=== PATIENT | male | born 1945 | race Caucasian/White ===

== ENCOUNTER → 2017-01-06 | Outpatient (CLI) | payer MEDICARE ==
[2017-01-06 13:44] LABS: Blood Urea Nitrogen 24 mg/dL (9-20); Non-African American GFR(MDRD) >60 (>60 ml/min/1.73 sqM)
== END | disposition home or self-care (01) ==
LOC: LABWHC1 13:06
PROVIDERS: ATTEND Physical Medicine & Rehabilitation
DX: Z01.812 Encounter for preprocedural laboratory examination (principal); M54.5 Low back pain; G60.9 Hereditary and idiopathic neuropathy, unspecified; M48.06 Spinal stenosis, lumbar region; M21.371 Foot drop, right foot; M41.26 Other idiopathic scoliosis, lumbar region; M51.17 Intervertebral disc disorders with radiculopathy, lumbosacral region; M47.817 Spondylosis without myelopathy or radiculopathy, lumbosacral region
CPT/HCPCS: 36415; 82565; 84520

== ENCOUNTER → 2017-12-02 | Outpatient (CLI) | payer MEDICARE ==
[2017-12-02 13:32] LABS: Appearance,Urine Clear (Clear); Bilirubin,Urine Negative (Negative); Blood,Urine Negative (Negative); Color,Urine Light Yellow; Glucose,Urine (UA) Negative (Negative); Ketones,Urine Negative (Negative); Leukocyte Esterase,Urine Negative (Negative); Nitrite,Urine Negative (Negative); Protein,Urine Negative (Negative); Specific Gravity,Urine 1.015 (1.001-1.035); Urobilinogen,Urine <2.0 mg/dL (<2.0)
[2017-12-02 13:33] LABS: Basophils # (A) 0.1 k/uL (0-0.2); Basophils % (A) 1 %; Eosinophils # (A) 0.1 k/uL (0-0.7); Eosinophils % (A) 2 %; HCT 39.8 % (39.0-53.0); HGB 13.8 gm/dL (13.0-17.5); Lymphocytes # (A) 0.8 k/uL (1.0-4.8); Lymphocytes % (A) 12 %; MCH 31.7 pg (25.0-35.0); MCHC 34.8 g/dL (31.0-37.0); MCV 91.1 fL (80.0-100.0); Mean Platelet Volume 6.5; Monocytes # (A) 0.4 k/uL (0-1.0); Monocytes % (A) 6 %; Neutrophils # (A) 5.1 k/uL (1.3-7.7); Neutrophils % (A) 77 %; Platelet Count 265 k/uL (150-450); RBC 4.37 m/uL (4.30-5.90); RDW 12.6 % (11.5-15.5); WBC 6.6 k/uL (3.8-10.6)
[2017-12-02 13:42] LABS: Calcium 9.8 mg/dL (8.4-10.2); Potassium 5.6 mmol/L (3.5-5.1)
[2017-12-02 13:47] LABS: Partial Thromboplastin Time 22.6 sec (22.0-30.0); Prothrombin Time 9.6 sec (9.0-12.0)
--- NOTE | 2017-12-02 13:48 | XR ---
EXAMINATION TYPE: XR chest 2V DATE OF EXAM: 12/02/2017 COMPARISON: Prior chest x-ray June 28, 2015. HISTORY: History of COPD. Prelumbar surgery. TECHNIQUE: Frontal and lateral views of the chest are obtained. FINDINGS: Underlying emphysematous change is redemonstrated. There is no focal air space opacity, pl eural effusion, or pneumothorax seen. The cardiac silhouette size is within normal limits. There is multilevel spurring in thoracic spine again seen. IMPRESSION: Chronic emphysematous change without acute pulmonary process.
== END | disposition home or self-care (01) ==
LOC: LABPAT 12:23
PROVIDERS: ATTEND Orthopaedic Surgery Orthopaedic Surgery of the Spine
DX: Z01.818 Encounter for other preprocedural examination (principal); J43.9 Emphysema, unspecified; M48.00 Spinal stenosis, site unspecified; Z79.01 Long term (current) use of anticoagulants; Z01.812 Encounter for preprocedural laboratory examination
CPT/HCPCS: 36415; 71046; 80048; 81003; 85025; 85610; 85730; 87070; 93005

== ENCOUNTER → 2017-12-07 | Outpatient (CLI) | payer MEDICARE | END | disposition home or self-care (01) | LOC: LABPAT 10:56 | PROVIDERS: ATTEND Orthopaedic Surgery Orthopaedic Surgery of the Spine | DX: Z01.812 Encounter for preprocedural laboratory examination (principal) | CPT/HCPCS: 36415; 84132 ==

== ENCOUNTER 2017-12-08 06:33 | Inpatient (IN) | payer MEDICARE ==
[2017-11-30 08:42] VITALS: BMI 26.3
[~2017-12-08 06:33] MED LIST: BACITRACIN 50,000 UNIT, POLYMYXIN B 500,000 UNIT in SODIUM CHLORIDE 0.9% IRRIGATIO 1,00... IRRIGATION ONE
[2017-12-08] MEDS ORDERED: LIDOCAINE 1% 20 ML VIAL (10MG/ML) FOR IV START INTRADERMA PRN (07:02)
[2017-12-08] MEDS ORDERED: MORPHINE SULFATE 4MG/4ML SYRG IV PRN (07:02)
[2017-12-08] MEDS ORDERED: ONDANSETRON 4 MG/2 ML VIAL IVP ONE (07:02)
[2017-12-08] MEDS ORDERED: LACTATED RINGERS 1,000 ML IV SCH (07:02)
[2017-12-08] MEDS ORDERED: LIDOCAINE 1% INJ 10MG/ML (20 ML MDV) ONE ×2 (08:14→08:30)
[2017-12-08] MEDS ORDERED: SUCCINYLCHOLINE CHLORIDE 100 MG/5 ML SYR IV ONE (08:30)
[2017-12-08] MEDS ORDERED: PHENYLEPHRINE-0.9% NACL SYG 1 MG/10 ML SYRINGE ONE (08:30)
[2017-12-08] MEDS ORDERED: MIDAZOLAM 2 MG/2 ML VIAL ONE (08:30)
[2017-12-08] MEDS ORDERED: PROPOFOL 10 MG/ML 20 ML VIAL IV ONE (08:30)
[2017-12-08] MEDS ORDERED: fentaNYL (PF) 50 MCG/ML 2 ML AMP ONE (08:30)
[2017-12-08] MEDS ORDERED: ePHEDrine SULFATE/0.9% NACL/PF 50 MG/5 ML SYRINGE IV ONE (08:30)
[2017-12-08] MEDS ORDERED: THROMBIN (BOVINE) 5,000 UNIT VIAL TOPICAL ONE (09:06)
[2017-12-08] MEDS ORDERED: ceFAZolin 1,000 MG/50 ML BAG (PMX) IVPB ONE (09:06)
[2017-12-08] MEDS ORDERED: LIDOCAINE 0.5%-EPI 1:200,000 50 ML VIAL SQ ONE (09:06)
[2017-12-08] MEDS ORDERED: GELATIN SPONGE,ABSORB (LARGE) 1 EACH SPONGE TOPICAL ONE (09:06)
[2017-12-08] MEDS ORDERED: LACTATED RINGERS 1,000 ML IV ONE (10:20)
--- NOTE | 2017-12-08 11:42 | XR ---
Fluoroscopy INDICATION: Pain FINDINGS: Fluoroscopy time: 1 minute 26 seconds. Images obtained: 5. IMPRESSIONS: 1. Documentation of fluoroscopy.
[2017-12-08] MEDS ORDERED: MAGNESIUM HYDROXIDE 2,400 MG/10 ML CUP PO PRN (11:49)
[2017-12-08] MEDS ORDERED: BENZOCAINE/MENTHOL LOZENG 1 EACH LOZENGE MUCOUS MEM PRN (11:49)
[2017-12-08] MEDS ORDERED: MORPHINE SULFATE 4MG/4ML SYRG IVP PRN ×2 (11:49)
[2017-12-08] MEDS ORDERED: HYDROcodone/APAP 5-325MG 1 EACH TAB PO PRN ×2 (11:50→11:53)
[2017-12-08] MEDS ORDERED: ONDANSETRON 4 MG/2 ML VIAL IVP PRN (11:50)
[2017-12-08] MEDS ORDERED: ALBUTEROL NEBULIZED 2.5 MG/3 ML INHALATION PRN (11:53)
--- NOTE | 2017-12-08 12:00 | P.OP ---
Date of Procedure: 12/08/17 Preoperative Diagnosis: Spinal stenosis L4 5, degenerative disc disease L4 5, facet arthrosis L4 5, low back pain with lower extremity radiculopathy Postoperative Diagnosis: same Anesthesia: GETA Pathology: none sent Condition: stable Disposition: PACU Description of Procedure: DESCRIPTION OF PROCEDURE(S): BRIEF OPERATIVE NOTE Preoperative Diagnosis: Spinal stenosis L4 5, degenerative disc disease L4 5, facet arthrosis L4 5, low back pain with lower extremity radiculopathy Postoperative Diagnosis: Same Procedure: Laminectomy and decompression with wide bilateral foraminotomy and facetectomy L4 5 Minimally invasive Posterior lateral decompression and fusion L4 5 Minimally invasive Transforaminal lumbar interbody fusion for a 360 fusion L4 5 Discectomy for decompression L4 5 Placement of interbody graft L4 5 Harvesting of bone marrow aspirated be of the pedicle and vertebral body of L4 Local autogenous bone grafting Use of Cell Saver Use of bone graft extenders Surgeon: Dr. Sharp Principal Process Engineer: Jonh LOUIS who is present throughout the entire the case persistence during positioning, dissection, exposure, visualization, and all crucial elements of the case as well as closure. Anesthesia: General anesthesia Estimated blood loss: Approximately 200 mL Complications: None apparent Components implanted: K2M minimally invasive Agate pedicle screw system with cascade ear interbody cage and 1 osteoamp sponge and DBX bone fibers to supplemental local autogenous bone graft and bone marrow aspirate Disposition: To recovery room in good stable condition. OPERATIVE INDICATIONS The patient has had long-standing issues in their lower back and lower extremities. He was found have severe changes particular at L4 5 with severe disc degeneration spinal stenosis and facet arthrosis. These findings correlate well with his low back and lower extremity symptoms. The patient has been through conservative treatment. He was not having any prolonged and affect despite aggressive conservative treatment. We discussed various treatment options including surgery, and the patient wishes to proceed with surgery We discussed the risk, patient's alternatives and benefits of surgery including but not limited to, risk of bleeding risk of infection, risk of need for further surgery, risk of decreased, loss of motion, muscle function, malunion nonunion, hardware failure, nerve damage, paralysis, heart attack, blindness and . OPERATIVE SUMMARY After discussing all the risks, patient alternatives and benefits at length, the patient elected to proceed with surgical intervention, signed informed consent, and presented for their procedure. The patient was seen and examined in the preoperative holding area and the surgical site was marked. The patient was given antibiotics and brought to the operating room. The patient was sedated and intubated by anesthesia in standard fashion. The patient was positioned on to the operating room table in a prone position on the appropriate frame which was well-padded and well molded. We were careful to pad any bony prominences and pressure points. We were careful to maintain the patient's cervical spine and good neutral alignment and position throughout. The patient was prepped and draped in a normal standard fashion. An appropriate timeout and keystone protocol performed. We were able to proceed with the surgery. The local wound area was infiltrated with local anesthetic. I was able utilize C-arm guidance to establish appropriate position over the pedicles bilaterally at the appropriate levels at L4 5. With the appropriate levels confirmed was able to make small stab incisions over the appropriate pedicle sites bilaterally. Utilizing C-arm in his house able to establish a Jamshidi needle over the lateral aspect of the pedicle and advanced the trocar into the pedicle being careful not to breech superiorly inferiorly medially or laterally. Position was confirmed regularly with AP and lateral images on C- arm. I was able to establish the trocar into the pedicle appropriately into the posterior aspect of the vertebral body bilaterally at the appropriate levels. This was done at each of the pedicle positions and each of the vertebrae. I was able place the guidewire into the trocar and into the vertebral body appropriately under C-arm guidance. Dissection was taken down over the wire to the appropriate starting position for the screw placed. The appropriate length screw was chosen, threaded over the guidewire and screwed appropriately into the pedicle and vertebral body under C-arm guidance in excellent alignment and position with good bony purchase. This is done at each of the screw sites at the appropriate levels of L4 and L5. With the screws intact I extended the incision to connect the screw hole sites on the most symptomatic side on the right. I dissected down to establish access over the pars and lamina to the base of the spinous process. I was able to expose the facet joint. The capsule the facet was taken down and showed some facet arthrosis at the joint. There is severe facet arthrosis at the joint. I was able to use a combination of curettes and Kerrison rongeurs and a high-speed drill to take down the facet joint and do a facetectomy. Partial laminectomy was also performed. I was able get excellent foraminal decompression and central decompression with undermining across midline to perform a laminectomy centrally and contralaterally. As able get good central decompression. The ligamentum flavum was taken down to further decompress centrally and at bilateral neural foramen. I was able to expose the disc space and visualize the traversing nerve root. Note was made of some disc protrusion at the level causing further compression of the nerve root. I was able to establish a annulotomy at the appropriate level protecting soft tissue and neural structures. There is severe narrowing of the disc space itself. Note was made of some significant disc desiccation at the disc. I performed a complete discectomy with accommodation of curettes and rasps and scrapers. I was able get good endplate preparation at the disc space. I sized for the appropriate size interbody spacer protecting the soft tissue and neural structures. The wound was copiously irrigated and suctioned dry. There is no evidence of any dural tear or leak. I was able to pack the disc space with local autogenous bone graft as well as a small amount of bone graft which was also placed into the interbody cage itself. Protecting the soft tissue structures and neural structures I was able place the interbody cage in good alignment and good position with good fit and fill at the interbody space at L4 5. His issues was confirmed with C-arm guidance. Good hemostasis maintained. There is no evidence of any dural tear or leak. The wound was irrigated and suctioned dry. With the hardware intact, intraoperative C-arm imaging was again taken which showed good alignment and position of the hardware at the appropriate levels at L4 5. We were then able to measure, contour and place the rods and appropriate hardware bilaterally. I was able to place capcrews, tighten them down, and torque them with the torque screwdriver appropriately. With this intact I was able to place the local autogenous bone graft with additional bone graft enhancer as necessary into the posterior lateral gutters over the decorticated transverse processes. The remainder of the bone graft was placed over the facet joint on the contralateral side after taking down the facet joint capsule. With the bone graft intact, a stable construct, and good decompression at the appropriate levels, we were able to proceed with closure. Good hemostasis was maintained. There is no evidence of dural tear or leak. The fascia was closed for a watertight closure. he subcuticular tissue was closed with absorbable suture. The wound was cleaned and dried and dressed with the appropriate dressing. The drapes were broken down. The patient was gently rolled back onto their hospital bed being careful to maintain their cervical spine and good neutral alignment and position. They were woken up by anesthesia, extubated, and brought to the recovery room in good stable condition. The patient will be admitted to the hospital for appropriate postoperative care , medical management and monitoring. We will continue to follow them closely about the postoperative course.
[2017-12-08] MEDS: fentaNYL (PF) 50 MCG/ML 2 ML AMP IV ONE ×2 (12:03→12:15)
[2017-12-08] MEDS ORDERED: MEPERIDINE 50 MG/ML SYRINGE IVP ONE (12:35)
[2017-12-08] MEDS: DIAZEPAM 5 MG TAB PO PRN ×2 (13:38→19:20)
[2017-12-08] MEDS: HYDROcodone/APAP 5-325MG 1 EACH TAB PO PRN ×3 (13:57→23:33)
[2017-12-08] MEDS: SODIUM CHLORIDE 0.9% 1,000 ML IV SCH (16:56)
[2017-12-08] MEDS: MORPHINE SULF 5MG/10ML VL IVP STA ×2 (16:57→20:00)
[2017-12-08] MEDS: ceFAZolin IN SWFI 2 GM/20 ML SYRINGE IVP SCH ×2 (19:23→23:33)
[2017-12-08] MEDS ORDERED: SODIUM CHLORIDE 0.9% 250 ML IV ONE (19:36)
[2017-12-08] MEDS ORDERED: MORPHINE SULF 5MG/10ML VL IV STA (19:48)
[2017-12-09] MEDS: DIAZEPAM 5 MG TAB PO PRN ×2 (00:49→08:52)
[2017-12-09] MEDS: HYDROcodone/APAP 5-325MG 1 EACH TAB PO PRN ×4 (06:23→23:32)
[2017-12-09] MEDS: LEVOTHYROXINE 50 MCG TAB PO SCH (06:23)
[2017-12-09] MEDS: SODIUM CHLORIDE 0.9% 1,000 ML IV SCH ×2 (06:23→16:43)
[2017-12-09 07:28] LABS: Basophils % (A) 0 %; Eosinophils # (A) 0.1 k/uL (0-0.7); Eosinophils % (A) 1 %; HCT 35.5 % (39.0-53.0); HGB 12.2 gm/dL (13.0-17.5); Lymphocytes # (A) 0.5 k/uL (1.0-4.8); Lymphocytes % (A) 4 %; MCH 31.5 pg (25.0-35.0); MCHC 34.4 g/dL (31.0-37.0); MCV 91.5 fL (80.0-100.0); Mean Platelet Volume 6.5; Monocytes # (A) 0.9 k/uL (0-1.0); Monocytes % (A) 7 %; Neutrophils # (A) 10.1 k/uL (1.3-7.7); Neutrophils % (A) 86 %; Platelet Count 180 k/uL (150-450); RBC 3.88 m/uL (4.30-5.90); RDW 12.8 % (11.5-15.5); WBC 11.7 k/uL (3.8-10.6)
[2017-12-09 07:45] LABS: Anion Gap 11 mmol/L; Blood Urea Nitrogen 19 mg/dL (9-20); Calcium 8.8 mg/dL (8.4-10.2); Carbon Dioxide 29 mmol/L (22-30); Chloride 100 mmol/L (98-107); Glucose 98 mg/dL (74-99); Sodium 140 mmol/L (137-145)
[2017-12-09] MEDS: FINASTERIDE 5 MG TAB PO SCH (08:51)
[2017-12-09] MEDS: SENNOSIDES-DOCUSATE SODIUM 1 EACH TAB PO SCH (08:52)
--- NOTE | 2017-12-09 09:33 | P.PN ---
Progress Note - Text Progress Note Date: 12/09/17 Postoperative day #1 Patient is seen and examined today at bedside. The patient has some pain around the surgical site as expected. Pain is being controlled with medication. He is having some trouble urinating and had to be straight cathed overnight. He has some small amount of urine today and he is trying again this morning. We were able to stand him up and have him walk to the bathroom with assistance morning. He is showing some slight lethargy which is likely related to medications Physical Exam Afebrile with stable vital signs Abdomen is soft nontender. Chest has good excursion deep and space expiration The incision site is clean dry and intact. No erythema there is no purulence. Dressings overall clear. There is no active drainage. Extremities have not had neurologic change from prior to surgery. He has sustained dorsal to plantar flexion and EHL. He is able ambulate in his room with his walker with stand by assistance Calves and thighs were soft nontender without evidence of DVT. Assessment/Plan Postoperative day #1 status post minimally invasive decompression and fusion at L4 5 for his spinal stenosis with degenerative disease and lower extremity radiculopathy Patient is progressing as expected from the surgery. He is having some pain as expected but seems to be controlled adequately in terms of pain. He is having some slight lethargy and I like to see how he does as he perks up today. He had normal urine this morning and is standing up trying to urinate now. Hopefully this will improve so that he can move forward with this otherwise he' ll need continued straight cath as needed. We will continue to increase the patient's mobilization with therapy. We will continue pain control with oral or IV medications. We will have case management see him for discharge planning as well. We'll continue to follow patient closely.
[2017-12-09] MEDS ORDERED: HYDROmorphone 2 MG TAB PO PRN (13:34)
[2017-12-09] MEDS ORDERED: HYDROmorphone 4 MG TABLET PO PRN (13:34)
[2017-12-09] MEDS: LISINOPRIL-HCTZ 20-12.5 MG 1 EACH TAB PO SCH (16:43)
--- NOTE | 2017-12-09 22:43 | PN ---
PROGRESS NOTE DATE OF SERVICE: 12/09/2017 PRESENTING COMPLAINT: Lumbar surgery. INTERVAL HISTORY: Patient status post lumbar surgery. Did walk to the bathroom today, made urine. Having some operative site pain. No nausea, vomiting, did tolerate some breakfast. REVIEW OF SYSTEMS: Done for constitutional, cardiovascular, GI, pulmonary; relevant findings as above. CURRENT MEDICATIONS: Reviewed. EXAMINATION: Temperature 99.4, pulse 107, respirations 20, blood pressure 105/54, pulse ox 93% on room air. GENERAL APPEARANCE: Sitting up, awake. EYES: Pupils equal. Conjunctivae normal. HEENT: External nose and ears normal. Oral cavity normal. NECK: JVD not raised. Mass not palpable. RESPIRATORY: Effort normal. LUNGS: Slightly decreased breath sounds. CARDIOVASCULAR: First and second sounds normal. No edema. ABDOMEN: Soft, nontender. Liver and spleen not palpable. PSYCHIATRY: Alert and oriented x3. Mood and affect normal. INVESTIGATIONS: White count 11.7, hemoglobin 12.2. Potassium 4.0. ASSESSMENT: 1. Status post lumbar surgery. 2. Chronic obstructive pulmonary disease in an ex-smoker. 3. Essential hypertension. 4. Benign prostatic hypertrophy. 5. Hypothyroid. PLAN: Continue current medication and treatment plan. Care was discussed with the patient. Encouraged to ambulate. MMODL / IJN: [id number] /
--- NOTE | 2017-12-10 00:04 | CONS ---
CONSULTATION DATE OF CONSULTATION: 12/08/2017 REASON FOR CONSULTATION: Medical management requested by Dr. Sharp. CONSULTATION: This is a patient I saw yesterday evening dictation, hence I am repeating it. This is a very pleasant gentleman who follows Dr. Freitas. Chronic stable medical conditions include COPD, hypertension, BPH, hypothyroid. The patient has undergone lumbar surgery by Dr. Shannon. The patient was having low back pain, which is radiating down the leg. The patient having trouble with the same and with no improvement decided to proceed with surgical intervention. Post procedure, patient is having pain. No nausea, vomiting. The patient ate a very small amount. REVIEW OF SYSTEMS: CONSTITUTIONAL: None. HEENT: None. RESPIRATORY: None. CARDIOVASCULAR: None. GASTROINTESTINAL: None. GENITOURINARY: None. MUSCULOSKELETAL: Pain at the operative site. DERMATOLOGICAL: None. HEMATOLOGIC: None. LYMPHATIC: None. PSYCHIATRY: None. NEUROLOGICAL: None. 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 PAST SURGICAL HISTORY: Right hip replacement, epidural steroid injection. SOCIAL HISTORY: Patient smoked a pack a day for 50 years, stopped in 2016. Lives by himself. 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 FAMILY HISTORY: Bladder tumor. HOME MEDICATIONS: 1. Benadryl 25 p.o. daily p.r.n. 2. Nicotine patch. 3. Zestoretic 20/12.5 one tab p.o. daily. 4. Synthroid 50 mcg p.o. daily. 5. Proscar 5 mg p.o. daily. 6. Ventolin HFA 1 or 2 puffs q.6h p.r.n. ALLERGIES: IODINE. PHYSICAL EXAMINATION: Temperature 97.8, pulse 103, respiratory 18, blood pressure 160/63, pulse 95% on 2 L. GENERAL APPEARANCE: Lying in bed, tired-appearing. EYES: Pupils equal. Conjunctivae normal. HEENT: External nose and ears normal. Oral cavity normal. NECK: JVD unable to assess. Mass not palpable. Respiratory effort normal. LUNGS: Diminished breath sounds. CARDIOVASCULAR: 1st and 2nd sounds normal. No edema. ABDOMEN: Soft, nontender, liver and spleen not palpable. LYMPHATIC: No lymph nodes palpable in the neck or axillae. PSYCHIATRY: Alert and oriented x3. Mood and affect normal. NEUROLOGIC: Pupils grossly intact. Power and sensation grossly intact. INVESTIGATIONS: Preop blood work from 12/02/2017 shows white count 6.6, hemoglobin 13.8, potassium 4.5, BUN 23, creatinine 1.0. ASSESSMENT: 1. Spinal stenosis L4-L5, degenerative joint disease with lower extremity radiculopathy followed by surgical intervention. 2. Chronic obstructive pulmonary disease in an ex-smoker. 3. Essential hypertension. 4. Benign prostatic hypertrophy. 5. Hypothyroid. PLAN: Home medications are resumed. Pain control is in place including IV Dilaudid and [place]. Also . The patient will be followed. Additional note: The patient was seen by me yesterday evening on 12/08/2017 and I am repeating this dictation. MMODL / IJN: [id number] /
[2017-12-10] MEDS: HYDROcodone/APAP 5-325MG 1 EACH TAB PO PRN ×5 (03:24→22:40)
[2017-12-10] MEDS: LEVOTHYROXINE 50 MCG TAB PO SCH (06:10)
--- NOTE | 2017-12-10 08:34 | P.PN ---
Progress Note - Text Progress Note Date: 12/10/17 Orthopedic Spine Patient is a pleasant 72-year-old male who is seen and examined at the bedside following posterior lateral decompression and fusion performed Wednesday. Patient states they are doing fairly well postsurgically. He has had some improvement as compared to yesterday. He states his right lower extremity radiculopathy which was severe prior surgical intervention has significantly subsided. He does continue to have pain at the surgical sites of the lumbar spine. He has been able to ambulate to the restroom. He states therapy has not had him ambulate to the hallways. He was having some difficulty with urinary retention postsurgically. He underwent straight catheterization Wednesday night. He states he has had some improvement with his urination and did not have to undergo straight catheterization last night. He has not had a bowel movement postsurgically. He is passing gas and denies any abdominal pain. He is eating without significant difficulty. He is moving his legs freely without difficulty. Nursing states his family has some concerns about patient going home independently. Patient is moving well given his postoperative day #[address] status[address] place with case management to help set up home care at the time of discharge. Patient currently does not complain of nausea, vomiting, fever, or chills. He has been eating without difficulty. Patient states pain has been adequately controlled. Physical Exam Lumbar Fusion: Status post surgical day number 2 Patient is awake, alert, and oriented 3 sitting comfortably in a bedside chair Vital signs stable Good chest excursion with deep inspiration and expiration Abdomen soft nontender Dorsiflexion, plantarflexion, and extensor hallucis longus positive sustained bilaterally No signs or symptoms of DVT; no calf pain; pneumatic cuffs not currently intact bilateral lower extremities Dressing is dry and intact; no erythema, purulence, or signs of infection Mild dried blood on the dressing at the surgical sites with no active drainage Some pain with palpation over the surgical sites Neurovascularly intact bilaterally lower extremities Assessment: L4-5 minimally invasive posterior lateral decompression and fusion with transforaminal lumbar interbody fusion Lumbar spinal stenosis Low back pain Right lower extremity radiculopathy Post surgical urinary retention which is resolving Plan: 1. Ambulate as tolerated; work with Physical Therapy to increase mobilization 2. Continue pain control with IV and oral medications; patient will be given a prescription for [place] 5 mg/325 mg 1-2 tabs every 6 hours as needed for pain, dispense #90 at discharge; prescription is written, signed and already placed in his chart in preparation for discharge 3. Telfa and Tegaderm dressing to remain intact; dressing may be changed prior to discharge 4. Medical management can continue to manage patient for patient's other medical issues 5. We will continue to follow the patient closely; if the patient continues to improve and does not have a setback in regards to urinary retention, we'll plan for discharge home as early as tomorrow, 12/11/2017, with home health services 6. Patient can follow-up with Jonh Perez PA-C or Dr. Luis Sharp at [facility] in 2-3 weeks following discharge 7. Plan has been discussed in detail with Dr. Luis Sharp and he agrees with this plan
[2017-12-10] MEDS: FINASTERIDE 5 MG TAB PO SCH (08:40)
[2017-12-10] MEDS: SENNOSIDES-DOCUSATE SODIUM 1 EACH TAB PO SCH (08:41)
[2017-12-10] MEDS: LISINOPRIL-HCTZ 20-12.5 MG 1 EACH TAB PO SCH (08:41)
--- NOTE | 2017-12-10 17:59 | PN ---
PROGRESS NOTE DATE OF SERVICE: 12/10/2017 PRESENTING COMPLAINT: Lumbar surgery. INTERVAL HISTORY: Patient is status post lumbar surgery. Pain is a bit better controlled. Did actually walk out in the hallway to the bathroom. Has been tolerating his diet better. No bowel movement. No nausea or vomiting. Pain is somewhat better. REVIEW OF SYSTEMS: Done for constitutional, cardiovascular, GI, pulmonary, musculoskeletal; relevant findings as above. CURRENT MEDICATIONS: Reviewed. PHYSICAL EXAMINATION: Temperature 98.7, pulse 108, respiration 20, blood pressure 112/60, pulse ox 96% on room air. GENERAL APPEARANCE: Lying in bed. More comfortable today. EYES: Pupils equal. Conjunctivae normal. HEENT: External appearance of nose and ears normal. Oral cavity normal. NECK: JVD not raised. Mass not palpable. RESPIRATORY: Effort normal. LUNGS: Decreased breath sounds. CARDIOVASCULAR: First and second sounds normal. No edema. ABDOMEN: Soft, nontender. Liver and spleen not palpable. PSYCHIATRY: Alert and oriented x3. Mood and affect normal. INVESTIGATIONS: No blood work from today. ASSESSMENT: 1. Status post lumbar surgery. 2. Chronic obstructive pulmonary disease in an ex-smoker. 3. Essential hypertension. 4. Benign prostatic hypertrophy. 5. Hypothyroid. PLAN: Continue current medication and treatment plan. Will follow. MMODL / IJN: [id number] /
[2017-12-10] MEDS: DIAZEPAM 5 MG TAB PO PRN (19:52)
[2017-12-11] MEDS: HYDROcodone/APAP 5-325MG 1 EACH TAB PO PRN ×5 (04:14→22:13)
[2017-12-11] MEDS: LEVOTHYROXINE 50 MCG TAB PO SCH (06:25)
[2017-12-11] MEDS: FINASTERIDE 5 MG TAB PO SCH (08:27)
[2017-12-11] MEDS: LISINOPRIL-HCTZ 20-12.5 MG 1 EACH TAB PO SCH (08:28)
[2017-12-11] MEDS: SENNOSIDES-DOCUSATE SODIUM 1 EACH TAB PO SCH (08:33)
--- NOTE | 2017-12-11 10:02 | P.PN ---
Progress Note - Text Progress Note Date: 12/11/17 Postoperative day #3 Patient is seen and examined today at bedside. The patient has some pain around the surgical site as expected. Pain is being controlled with medication. He has been able to get up and mobilize to take walks with his walker and standby assist. He is actually moving very well but he is still hesitant with his mobilization. He says he feels unsteady and he is up. Physical Exam Afebrile with stable vital signs Abdomen is soft nontender. Chest has good excursion deep and space expiration The incision site is clean dry and intact. No erythema there is no purulence. His dressing is clean and dry there is no active drainage Extremities have not had neurologic change from prior to surgery. He has sustained dorsal flexion plantar flexion and EHL intact Calves and thighs were soft nontender without evidence of DVT. Assessment/Plan Postoperative day #3 status post minimally invasive decompression and fusion L4 5 for his stenosis with degenerative disc disease and lower extremity radiculopathy Patient is progressing as expected from the surgery. He still feels somewhat unsteady but he is moving fairly well when he gets up. He was hopeful to go to senior living but apparently he is doing too well to qualify for inpatient senior living facility and he is planning to go home with home health. I think that he needs 1 more day to get more steady on his feet and to be safely amatory on his own before he can be discharged and we will plan for hopeful discharge tomorrow. His mentation has improved significantly and his pain control is doing well. He will need a home walker with wheels and a shower chair after discharge. We will continue to increase the patient's mobilization with therapy. We will continue pain control with oral or IV medications. We'll continue to follow patient closely.
--- NOTE | 2017-12-11 22:00 | PN ---
PROGRESS NOTE DATE OF SERVICE: 12/11/2017 PRESENTING COMPLAINT: Lumbar surgery. INTERVAL HISTORY: Patient is status post lumbar surgery, doing much better. Pain is better controlled. Has not had a bowel movement. I saw the patient this morning today, eating much better. No nausea, vomiting. REVIEW OF SYSTEMS: Done for constitutional, cardiovascular, GI, pulmonary, musculoskeletal; relevant findings as above. CURRENT MEDICATIONS: Reviewed. EXAMINATION: Temperature 97.8, pulse 100, respirations 16, blood pressure 111/63, pulse ox 95% on room air. GENERAL APPEARANCE: Sitting at the edge of the bed, more comfortable today. EYES: Pupils equal. Conjunctivae normal. HEENT: External nose, ears, oral cavity normal. NECK: JVD not raised. Mass not palpable. RESPIRATORY: Effort normal. LUNGS: Decreased breath sounds. First and second sounds normal. No edema. ABDOMEN: Soft, nontender. Liver and spleen not palpable. PSYCHIATRY: Alert and oriented x3. Mood and affect were normal. INVESTIGATIONS: No blood work from today. ASSESSMENT: 1. Status post lumbar surgery. 2. Chronic obstructive pulmonary disease in an ex-smoker. 3. Essential hypertension. 4. Benign prostatic hypertrophy. 5. Hypothyroid. PLAN: Patient continues to improve. Patient has taken a laxative, hopefully will have a bowel movement later today. MMODL / IJN: [id number] /
[2017-12-12] MEDS: HYDROcodone/APAP 5-325MG 1 EACH TAB PO PRN ×4 (06:06→19:24)
[2017-12-12] MEDS: LEVOTHYROXINE 50 MCG TAB PO SCH (06:07)
[2017-12-12] MEDS: SENNOSIDES-DOCUSATE SODIUM 1 EACH TAB PO SCH (07:33)
[2017-12-12] MEDS: FINASTERIDE 5 MG TAB PO SCH (07:34)
[2017-12-12] MEDS: LISINOPRIL-HCTZ 20-12.5 MG 1 EACH TAB PO SCH (07:34)
--- NOTE | 2017-12-12 10:02 | P.PN ---
<Yolis Chen - Last Filed: 12/12/17 09:58> Subjective Progress Note Date: 12/12/17 Principal diagnosis: Status post minimally invasive decompression and fusion of L4 to L5 This is a 72 year-old male post minimally invasive decompression and fusion of L4 to L5. This is post-op day 4. The patient was evaluated at the bedside today. The patient denies nausea, vomiting, abdominal pain, shortness of breath , and chest pain this morning. He states his pain is controlled at this time. The patient has been up to the bathroom with a walker and stand by assist. 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 His legs are feeling better since surgery. Objective - Vital Signs Vital signs: Vital Signs Temp 97.6 F 12/12/17 06:46 Pulse 95 12/12/17 06:46 Resp 16 12/12/17 06:46 BP 103/55 12/12/17 06:46 Pulse Ox 95 12/12/17 06:46 Intake & Output 12/11/17 12/12/17 12/12/17 18:59 06:59 18:59 Other: Voiding Method Toilet Toilet Urinal Urinal # Voids 4 1 - Exam The patient does not appear in acute distress. Alert and orientated x3. Dressing is clean dry and intact. Incision appears fine with no erythema or active drainage. Calves are soft and nontender. Good foot and ankle motion without difficulty, EHL intact.. Sensation and circulatory status is intact. - Labs CBC & Chem 7: 12/09/17 07:05 12/09/17 07:05 Assessment and Plan (1) Status post lumbar spinal fusion Current Visit: Yes Status: Acute Code(s): Z98.1 - ARTHRODESIS STATUS SNOMED Code(s): 99073812243025 (2) Spinal stenosis Current Visit: Yes Status: Acute Code(s): M48.00 - SPINAL STENOSIS, SITE UNSPECIFIED SNOMED Code(s): 78787123 Plan: 1. Continue pain control 2. Continue physical therapy and ambulation 3. Anticipate discharge home with homecare tomorrow <Sydnee Sharp - Last Filed: 12/12/17 18:36> Objective - Vital Signs Vital signs: Vital Signs Temp 98 F 12/12/17 15:40 Pulse 101 H 12/12/17 15:40 Resp 20 12/12/17 15:40 BP 116/68 12/12/17 15:40 Pulse Ox 92 L 12/12/17 15:40 Intake & Output 12/11/17 12/12/17 12/12/17 18:59 06:59 18:59 Other: Voiding Method Toilet Toilet Urinal Urinal # Voids 4 1 3 - Labs CBC & Chem 7: 12/09/17 07:05 12/09/17 07:05 Assessment and Plan Plan: Patient is seen and examined today at bedside. I agree with the above. We anticipate discharge home tomorrow. He has not yet had a bowel movement but is passing gas well. He had a dose of lactulose today and feels that he will have bowel movement today. He should be ready for discharge home tomorrow. He is alone at home without any assistance and so we certainly needed to make sure that he he would be safe alone at home after discharge.
[2017-12-12] MEDS ORDERED: LACTULOSE 20 GM/30 ML CUP PO ONE (12:45)
--- NOTE | 2017-12-12 16:19 | PN ---
PROGRESS NOTE DATE OF SERVICE: December 12, 2017. PRESENTING COMPLAINT: Lumbar surgery. INTERVAL HISTORY: Patient status post lumbar surgery. Pain is much better controlled. Tolerating a diet. Still not had a bowel movement. Did get laxatives. Up and about. According to ortho, incision is healing well. REVIEW OF SYSTEMS: Done for constitutional, cardiovascular, GI, pulmonary and relevant findings as above. CURRENT MEDICATIONS: Reviewed. EXAMINATION: Temperature 97.6, pulse 95, respiration 16, blood pressure 103/55, pulse ox 95% on room air. General appearance: Sitting up comfortable. Eyes pupils are equal. Conjunctivae normal. External appearance of nose and ears normal. Oral cavity normal. Neck JVD not raised. Mass not palpable. Respiratory effort normal. Lungs decreased breath sounds. Cardiovascular first and second sounds normal. No edema. ABDOMEN: Soft, nontender. Liver and spleen not palpable. Psychiatry: Alert and oriented x3. Mood and affect normal. INVESTIGATIONS: No blood work from today. ASSESSMENT: 1. Status post lumbar surgery. 2. Chronic obstructive pulmonary disease in an ex-smoker. 3. Essential hypertension. 4. Benign prostatic hypertrophy. 5. Hypothyroid. 6. Constipation multifactorial from decreased activity and probably from pain medications. PLAN: Spoke to the patient. Also spoke to the nurse. The patient will get more laxatives. MMODL / IJN: [id number] /
[2017-12-12 21:50] VITALS: RESP 18
[2017-12-13] MEDS: HYDROcodone/APAP 5-325MG 1 EACH TAB PO PRN ×2 (01:39→08:43)
[2017-12-13] MEDS: LEVOTHYROXINE 50 MCG TAB PO SCH (06:13)
[2017-12-13] MEDS ORDERED: BISACODYL 10 MG SUPP RECTAL PRN (08:33)
[2017-12-13 08:37] VITALS: BP 124/59; PULSE 98; TEMP 97.5
--- NOTE | 2017-12-13 08:37 | P.DS ---
Providers Date of admission: 12/08/17 06:33 Expected date of discharge: 12/13/17 Attending physician: Sydnee Sharp Consults: 12/08/17 11:50 Consult Physician Routine Consulting Provider: Zhao Allen Consult Reason/Comments: medical management Do you want consulting provider notified?: Yes Primary care physician: Stated None - Discharge Diagnosis(es) (1) Spinal stenosis at L4-L5 level Current Visit: Yes Status: Acute (2) Lumbar degenerative disc disease Current Visit: Yes Status: Acute (3) Lumbar facet arthropathy Current Visit: Yes Status: Acute (4) Low back pain Current Visit: Yes Status: Acute (5) Lumbar back pain with radiculopathy affecting right lower extremity Current Visit: Yes Status: Acute (6) Status post lumbar spinal fusion Current Visit: Yes Status: Acute Hospital Course: This is a pleasant 72-year-old male who presented with L4-5 spinal stenosis, degenerative disc disease, and facet arthrosis with low back pain and lower extremity radiculopathy who failed outpatient conservative therapy. He was admitted for an L4-5 minimally invasive posterior lateral decompression and fusion with transforaminal lumbar interbody fusion. The patient tolerated the procedure well and did well postoperatively. He's had significant improvement of his right lower extremity radiculopathy that was present prior surgical intervention. He is continuing to have some pain at the surgical sites of his lumbar spine but this has continued to improve over the weekend as well. He is been ambulating with the assistance of a 2 wheeled walker. He does feel he is ready for discharge home. He has not had a bowel movement postsurgically but continues to have gas and is not currently experiencing any abdominal pain. We discussed we will continue to help facilitate him to have a bowel movement with medication and he'll be cleared for discharge home once he is able to have a bowel movement. We will plan for discharge home today pending a bowel movement. Condition on day of discharge stable. Patient will be discharged home with home health services. Patient was cleared preoperatively for surgery. Patient currently denies any nausea, vomiting, fever, or chills. Patient is eating and voiding freely without difficulty. Patient may shower Tegaderm dressing intact. Patient may remove Tegaderm dressing in 3 days and shower without a dressing at that time. Patient should keep Steri-Strips intact and allow them to fall off naturally. Patient should refrain from driving until at least after their first follow-up appointment in the office. Patient should avoid excessive bending, lifting, and twisting; no lifting greater than 10 pounds. At discharge, he is given prescriptions for Ninole 5 mg/ 325 mg 1-2 tabs every 6 hours as needed for pain, dispense #90 and Senokot-S 1 tab twice a day as needed for constipation, dispense #60. Patient should avoid anti-inflammatory medications over the next 6 weeks postoperatively. Physical Exam on day of discharge: Patient is awake, alert, and oriented 3 Vital signs stable Good chest excursion with deep inspiration and expiration Abdomen soft nontender No signs or symptoms of DVT; no calf pain Extensor hallucis longus, plantarflexion, and dorsiflexion positive sustained bilateral lower extremities Incision is clean, dry, and intact; no erythema, purulence, or signs of infection Some bruising around the right lumbar surgical site No significant pain with palpation over the surgical sites Tegaderm dressing and non-stick Telfa intact Procedures: L4-5 minimally invasive posterior lateral decompression and fusion with transforaminal lumbar interbody fusion Patient Condition at Discharge: Stable Plan - Discharge Summary Discharge Rx Participant: No New Discharge Prescriptions: New Hydrocodone/Acetaminophen [Ninole 5-325] 1 - 2 each PO Q6HR PRN #90 tab PRN Reason: Pain Sennosides-Docusate Sodium [Senokot-S] 1 tab PO BID PRN #60 tablet PRN Reason: Constipation No Action diphenhydrAMINE [Benadryl] 25 mg PO DAILY PRN PRN Reason: Sinus Symptoms HYDROcodone/APAP 5-325MG [Ninole 5-325] 2 tab PO Q8H PRN PRN Reason: Pain Lisinopril-Hctz 20-12.5 mg [Zestoretic 20-12.5] 1 tab PO DAILY Levothyroxine Sodium [Synthroid] 50 mcg PO DAILY Finasteride [Proscar] 5 mg PO DAILY Albuterol Inhaler [Ventolin Hfa Inhaler] 1 - 2 puff INHALATION RT-Q6H PRN PRN Reason: Dyspnea Nicotine 21Mg/24Hr Patch [Habitrol 21Mg/24Hr Patch] 1 patch TRANSDERM DAILY PRN PRN Reason: smoking cessation Discharge Medication List Albuterol Inhaler [Ventolin Hfa Inhaler] 1 - 2 puff INHALATION RT-Q6H PRN [History] Finasteride [Proscar] 5 mg PO DAILY 11/29/17 [History] HYDROcodone/APAP 5-325MG [Ninole 5-325] 2 tab PO Q8H PRN 11/29/17 [History] Levothyroxine Sodium [Synthroid] 50 mcg PO DAILY 11/29/17 [History] Lisinopril-Hctz 20-12.5 mg [Zestoretic 20-12.5] 1 tab PO DAILY 11/29/17 [History ] Nicotine 21Mg/24Hr Patch [Habitrol 21Mg/24Hr Patch] 1 patch TRANSDERM DAILY PRN 11/29/17 [History] diphenhydrAMINE [Benadryl] 25 mg PO DAILY PRN 11/29/17 [History] Hydrocodone/Acetaminophen [Ninole 5-325] 1 - 2 each PO Q6HR PRN #90 tab 12/10/17 [Rx] Sennosides-Docusate Sodium [Senokot-S] 1 tab PO BID PRN #60 tablet 12/13/17 [Rx] Follow up Appointment(s)/Referral(s): John Perez, ILAN [PHYSICIAN FOIL OPERATOR] - 2 Weeks (Patient may follow-up with Jonh Perez PA-C or Dr. Luis Sharp at [facility] in 2-3 weeks following discharge. ) [facility] Visiting Nurse, [NON-STAFF] - 1 Week Activity/Diet/Wound Care/Special Instructions: 1. Patient may shower with Tegaderm dressing intact until dressing is removed 2. Patient may remove Tegaderm dressing today and may shower without a dressing over the incision sites 3. Patient should keep Steri-Strips intact and allow them to fall off naturally. 4. Patient should refrain from driving until at least after their first follow- up appointment in the office. 5. Patient should avoid excessive bending, twisting, and lifting; no lifting greater than 10 pounds 6. Take medications as prescribed 7. Do not soak in tub 8. Patient may use 2 wheeled walker to aid in ambulation as needed Discharge Disposition: HOME WITH HOME HEALTH SERVICES
[2017-12-13] MEDS: FINASTERIDE 5 MG TAB PO SCH (08:44)
[2017-12-13] MEDS: SENNOSIDES-DOCUSATE SODIUM 1 EACH TAB PO SCH (08:44)
[2017-12-13] MEDS: LISINOPRIL-HCTZ 20-12.5 MG 1 EACH TAB PO SCH (08:44)
[2017-12-13] MEDS ORDERED: LACTULOSE 20 GM/30 ML CUP PO ONE (08:45)
== END 2017-12-13 11:55 | disposition home health service (06) | DRG 455 ==
LOC: 2ORMAIN 06:33 → 5MS5E 11:49
PROVIDERS: ADMIT Orthopaedic Surgery Orthopaedic Surgery of the Spine; ATTEND Orthopaedic Surgery Orthopaedic Surgery of the Spine
PROC: 0SG0071 Fusion of Lumbar Vertebral Joint with Autologous Tissue Substitute, Posterior Approach, Posterior Column, Open Approach (ICD-10-PCS; 2017-12-08)
PROC: 0ST20ZZ Resection of Lumbar Vertebral Disc, Open Approach (ICD-10-PCS; 2017-12-08)
PROC: 07DS3ZZ Extraction of Vertebral Bone Marrow, Percutaneous Approach (ICD-10-PCS; 2017-12-08)
PROC: 30233N0 Transfusion of Autologous Red Blood Cells into Peripheral Vein, Percutaneous Approach (ICD-10-PCS; 2017-12-08)
PROC: 0SG00AJ Fusion of Lumbar Vertebral Joint with Interbody Fusion Device, Posterior Approach, Anterior Column, Open Approach (ICD-10-PCS; principal; 2017-12-08 08:30)
DX: M48.062 Spinal stenosis, lumbar region with neurogenic claudication (principal); J44.9 Chronic obstructive pulmonary disease, unspecified; E03.9 Hypothyroidism, unspecified; M21.371 Foot drop, right foot; M51.16 Intervertebral disc disorders with radiculopathy, lumbar region; I10 Essential (primary) hypertension; M47.26 Other spondylosis with radiculopathy, lumbar region; N40.1 Benign prostatic hyperplasia with lower urinary tract symptoms; R33.8 Other retention of urine; H91.90 Unspecified hearing loss, unspecified ear; R53.83 Other fatigue; T50.905A Adverse effect of unspecified drugs, medicaments and biological substances, initial encounter; K59.03 Drug induced constipation; T50.995A Adverse effect of other drugs, medicaments and biological substances, initial encounter; Z85.21 Personal history of malignant neoplasm of larynx; Z87.891 Personal history of nicotine dependence; Z96.641 Presence of right artificial hip joint; Z79.890 Hormone replacement therapy; Z79.899 Other long term (current) drug therapy; Z91.041 Radiographic dye allergy status; Z92.21 Personal history of antineoplastic chemotherapy; Z92.3 Personal history of irradiation; Z83.3 Family history of diabetes mellitus; Z82.49 Family history of ischemic heart disease and other diseases of the circulatory system; Y92.239 Unspecified place in hospital as the place of occurrence of the external cause
CPT/HCPCS: 36415; 72100; 80048; 84132; 85025; 86850; 86900; 86901

== ENCOUNTER → 2020-02-07 | Outpatient (CLI) | payer MEDICARE ==
--- NOTE | 2020-02-07 11:35 | XR ---
EXAMINATION TYPE: XR elbow complete RT DATE OF EXAM: 02/07/2020 COMPARISON: NONE HISTORY: 74-year-old male M71.021. TECHNIQUE: 3 views FINDINGS: Mild spurring at both medial and lateral epicondyles. There is a wound infection back placed along th e posterior aspect of the proximal forearm. Ulceration overlying the olecranon with marked soft tissu e swelling. Some elongated 1.0 and 0.8 cm bone fragments are present in the posterior soft tissues of the distal arm. No elbow joint effusion. No fracture, subluxation, or dislocation seen. No discrete osseous erosions to suggest osteomyelitis. IMPRESSION: 1. Marked posterior soft tissue swelling. Wound VAC just distally along the posterior aspect of the p roximal forearm. 2. A couple bone densities measuring 1.0 and 0.8 cm along the posterior distal arm soft tissues. August mmend correlation with outside prior radiographs to ensure stability of these findings and to exclude the possibility of avulsion fractures from the triceps insertion/olecranon. 3. No underlying elbow joint effusion otherwise any acute osseous abnormality seen.
== END | disposition home or self-care (01) ==
LOC: RADXRMAIN 10:59
PROVIDERS: ATTEND Thoracic Surgery (Cardiothoracic Vascular Surgery)
DX: M71.021 Abscess of bursa, right elbow (principal); M79.89 Other specified soft tissue disorders; F17.210 Nicotine dependence, cigarettes, uncomplicated

== ENCOUNTER 2020-09-15 20:19 | Inpatient (IN) | payer MEDICARE ==
[2020-09-15] MEDS ORDERED: ACETAMINOPHEN TAB 500 MG TAB PO STA (20:37)
[2020-09-15] MEDS ORDERED: ALBUTEROL HFA INHALER INHALATION STA (20:38)
[2020-09-15] MEDS ORDERED: methylPREDNISolone SOD SUCCI 125 MG/2 ML VIAL IV STA (20:38)
--- NOTE | 2020-09-15 20:44 | ED ---
SOB HPI - General Chief Complaint: Shortness of Breath Stated Complaint: SOB Time Seen by Provider: 09/15/20 20:29 Source: patient Mode of arrival: ambulatory Limitations: no limitations - History of Present Illness Initial Comments: 74 year-old male patient presents to the emergency department for evaluation of shortness of breath. Patient states that he has been sick for the last 3-4 days with cough, nasal congestion, and nasal drainage. States that he has been coughing up and sputum. States he is feeling increasingly short of breath. Has been using an inhaler at home without relief. Patient does have a history of smoking for many years, quit 2 years ago. Denies any nausea or vomiting with this. Denies diarrhea. Denies loss of taste or smell. States he has felt feverish but hasn't checked his temperature. Has a history of high blood p ressure takes lisinopril. Denies any cardiac disease. Patient denies any recent rash, chest pain, abdominal pain, constipation, back pain, numbness, tingling, dizziness, weakness, hematuria, dysuria, urinary urgency, urinary frequency, headache, visual changes, or any other complaints. - Related Data Home Medications Medication Instructions Recorded Confirmed Albuterol Inhaler (Mhu) [Ventolin 1 - 2 puff INHALATION RT-Q6H PRN 11/29/17 09/15/20 Hfa Inhaler] Finasteride [Proscar] 5 mg PO DAILY 11/29/17 09/15/20 Levothyroxine Sodium [Synthroid] 50 mcg PO DAILY 11/29/17 09/15/20 Lisinopril-Hctz 20-12.5 mg 1 tab PO DAILY 11/29/17 09/15/20 [Zestoretic 20-12.5] Allergies Allergy/AdvReac Type Severity Reaction Status Date / Time Iodine and Iodide Containing Allergy Anaphylaxis Verified 09/15/20 20:43 Produc Review of Systems ROS Statement: Those systems with pertinent positive or pertinent negative responses have been documented in the HPI. ROS Other: All systems not noted in ROS Statement are negative. Past Medical History Past Medical History: Cancer, COPD, Hypertension, Prostate Disorder, Thyroid Disorder Additional Past Medical History / Comment(s): cancer epiglottis with chemo and radiation [id number] History of Any Multi-Drug Resistant Organisms: None Reported Past Surgical History: Joint Replacement Additional Past Surgical History / Comment(s): rt hip replacement, epidural ster oid injections Past Anesthesia/Blood Transfusion Reactions: No Reported Reaction Past Psychological History: No Psychological Hx Reported Smoking Status: Former smoker Past Alcohol Use History: Daily Past Drug Use History: None Reported - Past Family History Mother Family Medical History: No Reported History Father Family Medical History: Cancer Additional Family Medical History / Comment(s): malignant tumor in bladder General Exam Limitations: no limitations General appearance: alert, in no apparent distress, other (Physical well- developed, well-nourished adult male patient in mild respiratory distress. Vital signs upon presentation are temperature 99.7F oral, pulse 145, respirations 30, blood pressure 142/76, pulse ox 94% on room air.) Respiratory exam: Present: normal lung sounds bilaterally, wheezes (Faint expiratory wheezing noted in the right posterior lung vazquez.), decreased breath sounds (Throughout). Absent: respiratory distress, rales, rhonchi, stridor Cardiovascular Exam: Present: normal rhythm, tachycardia, normal heart sounds. Absent: systolic murmur, diastolic murmur, rubs, gallop, clicks GI/Abdominal exam: Present: soft, normal bowel sounds. Absent: distended, tenderness, guarding, rebound, rigid Neurological exam: Present: alert, oriented X3, CN II-XII intact Psychiatric exam: Present: normal affect, normal mood Skin exam: Present: warm, dry, intact, normal color. Absent: rash Course Vital Signs 09/15/20 09/15/20 09/15/20 20:22 20:58 21:44 Temperature 99.7 F H 99.7 F H Pulse Rate 145 H 135 H 124 H Respiratory 23 21 21 Rate Blood Pressure 142/76 144/77 O2 Sat by Pulse 94 L 97 97 Oximetry 09/15/20 22:00 Temperature Pulse Rate 123 H Respiratory 20 Rate Blood Pressure 122/90 O2 Sat by Pulse 95 Oximetry Medical Decision Making - Medical Decision Making 74-year-old male patient presents to the emergency department today for evaluation of shortness of breath, cough, sputum production. Upon arrival patient is febrile and tachycardic in the 150s. Hypoxic between 91 and 94% on room air. Labs reviewed did reveal elevated white blood cell count at 20.6 with neutrophils 18.5. Elevation and BUN at 27, creatinine 1.63 which seems to be new for the patient. Lactic acid 1.6. Covid, influenza were negative. Patient was started on IV antibiotics including Rocephin and azithromycin. Was given IV fluids per sepsis protocol. Heart rate did improve to the 120s with fluid administration, still has 750 mL remaining for bolus. He'll be admitted to Dr. Allen. We will consult pulmonology. Patient is updated regarding plan and is agreeable. - Lab Data Result diagrams: 09/15/20 21:02 09/15/20 21:02 Lab Results 09/15/20 09/15/20 09/15/20 Range/Units 20:50 21:02 21:02 WBC 20.6 H (3.8-10.6) k/uL RBC 4.31 (4.30-5.90) m/uL Hgb 13.4 (13.0-17.5) gm/dL Hct 40.8 (39.0-53.0) % MCV 94.5 (80.0-100.0) fL MCH 31.0 (25.0-35.0) pg MCHC 32.8 (31.0-37.0) g/dL RDW 13.3 (11.5-15.5) % Plt Count 360 (150-450) k/uL MPV 6.6 Neutrophils % 90 % Lymphocytes % 2 % Monocytes % 6 % Eosinophils % 1 % Basophils % 0 % Neutrophils # 18.5 H (1.3-7.7) k/uL Lymphocytes # 0.5 L (1.0-4.8) k/uL Monocytes # 1.2 H (0-1.0) k/uL Eosinophils # 0.2 (0-0.7) k/uL Basophils # 0.0 (0-0.2) k/uL PT 10.7 (9.0-12.0) sec INR 1.0 (<1.2) APTT 23.7 (22.0-30.0) sec Sodium (137-145) mmol/L Potassium (3.5-5.1) mmol/L Chloride (98-107) mmol/L Carbon Dioxide (22-30) mmol/L Anion Gap mmol/L BUN (9-20) mg/dL Creatinine (0.66-1.25) mg/dL Est GFR (CKD-EPI)AfAm (>60 ml/min/1.73 sqM) Est GFR (CKD-EPI)NonAf (>60 ml/min/1.73 sqM) Glucose (74-99) mg/dL Plasma Lactic Acid Epi (0.7-2.0) mmol/L Calcium (8.4-10.2) mg/dL Total Bilirubin (0.2-1.3) mg/dL AST (17-59) U/L ALT (4-49) U/L Alkaline Phosphatase (38-126) U/L Total Protein (6.3-8.2) g/dL Albumin (3.5-5.0) g/dL Urine Color Urine Appearance (Clear) Urine pH (5.0-8.0) Ur Specific Rodney (1.001-1.035) Urine Protein (Negative) Urine Glucose (UA) (Negative) Urine Ketones (Negative) Urine Blood (Negative) Urine Nitrite (Negative) Urine Bilirubin (Negative) Urine Urobilinogen (<2.0) mg/dL Ur Leukocyte Esterase (Negative) Urine RBC (0-5) /hpf Urine WBC (0-5) /hpf Ur Squamous Epith Cells (0-4) /hpf Urine Mucus (None) /hpf Influenza Type A (PCR) Not Detected (Not Detectd) Influenza Type B (PCR) Not Detected (Not Detectd) RSV (PCR) Not Detected (Not Detectd) SARS-CoV-2 (PCR) Not Detected (Not Detectd) 09/15/20 09/15/20 09/15/20 Range/Units 21:02 21:02 21:13 WBC (3.8-10.6) k/uL RBC (4.30-5.90) m/uL Hgb (13.0-17.5) gm/dL Hct (39.0-53.0) % MCV (80.0-100.0) fL MCH (25.0-35.0) pg MCHC (31.0-37.0) g/dL RDW (11.5-15.5) % Plt Count (150-450) k/uL MPV Neutrophils % % Lymphocytes % % Monocytes % % Eosinophils % % Basophils % % Neutrophils # (1.3-7.7) k/uL Lymphocytes # (1.0-4.8) k/uL Monocytes # (0-1.0) k/uL Eosinophils # (0-0.7) k/uL Basophils # (0-0.2) k/uL PT (9.0-12.0) sec INR (<1.2) APTT (22.0-30.0) sec Sodium 140 (137-145) mmol/L Potassium 3.5 (3.5-5.1) mmol/L Chloride 100 (98-107) mmol/L Carbon Dioxide 26 (22-30) mmol/L Anion Gap 14 mmol/L BUN 27 H (9-20) mg/dL Creatinine 1.63 H (0.66-1.25) mg/dL Est GFR (CKD-EPI)AfAm 48 (>60 ml/min/1.73 sqM) Est GFR (CKD-EPI)NonAf 41 (>60 ml/min/1.73 sqM) Glucose 121 H (74-99) mg/dL Plasma Lactic Acid Epi 1.6 (0.7-2.0) mmol/L Calcium 8.6 (8.4-10.2) mg/dL Total Bilirubin 0.9 (0.2-1.3) mg/dL AST 19 (17-59) U/L ALT 13 (4-49) U/L Alkaline Phosphatase 95 (38-126) U/L Total Protein 6.3 (6.3-8.2) g/dL Albumin 3.2 L (3.5-5.0) g/dL Urine Color Yellow Urine Appearance Cloudy (Clear) Urine pH 5.5 (5.0-8.0) Ur Specific Rodney 1.018 (1.001-1.035) Urine Protein 2+ H (Negative) Urine Glucose (UA) Negative (Negative) Urine Ketones 2+ H (Negative) Urine Blood Small H (Negative) Urine Nitrite Negative (Negative) Urine Bilirubin Negative (Negative) Urine Urobilinogen <2.0 (<2.0) mg/dL Ur Leukocyte Esterase Negative (Negative) Urine RBC 3 (0-5) /hpf Urine WBC 4 (0-5) /hpf Ur Squamous Epith Cells <1 (0-4) /hpf Urine Mucus Rare H (None) /hpf Influenza Type A (PCR) (Not Detectd) Influenza Type B (PCR) (Not Detectd) RSV (PCR) (Not Detectd) SARS-CoV-2 (PCR) (Not Detectd) - EKG Data -: EKG Interpreted by Me EKG Comments: EKG obtained at 2038 shows sinus tachycardia with a ventricular rate of 143, MS interval 132, QRS duration 92, QT 282, QTc 435. No evidence of ST elevation or depression. - Radiology Data Radiology results: report reviewed, image reviewed One view x-ray of the chest is obtained. Report is reviewed in its entirety. Impression by Dr. Castaneda shows significant consolidation pleural fluid on the right side new compared to old exam. Follow-up recommended. No heart failure. Disposition Clinical Impression: Pneumonia, Acute kidney injury, Sepsis Disposition: ADMITTED IP TO THIS [facility] Condition: Serious Referrals: Rj Freitas MD [Primary Care Provider] - 1-2 days Decision to Admit Reason: Admit from EC Decision Date: 09/15/20 Decision Time: 22:04
[2020-09-15] MEDS: SODIUM CHLORIDE 0.9% 500 ML 500 ML IV SCH (20:56)
[2020-09-15] MEDS: SODIUM CHLORIDE 0.9% 1,000 ML IV SCH (20:56)
--- NOTE | 2020-09-15 21:03 | XR ---
EXAMINATION TYPE: XR chest 1V portable DATE OF EXAM: 09/15/2020 COMPARISON: 12/02/2017 HISTORY: Preop. Lumbar spine surgery. TECHNIQUE: Single view FINDINGS: There is significant increased density over the right lower hemithorax consistent with pleu ral fluid and pulmonary consolidation. The left lung is clear. There is no heart failure. Heart size is normal. IMPRESSION: Significant consolidation and pleural fluid on the right side is new compared to old exam . Follow-up recommended. No heart failure.
[2020-09-15 21:16] LABS: Basophils % (A) 0 %; Eosinophils # (A) 0.2 k/uL (0-0.7); Eosinophils % (A) 1 %; HCT 40.8 % (39.0-53.0); HGB 13.4 gm/dL (13.0-17.5); Lymphocytes # (A) 0.5 k/uL (1.0-4.8); Lymphocytes % (A) 2 %; MCHC 32.8 g/dL (31.0-37.0); MCV 94.5 fL (80.0-100.0); Mean Platelet Volume 6.6; Monocytes # (A) 1.2 k/uL (0-1.0); Monocytes % (A) 6 %; Neutrophils # (A) 18.5 k/uL (1.3-7.7); Neutrophils % (A) 90 %; Platelet Count 360 k/uL (150-450); RBC 4.31 m/uL (4.30-5.90); RDW 13.3 % (11.5-15.5); WBC 20.6 k/uL (3.8-10.6)
[2020-09-15] MEDS ORDERED: AZITHROMYCIN 500 MG in SODIUM CHLORIDE 0.9% 250 ML IVPB STA ×2 (21:18→22:04)
[2020-09-15] MEDS ORDERED: SODIUM CHLORIDE 0.9% 1,000 ML IV ONE (21:19)
[2020-09-15] MEDS ORDERED: SODIUM CHLORIDE 0.9% 500 ML 500 ML IV ONE (21:19)
[2020-09-15 21:21] LABS: Partial Thromboplastin Time 23.7 sec (22.0-30.0); Prothrombin Time 10.7 sec (9.0-12.0)
[2020-09-15 21:26] LABS: Appearance,Urine Cloudy (Clear); Bilirubin,Urine Negative (Negative); Blood,Urine Small (Negative); Color,Urine Yellow; Glucose,Urine (UA) Negative (Negative); Ketones,Urine 2+ (Negative); Leukocyte Esterase,Urine Negative (Negative); Mucus,Urine Rare /hpf; Nitrite,Urine Negative (Negative); PH, Urine 5.5 (5.0-8.0); Protein,Urine 2+ (Negative); RBC,Urine 3 /hpf (0-5); Specific Gravity,Urine 1.018 (1.001-1.035); Squamous Epithelial Cell,Urine <1 /hpf (0-4); Urobilinogen,Urine <2.0 mg/dL (<2.0); WBC,Urine 4 /hpf (0-5)
[2020-09-15 21:31] LABS: Albumin 3.2 g/dL (3.5-5.0); Calcium 8.6 mg/dL (8.4-10.2); Potassium 3.5 mmol/L (3.5-5.1); Total Bilirubin 0.9 mg/dL (0.2-1.3); Total Protein 6.3 g/dL (6.3-8.2)
[2020-09-15] MEDS ORDERED: PNEUMONIA PROTOCOL UTILIZED 1 EACH MISC PO PRN (22:04)
[2020-09-15] MEDS ORDERED: IPRATROPIUM-ALBUTEROL 3 ML NEB INHALATION PRN (22:04)
[2020-09-16] MEDS: SODIUM CHLORIDE 0.9% 1,000 ML IV SCH ×2 (05:44→08:32)
[2020-09-16] MEDS: LEVOTHYROXINE 50 MCG TAB PO SCH (05:52)
[2020-09-16 06:38] LABS: Basophils % (A) 0 %; Eosinophils # (A) 0.1 k/uL (0-0.7); Eosinophils % (A) 0 %; HCT 41.2 % (39.0-53.0); HGB 13.2 gm/dL (13.0-17.5); Lymphocytes # (A) 0.5 k/uL (1.0-4.8); Lymphocytes % (A) 3 %; MCH 30.9 pg (25.0-35.0); MCHC 32.2 g/dL (31.0-37.0); MCV 95.9 fL (80.0-100.0); Mean Platelet Volume 6.8; Monocytes # (A) 0.2 k/uL (0-1.0); Monocytes % (A) 1 %; Neutrophils # (A) 16.9 k/uL (1.3-7.7); Neutrophils % (A) 95 %; Platelet Count 387 k/uL (150-450); RBC 4.29 m/uL (4.30-5.90); RDW 13.3 % (11.5-15.5); WBC 17.7 k/uL (3.8-10.6)
[2020-09-16 06:48] LABS: Potassium 3.5 mmol/L (3.5-5.1)
[2020-09-16 06:49] LABS: Calcium 8.2 mg/dL (8.4-10.2)
[2020-09-16] MEDS: IPRATROPIUM-ALBUTEROL 3 ML NEB INHALATION SCH ×4 (07:14→19:26)
[2020-09-16] MEDS: FINASTERIDE 5 MG TAB PO SCH (08:26)
[2020-09-16] MEDS ORDERED: LISINOPRIL-HCTZ 20-12.5 MG 1 EACH TAB PO SCH (09:00)
--- NOTE | 2020-09-16 10:28 | XR ---
EXAMINATION TYPE: XR chest 2V DATE OF EXAM: 09/16/2020 COMPARISON: 09/15/2020 HISTORY: 74-year-old male pneumonia TECHNIQUE: PA and lateral views FINDINGS: Heart is normal size. Atherosclerotic arch calcifications. Hyperinflation. Patchy opacity right mid a nd lower lung persists. Interval development of 4.2 x 1.9 cm elliptical mass in the right midlung juan ng the minor fissure. Small right effusion. IMPRESSION: COPD with continued consolidation throughout the right lower lung. Interval development of a 4.2 x 1. 9 cm elliptical pseudomass in the right midlung, probably fluid trapped along the minor fissure. Smal l right effusion.
[2020-09-16] MEDS ORDERED: FUROSEMIDE 10 MG/ML 4 ML VIAL IV STA (11:08)
[2020-09-16] MEDS: methylPREDNISolone SOD SUCCI 125 MG/2 ML VIAL IV SCH ×2 (11:50→17:17)
--- NOTE | 2020-09-16 14:50 | P.CNPUL ---
History of Present Illness Consult date: 09/16/20 Requesting physician: Arlene Alvarado Reason for consult: dyspnea, cough, abnormal CXR/CT Chief complaint: Shortness of breath, cough, nasal congestion, nasal drainage History of present illness: 74-year-old white male patient of Dr. Rj Freitas, with past medical history of COPD is not normally on any oxygen or inhalers on a regular basis, former smoker hypertension, hypothyroidism, BPH, chronic back pain with history of lumbar surgery, history of the epiglottis status post chemo radiation treatment in 2014, who presented to the emergency department on 09/15/2020 with 3 four-day history of cough, nasal congestion, nasal drainage, and worsening shortness of breath. He has been using an inhaler at home without relief. Patient reports feeling feverish however did not check his temperature at home. Denies any nausea vomiting or abdominal pain, no diarrhea, no loss of taste or smell. Denies any chest pain, no back pain, no weakness, no urinary symptoms. Upon arrival patient was febrile and tachycardic with a heart rate in the 150s, his pulse ox between 91 and 94% on room air. He did have a leukocytosis with a white blood cell count of 20.6 with neutrophils of 18.5, his BUN was 27, creatinine is 1.63, lactic acid was 1.6, his COVID19 PCR and influenza screen were negative. His chest x-ray showed significant consolidation and pleural fluid on the right side which is new. Follow-up chest x-ray on the 09/16/2020 shows some improvement in aeration of right lower lobe, and rounded pseudotumor in the right midlung. Urinalysis did not show evidence of infection. Patient remains on 2 L of oxygen his pulse ox is 96%, his heart rate has improved, down to 102 BPM, patient was rehydrated in the emergency department with 1/2 L and fluid boluses, he was started on azithromycin and Rocephin, nebulized bronchodilators, and was given 1 dose of IV Solu-Medrol. He is feeling better, blood cultures have been ordered and sent. Review of Systems All systems: negative Constitutional: Denies chills, Denies fever Eyes: denies blurred vision, denies pain Ears, nose, mouth and throat: Denies headache, Denies sore throat Cardiovascular: Denies chest pain, Denies shortness of breath Respiratory: Reports cough, Reports dyspnea Gastrointestinal: Denies abdominal pain, Denies diarrhea, Denies nausea, Denies vomiting Musculoskeletal: Denies myalgias Integumentary: Denies pruritus, Denies rash Neurological: Denies numbness, Denies weakness Psychiatric: Denies anxiety, Denies depression Endocrine: Denies fatigue, Denies weight change Past Medical History Past Medical History: Cancer, COPD, Hypertension, Prostate Disorder, Thyroid Disorder Additional Past Medical History / Comment(s): cancer epiglottis with chemo and radiation [id number] History of Any Multi-Drug Resistant Organisms: None Reported Past Surgical History: Joint Replacement Additional Past Surgical History / Comment(s): rt hip replacement, epidural steroid injections Past Anesthesia/Blood Transfusion Reactions: No Reported Reaction Past Psychological History: No Psychological Hx Reported Smoking Status: Former smoker Past Alcohol Use History: Daily Additional Past Alcohol Use History / Comment(s): smoker for 50 years 1- 08/24 ppd stopped smoking sep 2015, uses e-cigarettes. Past Drug Use History: None Reported - Past Family History Mother Family Medical History: No Reported History Father Family Medical History: Cancer Additional Family Medical History / Comment(s): malignant tumor in bladder Medications and Allergies Home Medications Medication Instructions Recorded Confirmed Type Albuterol Inhaler (Mhu) [Ventolin 1 - 2 puff INHALATION RT-Q6H PRN 11/29/17 09/15/20 History Hfa Inhaler] Finasteride [Proscar] 5 mg PO DAILY 11/29/17 09/15/20 History Levothyroxine Sodium [Synthroid] 50 mcg PO DAILY 11/29/17 09/15/20 History Lisinopril-Hctz 20-12.5 mg 1 tab PO DAILY 11/29/17 09/15/20 History [Zestoretic 20-12.5] Allergies Allergy/AdvReac Type Severity Reaction Status Date / Time Iodine and Iodide Containing Allergy Anaphylaxis Verified 09/15/20 20:43 Produc Physical Exam Vitals: Vital Signs Temp Pulse Pulse Resp BP BP Pulse Ox 09/16/20 14:29 98.3 F 109 H 18 101/63 96 09/16/20 11:24 102 H 09/16/20 11:16 101 H 09/16/20 08:00 18 09/16/20 07:42 97.5 F L 102 H 17 127/68 95 09/16/20 07:28 105 H 09/16/20 07:19 109 H 09/16/20 05:07 97.4 F L 88 18 108/72 95 09/15/20 23:30 97.7 F 103 H 20 130/74 96 09/15/20 22:14 117 H 09/15/20 22:00 123 H 20 122/90 95 09/15/20 21:44 99.7 F H 124 H 21 97 09/15/20 20:58 135 H 21 144/77 97 09/15/20 20:22 99.7 F H 145 H 23 142/76 94 L Intake and Output 09/15/20 09/16/20 09/16/20 22:59 06:59 14:59 Intake Total 240 200 Balance 240 200 Intake: Oral 240 200 Other: Voiding Method Toilet Toilet # Voids 1 1 Weight 91.626 kg 91.626 kg GENERAL EXAM: Alert, active, comfortable in no apparent distress. HEAD: Normocephalic/atraumatic. EYES: Normal reaction of pupils, equal size. Conjunctiva pink, sclera white. NOSE: Clear with pink turbinates. THROAT: No erythema or exudates. NECK: No masses, no JVD, no thyroid enlargement, no adenopathy. CHEST: No chest wall deformity. Symmetrical expansion. LUNGS: Equal air entry with crackles at the bases CVS: Regular rate and rhythm, normal S1 and S2, no gallops, no murmurs, no rubs ABDOMEN: Soft, nontender. No hepatosplenomegaly, normal bowel sounds, no guarding or rigidity. EXTREMITIES: No clubbing, no edema, no cyanosis, 2+ pulses and upper and lower extremities. MUSCULOSKELETAL: Muscle strength and tone normal. SPINE: No scoliosis or deformity SKIN: No rashes CENTRAL NERVOUS SYSTEM: Alert and oriented -3. No focal deficits, tone is normal in all 4 extremities. PSYCHIATRIC: Alert and oriented -3. Appropriate affect. Intact judgment and insight. Results - Laboratory Findings CBC and BMP: 09/16/20 06:16 09/16/20 06:16 PT/INR, D-dimer PT 10.7 sec (9.0-12.0) 09/15/20 21:02 INR 1.0 (<1.2) 09/15/20 21:02 D-Dimer 4.18 mg/L FEU (<0.60) H 09/16/20 12:35 Abnormal lab findings: Abnormal Labs 09/15/20 09/15/20 09/15/20 21:02 21:02 21:13 WBC 20.6 H RBC Neutrophils # 18.5 H Lymphocytes # 0.5 L Monocytes # 1.2 H D-Dimer BUN 27 H Creatinine 1.63 H Glucose 121 H Calcium Albumin 3.2 L Urine Protein 2+ H Urine Ketones 2+ H Urine Blood Small H Urine Mucus Rare H 09/16/20 09/16/20 09/16/20 06:16 06:16 12:35 WBC 17.7 H RBC 4.29 L Neutrophils # 16.9 H Lymphocytes # 0.5 L Monocytes # D-Dimer 4.18 H BUN 28 H Creatinine 1.42 H Glucose 182 H Calcium 8.2 L Albumin Urine Protein Urine Ketones Urine Blood Urine Mucus - Diagnostic Findings Chest x-ray: report reviewed, image reviewed Assessment and Plan Plan: Assessment: #1. Acute hypoxic respiratory failure related to right lung pneumonia, and a right pleural effusion. Chest x-ray showed increased density over right lower lobe assisted with the bicep pleural fluid and right lower lobe pulmonary consolidation. Follow-up chest x-ray on 09/16/2020 showed rounded pseudotumor in the right mid lung likely related to pleural fluid. COVID 19 and influenza were ruled out #2. History of COPD, not oxygen dependent at baseline #3. 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 Elevated d-dimer #5. Hypothyroidism #6. BPH #7. Hypertension #8. Former smoker Plan: Continue current medical treatment, continue current antibiotics, send sputum culture, blood cultures have been sent, vital signs have improved, patient is afebrile, less tachycardic, continue IV hydration. Influenza, COVID 19 and RSV were ruled out. Patient is doing well, no acute events overnight, continue IV steroids at 60 mg every 6 hours. We'll give the patient and dose of IV Lasix. D-dimer came back elevated, we will obtain Dopplers of lower extremities to rule out DVT. I performed a history & physical examination of the patient and discussed their management with my nurse practitioner, Heike Aguirre. I reviewed the nurse practitioner's note and agree with the documented findings and plan of care. Lung sounds are positive for diminished breath sounds. The findings and the impression was discussed with the patient. I attest to the documentation by the nurse practitioner. Time with Patient: Greater than 30
--- NOTE | 2020-09-16 16:17 | US ---
EXAMINATION TYPE: US venous doppler duplex LE BI DATE OF EXAM: 09/16/2020 3:44 PM COMPARISON: NONE CLINICAL HISTORY: 74-year-old male elevated d-dimer. Pneumonia, sepsis SIDE PERFORMED: Bilateral TECHNIQUE: The lower extremity deep venous system is examined utilizing real time linear array sonog yuri with graded compression, doppler sonography and color-flow sonography. FINDINGS: VESSELS IMAGED: Common Femoral Vein Deep Femoral Vein Greater Saphenous Vein * Femoral Vein Popliteal Vein Small Saphenous Vein * Proximal Calf Veins (* superficial vessels) Right Leg: Negative for DVT Left Leg: Negative for DVT IMPRESSION: No evidence for DVT within the bilateral lower extremities imaged from the groin to the upper calves.
--- NOTE | 2020-09-16 17:00 | US ---
EXAMINATION TYPE: US kidneys/renal and bladder DATE OF EXAM: 09/16/2020 COMPARISON: NONE CLINICAL HISTORY: 74-year-old male assess for CKD. TECHNIQUE: Multiple sonographic images of the kidneys and bladder are obtained. FINDINGS: EXAM MEASUREMENTS: Right Kidney: 11.2 x 5.8 x 5.0 cm Left Kidney: 12.4 x 5.6 x 5.5 cm No hydronephrosis on either side. Bladder: wnl Bilateral Jets seen: Yes IMPRESSION: No hydronephrosis. Renal measurements fall within normal size.
--- NOTE | 2020-09-16 20:04 | P.HPIM ---
History of Present Illness H&P Date: 09/16/20 Chief Complaint: Short of breath History of presenting complaint: This is a pleasant 74-year-old patient of . Chronic stable medical conditions include COPD, hypertension, BPH, hypothyroid, epiglottis cancer treated with chemoradiation in 2014. Patient presents with 5 days of increasing cough. Worsening short of breath. Stevens colored sputum. Chills. Decreased appetite. Tired and rundown. X-ray in the ER didn't show pneumonia. Started IV ceftriaxone and Zithromax. Also had some wheezing. Review of systems: GEN.: Tired EYES: None HEENT: None NECK: None RESPIRATORY: As above CARDIOVASCULAR: None GASTROINTESTINAL: None GENITOURINARY: None MUSCULOSKELETAL: Some joint pains LYMPHATICS: None HEMATOLOGICAL: None PSYCHIATRY: None NEUROLOGICAL: None Past medical history to include: COPD, hypertension, BPH, hypothyroid, epiglottis cancer treated with chemoradiation in Social history: Patient smoked for 50 years back and a half a day stopped in 2015. Some alcohol intake. Physical examination: VITAL SIGNS: 99.7, 145, 23, 142/76, 94% on room air upon presentation GENERAL: BMI 27.4, sitting up, bit tired. EYES: Pupils equal. Conjunctiva normal. HEENT: External appearance of nose and ears normal, oral cavity grossly normal. NECK: JVD not raised; masses not palpable. HEART: First and second heart sounds are normal; no edema. LUNGS: Respiratory rate increased, decreased breaths on some wheezing some basal crackles. ABDOMEN: Soft, nontender, liver spleen not palpable, no masses palpable. PSYCH: Alert and oriented x3; mood and affect normal. NEUROLOGICAL: Cranial nerves grossly intact; no facial asymmetry, power and sensation grossly intact. LYMPHATICS: No lymph nodes palpable in the axilla and neck INVESTIGATIONS, reviewed in the clinical context: September 16: White count 7.7 hemoglobin 13.2 potassium 3.5 creatinine 1.4 to Doppler ultrasound: Negative for DVT EKG tracing personally reviewed by me-normal sinus rhythm with some ST segment changes Chest x-ray film personally reviewed by me-right lower lobe infiltrate, cannot rule out underlying effusion Renal ultrasound: No hydronephrosis. Renal measurements fall within normal size Admission testing: White count 20.6 hemoglobin 13.4 platelets 360 potassium 3.5 bun 27 creatinine 1.63 Influenza type A type B both not detected. RSV [PCR]-not detected. Coronavirus [PCR]-not detected Assessment: -Right lower lobe pneumonia, suspect gram-negative orgasm. Suspect underlying pleural effusion -Acute COPD exacerbation in a previous smoker -Essential hypertension -BPH -Hypothyroidism -Suspect underlying chronic kidney disease. Rule out an acute component Plan: Patient place and IV azithromycin and ceftriaxone. Home medications resumed. Bronchodilators steroids. Pulmonary consulted. Care was discussed with the patient question also. Highly doubt CHF. Past Medical History Past Medical History: Cancer, COPD, Hypertension, Prostate Disorder, Thyroid Disorder Additional Past Medical History / Comment(s): cancer epiglottis with chemo and radiation [id number] History of Any Multi-Drug Resistant Organisms: None Reported Past Surgical History: Joint Replacement Additional Past Surgical History / Comment(s): rt hip replacement, epidural steroid injections Past Anesthesia/Blood Transfusion Reactions: No Reported Reaction Past Psychological History: No Psychological Hx Reported Smoking Status: Former smoker Past Alcohol Use History: Daily Additional Past Alcohol Use History / Comment(s): smoker for 50 years 1- 08/24 ppd stopped smoking sep 2015, uses e-cigarettes. Past Drug Use History: None Reported - Past Family History Mother Family Medical History: No Reported History Father Family Medical History: Cancer Additional Family Medical History / Comment(s): malignant tumor in bladder Medications and Allergies Home Medications Medication Instructions Recorded Confirmed Type Albuterol Inhaler (Mhu) [Ventolin 1 - 2 puff INHALATION RT-Q6H PRN 11/29/17 09/15/20 History Hfa Inhaler] Finasteride [Proscar] 5 mg PO DAILY 11/29/17 09/15/20 History Levothyroxine Sodium [Synthroid] 50 mcg PO DAILY 11/29/17 09/15/20 History Lisinopril-Hctz 20-12.5 mg 1 tab PO DAILY 11/29/17 09/15/20 History [Zestoretic 20-12.5] Allergies Allergy/AdvReac Type Severity Reaction Status Date / Time Iodine and Iodide Containing Allergy Anaphylaxis Verified 09/15/20 20:43 Produc Physical Exam Vitals: Vital Signs Temp Pulse Pulse Resp BP BP Pulse Ox 09/16/20 08:00 18 09/16/20 07:42 97.5 F L 102 H 17 127/68 95 09/16/20 07:28 105 H 09/16/20 07:19 109 H 09/16/20 05:07 97.4 F L 88 18 108/72 95 09/15/20 23:30 97.7 F 103 H 20 130/74 96 09/15/20 22:14 117 H 09/15/20 22:00 123 H 20 122/90 95 09/15/20 21:44 99.7 F H 124 H 21 97 09/15/20 20:58 135 H 21 144/77 97 09/15/20 20:22 99.7 F H 145 H 23 142/76 94 L Intake and Output 09/15/20 09/16/20 09/16/20 22:59 06:59 14:59 Intake Total 240 Balance 240 Intake: Oral 240 Other: Voiding Method Toilet Toilet # Voids 1 1 Weight 91.626 kg 91.626 kg Results CBC & Chem 7: 09/16/20 06:16 09/16/20 06:16 Labs: Abnormal Lab Results - Last 24 Hours (Table) 09/15/20 09/15/20 09/15/20 Range/Units 21:02 21:02 21:13 WBC 20.6 H (3.8-10.6) k/uL RBC (4.30-5.90) m/uL Neutrophils # 18.5 H (1.3-7.7) k/uL Lymphocytes # 0.5 L (1.0-4.8) k/uL Monocytes # 1.2 H (0-1.0) k/uL BUN 27 H (9-20) mg/dL Creatinine 1.63 H (0.66-1.25) mg/dL Glucose 121 H (74-99) mg/dL Calcium (8.4-10.2) mg/dL Albumin 3.2 L (3.5-5.0) g/dL Urine Protein 2+ H (Negative) Urine Ketones 2+ H (Negative) Urine Blood Small H (Negative) Urine Mucus Rare H (None) /hpf 09/16/20 09/16/20 Range/Units 06:16 06:16 WBC 17.7 H (3.8-10.6) k/uL RBC 4.29 L (4.30-5.90) m/uL Neutrophils # 16.9 H (1.3-7.7) k/uL Lymphocytes # 0.5 L (1.0-4.8) k/uL Monocytes # (0-1.0) k/uL BUN 28 H (9-20) mg/dL Creatinine 1.42 H (0.66-1.25) mg/dL Glucose 182 H (74-99) mg/dL Calcium 8.2 L (8.4-10.2) mg/dL Albumin (3.5-5.0) g/dL Urine Protein (Negative) Urine Ketones (Negative) Urine Blood (Negative) Urine Mucus (None) /hpf Thrombosis Risk Factor Assmnt - Choose All That Apply Any of the Below Risk Factors Present?: No
[2020-09-16] MEDS ORDERED: AZITHROMYCIN 500 MG in SODIUM CHLORIDE 0.9% 250 ML IVPB SCH (22:00)
[2020-09-17] MEDS: methylPREDNISolone SOD SUCCI 125 MG/2 ML VIAL IV SCH ×4 (01:36→16:45)
[2020-09-17] MEDS: LEVOTHYROXINE 50 MCG TAB PO SCH (05:47)
[2020-09-17] MEDS: IPRATROPIUM-ALBUTEROL 3 ML NEB INHALATION SCH ×4 (08:08→19:36)
[2020-09-17] MEDS: FINASTERIDE 5 MG TAB PO SCH (08:28)
[2020-09-17 09:53] LABS: African American GFR (CKD) 57.4 (60.0-200.0); Anion Gap 5.7 mmol/L (4.00-12.00); BUN/Creat Ratio 25.71 Ratio (12.00-20.00); Calcium 8.5 mg/dL (8.7-10.3); Carbon Dioxide 30.3 mmol/L (21.6-31.8); Non-African American GFR(CKD) 49.5 (60.0-200.0); Potassium 3.5 mmol/L (3.5-5.5)
[2020-09-17] MEDS: ENOXAPARIN 30 MG/0.3 ML SYRINGE SQ SCH (13:03)
--- NOTE | 2020-09-17 15:17 | P.PN ---
Subjective Progress Note Date: 09/17/20 Principal diagnosis: Shortness of breath, cough, nasal congestion, nasal drainage 74-year-old white male patient of Dr. Rj Freitas, with past medical history of COPD is not normally on any oxygen or inhalers on a regular basis, former smoker hypertension, hypothyroidism, BPH, chronic back pain with history of lumbar surgery, history of the epiglottis status post chemo radiation treatment in 2015, who presented to the emergency department on 09/15/2020 with 3 four-day history of cough, nasal congestion, nasal drainage, and worsening shortness of breath. He has been using an inhaler at home without relief. Patient reports feeling feverish however did not check his temperature at home. Denies any nausea vomiting or abdominal pain, no diarrhea, no loss of taste or smell. Denies any chest pain, no back pain, no weakness, no urinary symptoms. Upon arrival patient was febrile and tachycardic with a heart rate in the 150s, his pulse ox between 91 and 94% on room air. He did have a leukocytosis with a white blood cell count of 20.6 with neutrophils of 18.5, his BUN was 27, creatinine is 1.63, lactic acid was 1.6, his COVID19 PCR and influenza screen were negative. His chest x-ray showed significant consolidation and pleural fluid on the right side which is new. Follow-up chest x-ray on the 09/16/2020 shows some improvement in aeration of right lower lobe, and rounded pseudotumor in the right midlung. Urinalysis did not show evidence of infection. Patient remains on 2 L of oxygen his pulse ox is 96%, his heart rate has improved, down to 102 BPM, patient was rehydrated in the emergency department with 1/2 L and fluid boluses, he was started on azithromycin and Rocephin, nebulized bronchodilators, and was given 1 dose of IV Solu-Medrol. He is feeling better, blood cultures have been ordered and sent. On 09/17/2020 patient seen in follow-up on medical floor, he is awake and alert, he is currently on 2 L of oxygen his pulse ox is 98%, he is breathing comfortably, no worsening cough no chest discomfort, no phlegm production. His lower extremity Dopplers for negative for DVT, his pro-calcitonin level initially was elevated at 0.65 and subsequently came down to 0.43. He tested negative for COVID 19, influenza screen was negative, blood and sputum cultures have been sent, pending at this time, patient on empiric antibiotics in form of azithromycin and Rocephin, he received 1 dose of IV Lasix yesterday, he continues on IV steroids, he is breathing easier. He is maintaining negative fluid balance. Objective - Vital Signs Vital signs: Vital Signs Temp 97.9 F 09/17/20 14:00 Pulse 106 H 09/17/20 14:00 Resp 20 09/17/20 14:00 BP 134/73 09/17/20 14:00 Pulse Ox 96 09/17/20 14:00 Intake & Output 09/16/20 09/17/20 09/17/20 18:59 06:59 18:59 Intake Total 500 200 Output Total 900 250 375 Balance -400 -250 -175 Intake: Oral 500 200 Output: Urine 900 250 375 Other: Voiding Method Toilet Toilet Toilet # Voids 1 - Exam GENERAL EXAM: Alert, active, comfortable in no apparent distress. HEAD: Normocephalic/atraumatic. EYES: Normal reaction of pupils, equal size. Conjunctiva pink, sclera white. NOSE: Clear with pink turbinates. THROAT: No erythema or exudates. NECK: No masses, no JVD, no thyroid enlargement, no adenopathy. CHEST: No chest wall deformity. Symmetrical expansion. LUNGS: Equal air entry with crackles at the bases CVS: Regular rate and rhythm, normal S1 and S2, no gallops, no murmurs, no rubs ABDOMEN: Soft, nontender. No hepatosplenomegaly, normal bowel sounds, no guarding or rigidity. EXTREMITIES: No clubbing, no edema, no cyanosis, 2+ pulses and upper and lower extremities. MUSCULOSKELETAL: Muscle strength and tone normal. SPINE: No scoliosis or deformity SKIN: No rashes CENTRAL NERVOUS SYSTEM: Alert and oriented -3. No focal deficits, tone is normal in all 4 extremities. PSYCHIATRIC: Alert and oriented -3. Appropriate affect. Intact judgment and insight. - Labs CBC & Chem 7: 09/16/20 06:16 09/17/20 05:59 Labs: Abnormal Lab Results - Last 24 Hours (Table) 09/16/20 09/17/20 09/17/20 Range/Units 12:35 05:59 05:59 Sodium 146 H (135-145) mmol/L Chloride 110 H (96-109) mmol/L BUN 36.0 H (9.0-27.0) mg/dL Est GFR (CKD-EPI)AfAm 57.4 L (60.0-200.0) Est GFR (CKD-EPI)NonAf 49.5 L (60.0-200.0) BUN/Creatinine Ratio 25.71 H (12.00-20.00) Ratio Glucose 136 H (70-110) mg/dL Calcium 8.5 L (8.7-10.3) mg/dL Procalcitonin 0.65 H 0.43 H (0.02-0.09) ng/mL Microbiology - Last 24 Hours (Table) 09/16/20 19:39 Gram Stain - Preliminary Sputum Sputum Culture - Preliminary 09/15/20 21:10 Blood Culture - Preliminary Blood No Growth after 24 hours 09/15/20 21:02 Blood Culture - Preliminary Blood No Growth after 24 hours Assessment and Plan Plan: Assessment: #1. Acute hypoxic respiratory failure related to right lung pneumonia, and a right pleural effusion. Chest x-ray showed increased density over right lower lobe assisted with the bicep pleural fluid and right lower lobe pulmonary consolidation. Follow-up chest x-ray on 09/16/2020 showed rounded pseudotumor in the right mid lung likely related to pleural fluid. COVID 19 and influenza were ruled out #2. History of COPD, not oxygen dependent at baseline #3. 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 Elevated d-dimer, lower extremity Dopplers were negative for DVT #5. Hypothyroidism #6. BPH #7. Hypertension #8. Former smoker Plan: Lower extremity Dopplers were noted, no evidence of DVT, from pulmonary perspective patient denies any worsening dyspnea or hypoxia his pro-calcitonin level is improving, his been afebrile, continue with Rocephin and azithromycin. We will wean FiO2. Obtain follow-up d-dimer tomorrow, we will add prophylactic dose of Lovenox 30 mg daily. Follow-up chest x-ray in the morning I performed a history & physical examination of the patient and discussed their management with my nurse practitioner, Heike Aguirre. I reviewed the nurse practitioner's note and agree with the documented findings and plan of care. Lung sounds are positive for diminished breath sounds. The findings and the impression was discussed with the patient. I attest to the documentation by the nurse practitioner. Time with Patient: Less than 30
--- NOTE | 2020-09-17 15:51 | CONS ---
CONSULTATION REASON FOR CONSULT: Renal failure. HISTORY OF PRESENT ILLNESS: Patient is a 74-year-old male who has a history of hypertension, chronic kidney disease, and patient states that his renal function has been borderline. 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 He has a history of COPD and BPH as well with head and neck cancer status post chemo radiation therapy in 2014. The patient was admitted to the hospital with complaints of shortness of breath and cough. He denied any significant fever. No nausea, vomiting, abdominal pain or diarrhea. Serum creatinine was 1.6 on initial admission. It is currently down to 1.4. Review of previous labs shows a creatinine 0.8 on 12/09/2017. Blood pressure has been around 130 mmHg systolic. It was low at about 101 and 108 mmHg previously. Currently patient is maintained on IV antibiotics. I do not see any IV fluids on board. Chest x-ray showed evidence of COPD with consolidation in the right lower lung with small right pleural effusion noted as well. Patient denies history of use of nonsteroidal anti-inflammatory agents. He was maintained on lisinopril hydrochlorothiazide at home prior to admission. PAST MEDICAL HISTORY: Benign prostatic hypertrophy, hypertension, hypothyroidism, history of epiglottic cancer, status post chemo and radiation therapy 2014, 2016, osteoarthritis. PAST SURGICAL HISTORY: Right hip arthroplasty, epidural steroid injections. SOCIAL HISTORY: Patient is a former smoker. No history of drug abuse or alcohol abuse. MEDICATIONS: Medications prior to admission included Ventolin inhaler, Proscar, Synthroid, Zestoretic. ALLERGIES: Allergies include IODINE AND IODINE CONTAINING PRODUCTS, which causes anaphylaxis. REVIEW OF SYSTEMS: As per HPI. Other systems negative. PHYSICAL EXAMINATION: Patient is comfortable, awake, not in any acute distress. Blood pressure was 114/62, heart rate 104 per minute. Patient is afebrile. EXAMINATION OF THE HEART: S1, S2. EXAMINATION OF THE LUNGS: Bilateral breath sounds are heard. Decreased breath sounds at bases. Abdomen is soft, nontender. Examination of lower extremities shows edema 1+ bilaterally. 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 LABS: Labs show sodium 146, potassium 3.5, chloride 110, CO2 is 30.3, BUN 36, creatinine 1.4, hemoglobin 13.2 g/dL. UA shows 2+ protein, 2+ ketones, no blood was seen. SARS COVID-19 PCR was negative. ASSESSMENT: 1. Acute kidney injury appears to be prerenal currently improved. Patient's diuretics and STEPHANIA inhibitors are on hold as blood pressure had been on the lower side. He is encouraged to increase his oral intake. UA does show evidence of proteinuria, which needs further evaluation. There is no history of diabetes. The patient will need proteinuria workup and quantification of the proteinuria down the road. He is also advised to continue to avoid the use of nonsteroidal anti-inflammatory agents. 2. Pneumonia with chest x-ray showing right lower lung consolidation, maintained on antibiotics. 3. Chronic kidney disease. Previous creatinine as low as 0.8 in 2018. Current UA shows proteinuria which needs further evaluation. The ultrasound of the kidneys is unremarkable. No evidence of hydronephrosis. 4. History of benign prostatic hypertrophy, maintained on finasteride. 5. Hypertension, currently controlled. Blood pressure is actually on the lower side. 6. 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 PLAN: Continue off of diuretics and STEPHANIA inhibitors. Check protein creatinine ratio. Check baseline serologies for workup of proteinuria. The patient will need outpatient followup as well. He is advised to continue to avoid the use of NSAIDs in the meantime. We can likely resume his STEPHANIA inhibitors once renal function stabilizes. Thank you for this consultation. We will continue to follow the patient with you during his hospitalization. MMODL / IJN: [id number] /
[2020-09-17 19:11] LABS: Creatinine,Urine Random 99.3 mg/dL; Protein/Creatinine Ratio,Urine 0.282
[2020-09-17] MEDS ORDERED: AZITHROMYCIN 500 MG TAB PO SCH (22:00)
--- NOTE | 2020-09-17 22:10 | P.PN ---
Progress Note - Text Progress Note Date: 09/17/20 Chief Complaint: Short of breath History of presenting complaint: This is a pleasant 74-year-old patient of . Chronic stable medical conditions include COPD, hypertension, BPH, hypothyroid, epiglottis cancer treated with chemoradiation in 2015. Patient presents with 5 days of increasing cough. Worsening short of breath. Stevens colored sputum. Chills. Decreased appetite. Tired and rundown. X-ray in the ER did show pneumonia. Started IV ceftriaxone and Zithromax. Also had some wheezing. Today-feeling a bit better. Some shortness of breath. Some wheezing. Appetite good. Review of systems: Was done for constitutional, cardiovascular, GI, pulmonary. relevant finding as above Active Medications Albuterol/Ipratropium (Ipratropium-Albuterol 3 Ml Neb) 3 ml INHALATION RT-Q4H PRN PRN Reason: shortness of breath Albuterol/Ipratropium (Ipratropium-Albuterol 3 Ml Neb) 3 ml INHALATION RT-QID [facility] Last Admin: 09/17/20 19:36 Dose: 3 ml Documented by: Azithromycin (Azithromycin 500 Mg Tab) 500 mg PO Q24H [facility] Last Admin: 09/17/20 21:23 Dose: 500 mg Documented by: Enoxaparin Sodium (Enoxaparin 30 Mg/0.3 Ml Syringe) 30 mg SQ DAILY [facility] Last Admin: 09/17/20 13:03 Dose: 30 mg Documented by: Finasteride (Finasteride 5 Mg Tab) 5 mg PO DAILY [facility] Last Admin: 09/17/20 08:28 Dose: 5 mg Documented by: Ceftriaxone Sodium 2 gm/ (Sodium Chloride) 50 mls @ 100 mls/hr IVPB Q24H [facility] Last Admin: 09/17/20 21:19 Dose: 100 mls/hr Documented by: Levothyroxine Sodium (Levothyroxine 50 Mcg Tab) 50 mcg PO DAILY@0630 [facility] Last Admin: 09/17/20 05:47 Dose: 50 mcg Documented by: Methylprednisolone Sodium Succinate (Methylprednisolone Sod Succi 125 Mg/2 Ml Vial) 60 mg IV Q6HR [facility] Last Admin: 09/17/20 16:45 Dose: 60 mg Documented by: Miscellaneous Information (Pneumonia Protocol Utilized 1 Each [facility]) 1 each PO ONCE PRN PRN Reason: Per Protocol Past medical history to include: COPD, hypertension, BPH, hypothyroid, epiglottis cancer treated with chemoradiation in Social history: Patient smoked for 50 years back and a half a day stopped in 2016. Some alcohol intake. Physical examination: VITAL SIGNS: 97.5, 100, 18, 114/62, 98% on 2 L GENERAL: BMI 27.4, sitting up, bit tired. EYES: Pupils equal. Conjunctiva normal. HEENT: External appearance of nose and ears normal, oral cavity grossly normal. NECK: JVD not raised; masses not palpable. HEART: First and second heart sounds are normal; no edema. LUNGS: Respiratory rate increased, decreased breaths on some wheezing some basal crackles. ABDOMEN: Soft, nontender, liver spleen not palpable, no masses palpable. PSYCH: Alert and oriented x3; mood and affect normal. INVESTIGATIONS, reviewed in the clinical context: September 17: Potassium 3.5 creatinine 1.4 Pro-calcitonin 0.43 September 16: White count 7.7 hemoglobin 13.2 potassium 3.5 creatinine 1.4 to Doppler ultrasound: Negative for DVT EKG tracing personally reviewed by me-normal sinus rhythm with some ST segment changes Chest x-ray film personally reviewed by me-right lower lobe infiltrate, cannot rule out underlying effusion Renal ultrasound: No hydronephrosis. Renal measurements fall within normal size Admission testing: White count 20.6 hemoglobin 13.4 platelets 360 potassium 3.5 bun 27 creatinine 1.63 Influenza type A type B both not detected. RSV [PCR]-not detected. Coronavirus [PCR]-not detected Assessment: -Right lower lobe pneumonia, suspect gram-negative orgasm. Suspect underlying pleural effusion -Acute COPD exacerbation in a previous smoker -Essential hypertension -BPH -Hypothyroidism -Suspect underlying chronic kidney disease. Rule out an acute component Plan: Continue IV azithromycin and ceftriaxone. , Bronchodilators steroids. Decrease IV steroids
[2020-09-17] MEDS: methylPREDNISolone SOD SUCCI 40 MG/ML 1 ML VIAL IV SCH (23:37)
[2020-09-18] MEDS ORDERED: diphenhydrAMINE 50 MG/ML 1 ML VIAL IVP STA ×2 (00:53→15:22)
[2020-09-18] MEDS: LEVOTHYROXINE 50 MCG TAB PO SCH (05:23)
[2020-09-18 06:46] LABS: Basophils # (A) 0.1 k/uL (0-0.2); Basophils % (A) 0 %; Eosinophils % (A) 0 %; HCT 35.5 % (39.0-53.0); HGB 11.6 gm/dL (13.0-17.5); Lymphocytes # (A) 0.5 k/uL (1.0-4.8); Lymphocytes % (A) 2 %; MCH 31.2 pg (25.0-35.0); MCHC 32.8 g/dL (31.0-37.0); MCV 95.2 fL (80.0-100.0); Mean Platelet Volume 7.2; Monocytes # (A) 0.9 k/uL (0-1.0); Monocytes % (A) 4 %; Neutrophils # (A) 21.5 k/uL (1.3-7.7); Neutrophils % (A) 94 %; Platelet Count 388 k/uL (150-450); RBC 3.73 m/uL (4.30-5.90); RDW 13.2 % (11.5-15.5)
--- NOTE | 2020-09-18 07:43 | XR ---
EXAMINATION TYPE: XR chest 1V portable DATE OF EXAM: 09/18/2020 COMPARISON: 09/16/2020 INDICATION: Right lower lobe pneumonia TECHNIQUE: Single frontal view of the chest is obtained. FINDINGS: The heart size is normal. The pulmonary vasculature is normal. Large opacification over the right lower lobe laterally. Findings can be compatible with pneumonia. F indings are worsening over the interval. IMPRESSION: 1. Worsening right lower lobe consolidation. Correlate for pneumonia.
[2020-09-18] MEDS: IPRATROPIUM-ALBUTEROL 3 ML NEB INHALATION SCH ×4 (08:02→19:18)
[2020-09-18] MEDS: methylPREDNISolone SOD SUCCI 40 MG/ML 1 ML VIAL IV SCH ×3 (08:38→23:17)
[2020-09-18] MEDS: ENOXAPARIN 30 MG/0.3 ML SYRINGE SQ SCH (08:38)
[2020-09-18] MEDS: FINASTERIDE 5 MG TAB PO SCH (08:38)
[2020-09-18 09:55] LABS: African American GFR (CKD) 69.1 (60.0-200.0); Anion Gap 3.2 mmol/L (4.00-12.00); BUN/Creat Ratio 33.33 Ratio (12.00-20.00); Calcium 8.3 mg/dL (8.7-10.3); Carbon Dioxide 30.8 mmol/L (21.6-31.8); Non-African American GFR(CKD) 59.6 (60.0-200.0); Potassium 3.5 mmol/L (3.5-5.5)
[2020-09-18 10:14] LABS: Hepatitis B Surface AB- Quant 3.5 mIU/mL; Hepatitis B Surface Antibody Non-Reactive (Non-Reactive); Hepatitis B Surface Antigen Non-Reactive (Non-Reactive); Hepatitis C IgG Antibody Non-Reactive (Non-Reactive)
[2020-09-18] MEDS: DEXTROSE 5% IN WATER 1,000 ML IV SCH (10:18)
[2020-09-18] MEDS ORDERED: FUROSEMIDE 10 MG/ML 4 ML VIAL IV STA (12:50)
--- NOTE | 2020-09-18 13:54 | PN ---
PROGRESS NOTE The patient is seen for followup for acute kidney injury and chronic kidney disease. His renal function has improved to some degree. Creatinine is down to 1.2 from 1.6 on initial admission. Patient denies any significant complaints. He had some lower extremity edema. He denies any chest pain or shortness of breath. Sodium is slightly higher today 148 mEq. PHYSICAL EXAMINATION: On examination today, blood pressure was 137/67, heart rate 92 per minute. Patient is afebrile. EXAMINATION OF THE HEART: S1, S2. EXAMINATION OF LUNGS: Decreased breath sounds at the bases. Abdomen is soft, nontender. Examination of lower extremities shows edema 1+ bilaterally. 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 LABS: Labs show sodium 148, potassium 3.5, chloride 114, CO2 is 30.8, serum creatinine 1.2, BUN 40. Protein creatinine ratio is 0.28. ASSESSMENT: 1. Acute kidney injury. Renal function has improved. The patient did get IV fluids. His diuretics are on hold. However, he is mildly hypervolemic. I will give him a dose of Lasix. At the same time he has hypernatremia for which a small amount of D5W will be administered IV. The patient was noted to have proteinuria and therefore serologies were sent off for workup. Hepatitis serologies are negative. Protein creatinine ratio was 0.28. 2. History of benign prostatic hypertrophy, maintained on finasteride. 3. Hypertension, currently controlled. Blood pressure has been on the lower side. 4. History of head and neck cancer, cancer of the epiglottis, status post chemo and radiation therapy. 5. Pneumonia with chest x-ray showing right lower lobe consolidation, maintained on antibiotics. PLAN: IV Lasix x1 and add D5W to help with the hypernatremia. Followup on the serologies for the proteinuria detected in the setting of no history of diabetes. MMODL / IJN: [id number] /
[2020-09-18 14:54] LABS: Anti-DNA, DS unit <1.0 IU/mL; DNA Double-Stranded NEGATIVE (NEGATIVE)
--- NOTE | 2020-09-18 15:17 | P.PN ---
Subjective Progress Note Date: 09/18/20 Principal diagnosis: Acute community-acquired right lower lobe pneumonia 74-year-old white male patient of Dr. Rj Freitas, with past medical history of COPD is not normally on any oxygen or inhalers on a regular basis, former smoker hypertension, hypothyroidism, BPH, chronic back pain with history of lumbar surgery, history of the epiglottis status post chemo radiation treatment in 2014, who presented to the emergency department on 09/15/2020 with 3 four-day history of cough, nasal congestion, nasal drainage, and worsening shortness of breath. He has been using an inhaler at home without relief. Patient reports feeling feverish however did not check his temperature at home. Denies any nausea vomiting or abdominal pain, no diarrhea, no loss of taste or smell. De nies any chest pain, no back pain, no weakness, no urinary symptoms. Upon arrival patient was febrile and tachycardic with a heart rate in the 150s, his pulse ox between 91 and 94% on room air. He did have a leukocytosis with a white blood cell count of 20.6 with neutrophils of 18.5, his BUN was 27, creatinine is 1.63, lactic acid was 1.6, his COVID19 PCR and influenza screen were negative. His chest x-ray showed significant consolidation and pleural fluid on the right side which is new. Follow-up chest x-ray on the 09/16/2020 shows some improvement in aeration of right lower lobe, and rounded pseudotumor in the right midlung. Urinalysis did not show evidence of infection. Patient remains on 2 L of oxygen his pulse ox is 96%, his heart rate has improved, down to 102 BPM, patient was rehydrated in the emergency department with 1/2 L and fluid boluses, he was started on azithromycin and Rocephin, nebulized bronchodilators, and was given 1 dose of IV Solu-Medrol. He is feeling better, blood cultures have been ordered and sent. On 09/17/2020 patient seen in follow-up on medical floor, he is awake and alert, he is currently on 2 L of oxygen his pulse ox is 98%, he is breathing comfortably, no worsening cough no chest discomfort, no phlegm production. His lower extremity Dopplers for negative for DVT, his pro-calcitonin level initially was elevated at 0.65 and subsequently came down to 0.43. He tested negative for COVID 19, influenza screen was negative, blood and sputum cultures have been sent, pending at this time, patient on empiric antibiotics in form of azithromycin and Rocephin, he received 1 dose of IV Lasix yesterday, he continues on IV steroids, he is breathing easier. He is maintaining negative fluid balance. Reevaluated today on 09/18/2020, patient remains on the regular medical floor, doing fairly well clinically, he is on room air with O2 sats was 93%, he is afebrile, temp is 98.1, hemodynamically stable, breathing very comfortably, had question reaction to Zithromax yesterday, hence his antibiotic was changed to Rocephin and Zosyn. Apparently had ALLERGIC reaction and his arm was itchy after infusion of Zithromax yesterday. Continues to have leukocytosis with WBC count of 23.0, his hemoglobin is 11.6. Electrolytes are fairly normal except for elevated sodium, and his creatinine is down to 1.2 from 1.42 on admission. Chest x-ray continues to show extensive right lower lobe pneumonia. There is an area of large opacification over the right lower lobe laterally compatible with pneumonia. I will recommend urine Legionella antigen, I would also recommend a high-resolution CT of the chest if no significant improvement noted in the next couple of days. Objective - Vital Signs Vital signs: Vital Signs Temp 98.1 F 09/18/20 14:00 Pulse 99 09/18/20 14:00 Resp 16 09/18/20 14:00 BP 148/71 09/18/20 14:00 Pulse Ox 93 L 09/18/20 14:00 Intake & Output 09/17/20 09/18/20 09/18/20 18:59 06:59 18:59 Intake Total 200 Output Total 1175 500 Balance -975 -500 Intake: Oral 200 Output: Urine 1175 500 Other: Voiding Method Toilet - Exam Physical Exam: Revealed a 74-year-old white male, on room air, in no distress. Sitting at the edge of his bed eating breakfast. Head: Atraumatic, normocephalic. HEENT:[Neck is supple.] [No neck masses.] [No thyromegaly.] [No JVD.] Chest: [Symmetrical chest expansion, crackles and rhonchi at the right base, left side is relatively clear. Cardiac Exam: [Normal S1 and S2, no S3 gallop, no murmur.] Abdomen: [Soft, nontender, no megaly, no rebound, no guarding, normal bowel sounds.] Extremities: [No clubbing, no edema, no cyanosis.] Neurological Exam: [No focal neurologic deficit.] Alert and oriented 3. Psychiatric: Normal mood, affect and normal mental status examination. Musculoskeletal: No limitation in range of motion, no deformities. Skin: No rashes noted. - Labs CBC & Chem 7: 09/18/20 06:26 09/18/20 06:26 Labs: Abnormal Lab Results - Last 24 Hours (Table) 09/18/20 09/18/20 09/18/20 Range/Units 06:26 06:26 06:26 WBC 23.0 H (3.8-10.6) k/uL RBC 3.73 L (4.30-5.90) m/uL Hgb 11.6 L (13.0-17.5) gm/dL Hct 35.5 L (39.0-53.0) % Neutrophils # 21.5 H (1.3-7.7) k/uL Lymphocytes # 0.5 L (1.0-4.8) k/uL D-Dimer 6.36 H (<0.60) mg/L FEU Sodium 148 H (135-145) mmol/L Chloride 114 H (96-109) mmol/L Anion Gap 3.20 L (4.00-12.00) mmol/L BUN 40.0 H (9.0-27.0) mg/dL Est GFR (CKD-EPI)NonAf 59.6 L (60.0-200.0) BUN/Creatinine Ratio 33.33 H (12.00-20.00) Ratio Glucose 152 H (70-110) mg/dL Calcium 8.3 L (8.7-10.3) mg/dL Complement C4 7.6 L (10.0-53.0) mg/dL Microbiology - Last 24 Hours (Table) 09/16/20 19:39 Gram Stain - Final Sputum Sputum Culture - Final 09/15/20 21:10 Blood Culture - Preliminary Blood No Growth after 48 hours 09/15/20 21:02 Blood Culture - Preliminary Blood No Growth after 48 hours Assessment and Plan Assessment: Impression: Acute hypoxic respiratory failure secondary to extensive right lower lobe pneumonia, felt to be community-acquired pneumonia unless proven otherwise. History of COPD. History of epiglottic cancer. Status post chemoradiation in 2017. History of hypothyroidism. Benign essential hypertension. Former smoker. Elevated d-dimer, negative Doppler for deep vein thrombosis. Recommendation: Continue antibiotics, patient is presently on Rocephin and Zosyn. Continue bronchodilators. Continue IV Solu-Medrol. Urine Legionella antigen was ordered. Consider high-resolution CT of the chest if no significant improvement in the next couple of days. Clinically, the patient seems to be doing better than expected in comparison to the chest x-ray findings. We'll continue to follow. Time with Patient: Less than 30
[2020-09-18] MEDS: PIPERACILLIN-TAZOBACTAM 3.375 GM in SODIUM CHLORIDE 0.9% 100 ML IVPB SCH ×2 (15:31→23:17)
--- NOTE | 2020-09-18 16:11 | CDI ---
Documentation Clarification Form Date: 09/18/2020 From: Lucy Colunga RN, CCDS Admit Date: 09/15/2020 Patient Name: Eric Wall (M 74 Yrs) Visit Number: [id number] Discharge Date: Dr. Beckie Hull CKD is documented in the consult 09/17 and subsequent progress notes. Please further specify the stage of chronic kidney disease History/Risk Factors: Hypertension, Epiglottis cancer, Thyroid Disorder COPD Patients Historical Creatinine 0.8 on 12/09/2017 Clinical Indicators: 74-year-old male present on 09/15 with shortness of breath, cough and fever. Labs on admission 09/15; BUN 27, Creatinine 1.63 GFR 41 09/16 Lab: BUN 28 Creatinine 1.42, GFR 49 09/17 Lab: BUN 36.0 Creatinine 1.4, GFR 49.5 BUN/Cr Ratio 25.71 Urine Cr 99.l3, Protein/Cr Ratio 0.282 urine Total Protein 28 Treatment: .9NS 500 mls/hr bolus, 1000 mls/hr bolus x2 (09/15) Avoid the use of nonsteroidal anti-inflammatory agents In order to capture the severity of condition, please clarify the stage of the CKD, if known: CKD Stage 1 (GFR > 90) CKD Stage 2 (GFR 60-89) CKD Stage 3a (GFR 45-59) CKD Stage 3b (GFR 30-44) CKD Stage 4 (GFR 15-29) CKD Stage 5 (GFR <15) ESRD Other, please specify stage 3 Unable to determine [Template Last reviewed: April 2020] MTDD
--- NOTE | 2020-09-18 16:42 | CDI ---
Documentation Clarification Form Date: 09/18/2020 From: Lucy Colunga RN, CCDS Admit Date: 09/12/2020 Patient Name: Eric Wall (M 74 Yrs) Visit Number: [id number] Discharge Date: Dr. Zhao Allen The patient presented with the following: shortness of breath, cough, fever, and tachycardia. ED assessment has sepsis. Please render your opinion on the sepsis diagnosis as ruled in POA, or ruled out. History/Risk Factors: Hypertension, Epiglottis cancer, Thyroid Disorder COPD Clinical Indicators: 74-year-old male present on 09/15 with complaints of shortness of breath. He was in mild respiratory distress. Vital signs upon presentation are temperature 99.7, F oral, pulse 145, respirations 30 blood pressure 142/76, pulse ox 94 % on room air. 09/15 WBC 20.6, BUN 27, Creatinine 1.63 Covid not detected, 09/15 Lactic acid: 1.6 09/15 Blood cultures: Pending 09/15 CXR: Significant consolidation and pleural fluid on the right side is new compared to old exam 09/18 CXR: worsening right lower lobe consolidation. Correlate for pneumonia Treatment: Monitor CBC, BUN, CR Lytes daily Zosyn 3.375 gm IVq 8 hrs Solu-Medrol 125 mg IV once then 60 mg IV q 6 hrs (titrate per orders) .9NS 500 mls/hr bolus, 1000 mls/hr bolus x2 (09/15) Avoid the use of nonsteroidal anti-inflammatory agents 09/17 Nephrology Consult: Acute kidney injury appears to be prerenal currently improved. In your professional opinion, please clarify if these findings signify one of the following conditions, whether the condition is POA, and cause, if known: Condition Sepsis ruled in and POA Sepsis ruled out Severe Sepsis Other, please specify Unable to determine Identify the (suspected) organism Link or clarify if there is associated (due to/with): Organ failure Shock SIRS Criteria (2 or more of the following may indicate SIRS): -Temperature < 96.8F (36C) or > 101.0F (38.3C) -Heart Rate > 90 bpm -Respiratory Rate > 20 breaths/min or PaCO2 < 32 mmHg -White Blood Cell Count > 12,000 or < 4,000 cells/mm3 or > 10% bands -Lactate >2.0 mmol/L (>4.0 is equivalent to septic shock) (Last Revision: November 2017) Possible sepsis, ruled in, POA, suspected gram-negative organism , pneumonia MTDD
--- NOTE | 2020-09-18 22:18 | P.PN ---
Progress Note - Text Progress Note Date: 09/18/20 Chief Complaint: Short of breath History of presenting complaint: This is a pleasant 74-year-old patient of . Chronic stable medical conditions include COPD, hypertension, BPH, hypothyroid, epiglottis cancer treated with chemoradiation in 2015. Patient presents with 5 days of increasing cough. Worsening short of breath. Stevens colored sputum. Chills. Decreased appetite. Tired and rundown. X-ray in the ER did show pneumonia. Started IV ceftriaxone and Zithromax. Also had some wheezing. Today-last night patient was getting Zithromax. Developed hives. Discontinue. Given IV Benadryl. I changed the antibiotic over to IV Zosyn. Oral intake good. Respiratory symptoms are better. Has been out of bed. Review of systems: Was done for constitutional, cardiovascular, GI, pulmonary. relevant finding as above Active Medications Albuterol/Ipratropium (Ipratropium-Albuterol 3 Ml Neb) 3 ml INHALATION RT-Q4H PRN PRN Reason: shortness of breath Albuterol/Ipratropium (Ipratropium-Albuterol 3 Ml Neb) 3 ml INHALATION RT-QID [facility] Last Admin: 09/18/20 19:18 Dose: 3 ml Documented by: Enoxaparin Sodium (Enoxaparin 30 Mg/0.3 Ml Syringe) 30 mg SQ DAILY [facility] Last Admin: 09/18/20 08:38 Dose: 30 mg Documented by: Finasteride (Finasteride 5 Mg Tab) 5 mg PO DAILY [facility] Last Admin: 09/18/20 08:38 Dose: 5 mg Documented by: Piperacillin Sod/Tazobactam (Sod 3.375 gm/ Sodium Chloride) 100 mls @ 25 mls/hr IVPB Q8HR [facility] Last Admin: 09/18/20 15:31 Dose: 25 mls/hr Documented by: Dextrose/Water (Dextrose 5%-Water Iv Soln) 1,000 mls @ 50 mls/hr IV .Q20H [facility] Last Admin: 09/18/20 10:18 Dose: 50 mls/hr Documented by: Levothyroxine Sodium (Levothyroxine 50 Mcg Tab) 50 mcg PO DAILY@0630 [facility] Last Admin: 09/18/20 05:23 Dose: 50 mcg Documented by: Methylprednisolone Sodium Succinate (Methylprednisolone Sod Succi 40 Mg/Ml 1 Ml Vial) 40 mg IV Q8HR [facility] Last Admin: 09/18/20 15:31 Dose: 40 mg Documented by: Miscellaneous Information (Pneumonia Protocol Utilized 1 Each [facility] 1 each PO ONCE PRN PRN Reason: Per Protocol Past medical history to include: COPD, hypertension, BPH, hypothyroid, epiglottis cancer treated with chemoradiation in Social history: Patient smoked for 50 years back and a half a day stopped in 2016. Some alcohol intake. Physical examination: VITAL SIGNS: 98.2, 95, 14, 1 29 x 69, 92% GENERAL: BMI 27.4, sitting up, more comfortable EYES: Pupils equal. Conjunctiva normal. HEENT: External appearance of nose and ears normal, oral cavity grossly normal. NECK: JVD not raised; masses not palpable. HEART: First and second heart sounds are normal; no edema. LUNGS: Respiratory rate increased, decreased breaths sounds. ABDOMEN: Soft, nontender, liver spleen not palpable, no masses palpable. PSYCH: Alert and oriented x3; mood and affect normal. INVESTIGATIONS, reviewed in the clinical context: September 18: White count 23 hemoglobin 11.6 potassium 3.5 creatinine 1.2 AMA screen negative. Double-stranded DNA antibody negative complement C3 1 1 8. Complement C4 7 0.6. Hepatitis B surface antigen nonreactive. Hepatitis B surface antibody nonreactive. Hepatitis C IgG antibody nonreactive. Chest x-ray film personally reviewed by me-right lower lobe infiltrate September 17: Potassium 3.5 creatinine 1.4 Pro-calcitonin 0.43 September 16: White count 7.7 hemoglobin 13.2 potassium 3.5 creatinine 1.4 to Doppler ultrasound: Negative for DVT EKG tracing personally reviewed by me-normal sinus rhythm with some ST segment changes Chest x-ray film personally reviewed by me-right lower lobe infiltrate, cannot rule out underlying effusion Renal ultrasound: No hydronephrosis. Renal measurements fall within normal size Admission testing: White count 20.6 hemoglobin 13.4 platelets 360 potassium 3.5 bun 27 creatinine 1.63 Influenza type A type B both not detected. RSV [PCR]-not detected. Coronavirus [PCR]-not detected Assessment: -Right lower lobe pneumonia, suspect gram-negative orgasm. Suspect underlying pleural effusion -Acute COPD exacerbation in a previous smoker -Essential hypertension -BPH -Hypothyroidism -Suspect underlying chronic kidney disease. Rule out an acute component Plan: Both Zithromax and ceftriaxone were discontinued. Started on IV ceftriaxone. On bronchodilators steroids. Discussed with patient. Follow. Repeat labs
[2020-09-18] MEDS: FAMOTIDINE 20 MG TAB PO SCH (23:39)
[2020-09-18] MEDS: diphenhydrAMINE 50 MG/ML 1 ML VIAL IVP PRN (23:39)
[2020-09-19 05:14] LABS: Basophils # (A) 0.1 k/uL (0-0.2); Basophils % (A) 1 %; Eosinophils # (A) 0.1 k/uL (0-0.7); Eosinophils % (A) 1 %; HCT 35.9 % (39.0-53.0); HGB 11.6 gm/dL (13.0-17.5); Lymphocytes # (A) 0.5 k/uL (1.0-4.8); Lymphocytes % (A) 3 %; MCH 30.6 pg (25.0-35.0); MCHC 32.5 g/dL (31.0-37.0); MCV 94.4 fL (80.0-100.0); Mean Platelet Volume 6.5; Monocytes # (A) 0.8 k/uL (0-1.0); Monocytes % (A) 4 %; Neutrophils # (A) 17.1 k/uL (1.3-7.7); Neutrophils % (A) 92 %; Platelet Count 445 k/uL (150-450); RDW 13.2 % (11.5-15.5); WBC 18.6 k/uL (3.8-10.6)
[2020-09-19] MEDS: LEVOTHYROXINE 50 MCG TAB PO SCH (05:31)
[2020-09-19] MEDS: diphenhydrAMINE 50 MG/ML 1 ML VIAL IVP PRN ×2 (05:31→23:00)
[2020-09-19] MEDS: DEXTROSE 5% IN WATER 1,000 ML IV SCH (05:32)
[2020-09-19 06:57] LABS: Glucose,Whole Blood 131 mg/dL (75-99)
[2020-09-19] MEDS: IPRATROPIUM-ALBUTEROL 3 ML NEB INHALATION SCH ×4 (08:02→19:16)
[2020-09-19 09:38] LABS: African American GFR (CKD) 69.1 (60.0-200.0); Anion Gap 9.2 mmol/L (4.00-12.00); BUN/Creat Ratio 32.5 Ratio (12.00-20.00); Carbon Dioxide 32.8 mmol/L (21.6-31.8); Non-African American GFR(CKD) 59.6 (60.0-200.0); Potassium 3.6 mmol/L (3.5-5.5)
[2020-09-19] MEDS: PIPERACILLIN-TAZOBACTAM 3.375 GM in SODIUM CHLORIDE 0.9% 100 ML IVPB SCH (10:36)
[2020-09-19] MEDS: FAMOTIDINE 20 MG TAB PO SCH ×2 (10:46→21:51)
[2020-09-19] MEDS: FINASTERIDE 5 MG TAB PO SCH (10:46)
[2020-09-19] MEDS: ENOXAPARIN 30 MG/0.3 ML SYRINGE SQ SCH (10:46)
[2020-09-19] MEDS: methylPREDNISolone SOD SUCCI 40 MG/ML 1 ML VIAL IV SCH ×3 (10:46→23:00)
[2020-09-19] MEDS: LEVOFLOXACIN 750 MG TAB PO SCH (11:28)
[2020-09-19 11:39] LABS: Glucose,Whole Blood 121 mg/dL (75-99)
--- NOTE | 2020-09-19 13:16 | P.PN ---
Subjective Progress Note Date: 09/19/20 Principal diagnosis: Acute community-acquired right lower lobe pneumonia 74-year-old white male patient of Dr. Rj Freitas, with past medical history of COPD is not normally on any oxygen or inhalers on a regular basis, former smoker hypertension, hypothyroidism, BPH, chronic back pain with history of lumbar surgery, history of the epiglottis status post chemo radiation treatment in 2014, who presented to the emergency department on 09/15/2020 with 3 four-day history of cough, nasal congestion, nasal drainage, and worsening shortness of breath. He has been using an inhaler at home without relief. Patient reports feeling feverish however did not check his temperature at home. Denies any nausea vomiting or abdominal pain, no diarrhea, no loss of taste or smell. D enies any chest pain, no back pain, no weakness, no urinary symptoms. Upon arrival patient was febrile and tachycardic with a heart rate in the 150s, his pulse ox between 91 and 94% on room air. He did have a leukocytosis with a white blood cell count of 20.6 with neutrophils of 18.5, his BUN was 27, creatinine is 1.63, lactic acid was 1.6, his COVID19 PCR and influenza screen were negative. His chest x-ray showed significant consolidation and pleural fluid on the right side which is new. Follow-up chest x-ray on the 09/16/2020 shows some improvement in aeration of right lower lobe, and rounded pseudotumor in the right midlung. Urinalysis did not show evidence of infection. Patient remains on 2 L of oxygen his pulse ox is 96%, his heart rate has improved, down to 102 BPM, patient was rehydrated in the emergency department with 1/2 L and fluid boluses, he was started on azithromycin and Rocephin, nebulized bronchodilators, and was given 1 dose of IV Solu-Medrol. He is feeling better, blood cultures have been ordered and sent. On 09/17/2020 patient seen in follow-up on medical floor, he is awake and alert, he is currently on 2 L of oxygen his pulse ox is 98%, he is breathing comfortably, no worsening cough no chest discomfort, no phlegm production. His lower extremity Dopplers for negative for DVT, his pro-calcitonin level initially was elevated at 0.65 and subsequently came down to 0.43. He tested negative for COVID 19, influenza screen was negative, blood and sputum cultures have been sent, pending at this time, patient on empiric antibiotics in form of azithromycin and Rocephin, he received 1 dose of IV Lasix yesterday, he continues on IV steroids, he is breathing easier. He is maintaining negative fluid balance. Reevaluated today on 09/18/2020, patient remains on the regular medical floor, doing fairly well clinically, he is on room air with O2 sats was 93%, he is afebrile, temp is 98.1, hemodynamically stable, breathing very comfortably, had question reaction to Zithromax yesterday, hence his antibiotic was changed to Rocephin and Zosyn. Apparently had ALLERGIC reaction and his arm was itchy after infusion of Zithromax yesterday. Continues to have leukocytosis with WBC count of 23.0, his hemoglobin is 11.6. Electrolytes are fairly normal except for elevated sodium, and his creatinine is down to 1.2 from 1.42 on admission. Chest x-ray continues to show extensive right lower lobe pneumonia. There is an area of large opacification over the right lower lobe laterally compatible with pneumonia. I will recommend urine Legionella antigen, I would also recommend a high-resolution CT of the chest if no significant improvement noted in the next couple of days. The patient is seen today 09/19/2020 on the regular medical floor. He sitting up in chair at the bedside. Awake and alert in no acute distress. No worsening shortness of breath, cough or congestion. Maintaining O2 saturation in the low 90s on room air. Afebrile. Blood and sputum cultures revealed no growth. He did develop a rash mostly on his arms and back. He remains on Benadryl every 6 hours. Remains on Solu-Medrol. Azithromycin and ceftriaxone were discontinued. He is currently on Zosyn. White count 18.6. Hemoglobin 11.6. Sodium 145. Potassium 3.6. Creatinine 1.2. Legionella screen negative. Objective - Vital Signs Vital signs: Vital Signs Temp 97.5 F L 09/19/20 07:50 Pulse 84 09/19/20 12:13 Resp 20 09/19/20 07:50 BP 148/82 09/19/20 07:50 Pulse Ox 91 L 09/19/20 07:50 Intake & Output 09/18/20 09/19/20 09/19/20 18:59 06:59 18:59 Output Total 825 Balance -825 Output: Urine 825 Other: Voiding Method Toilet Urinal - Exam GENERAL EXAM: Alert, active, pleasant 74-year-old gentleman, on room air, comfortable in no apparent distress. HEAD: Normocephalic. EYES: Normal reaction of pupils, equal size. NOSE: Clear with pink turbinates. THROAT: No erythema or exudates. NECK: No masses, no JVD. CHEST: No chest wall deformity. LUNGS: Equal air entry with few scattered rhonchi, crackles in the right lung base. CVS: S1 and S2 normal with no audible murmur, regular rhythm. ABDOMEN: No hepatosplenomegaly, normal bowel sounds, no guarding or rigidity. SPINE: No scoliosis or deformity SKIN: No rashes CENTRAL NERVOUS SYSTEM: No focal deficits, tone is normal in all 4 extremities. EXTREMITIES: There is no peripheral edema. No clubbing, no cyanosis. Peripheral pulses are intact. - Labs CBC & Chem 7: 09/19/20 04:51 09/19/20 04:51 Labs: Abnormal Lab Results - Last 24 Hours (Table) 09/19/20 09/19/20 09/19/20 Range/Units 04:51 04:51 06:53 WBC 18.6 H (3.8-10.6) k/uL RBC 3.80 L (4.30-5.90) m/uL Hgb 11.6 L (13.0-17.5) gm/dL Hct 35.9 L (39.0-53.0) % Neutrophils # 17.1 H (1.3-7.7) k/uL Lymphocytes # 0.5 L (1.0-4.8) k/uL Carbon Dioxide 32.8 H (21.6-31.8) mmol/L BUN 39.0 H (9.0-27.0) mg/dL Est GFR (CKD-EPI)NonAf 59.6 L (60.0-200.0) BUN/Creatinine Ratio 32.50 H (12.00-20.00) Ratio Glucose 130 H (70-110) mg/dL POC Glucose (mg/dL) 131 H (75-99) mg/dL Calcium 8.0 L (8.7-10.3) mg/dL 09/19/20 Range/Units 11:37 WBC (3.8-10.6) k/uL RBC (4.30-5.90) m/uL Hgb (13.0-17.5) gm/dL Hct (39.0-53.0) % Neutrophils # (1.3-7.7) k/uL Lymphocytes # (1.0-4.8) k/uL Carbon Dioxide (21.6-31.8) mmol/L BUN (9.0-27.0) mg/dL Est GFR (CKD-EPI)NonAf (60.0-200.0) BUN/Creatinine Ratio (12.00-20.00) Ratio Glucose (70-110) mg/dL POC Glucose (mg/dL) 121 H (75-99) mg/dL Calcium (8.7-10.3) mg/dL Microbiology - Last 24 Hours (Table) 09/15/20 21:10 Blood Culture - Preliminary Blood No Growth after 72 hours 09/15/20 21:02 Blood Culture - Preliminary Blood No Growth after 72 hours 09/16/20 19:39 Gram Stain - Final Sputum Sputum Culture - Final Assessment and Plan Assessment: 1 Acute hypoxic respiratory failure secondary to extensive right lower lobe pneumonia, felt to be community-acquired pneumonia unless proven otherwise. Legionella screen negative. CoVID 19 screen negative. 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 4 History of hypothyroidism. 5 Benign essential hypertension. 6 Former smoker. 7 History of COPD. 8 Elevated d-dimer, negative Doppler for deep vein thrombosis. Plan: The patient was seen and evaluated by Dr. Kohler Remains on room air Continue bronchodilators and IV Solu-Medrol Zosyn discontinued, Levaquin initiated Repeat chest x-ray PA and lateral in a.m. If no significant improvement may consider high-resolution computed tomography scan We will continue to follow and make further recommendations based on his clinical status I, the cosigning physician, performed a history & physical examination of the patient. Lungs sounds with crackles, few scattered rhonchi in the right lung base Maintaining good O2 saturations in the 90s on room air. I discussed the assessment and plan of care with my nurse practitioner, Marilyn Milian. I attest to the above note as dictated by her.
[2020-09-19 15:09] LABS: C-ANCA <1:20 Titer (<1:20)
--- NOTE | 2020-09-19 16:38 | PN ---
PROGRESS NOTE Patient is seen for followup for acute kidney injury on top of chronic kidney disease. He is currently comfortable. Patient denies any significant complaints. He states he is feeling slightly better in terms of his breathing. No nausea or vomiting. He did have some itching and rash related to antibiotics. On examination today, blood pressure was 117/57, heart rate 97 per minute. He is afebrile. EXAMINATION OF THE HEART: S1 and S2. EXAMINATION OF LUNGS: Bilateral breath sounds are heard. Decreased breath sounds at bases. No crackles or wheezing is heard. ABDOMEN: Soft, non-tender. Examination of lower extremities shows edema 1+ bilaterally, mostly in the ankles, right worse than the left. 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 Labs show sodium 145, potassium 3.6, chloride 103, BUN 39, creatinine 1.2, hemoglobin 11.6 g/dL. ASSESSMENT: 1. Acute kidney injury; seems to be prerenal, currently resolved. Serum creatinine staying at about 1.2 mg/dL now. 2. Mild hypernatremia, improved with D5W, currently discontinued. 3. Chronic kidney disease, NKF stage III. baseline creatinine about 1.2 to 1.4 mg/dL. However, previous creatinine was 0.8 in 2018. Etiology is likely nephrosclerosis. Patient was noted to have proteinuria with no underlying history of diabetes; therefore serologies were ordered and they were all negative. C4 was slightly low. 4. Pneumonia, maintained on antibiotics; community-acquired right lower lobe pneumonia. COVID negative. 5. Acute hypoxic respiratory failure, currently improved. 6. Urticaria with rash secondary to azithromycin, improved post Benadryl and steroids. 7. Benign prostatic hypertrophy, maintained on Proscar. PLAN: Continue off of IV fluids and diuretics. Patient will need followup as outpatient for CKD. MMODL / IJN: [id number] /
[2020-09-19 16:54] LABS: Glucose,Whole Blood 149 mg/dL (75-99)
[2020-09-19 20:21] LABS: Glucose,Whole Blood 183 mg/dL (75-99)
--- NOTE | 2020-09-20 00:25 | P.PN ---
Progress Note - Text Progress Note Date: 09/19/20 Chief Complaint: Short of breath History of presenting complaint: This is a pleasant 74-year-old patient of . Chronic stable medical conditions include COPD, hypertension, BPH, hypothyroid, epiglottis cancer treated with chemoradiation in 2015. Patient presents with 5 days of increasing cough. Worsening short of breath. [place]ve[place] colored sputum. Chills. Decreased appetite. Tired and rundown. X-ray in the ER did show pneumonia. Started IV ceftriaxone and Zithromax. Also had some wheezing. Zithromax. Developed hives. Discontinue. antibiotic changed over to IV Zosyn. Today-breathing better. Slight cough. Slight sputum. Oral intake improving. Review of systems: Was done for constitutional, cardiovascular, GI, pulmonary. relevant finding as above Active Medications Albuterol/Ipratropium (Ipratropium-Albuterol 3 Ml Neb) 3 ml INHALATION RT-Q4H PRN PRN Reason: shortness of breath Albuterol/Ipratropium (Ipratropium-Albuterol 3 Ml Neb) 3 ml INHALATION RT-QID [facility] Last Admin: 09/19/20 19:16 Dose: 3 ml Documented by: Diphenhydramine HCl (Diphenhydramine 50 Mg/Ml 1 Ml Vial) 50 mg IVP Q6HR PRN PRN Reason: Itching Last Admin: 09/19/20 23:00 Dose: 50 mg Documented by: Enoxaparin Sodium (Enoxaparin 30 Mg/0.3 Ml Syringe) 30 mg SQ DAILY [facility] Last Admin: 09/19/20 10:46 Dose: 30 mg Documented by: Famotidine (Famotidine 20 Mg Tab) 20 mg PO BID [facility] Last Admin: 09/19/20 21:51 Dose: 20 mg Documented by: Finasteride (Finasteride 5 Mg Tab) 5 mg PO DAILY [facility] Last Admin: 09/19/20 10:46 Dose: 5 mg Documented by: Levofloxacin (Levofloxacin 750 Mg Tab) 750 mg PO DAILY [facility] Last Admin: 09/19/20 11:28 Dose: 750 mg Documented by: Levothyroxine Sodium (Levothyroxine 50 Mcg Tab) 50 mcg PO DAILY@0630 [facility] Last Admin: 09/19/20 05:31 Dose: 50 mcg Documented by: Methylprednisolone Sodium Succinate (Methylprednisolone Sod Succi 40 Mg/Ml 1 Ml Vial) 40 mg IV Q8HR [facility] Last Admin: 09/19/20 23:00 Dose: 40 mg Documented by: Miscellaneous Information ([facility]neum[facility] 1 each PO ONCE PRN PRN Reason: Per Protocol Past medical history to include: COPD, hypertension, BPH, hypothyroid, epiglottis cancer treated with chemoradiation in Social history: Patient smoked for 50 years back and a half a day stopped in 2016. Some alcohol intake. Physical examination: VITAL SIGNS: 98.6, 92, 20, 1 56 x 81 9, 91% room air GENERAL: BMI 27.4, sitting up, more comfortable EYES: Pupils equal. Conjunctiva normal. HEENT: External appearance of nose and ears normal, oral cavity grossly normal. NECK: JVD not raised; masses not palpable. HEART: First and second heart sounds are normal; no edema. LUNGS: Respiratory rate increased, decreased breaths sounds. ABDOMEN: Soft, nontender, liver spleen not palpable, no masses palpable. PSYCH: Alert and oriented x3; mood and affect normal. INVESTIGATIONS, reviewed in the clinical context: September 11: White count 8.6 potassium 3.6 creatinine 1.2 September 18: White count 23 hemoglobin 11.6 potassium 3.5 creatinine 1.2 AMA screen negative. Double-stranded DNA antibody negative complement C3 1 1 8. Complement C4 7 0.6. Hepatitis B surface antigen nonreactive. Hepatitis B surface antibody nonreactive. Hepatitis C IgG antibody nonreactive. Chest x-ray film personally reviewed by me-right lower lobe infiltrate September 17: Potassium 3.5 creatinine 1.4 Pro-calcitonin 0.43 September 16: White count 7.7 hemoglobin 13.2 potassium 3.5 creatinine 1.4 to Doppler ultrasound: Negative for DVT EKG tracing personally reviewed by me-normal sinus rhythm with some ST segment changes Chest x-ray film personally reviewed by me-right lower lobe infiltrate, cannot rule out underlying effusion Renal ultrasound: No hydronephrosis. Renal measurements fall within normal size Admission testing: White count 20.6 hemoglobin 13.4 platelets 360 potassium 3.5 bun 27 creatinine 1.63 Influenza type A type B both not detected. RSV [PCR]-not detected. Coronavirus [PCR]-not detected Assessment: -Right lower lobe pneumonia, suspect gram-negative orgasm. Suspect underlying pleural effusion -Acute COPD exacerbation in a previous smoker -Essential hypertension -BPH -Hypothyroidism -Acute kidney injury likely prerenal-in improved -Chronic kidney disease stage III baseline creatinine of 1.2-1.4. 19 nephrosclerosis. Plan: On IV Zosyn On bronchodilators steroids. Discussed with patient. Follow. Check procalcitonin
[2020-09-20] MEDS: LEVOTHYROXINE 50 MCG TAB PO SCH (05:22)
[2020-09-20] MEDS: diphenhydrAMINE 50 MG/ML 1 ML VIAL IVP PRN (06:12)
[2020-09-20 06:42] LABS: Glucose,Whole Blood 106 mg/dL (75-99)
--- NOTE | 2020-09-20 07:25 | XR ---
EXAMINATION TYPE: XR chest 1V portable DATE OF EXAM: 09/20/2020 HISTORY: Shortness of breath. COMPARISON: 09/18/2020 TECHNIQUE: Single view of the chest is submitted. FINDINGS: Demonstrated are scattered senescent parenchymal change. Persistent right lower lobe infiltrate without significant change. The heart is stable. Hilar and mediastinal structures are within normal limits. Degenerative changes are seen of the dorsal spine. IMPRESSION: 1. Persistent right lower lobe infiltrate without significant change.
[2020-09-20] MEDS: IPRATROPIUM-ALBUTEROL 3 ML NEB INHALATION SCH ×4 (07:36→20:19)
[2020-09-20] MEDS: LEVOFLOXACIN 750 MG TAB PO SCH (08:08)
[2020-09-20] MEDS: FAMOTIDINE 20 MG TAB PO SCH ×2 (08:09→20:00)
[2020-09-20] MEDS: methylPREDNISolone SOD SUCCI 40 MG/ML 1 ML VIAL IV SCH ×3 (08:09→23:01)
[2020-09-20] MEDS: FINASTERIDE 5 MG TAB PO SCH (08:09)
[2020-09-20] MEDS: ENOXAPARIN 30 MG/0.3 ML SYRINGE SQ SCH (08:10)
[2020-09-20 11:11] LABS: Glucose,Whole Blood 105 mg/dL (75-99)
--- NOTE | 2020-09-20 13:19 | P.PN ---
Subjective Progress Note Date: 09/20/20 Principal diagnosis: Acute community-acquired right lower lobe pneumonia 74-year-old white male patient of Dr. Rj Freitas, with past medical history of COPD is not normally on any oxygen or inhalers on a regular basis, former smoker hypertension, hypothyroidism, BPH, chronic back pain with history of lumbar surgery, history of the epiglottis status post chemo radiation treatment in 2014, who presented to the emergency department on 09/15/2020 with 3 four-day history of cough, nasal congestion, nasal drainage, and worsening shortness of breath. He has been using an inhaler at home without relief. Patient reports feeling feverish however did not check his temperature at home. Denies any nausea vomiting or abdominal pain, no diarrhea, no loss of taste or smell. D enies any chest pain, no back pain, no weakness, no urinary symptoms. Upon arrival patient was febrile and tachycardic with a heart rate in the 150s, his pulse ox between 91 and 94% on room air. He did have a leukocytosis with a white blood cell count of 20.6 with neutrophils of 18.5, his BUN was 27, creatinine is 1.63, lactic acid was 1.6, his COVID19 PCR and influenza screen were negative. His chest x-ray showed significant consolidation and pleural fluid on the right side which is new. Follow-up chest x-ray on the 09/16/2020 shows some improvement in aeration of right lower lobe, and rounded pseudotumor in the right midlung. Urinalysis did not show evidence of infection. Patient remains on 2 L of oxygen his pulse ox is 96%, his heart rate has improved, down to 102 BPM, patient was rehydrated in the emergency department with 1/2 L and fluid boluses, he was started on azithromycin and Rocephin, nebulized bronchodilators, and was given 1 dose of IV Solu-Medrol. He is feeling better, blood cultures have been ordered and sent. On 09/17/2020 patient seen in follow-up on medical floor, he is awake and alert, he is currently on 2 L of oxygen his pulse ox is 98%, he is breathing comfortably, no worsening cough no chest discomfort, no phlegm production. His lower extremity Dopplers for negative for DVT, his pro-calcitonin level initially was elevated at 0.65 and subsequently came down to 0.43. He tested negative for COVID 19, influenza screen was negative, blood and sputum cultures have been sent, pending at this time, patient on empiric antibiotics in form of azithromycin and Rocephin, he received 1 dose of IV Lasix yesterday, he continues on IV steroids, he is breathing easier. He is maintaining negative fluid balance. Reevaluated today on 09/18/2020, patient remains on the regular medical floor, doing fairly well clinically, he is on room air with O2 sats was 93%, he is afebrile, temp is 98.1, hemodynamically stable, breathing very comfortably, had question reaction to Zithromax yesterday, hence his antibiotic was changed to Rocephin and Zosyn. Apparently had ALLERGIC reaction and his arm was itchy after infusion of Zithromax yesterday. Continues to have leukocytosis with WBC count of 23.0, his hemoglobin is 11.6. Electrolytes are fairly normal except for elevated sodium, and his creatinine is down to 1.2 from 1.42 on admission. Chest x-ray continues to show extensive right lower lobe pneumonia. There is an area of large opacification over the right lower lobe laterally compatible with pneumonia. I will recommend urine Legionella antigen, I would also recommend a high-resolution CT of the chest if no significant improvement noted in the next couple of days. The patient is seen today 09/19/2020 on the regular medical floor. He sitting up in chair at the bedside. Awake and alert in no acute distress. No worsening shortness of breath, cough or congestion. Maintaining O2 saturation in the low 90s on room air. Afebrile. Blood and sputum cultures revealed no growth. He did develop a rash mostly on his arms and back. He remains on Benadryl every 6 hours. Remains on Solu-Medrol. Azithromycin and ceftriaxone were discontinued. He is currently on Zosyn. White count 18.6. Hemoglobin 11.6. Sodium 145. Potassium 3.6. Creatinine 1.2. Legionella screen negative. The patient is seen today 09/20/2020 in follow-up on the regular medical floor. He is currently sitting up at the bedside. Awake and alert in no acute distr ess. Maintaining O2 saturation up to 99% on room air. He's afebrile. Hemodynamically stable. Chest x-ray shows persistent right lower lobe infiltrate. No significant change. Sputum culture revealed no growth. Blood cultures revealed no growth. Follow-up pro-calcitonin 0.07. He remains on Le vaquin, IV Solu-Medrol, bronchodilators. Objective - Vital Signs Vital signs: Vital Signs Temp 98 F 09/20/20 12:42 Pulse 85 09/20/20 12:42 Resp 16 09/20/20 12:42 BP 138/81 09/20/20 12:42 Pulse Ox 99 09/20/20 12:42 Intake & Output 09/19/20 09/20/20 09/20/20 18:59 06:59 18:59 Intake Total 200 Output Total 300 Balance -300 200 Intake: Oral 200 Output: Urine 300 Other: Voiding Method Toilet Toilet Urinal Urinal # Voids 1 1 - Exam GENERAL EXAM: Alert, pleasant 74-year-old gentleman, on room air, comfortable in no apparent distress. HEAD: Normocephalic. EYES: Normal reaction of pupils, equal size. NOSE: Clear with pink turbinates. THROAT: No erythema or exudates. NECK: No masses, no JVD. CHEST: No chest wall deformity. LUNGS: Equal air entry with crackles in the right lung base. CVS: S1 and S2 normal with no audible murmur, regular rhythm. ABDOMEN: No hepatosplenomegaly, normal bowel sounds, no guarding or rigidity. SPINE: No scoliosis or deformity SKIN: No rashes CENTRAL NERVOUS SYSTEM: No focal deficits, tone is normal in all 4 extremities. EXTREMITIES: There is no peripheral edema. No clubbing, no cyanosis. Peripheral pulses are intact. - Labs CBC & Chem 7: 09/19/20 04:51 09/19/20 04:51 Labs: Abnormal Lab Results - Last 24 Hours (Table) 09/19/20 09/19/20 09/20/20 Range/Units 16:51 20:17 06:39 POC Glucose (mg/dL) 149 H 183 H 106 H (75-99) mg/dL 09/20/20 Range/Units 11:09 POC Glucose (mg/dL) 105 H (75-99) mg/dL Microbiology - Last 24 Hours (Table) 09/15/20 21:10 Blood Culture - Preliminary Blood No Growth after 96 hours 09/15/20 21:02 Blood Culture - Preliminary Blood No Growth after 96 hours Assessment and Plan Assessment: 1 Acute hypoxic respiratory failure secondary to extensive right lower lobe pneumonia, felt to be community-acquired pneumonia unless proven otherwise. Legionella screen negative. CoVID 19 screen negative. 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 4 History of hypothyroidism. 5 Benign essential hypertension. 6 Former smoker. 7 History of COPD. 8 Elevated d-dimer, negative Doppler for deep vein thrombosis. Plan: The patient was seen and evaluated by Dr. Kohler Chest x-ray reviewed, normal pro-calcitonin Remains on room air Continue bronchodilators and IV Solu-Medrol Continue Levaquin Repeat follow-up white count in a.m. Probable discharge in a.m. We will continue to follow I, the cosigning physician, performed a history & physical examination of the patient. Lungs sounds with crackles in the right lung base. Maintaining good O2 saturations in the 90s on room air. I discussed the assessment and plan of care with my nurse practitioner, Marilyn Milian. I attest to the above note as dictated by her.
[2020-09-20 13:31] VITALS: BMI 27.3
--- NOTE | 2020-09-20 16:30 | P.PN ---
Subjective Progress Note Date: 09/20/20 Is is a 74-year-old male who was recently admitted with worsening shortness of breath and was found to have pneumonia and is being closely monitored. Coronary following closely. Patient is maintained on oral Levaquin along with IV steroids and breathing inhalational treatments and will continue at this time. Patient continues to have a cough and shortness of breath with exertion although states his breathing has improved since yesterday. Patient is also being seen and followed closely by nephrology as patient was having elevated creatinine although most recent creatinine has improved and is currently 1.2. Will repeat a.m. labs and continue to monitor vital signs closely. Patient is tolerating diet with no reports of nausea or vomiting noted. Patient denies any chest pain or palpitations at this time. Will repeat a.m. chest x-ray. Review of systems: Constitutional: No reports of fatigue, fever, or chills Cardiovascular: No reports of chest pain or palpitations Respiratory: Reports intermittent shortness of breath and continued cough GI: No reports of nausea, vomiting, or diarrhea : No reports of dysuria or retention Neurovascular: No reports of weakness or numbness All medications have been reviewed Active Medications Albuterol/Ipratropium (Ipratropium-Albuterol 3 Ml Neb) 3 ml INHALATION RT-Q4H PRN PRN Reason: shortness of breath Albuterol/Ipratropium (Ipratropium-Albuterol 3 Ml Neb) 3 ml INHALATION RT-QID [facility] Last Admin: 09/20/20 11:03 Dose: 3 ml Documented by: Diphenhydramine HCl (Diphenhydramine 50 Mg/Ml 1 Ml Vial) 50 mg IVP Q6HR PRN PRN Reason: Itching Last Admin: 09/20/20 06:12 Dose: 50 mg Documented by: Enoxaparin Sodium (Enoxaparin 30 Mg/0.3 Ml Syringe) 30 mg SQ DAILY [facility] Last Admin: 09/20/20 08:10 Dose: 30 mg Documented by: Famotidine (Famotidine 20 Mg Tab) 20 mg PO BID [facility] Last Admin: 09/20/20 08:09 Dose: 20 mg Documented by: Finasteride (Finasteride 5 Mg Tab) 5 mg PO DAILY [facility] Last Admin: 09/20/20 08:09 Dose: 5 mg Documented by: Levofloxacin (Levofloxacin 750 Mg Tab) 750 mg PO DAILY [facility] Last Admin: 09/20/20 08:08 Dose: 750 mg Documented by: Levothyroxine Sodium (Levothyroxine 50 Mcg Tab) 50 mcg PO DAILY@0630 [facility] Last Admin: 09/20/20 05:22 Dose: 50 mcg Documented by: Methylprednisolone Sodium Succinate (Methylprednisolone Sod Succi 40 Mg/Ml 1 Ml Vial) 40 mg IV Q8HR [facility] Last Admin: 09/20/20 15:53 Dose: 40 mg Documented by: Miscellaneous Information (Pneumonia Protocol Utilized 1 Each [facility] [place]) 1 each PO ONCE PRN PRN Reason: Per Protocol Objective - Vital Signs Vital signs: Vital Signs Temp 98 F 09/20/20 12:42 Pulse 85 09/20/20 12:42 Resp 16 09/20/20 12:42 BP 138/81 09/20/20 12:42 Pulse Ox 99 09/20/20 12:42 Intake & Output 09/19/20 09/20/20 09/20/20 18:59 06:59 18:59 Intake Total 200 Output Total 300 Balance -300 200 Weight 91.626 kg Intake: Oral 200 Output: Urine 300 Other: Voiding Method Toilet Toilet Urinal Urinal # Voids 1 1 - Exam Gen: This is a 74-year-old male awake, alert and oriented 3, well-developed, well-nourished. Temp is 98F, pulse is 85, respirations are 16, blood pressure is 138/81, oxygen saturation is 99% on room air HEENT: Head is atraumatic, normocephalic. Pupils equal, round. Sclerae is anicteric. NECK: Supple. No JVD. No lymphadenopathy. No thyromegaly. LUNGS: Diminished breath sounds bilaterally with a few scattered rhonchi noted. Minimal expiratory wheezing noted on exam. No intercostal retractions. HEART: S1, S2 are muffled ABDOMEN: Soft. Bowel sounds are present. No masses. No tenderness. EXTREMITIES: No pedal edema. No calf tenderness. NEUROLOGICAL: Patient is awake, alert and oriented x3. Cranial nerves 2 through 12 are grossly intact. - Labs CBC & Chem 7: 09/19/20 04:51 09/19/20 04:51 Labs: Abnormal Lab Results - Last 24 Hours (Table) 09/19/20 09/19/2021 Range/Units 16:51 20:17 06:39 POC Glucose (mg/dL) 149 H 183 H 106 H (75-99) mg/dL 09/20/20 Range/Units 11:09 POC Glucose (mg/dL) 105 H (75-99) mg/dL Microbiology - Last 24 Hours (Table) 09/15/20 21:10 Blood Culture - Preliminary Blood No Growth after 96 hours 09/15/20 21:02 Blood Culture - Preliminary Blood No Growth after 96 hours Assessment and Plan Assessment: -Right lower lobe pneumonia, suspect gram-negative orgasm. Suspect underlying pleural effusion -Acute COPD exacerbation in a previous smoker -Essential hypertension -BPH -Hypothyroidism -Acute kidney injury likely prerenal -Chronic kidney disease stage III baseline creatinine of 1.2-1.4. -nephrosclerosis. Recommendations and discussion: Recommend to continue current medications, management, and symptomatic treatment. Instructed to increase activity as tolerated and continue to cough and deep breathe. Patient will have repeat chest x-ray in the morning. Continue with oral Levaquin along with IV steroids which we'll transition to a prednisone taper upon discharge along with breathing inhalational treatments. Pulmonary is following. Will repeat a.m. labs and continue to monitor closely. Further recommendations to follow. Possible discharge in 24-48 hours.
[2020-09-20 16:53] LABS: Glucose,Whole Blood 111 mg/dL (75-99)
[2020-09-20 20:20] LABS: Glucose,Whole Blood 167 mg/dL (75-99)
--- NOTE | 2020-09-20 20:30 | PN ---
PROGRESS NOTE Patient is seen for followup for acute kidney injury on top of chronic kidney disease. He is currently being treated for pneumonia. Patient has had an allergic reaction to antibiotics and was switched over to Levaquin yesterday, which he seems to be tolerating well. Serum creatinine was 1.6 on initial admission and it has decreased down to 1.2. The patient did receive IV fluids on initial admission. Currently he is off of IV fluids. PHYSICAL EXAMINATION: On examination today, blood pressure was 138/81, heart rate 85 per minute. Patient is afebrile. EXAMINATION OF THE HEART: S1 and S2. EXAMINATION OF LUNGS: Bilateral breath sounds are heard. Decreased breath sounds at bases. ABDOMEN: Soft, non-tender. Examination of lower extremities shows edema 1+ bilaterally, mostly in the ankles. [employer] exam is grossly intact. LABS: Labs show sodium 145, potassium 3.6, chloride 103, BUN 39, creatinine 1.2, and hemoglobin 11.6 g/dL on 09/19/2020. ASSESSMENT: 1. Acute kidney injury, mostly prerenal, currently improved. Creatinine at 1.2, which is probably his baseline for CKD. Continue off of IV fluids. 2. Mild hypernatremia, status post D5W for a short period of time, currently improved. 3. Chronic kidney disease, stage 3. Baseline creatinine about 1.2 to 1.4 secondary to nephrosclerosis. The patient was noted to have proteinuria with no history of diabetes. Serologies were ordered, which were all within range. Protein/creatinine ratio was 0.28. 4. Hypertension, currently controlled. 5. Pneumonia, right lower lobe, maintained on antibiotics. Blood cultures currently negative. PLAN: Add STEPHANIA inhibitors down the road. The patient will need followup for CKD. Continue antibiotics for treatment of pneumonia. MMODL / IJN: [id number] /
[2020-09-21] MEDS: diphenhydrAMINE 50 MG/ML 1 ML VIAL IVP PRN ×2 (01:47→13:51)
[2020-09-21] MEDS: LEVOTHYROXINE 50 MCG TAB PO SCH (05:49)
[2020-09-21 06:52] LABS: Basophils # (A) 0.1 k/uL (0-0.2); Basophils % (A) 0 %; Eosinophils % (A) 0 %; HCT 36.9 % (39.0-53.0); HGB 11.7 gm/dL (13.0-17.5); Lymphocytes # (A) 0.7 k/uL (1.0-4.8); Lymphocytes % (A) 4 %; MCH 30.1 pg (25.0-35.0); MCHC 31.8 g/dL (31.0-37.0); MCV 94.6 fL (80.0-100.0); Mean Platelet Volume 6.6; Monocytes # (A) 0.5 k/uL (0-1.0); Monocytes % (A) 3 %; Neutrophils # (A) 17.7 k/uL (1.3-7.7); Neutrophils % (A) 93 %; Platelet Count 418 k/uL (150-450); RDW 13.3 % (11.5-15.5); WBC 19.1 k/uL (3.8-10.6)
[2020-09-21 07:13] LABS: Glucose,Whole Blood 108 mg/dL (75-99)
[2020-09-21 07:39] VITALS: BP 124/68; RESP 16; TEMP 98.1
[2020-09-21] MEDS: IPRATROPIUM-ALBUTEROL 3 ML NEB INHALATION SCH ×2 (08:04→11:18)
--- NOTE | 2020-09-21 08:32 | XR ---
EXAMINATION TYPE: XR chest 1V DATE OF EXAM: 09/21/2020 COMPARISON: Chest x-ray 09/20/2020 HISTORY: Pneumonia TECHNIQUE: Single frontal view of the chest is obtained. FINDINGS: Findings are similar to prior exam. IMPRESSION: Correlate for pneumonia, difficult to exclude effusion
[2020-09-21] MEDS: LEVOFLOXACIN 750 MG TAB PO SCH (09:25)
[2020-09-21] MEDS: ENOXAPARIN 30 MG/0.3 ML SYRINGE SQ SCH (09:25)
[2020-09-21] MEDS: FINASTERIDE 5 MG TAB PO SCH (09:25)
[2020-09-21] MEDS: FAMOTIDINE 20 MG TAB PO SCH (09:25)
[2020-09-21] MEDS: methylPREDNISolone SOD SUCCI 40 MG/ML 1 ML VIAL IV SCH (09:26)
[2020-09-21 09:43] LABS: African American GFR (CKD) 86.2 (60.0-200.0); Anion Gap 8.8 mmol/L (4.00-12.00); Carbon Dioxide 32.2 mmol/L (21.6-31.8); Non-African American GFR(CKD) 74.3 (60.0-200.0); Potassium 3.8 mmol/L (3.5-5.5)
[2020-09-21 11:31] VITALS: PULSE 88
[2020-09-21 11:39] LABS: Glucose,Whole Blood 120 mg/dL (75-99)
--- NOTE | 2020-09-21 14:29 | P.PN ---
Subjective Progress Note Date: 09/21/20 Principal diagnosis: Acute community-acquired right lower lobe pneumonia 74-year-old white male patient of Dr. Rj Freitas, with past medical history of COPD is not normally on any oxygen or inhalers on a regular basis, former smoker hypertension, hypothyroidism, BPH, chronic back pain with history of lumbar surgery, history of the epiglottis status post chemo radiation treatment in 2014, who presented to the emergency department on 09/15/2020 with 3 four-day history of cough, nasal congestion, nasal drainage, and worsening shortness of breath. He has been using an inhaler at home without relief. Patient reports feeling feverish however did not check his temperature at home. Denies any nausea vomiting or abdominal pain, no diarrhea, no loss of taste or smell. D enies any chest pain, no back pain, no weakness, no urinary symptoms. Upon arrival patient was febrile and tachycardic with a heart rate in the 150s, his pulse ox between 91 and 94% on room air. He did have a leukocytosis with a white blood cell count of 20.6 with neutrophils of 18.5, his BUN was 27, creatinine is 1.63, lactic acid was 1.6, his COVID19 PCR and influenza screen were negative. His chest x-ray showed significant consolidation and pleural fluid on the right side which is new. Follow-up chest x-ray on the 09/16/2020 shows some improvement in aeration of right lower lobe, and rounded pseudotumor in the right midlung. Urinalysis did not show evidence of infection. Patient remains on 2 L of oxygen his pulse ox is 96%, his heart rate has improved, down to 102 BPM, patient was rehydrated in the emergency department with 1/2 L and fluid boluses, he was started on azithromycin and Rocephin, nebulized bronchodilators, and was given 1 dose of IV Solu-Medrol. He is feeling better, blood cultures have been ordered and sent. On 09/17/2020 patient seen in follow-up on medical floor, he is awake and alert, he is currently on 2 L of oxygen his pulse ox is 98%, he is breathing comfortably, no worsening cough no chest discomfort, no phlegm production. His lower extremity Dopplers for negative for DVT, his pro-calcitonin level initially was elevated at 0.65 and subsequently came down to 0.43. He tested negative for COVID 19, influenza screen was negative, blood and sputum cultures have been sent, pending at this time, patient on empiric antibiotics in form of azithromycin and Rocephin, he received 1 dose of IV Lasix yesterday, he continues on IV steroids, he is breathing easier. He is maintaining negative fluid balance. Reevaluated today on 09/18/2020, patient remains on the regular medical floor, doing fairly well clinically, he is on room air with O2 sats was 93%, he is afebrile, temp is 98.1, hemodynamically stable, breathing very comfortably, had question reaction to Zithromax yesterday, hence his antibiotic was changed to Rocephin and Zosyn. Apparently had ALLERGIC reaction and his arm was itchy after infusion of Zithromax yesterday. Continues to have leukocytosis with WBC count of 23.0, his hemoglobin is 11.6. Electrolytes are fairly normal except for elevated sodium, and his creatinine is down to 1.2 from 1.42 on admission. Chest x-ray continues to show extensive right lower lobe pneumonia. There is an area of large opacification over the right lower lobe laterally compatible with pneumonia. I will recommend urine Legionella antigen, I would also recommend a high-resolution CT of the chest if no significant improvement noted in the next couple of days. The patient is seen today 09/19/2020 on the regular medical floor. He sitting up in chair at the bedside. Awake and alert in no acute distress. No worsening shortness of breath, cough or congestion. Maintaining O2 saturation in the low 90s on room air. Afebrile. Blood and sputum cultures revealed no growth. He did develop a rash mostly on his arms and back. He remains on Benadryl every 6 hours. Remains on Solu-Medrol. Azithromycin and ceftriaxone were discontinued. He is currently on Zosyn. White count 18.6. Hemoglobin 11.6. Sodium 145. Potassium 3.6. Creatinine 1.2. Legionella screen negative. The patient is seen today 09/20/2020 in follow-up on the regular medical floor. He is currently sitting up at the bedside. Awake and alert in no acute distr ess. Maintaining O2 saturation up to 99% on room air. He's afebrile. Hemodynamically stable. Chest x-ray shows persistent right lower lobe infiltrate. No significant change. Sputum culture revealed no growth. Blood cultures revealed no growth. Follow-up pro-calcitonin 0.07. He remains on Le vaquin, IV Solu-Medrol, bronchodilators. The patient is seen today 09/21/2020 in follow-up on the regular medical floor. Awake and alert in no acute distress. Maintaining O2 saturations in the 90s on room air. He was desaturating into the 80s during a 6 minute walk test. White count 19.1. Hemoglobin 11.7. Sodium 144. Potassium 3.8. Creatinine on 0.0. His chest x-ray does show improvement in the right lower lobe infiltrate. He is continued on Levaquin. Objective - Vital Signs Vital signs: Vital Signs Temp 98.1 F 09/21/20 07:38 Pulse 88 09/21/20 11:31 Resp 16 09/21/20 07:38 BP 124/68 09/21/20 07:38 Pulse Ox 93 L 09/21/20 10:00 Intake & Output 09/20/20 09/21/20 09/21/20 18:59 06:59 18:59 Weight 91.626 kg Other: Voiding Method Toilet Toilet Toilet Urinal Urinal Urinal # Voids 3 2 - Exam GENERAL EXAM: Alert, pleasant 74-year-old gentleman, on room air, comfortable in no apparent distress. HEAD: Normocephalic. EYES: Normal reaction of pupils, equal size. NOSE: Clear with pink turbinates. THROAT: No erythema or exudates. NECK: No masses, no JVD. CHEST: No chest wall deformity. LUNGS: Equal air entry with crackles in the right lung base. CVS: S1 and S2 normal with no audible murmur, regular rhythm. ABDOMEN: No hepatosplenomegaly, normal bowel sounds, no guarding or rigidity. SPINE: No scoliosis or deformity SKIN: No rashes CENTRAL NERVOUS SYSTEM: No focal deficits, tone is normal in all 4 extremities. EXTREMITIES: There is no peripheral edema. No clubbing, no cyanosis. Peripheral pulses are intact. - Labs CBC & Chem 7: 09/21/20 05:47 09/21/20 05:47 Labs: Abnormal Lab Results - Last 24 Hours (Table) 09/20/20 09/20/20 09/21/20 Range/Units 16:50 20:17 05:47 WBC 19.1 H (3.8-10.6) k/uL RBC 3.90 L (4.30-5.90) m/uL Hgb 11.7 L (13.0-17.5) gm/dL Hct 36.9 L (39.0-53.0) % Neutrophils # 17.7 H (1.3-7.7) k/uL Lymphocytes # 0.7 L (1.0-4.8) k/uL Carbon Dioxide (21.6-31.8) mmol/L BUN (9.0-27.0) mg/dL BUN/Creatinine Ratio (12.00-20.00) Ratio Glucose (70-110) mg/dL POC Glucose (mg/dL) 111 H 167 H (75-99) mg/dL Calcium (8.7-10.3) mg/dL 09/21/20 09/21/20 09/21/20 Range/Units 05:47 07:13 11:37 WBC (3.8-10.6) k/uL RBC (4.30-5.90) m/uL Hgb (13.0-17.5) gm/dL Hct (39.0-53.0) % Neutrophils # (1.3-7.7) k/uL Lymphocytes # (1.0-4.8) k/uL Carbon Dioxide 32.2 H (21.6-31.8) mmol/L BUN 32.0 H (9.0-27.0) mg/dL BUN/Creatinine Ratio 32.00 H (12.00-20.00) Ratio Glucose 113 H (70-110) mg/dL POC Glucose (mg/dL) 108 H 120 H (75-99) mg/dL Calcium 8.0 L (8.7-10.3) mg/dL Microbiology - Last 24 Hours (Table) 09/15/20 21:10 Blood Culture - Preliminary Blood No Growth after 120 hours 09/15/20 21:02 Blood Culture - Preliminary Blood No Growth after 120 hours Assessment and Plan Assessment: 1 Acute hypoxic respiratory failure secondary to extensive right lower lobe pneumonia, felt to be community-acquired pneumonia unless proven otherwise. Legionella screen negative. CoVID 19 screen negative. 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 4 History of hypothyroidism. 5 Benign essential hypertension. 6 Former smoker. 7 History of COPD. 8 Elevated d-dimer, negative Doppler for deep vein thrombosis. Plan: The patient was seen and evaluated by Dr. Kohler Chest x-ray reviewed and labs reviewed Qualifies for home oxygen with O2 saturation at 88% with activity Recovers to 93% on 2 L Continue bronchodilators and prednisone taper Continue Levaquin Follow-up in our office in 1-2 weeks' time I, the cosigning physician, performed a history & physical examination of the patient. Lungs sounds with crackles in the right lung base. Maintaining good O2 saturations in the 90s on room air. I discussed the assessment and plan of care with my nurse practitioner, Marilyn Milian. I attest to the above note as dictated by her.
--- NOTE | 2020-09-21 15:07 | DS ---
DISCHARGE SUMMARY DATE OF SERVICE: 09/21/2020 FINAL DIAGNOSES: 1. Acute right lower lobe pneumonia possibly gram-negative with underlying pleural effusion, improved. 2. Chronic obstructive pulmonary disease acute exacerbation. 3. History of nicotine dependence. 4. Hypertension. 5. Benign prostatic hypertrophy. 6. Hypothyroidism. 7. Acute kidney injury with acute renal failure, acute prerenal. 8. Chronic kidney disease stage 3, baseline creatinine 1.2-1.4. 9. History of nephrosclerosis. DISCHARGE DISPOSITION: The patient will be discharged in stable condition with guarded prognosis. Total time taken 35 minutes. HISTORY OF PRESENT ILLNESS: This 74-year-old gentleman with a past medical history of multiple medical problems was admitted with right lower pneumonia, treated with antibiotics. Patient improved significantly. The patient had ALLERGIC REACTION TO ZITHROMAX. Otherwise, the patient was given Levaquin. The COVID [address] Kohler saw the patient and recommended the patient for discharge. Total time taken 35 minutes. On exam, vitals are stable. Cardiovascular system: S1, S2. Respirations: A few scattered rhonchi. Abdomen soft, nontender. Nervous system: No focal deficits. DISCHARGE MEDICATIONS/INSTRUCTIONS: 1. Diet is cardiac diet. 2. Activity limited until followup. 3. Follow up with Dr. Freitas in 2-3 days. 4. Medications are Levaquin 750 mg p.o. daily for 5 days. 5. Prednisone taper 40 mg daily for 3 days, 30 for 3 days, 20 for 3 days 10 for 3 days. 6. CBC, BMP in the outpatient setting. 7. Lisinopril hydrochlorothiazide 20/12.5 mg, 1 p.o. daily. 8. Levothyroxine 50 mcg p.o. daily. 9. Finasteride 5 mg p.o. daily. 10.Albuterol 2 puffs q.i.d. p.r.n. 11.DuoNeb q.i.d. and p.r.n. 12.Follow up with Dr. Kohler. MMODL / IJN: [id number] /
== END 2020-09-21 14:10 | disposition home health service (06) | DRG 871 ==
LOC: EC 20:19 → 4SSUR 21:52
PROVIDERS: ADMIT Hospitalist; ATTEND Hospitalist
DX: A41.50 Gram-negative sepsis, unspecified (principal); J15.6 Pneumonia due to other Gram-negative bacteria; J96.01 Acute respiratory failure with hypoxia; E87.0 Hyperosmolality and hypernatremia; J44.0 Chronic obstructive pulmonary disease with (acute) lower respiratory infection; J44.1 Chronic obstructive pulmonary disease with (acute) exacerbation; N17.9 Acute kidney failure, unspecified; J90 Pleural effusion, not elsewhere classified; I12.9 Hypertensive chronic kidney disease with stage 1 through stage 4 chronic kidney disease, or unspecified chronic kidney disease; E03.9 Hypothyroidism, unspecified; E87.70 Fluid overload, unspecified; N18.30 Chronic kidney disease, stage 3 unspecified; Z20.822 Contact with and (suspected) exposure to COVID-19; Z96.641 Presence of right artificial hip joint; N40.0 Benign prostatic hyperplasia without lower urinary tract symptoms; L27.0 Generalized skin eruption due to drugs and medicaments taken internally; T36.3X5A Adverse effect of macrolides, initial encounter; Z79.52 Long term (current) use of systemic steroids; Z92.3 Personal history of irradiation; Z92.21 Personal history of antineoplastic chemotherapy; Z87.891 Personal history of nicotine dependence; Z85.89 Personal history of malignant neoplasm of other organs and systems; Z85.21 Personal history of malignant neoplasm of larynx; Z79.899 Other long term (current) drug therapy; Z80.52 Family history of malignant neoplasm of bladder; Z91.041 Radiographic dye allergy status; Z79.890 Hormone replacement therapy
CPT/HCPCS: 36415; 71045; 71046; 76770; 80048; 80053; 81001; 82570; 83605; 83880; 84145; 84156; 85025; 85379; 85610; 85730; 86038; 86160; 86225; 86255; 86706; 86803; 87040; 87070; 87205; 87340; 87449; 87636; 93005; 93970; 94640; 96361; 96365; 96375; 99285

== ENCOUNTER → 2023-01-28 | Outpatient (CLI) | payer MEDICARE ==
[2023-01-28 14:02] LABS: Partial Thromboplastin Time 22.4 sec (22.0-30.0); Prothrombin Time 10.2 sec (9.0-12.0)
[2023-01-28 22:43] LABS: HGB 13.1 d/dL (12.0-15.0); MCH 32.3 pg (27.0-32.0); MCHC 32.8 d/dL (32.0-37.0); MCV 98.8 FL (80.0-97.0); Mean Platelet Volume 10.3 FL (9.5-12.2); NRBC Per 100 WBC 0 X 10*3/uL (0.00-0.01); Platelet Count 193 X 10*3/uL (140-440); RBC 4.05 X 10*6/uL (4.40-5.60); RDW 12.9 % (11.5-14.5); WBC 8.35 X 10*3/uL (4.50-10.00)
[2023-01-29 02:41] LABS: Appearance,Urine Clear (Clear); Bilirubin,Urine Negative (Negative); Blood,Urine Negative (Negative); Color,Urine Yellow (Yellow); Ketones,Urine 15 (Negative); Nitrite,Urine Negative (Negative); Urobilinogen,Urine 0.2
[2023-01-29 02:50] LABS: ALT 37 U/L (10-49); AST 29 U/L (14-35); Albumin 4.4 d/dL (3.8-4.9); Albumin/Globulin Ratio 1.76 Ratio (1.60-3.17); Alkaline Phosphatase 60 U/L (41-126); BUN/Creat Ratio 19.29 Ratio (12.00-20.00); Calcium 9.7 mg/dL (8.7-10.3); Carbon Dioxide 26.1 mmol/L (21.6-31.8); Chloride 103 mmol/L (96-109); Globulin 2.5 d/dL (1.6-3.3); Glucose 81 mg/dL (70-110); Potassium 5.3 mmol/L (3.5-5.5); Sodium 141 mmol/L (135-145); Total Bilirubin 0.5 mg/dL (0.3-1.2); Total Protein 6.9 d/dL (6.2-8.2)
== END | disposition home or self-care (01) ==
LOC: LABWHC1 11:42
PROVIDERS: ATTEND Orthopaedic Surgery
DX: Z01.812 Encounter for preprocedural laboratory examination (principal); M16.12 Unilateral primary osteoarthritis, left hip
CPT/HCPCS: 36415; 80053; 81003; 85027; 85610; 85730; 87070

== ENCOUNTER 2023-02-05 05:34 | Inpatient (IN) | payer MEDICARE ==
[~2023-02-05 05:34] MED LIST changes: -BACITRACIN 50,000 UNIT, POLYMYXIN B 500,000 UNIT in SODIUM CHLORIDE 0.9% IRRIGATIO 1,00... IRRIGATION ONE; +VANCOMYCIN 1,500 MG in SODIUM CHLORIDE 0.9% 500 ML 500 ML IVPB PRN
[2023-02-05] MEDS ORDERED: MIDAZOLAM 2 MG/2 ML VIAL IV PRN (05:45)
[2023-02-05] MEDS ORDERED: KETOROLAC 15 MG/ML 1 ML VIAL IVP PRN (06:00)
[2023-02-05] MEDS ORDERED: oxyCODONE ER 10 MG TAB.ER.12H PO PRN (06:00)
[2023-02-05] MEDS ORDERED: DOCUSATE 100 MG CAP PO PRN (06:00)
[2023-02-05] MEDS ORDERED: ACETAMINOPHEN TAB 500 MG TAB PO PRN (06:00)
[2023-02-05] MEDS ORDERED: DEXAMETHASONE SOD PHOSPHATE 10 MG/ML 1 ML VIAL IV PRN (06:00)
[2023-02-05] MEDS ORDERED: TRANEXAMIC 1,000 MG/100ML-NACL 1,000 MG in SALINE 1 100ML.BAG IVPB PRN (06:00)
[2023-02-05] MEDS ORDERED: FAMOTIDINE 20 MG/2 ML VIAL IVP PRN (06:00)
[2023-02-05] MEDS ORDERED: TRANEXAMIC 1,000 MG/100ML-NACL 1,000 MG in SALINE 1 100ML.BAG IV PRN (06:00)
[2023-02-05] MEDS ORDERED: ONDANSETRON 4 MG/2 ML VIAL IVP PRN (06:00)
[2023-02-05] MEDS: LACTATED RINGERS 1,000 ML IV SCH ×3 (06:24→17:12)
[2023-02-05] MEDS ORDERED: fentaNYL (PF) 50 MCG/ML 2 ML AMP IV ONE (06:53)
[2023-02-05] MEDS ORDERED: GLYCOPYRROLATE 0.2 MG/ML 2 ML VIAL ONE (06:58)
[2023-02-05] MEDS ORDERED: NEOSTIGMINE 1 MG/ML 10 ML VIAL ONE (06:58)
[2023-02-05] MEDS ORDERED: HYDROmorphone (PF) 1 MG/ML ONE (06:58)
[2023-02-05] MEDS ORDERED: fentaNYL (PF) 50 MCG/ML 2 ML AMP ONE (06:58)
[2023-02-05] MEDS ORDERED: SUCCINYLCHOLINE CHLORIDE 200 MG/10 ML VIAL IV ONE (06:58)
[2023-02-05] MEDS ORDERED: LIDOCAINE 2% INJ 20 MG/ML (2 ML VIAL) ONE (06:58)
[2023-02-05] MEDS ORDERED: PROPOFOL 10 MG/ML 20 ML VIAL IV ONE (06:58)
[2023-02-05] MEDS ORDERED: ROCURONIUM 10 MG/ML (5 ML VIAL) IV ONE (06:58)
[2023-02-05] MEDS ORDERED: ROPIVACAINE 5 MG/ML 30 ML VIAL ONE (06:58)
[2023-02-05] MEDS ORDERED: TRANEXAMIC 1,000 MG/100ML-NACL PREMIX BAG ONE (06:58)
[2023-02-05] MEDS ORDERED: PHENYLEPHRINE-0.9% NACL SYG 1,000 MCG/10 ML SYRINGE ONE (06:58)
[2023-02-05] MEDS ORDERED: SODIUM CHLORIDE 0.9% (PF) 10 ML VIAL ONE (06:58)
[2023-02-05] MEDS ORDERED: HYDROmorphone 0.5 MG/0.5 ML SYRINGE IVP PRN ×3 (07:00→09:28)
[2023-02-05] MEDS: ROPIVACAINE/EPI/CLONIDINE/KET 50 ML SYRINGE MISCELLANE PRN ×2 (07:04→08:54)
[2023-02-05] MEDS ORDERED: SODIUM CHLORIDE 0.9% 100 ML with ceFAZolin 2,000 MG IV ONE ×2 (07:15)
--- NOTE | 2023-02-05 08:40 | P.ANPRN ---
Procedure Note - Anesthesia - Nerve Block Performed Left Coy Time Out Performed: Yes (:52) Date of Procedure: 02/05/23 Procedure Start Time: Procedure Stop Time: : Location of Patient: PreOp Indication: Acute Post-Operative Pain, Requested by Surgeon (Dr Pacheco) Sedation Type: Sedate with meaningful contact maintained Preparation: Sterile Prep Position: Supine Catheter: None Needle Types: Pajunk Needle Gauge: 21 Ultrasound used to visualize needle placement: Yes Ultrasound used to observe medication spread: Yes Injectate: 0.5% Ropivacaine (see comment for volume) (20cc +5cc PF Normal saline) Blood Aspirated: No Pain Paresthesia on Injection Noted: No Resistance on Injection: Normal Image Stored and Saved: Yes Events: Uneventful and Well Tolerated
--- NOTE | 2023-02-05 09:10 | P.OP ---
Date of Procedure: 02/05/23 Preoperative Diagnosis: Severe left hip osteoarthritis Postoperative Diagnosis: Same Procedure(s) Performed: Left direct anterior total hip arthroplasty Implants: 1. Dominique Trident II Acetabular Cup, Size #58 2. Dominique Insignia Size # 7 Femoral Stem, High Offset 3. Biolox delta femoral head, 36 mm, - 5 neck Anesthesia: chula VASQUEZ Surgeon: Aristeo Pacheco Energy Auditor #1: Jayy Ratliff Estimated Blood Loss (ml): 100 IV fluids (ml): 500 Pathology: none sent Condition: stable Disposition: PACU Indications for Procedure: I had a long discussion with the patient in the office on the potential risks and complications of an elective total hip replacement through a direct anterior approach. Risks discussed include, but are certainly not limited to, risks from anesthesia, superficial infection requiring local wound care or antibiotics, deep hailey-prosthetic joint infection and the treatment required to eradicate infection, intraoperative fracture, postoperative periprosthetic fracture, da mage to local blood vessels or nerves particularly the lateral femoral cutaneous nerve, delayed wound healing requiring local wound care or possibly surgical debridement, hip dislocation, leg length discrepancy, soft tissue irritation around the total hip implant such as iliopsoas tendinitis or trochanteric bursitis, wear and osteolysis from the implants, squeaking or audible noises, groin pain, thigh pain, heterotopic ossification, stiffness, aseptic loosening of the implants, dissatisfaction with surgical outcome, need for revision surgery, DVT, PE, swelling of the operative extremity, acute coronary event, stroke, failure to thrive, and possibly loss of life or limb. The patient understands that while these are the most common complications after an elective hip replacement there are certainly other less common complications possible. They were given ample time to ask questions regarding the potential complications of a hip replacement. Following our discussion the patient provid ed their verbal and written consent to go forward with an elective total hip replacement. Operative Findings: Severe left hip osteoarthritis. The patient had good bone quality in the proximal femur slightly so I elected to use cementless femoral fixation. Description of Procedure: The patient was identified in the preoperative holding area and the correct hip was marked with my initials. I reviewed the procedure and consent with the patient. All of their questions were answered. The patient was then brought back into the operating room by anesthesia. [facility] was administered by the anesthesia team. Preoperative antibiotics and tranexamic acid were also given. After the patient was under anesthesia I examined their ankles to determine their preoperative leg length discrepancy. The skin over the anterior aspect of the hip was shaved to remove hair over the site of planned incision. Both feet and ankles were padded with webril and boots for the [place] were applied. The patient was then carefully transferred onto the [place] table. A perineal post was immediately placed. The arms were placed on arm holders and were well-padded. Both boots were secured to the spars on the [place] table. The patient was positioned so that the pelvis was centered over the post. Nonsterile drapes were applied. A timeout was performed identifying the correct patient, operative extremity, and procedure. At this point fluoroscopy was brought in to take preoperative images of the pelvis and operative hip. Using the standing AP pelvis from the office as a template, a comparable image was obtained with fluoroscopy. A metallic bar was used to create a bi-ischial line for use as a reference to leg length adjustments during the procedure. Global offset was also measured on both the operative and nonoperative leg. Fluoroscopy was then brought out and a pre-scrub using a chlorhexidine scrub brush was performed. The operative limb was then prepped and draped in the standard sterile fashion. An anterior longitudinal incision was made lateral and distal to the ASIS. The skin and subcutaneous tissues were incised sharply. The underlying tensor fascia was identified and incised in its midportion. The fascia was dissected free from the underlying muscle and the muscle belly was retracted. A blunt tipped cobra retractor was placed over the superior neck under the muscle fibers of the gluteus minimus. The deep enveloping fascia of the tensor was incised. The anterior leash of vessels were then identified and cauterized. The fascia between the rectus and the capsule was then incised and the pre-capsular fat was excised. A second Cobra was placed inferior to the neck. The interval between the rectus and iliocapsularis and the hip capsule was developed and a retractor was placed carefully over the anterior rim of the acetabulum. A T-shaped anterior capsulotomy was performed. The superior capsular leaflet was left in place in the inferior capsular flap was excised. The Cobra retractors were placed intracapsularly. We then made a femoral neck osteotomy according to preoperative and intraoperative templating and confirmed the level of the osteotomy using fluoroscopic imaging. The femoral head was removed, passed off to the back table, and sized. The superior capsular flap was excised. Retractors were placed circumferentially exposing the acetabulum. We then circumferentially debrided the acetabulum free of labrum and osteophytes. The pulvinar was removed to fully visualize the cotyloid fossa. We then sequentially reamed to achieve peripheral fit and excellent bleeding subchondral bone. The socket was thoroughly irrigated. The acetabular component was impacted into the appropriate position using fluoroscopy to guide version, inclination, and depth of insertion taking care to have a comparable image of the AP pelvis to the standing image taken in the office. An excellent press-fit was achieved and final position was confirmed using fluoroscopy. The press fit was augmented with bony cancellus dome screws. The liner was then impacted into the socket. Attention was then turned to the femur. The remnant dorsal lateral capsule was excised. The short external rotators were visible and protected. A bone hook was used to confirm appropriate translation of the trochanter away from the acetabulum. The leg was then extended and adducted and the bone hook was used to elevate the femur for broaching. A box osteotome and blunt tipped canal sound was then utilized to gain access to the femoral canal. We then sequentially broached the femur in appropriate anteversion until excellent torsional stability was achieved. The neck cut was brought flush to the trial broach with a calcar planar. A trial neck and head were then placed onto the broach and the hip was atraumatically reduced under direct visualization. External rotation to 90 was performed to assess stability. Fluoroscopy was brought in. An AP and lateral fluoroscopic image of the proximal femur was obtained to assess position and fill of the trial broach. An AP of the pelvis was then obtained and matched to the preoperative image taken. A bi-ischial bar was then placed and measurements were taken to assess changes in length and offset. The hip was then carefully dislocated, the proximal femur was exposed, and the trial implants were removed. The wound and proximal femur was thoroughly irrigated using sterile saline and pulsatile lavage. The final femoral implant was dispensed and gently tapped into place generating an excellent press-fit. The trunnion was cleansed and the final head was tapped into place to engage the [place] taper. The acetabulum was irrigated and visuali zed to be free of debris. The hip was carefully reduced. Stability was checked clinically with external rotation to 90 and there was no evidence of instability. Final fluoroscopic images were taken. The wound was then thoroughly irrigated and soaked with a dilute Betadine rinse for 3 minutes. 3 L of sterile saline was irrigated through the wound using pulsatile lavage. Local anesthetic cocktail was injected into the soft tissues around the surgical field. A deep drain was placed. The wound was then closed in layers. A sterile dressing was placed over the surgical incision and drain site. The drapes were taken down and the patient was carefully transferred off of the [place] table. Following removal of the boots the leg lengths felt acceptable. The patient was then taken to recovery room having tolerated the procedure well. Jayy Ratliff PA-C was required as a skilled promotional advertising assistant for patient positioning, surgical exposure, retraction, placement of implants, and closure of the surgical wound. PLAN: The patient can weight-bear as tolerated on the operative extremity. 2 doses of postoperative antibiotics. DVT prophylaxis with aspirin 81 mg twice a day based on preoperative risk stratification. Physical therapy for gait training. Discontinue drain postoperative day #1 if output is less than 100 mL per shift.
[2023-02-05] MEDS ORDERED: hydrOXYzine pamoate 25 MG CAP PO PRN (09:28)
[2023-02-05] MEDS ORDERED: NALOXONE 0.4 MG/ML 1 ML VIAL IV PRN (09:28)
--- NOTE | 2023-02-05 10:28 | XR ---
Fluoroscopy INDICATION: Pain FINDINGS: Fluoroscopy time: 38 seconds. Total dose area product (DAP) in uGy*m?, mGy*cm? (or similar): 1.8148 Images obtained: 8. IMPRESSIONS: 1. Documentation of fluoroscopy.
[2023-02-05] MEDS ORDERED: LACTATED RINGERS 1,000 ML IV ONE (10:47)
[2023-02-05] MEDS ORDERED: ALBUTEROL NEBULIZED 2.5 MG/3 ML INHALATION PRN (12:06)
--- NOTE | 2023-02-05 15:19 | FL ---
Fluoroscopy INDICATION: Pain FINDINGS: Fluoroscopy time: 38 seconds. Total dose area product (DAP) in uGy*m?, mGy*cm? (or similar): 1.8148 Images obtained: 0. IMPRESSIONS: 1. Documentation of fluoroscopy.
--- NOTE | 2023-02-05 16:13 | P.CONS ---
History of Present Illness - Reason for Consult Consult date: 02/05/23 Medical management Requesting physician: Aristeo Pacheco - Chief Complaint Left hip surgery - History of Present Illness This is a 77-year-old patient, follows with Dr. Isaacs. Chronic stable medical conditions include COPD, hypertension, hypothyroid, ostomy arthritis. Ex- smoker. Patient is undergoing left total hip arthroplasty by Dr. Pacheco. Postprocedure pain control. No nausea vomiting. Some cough. Breathing is stable. No chest pain. Patient's son at the bedside. 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 Lives alone. Smoked for 50 years back and a half a day stopped in 2015. Physical examination: VITAL SIGNS: [98.6, 83, 16, 125/70, 98% on 2 L GENERAL: BMI 28.3, declining a bit, intermittent coughing. EYES: Pupils equal. Conjunctiva normal. HEENT: External appearance of nose and ears normal, oral cavity grossly normal. NECK: JVD not raised; masses not palpable. HEART: First and second heart sounds are normal; no edema. LUNGS: Respiratory rate normal; clear to auscultation. ABDOMEN: Soft, nontender, liver spleen not palpable, no masses palpable. PSYCH: Alert and oriented x3; mood and affect normal. MUSCULOSKELETAL:No Clubbing/cyanosis;muscles-grossly intact. OA. Dressing over incision with a left hip NEUROLOGICAL: Cranial nerves grossly intact; no facial asymmetry, power and sensation grossly intact. LYMPHATICS: No lymph nodes palpable in the axilla and neck INVESTIGATIONS, reviewed in the clinical context: 01/28/2023: White count 8.3 hemoglobin 13.1 platelets 193 potassium 3.7 BUN 27 creatinine 1.4 Assessment and plan: -Left total hip arthroplasty Aspirin 81 mg twice a day for DVT prophylaxis -BPH Proscar -Hypothyroid Synthroid 50 g Essential hypertension Zestoretic 20/12.5 one tablet daily -COPD in a ex-smoker Symbicort, albuterol when necessary -Primary osteoarthritis Tylenol when necessary Care was discussed with the patient. Questions answered. Home medications resumed. Thank you Dr. Pacheco Past Medical History Past Medical History: Cancer, COPD, Hypertension, Prostate Disorder, Thyroid Disorder Additional Past Medical History / Comment(s): cancer epiglottis with chemo and radiation [id number] History of Any Multi-Drug Resistant Organisms: Acinetobacter (MDRO) Year Discovered:: 02/05/23 MDRO Source:: nasal Past Surgical History: Back Surgery, Joint Replacement Additional Past Surgical History / Comment(s): rt hip replacement, epidural steroid injections, disc fusion L4-5 Past Anesthesia/Blood Transfusion Reactions: No Reported Reaction Additional Past Anesthesia/Blood Transfusion Reaction / Comm: no blood tx hx, headache after anesthesia Past Psychological History: No Psychological Hx Reported Smoking Status: Former smoker Past Alcohol Use History: Occasional Additional Past Alcohol Use History / Comment(s): smoker for 50 years 1- 08/24 ppd stopped smoking sep 2015, Past Drug Use History: None Reported - Past Family History Mother Family Medical History: No Reported History Father Family Medical History: Cancer Additional Family Medical History / Comment(s): malignant tumor in bladder Medications and Allergies Home Medications Medication Instructions Recorded Confirmed Type Albuterol Inhaler [Ventolin Hfa 1 - 2 puff INHALATION RT-Q6H PRN 11/29/17 02/03/23 History Inhaler] Finasteride [Proscar] 5 mg PO DAILY 11/29/17 02/03/23 History Levothyroxine Sodium [Synthroid] 50 mcg PO DAILY 11/29/17 02/03/23 History Lisinopril-Hctz 20-12.5 mg 1 tab PO DAILY 11/29/17 02/03/23 History [Zestoretic 20-12.5] HYDROcodone/APAP 5-325MG [[place] 1 tab PO Q4HR PRN 02/03/23 02/03/23 History 5-325] Symbicort(Unk) 1 puff INHALATION DAILY 02/03/23 02/03/23 History diphenhydrAMINE HCL [Benadryl 25 mg PO DAILY PRN 02/03/23 02/03/23 History Allergy] Allergies Allergy/AdvReac Type Severity Reaction Status Date / Time azithromycin Allergy Rash/Hives Verified 02/05/23 05:53 Iodinated Contrast Media Allergy Anaphylaxis Verified 02/05/23 05:53 Iodine and Iodide Containing Allergy Anaphylaxis Verified 02/05/23 05:53 Produc Physical Exam Vitals: Vital Signs Temp Pulse Resp BP Pulse Ox 02/05/23 12:33 85 112/73 97 02/05/23 12:27 95 02/05/23 12:18 88 118/75 98 02/05/23 12:03 97 135/80 98 02/05/23 11:48 82 125/78 98 02/05/23 11:33 91 126/79 100 02/05/23 11:18 85 123/81 99 02/05/23 11:03 98.6 F 83 18 125/70 98 02/05/23 10:22 78 20 105/66 96 02/05/23 10:07 81 20 114/63 98 02/05/23 09:52 83 16 109/60 97 02/05/23 09:37 82 18 110/62 100 02/05/23 09:22 98.7 F 91 20 128/65 100 02/05/23 06:58 80 16 132/70 97 02/05/23 06:16 98.5 F 102 H 16 140/88 97 Intake and Output 02/05/23 02/05/23 02/05/23 06:59 14:59 22:59 Intake Total 300 1400 Output Total 100 Balance 300 1300 Intake: IV 300 1400 Output: Estimated Blood Loss 100 Other: Weight 94.6 kg 94.6 kg Results CBC & Chem 7: 02/05/23 06:37
[2023-02-05] MEDS: HYDROcodone/APAP 5-325MG 1 EACH TAB PO PRN (17:12)
[2023-02-05] MEDS: HYDROmorphone 0.5 MG/0.5 ML SYRINGE IVP PRN ×2 (18:41→22:07)
[2023-02-05] MEDS: SYMBICORT 80-4.5 MCG INHALER INHALATION SCH (21:29)
[2023-02-05] MEDS: SENNOSIDES-DOCUSATE SODIUM 1 EACH TAB PO SCH (22:06)
[2023-02-05] MEDS: ASPIRIN 81 MG PO SCH (22:07)
[2023-02-06] MEDS: LACTATED RINGERS 1,000 ML IV SCH ×2 (00:33→00:56)
[2023-02-06 06:34] LABS: Basophils % (A) 0 %; Eosinophils # (A) 0.1 k/uL (0-0.7); Eosinophils % (A) 1 %; HCT 31.9 % (39.0-53.0); HGB 10.6 gm/dL (13.0-17.5); Lymphocytes # (A) 1.1 k/uL (1.0-4.8); Lymphocytes % (A) 10 %; MCH 31.6 pg (25.0-35.0); MCHC 33.1 g/dL (31.0-37.0); MCV 95.5 fL (80.0-100.0); Mean Platelet Volume 7.9; Monocytes # (A) 0.7 k/uL (0-1.0); Monocytes % (A) 7 %; Neutrophils # (A) 8.8 k/uL (1.3-7.7); Neutrophils % (A) 81 %; Platelet Count 106 k/uL (150-450); RBC 3.34 m/uL (4.30-5.90); RDW 13.2 % (11.5-15.5); WBC 10.8 k/uL (3.8-10.6)
[2023-02-06] MEDS: HYDROcodone/APAP 5-325MG 1 EACH TAB PO PRN ×4 (06:48→23:06)
[2023-02-06] MEDS: LEVOTHYROXINE 50 MCG TAB PO SCH (06:48)
[2023-02-06] MEDS: ASPIRIN 81 MG PO SCH ×2 (08:41→21:16)
[2023-02-06] MEDS: FINASTERIDE 5 MG TAB PO SCH (08:41)
[2023-02-06] MEDS ORDERED: LISINOPRIL-HCTZ 20-12.5 MG 1 EACH TAB PO SCH (09:00)
[2023-02-06] MEDS: SYMBICORT 80-4.5 MCG INHALER INHALATION SCH ×2 (09:02→21:57)
--- NOTE | 2023-02-06 10:31 | P.PN ---
Subjective Progress Note Date: 02/06/23 Patient is doing well this morning. Pain in his left hip is controlled. He has been up several times walking. He has no other complaints this morning. Objective - Vital Signs Vital signs: Vital Signs Temp 97.7 F 02/06/23 07:05 Pulse 103 H 02/06/23 07:05 Resp 18 02/06/23 07:05 BP 127/70 02/06/23 07:05 Pulse Ox 94 L 02/06/23 07:05 FiO2 Intake & Output 02/05/23 02/06/23 02/06/23 18:59 06:59 18:59 Intake Total 1880 500 Output Total 100 700 Balance 1780 -700 500 Weight 94.6 kg Intake: IV 1400 Oral 480 500 Output: Drainage 200 Left Hip 200 Urine 0 500 Estimated Blood Loss 100 Other: # Voids 1 1 - Exam The patient is sitting up at bedside with therapy. He is in no apparent distress and is able to answer questions. On inspection of his left hip there is a clean dressing in place with no drainage. His medium Hemovac drain was removed without difficulty. His thigh is soft. Femoral nerve function is intact. Distally he is able to actively plantarflex and dorsiflex his ankle and his toes. - Labs CBC & Chem 7: 02/06/23 06:16 02/05/23 06:37 Labs: Abnormal Lab Results - Last 24 Hours (Table) 02/06/23 Range/Units 06:16 WBC 10.8 H (3.8-10.6) k/uL RBC 3.34 L (4.30-5.90) m/uL Hgb 10.6 L (13.0-17.5) gm/dL Hct 31.9 L (39.0-53.0) % Plt Count 106 L (150-450) k/uL Neutrophils # 8.8 H (1.3-7.7) k/uL Assessment and Plan Assessment: Postoperative day #1 status post left direct anterior total hip replacement, doing well Plan: 1. Weightbearing as tolerated left lower extremity, no hip precautions, operative assistance and a walker 2. DVT prophylaxis with aspirin 81 mg twice a day 3. 2 doses postoperative antibiotics 4. Leave dressing in place 5. Appreciate internal medicine preoperative medical management 6. Dispo: The patient would like to discharged to a rehab facility, arrangements are being made, likely Wednesday
--- NOTE | 2023-02-06 13:30 | P.PN ---
Progress Note - Text Progress Note Date: 02/06/23 - Chief Complaint Left hip surgery - History of Present Illness This is a 77-year-old patient, follows with Dr. Isaacs. Chronic stable medical conditions include COPD, hypertension, hypothyroid, ostomy arthritis. Ex- smoker. Patient is undergoing left total hip arthroplasty by Dr. Pacheco. Postprocedure pain control. No nausea vomiting. Some cough. Breathing is stable. No chest pain. Patient's son at the bedside. February 06: Some pain at the operative site. Had urinary retention last night had to be straight cath. Up to the bathroom. Tolerating diet. Breathing stable. 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 Lives alone. Smoked for 50 years back and a half a day stopped in 2015. Physical examination: VITAL SIGNS: 98.7, 104, 16, 100/61, 99% room air GENERAL: BMI 28.3, comfortable EYES: Pupils equal. Conjunctiva normal. HEENT: External appearance of nose and ears normal, oral cavity grossly normal. NECK: JVD not raised; masses not palpable. HEART: First and second heart sounds are normal; no edema. LUNGS: Respiratory rate normal; clear to auscultation. ABDOMEN: Soft, nontender, liver spleen not palpable, no masses palpable. PSYCH: Alert and oriented x3; mood and affect normal. MUSCULOSKELETAL:No Clubbing/cyanosis;muscles-grossly intact. OA. Dressing over incision with a left hip INVESTIGATIONS, reviewed in the clinical context: February 06: Count 10.8 hemoglobin 10.6 platelets 106 01/28/2023: White count 8.3 hemoglobin 13.1 platelets 193 potassium 3.7 BUN 27 creatinine 1.4 Assessment and plan: -Left total hip arthroplasty Aspirin 81 mg twice a day for DVT prophylaxis -Acute postprocedure blood loss anemia expected from surgery Start ferrous sulfate -BPH Proscar -Hypothyroid Synthroid 50 g Essential hypertension: Running on the lower side Zestoretic 12.5-hold -COPD in a ex-smoker Symbicort, albuterol when necessary -Primary osteoarthritis Tylenol when necessary Start ferrous sulfate. Hold Zestoretic. PH CBC Thank you Dr. Pacheco
[2023-02-06] MEDS: FERROUS SULFATE 325 MG TAB PO SCH (17:15)
[2023-02-06] MEDS: SENNOSIDES-DOCUSATE SODIUM 1 EACH TAB PO SCH (21:16)
[2023-02-07] MEDS: HYDROmorphone 0.5 MG/0.5 ML SYRINGE IVP PRN (00:28)
[2023-02-07 05:36] LABS: Basophils % (A) 0 %; Eosinophils # (A) 0.2 k/uL (0-0.7); Eosinophils % (A) 2 %; HCT 30.8 % (39.0-53.0); HGB 10.2 gm/dL (13.0-17.5); Lymphocytes # (A) 1.1 k/uL (1.0-4.8); Lymphocytes % (A) 14 %; MCHC 33.1 g/dL (31.0-37.0); MCV 96.5 fL (80.0-100.0); Mean Platelet Volume 7.9; Monocytes # (A) 0.6 k/uL (0-1.0); Monocytes % (A) 8 %; Neutrophils # (A) 5.9 k/uL (1.3-7.7); Neutrophils % (A) 75 %; Platelet Count 114 k/uL (150-450); RBC 3.19 m/uL (4.30-5.90); RDW 12.9 % (11.5-15.5); WBC 7.9 k/uL (3.8-10.6)
[2023-02-07] MEDS: LEVOTHYROXINE 50 MCG TAB PO SCH (06:34)
[2023-02-07] MEDS: ASPIRIN 81 MG PO SCH ×2 (07:50→20:05)
[2023-02-07] MEDS: HYDROcodone/APAP 5-325MG 1 EACH TAB PO PRN (07:50)
[2023-02-07] MEDS: FINASTERIDE 5 MG TAB PO SCH (07:50)
[2023-02-07] MEDS: SYMBICORT 80-4.5 MCG INHALER INHALATION SCH ×2 (08:24→21:39)
--- NOTE | 2023-02-07 08:46 | P.PN ---
Subjective The patient is resting comfortably in bed. He describes "pain all over". His hip is actually doing relatively well. He has been up several times walking. He has no other complaints. Of note he did have a Quiñonez catheter placed last night due to urinary retention. Objective - Vital Signs Vital signs: Vital Signs Temp 98.0 F 02/07/23 07:10 Pulse 95 02/07/23 07:10 Resp 16 02/07/23 07:10 BP 131/77 02/07/23 07:10 Pulse Ox 94 L 02/07/23 08:26 FiO2 Intake & Output 02/06/23 02/07/23 02/07/23 18:59 06:59 18:59 Intake Total 500 Output Total 700 541 Balance -200 -541 Intake: Oral 500 Output: Urine 700 Straight 700 Post Void Residual 541 Other: Voiding Method Toilet # Voids 1 1 # Bowel Movements 0 - Exam Patient is resting comfortably in bed. He is in no apparent distress and is easily able to answer questions. On inspection of the left hip there is a clean surgical dressing in place with no drainage. His thigh and calf are soft. Motor and sensory function are intact. - Labs CBC & Chem 7: 02/07/23 04:35 02/05/23 06:37 Labs: Abnormal Lab Results - Last 24 Hours (Table) 02/07/23 Range/Units 04:35 RBC 3.19 L (4.30-5.90) m/uL Hgb 10.2 L (13.0-17.5) gm/dL Hct 30.8 L (39.0-53.0) % Plt Count 114 L (150-450) k/uL Assessment and Plan Assessment: Post-operative day #2 status post left direct anterior total hip arthroplasty Postoperative urinary retention Plan: Continue treatment as outlined yesterday. The patient had a Quiñonez catheter placed due to urinary retention, we will leave this in today but I would like it discontinued tomorrow. We will add diclofenac for his upper extremity musculoskeletal pain and will increase his [place]. We'll likely plan on discharge to rehab tomorrow.
[2023-02-07] MEDS: ETODOLAC 400 MG TAB PO SCH ×2 (09:03→20:04)
[2023-02-07] MEDS: FERROUS SULFATE 325 MG TAB PO SCH ×2 (09:45→18:00)
[2023-02-07] MEDS: HYDROcodone/APAP 7.5-325MG 1 EACH TAB PO PRN ×3 (12:15→20:05)
--- NOTE | 2023-02-07 17:55 | P.PN ---
Progress Note - Text Progress Note Date: 02/07/23 - Chief Complaint Left hip surgery Hospital course: This is a 77-year-old patient, follows with Dr. Isaacs. Chronic stable medical conditions include COPD, hypertension, hypothyroid, ostomy arthritis. Ex- smoker. Patient is undergoing left total hip arthroplasty by Dr. Pacheco. Postprocedure pain control. No nausea vomiting. Some cough. Breathing is stable. No chest pain. Patient's son at the bedside. February 06: Some pain at the operative site. Had urinary retention last night had to be straight cath. Up to the bathroom. Tolerating diet. Breathing stable. February 07: Yesterday evening patient had urinary retention again. Quiñonez catheter was placed. Nurse called later today that patient came to DC Quiñonez and give it a try. We will do the same. We'll consult urology if urinary retention again. Patient remains Zestoretic because blood pressures no lower side. Active Medications Hydrocodone Bitart/Acetaminophen (Hydrocodone/Apap 7.5-325mg 1 Each Tab) 1 each PO Q4HR PRN PRN Reason: Pain Last Admin: 02/07/23 16:07 Dose: 1 each Albuterol Sulfate (Albuterol Nebulized 2.5 Mg/3 Ml) 2.5 mg INHALATION RT-Q6H PRN PRN Reason: Dyspnea Aspirin (Aspirin 81 Mg) 81 mg PO BID [facility] Stop: 03/07/23 21:01 Last Admin: 02/07/23 07:50 Dose: 81 mg Budesonide/Formoterol Fumarate (Symbicort 80-4.5 Mcg Inhaler) 2 puff INHALATION RT-BID [facility] Last Admin: 02/07/23 08:24 Dose: Not Given Etodolac (Etodolac 400 Mg Tab) 400 mg PO BID [facility] Last Admin: 02/07/23 09:03 Dose: 400 mg Ferrous Sulfate (Ferrous Sulfate 325 Mg Tab) 325 mg PO BID-W/MEALS [facility] Last Admin: 02/07/23 09:45 Dose: Not Given Finasteride (Finasteride 5 Mg Tab) 5 mg PO DAILY [facility] Last Admin: 02/07/23 07:50 Dose: 5 mg Hydromorphone HCl (Hydromorphone 0.5 Mg/0.5 Ml Syringe) 0.125 mg IVP Q3HR PRN PRN Reason: Pain Scale 1 to 3 Stop: 07/16/23 09:29 Hydromorphone HCl (Hydromorphone 0.5 Mg/0.5 Ml Syringe) 0.5 mg IVP Q3HR PRN PRN Reason: Pain Scale 7 to 10 Stop: 03/07/23 09:29 Last Admin: 02/07/23 00:28 Dose: 0.5 mg Hydromorphone HCl (Hydromorphone 0.5 Mg/0.5 Ml Syringe) 0.25 mg IVP Q3HR PRN PRN Reason: Pain Scale 4 to 6 Stop: 03/07/23 09:29 Hydroxyzine Pamoate (Hydroxyzine Pamoate 25 Mg Cap) 25 mg PO Q4HR PRN PRN Reason: Nausea, Anxiety, Pain Control Stop: 03/07/23 09:29 Levothyroxine Sodium (Levothyroxine 50 Mcg Tab) 50 mcg PO 0630 [facility] Last Admin: 02/07/23 06:34 Dose: 50 mcg Naloxone HCl (Naloxone 0.4 Mg/Ml 1 Ml Vial) 0.2 mg IV Q2M PRN PRN Reason: Opioid Reversal Stop: 03/07/23 09:29 Senna/Docusate Sodium (Sennosides-Docusate Sodium 1 Each Tab) 2 each PO HS [facility] Stop: 03/07/23 21:01 Last Admin: 02/06/23 21:16 Dose: 2 each Past medical history to include: COPD, hypertension, prostate disorder, hypothyroid, 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 Lives alone. Smoked for 50 years back and a half a day stopped in 2015. Physical examination: VITAL SIGNS: 98, 95, 16, 99/65, 95% room air GENERAL: BMI 28.3, up in a chair EYES: Pupils equal. Conjunctiva normal. HEENT: External appearance of nose and ears normal, oral cavity grossly normal. NECK: JVD not raised; masses not palpable. HEART: First and second heart sounds are normal; no edema. LUNGS: Respiratory rate normal; clear to auscultation. ABDOMEN: Soft, nontender, liver spleen not palpable, no masses palpable. Quiñonez catheter PSYCH: Alert and oriented x3; mood and affect normal. MUSCULOSKELETAL:No Clubbing/cyanosis;muscles-grossly intact. OA. Dressing over incision with a left hip INVESTIGATIONS, reviewed in the clinical context: February 07: White count 7.9 hemoglobin 10.2 platelets 114 February 06: Count 10.8 hemoglobin 10.6 platelets 106 01/28/2023: White count 8.3 hemoglobin 13.1 platelets 193 potassium 3.7 BUN 27 creatinine 1.4 Assessment and plan: -Left total hip arthroplasty Aspirin 81 mg twice a day for DVT prophylaxis -Acute postprocedure blood loss anemia expected from surgery ferrous sulfate -BPH Proscar -Acute bladder outflow obstruction secondary to BPH. Patient currently has a Quiñonez catheter. Would DC trial of Quiñonez catheter today. If retention again and then we'll consult urology -Hypothyroid Synthroid 50 g Essential hypertension: Running on the lower side Zestoretic 11/08.5-hold -COPD in a ex-smoker Symbicort, albuterol when necessary -Primary osteoarthritis Tylenol when necessary DC trial of Quiñonez catheter today. If fails then consult urology Thank you Dr. Pacheco
[2023-02-07] MEDS: SENNOSIDES-DOCUSATE SODIUM 1 EACH TAB PO SCH (20:05)
[2023-02-08] MEDS: FERROUS SULFATE 325 MG TAB PO SCH ×2 (06:14→19:58)
[2023-02-08] MEDS: LEVOTHYROXINE 50 MCG TAB PO SCH (06:14)
[2023-02-08 07:11] LABS: Basophils % (A) 1 %; Eosinophils # (A) 0.2 k/uL (0-0.7); Eosinophils % (A) 3 %; HGB 10.3 gm/dL (13.0-17.5); Lymphocytes # (A) 1.1 k/uL (1.0-4.8); Lymphocytes % (A) 14 %; MCH 33.1 pg (25.0-35.0); MCHC 34.3 g/dL (31.0-37.0); MCV 96.4 fL (80.0-100.0); Mean Platelet Volume 7.9; Monocytes # (A) 0.6 k/uL (0-1.0); Monocytes % (A) 8 %; Neutrophils # (A) 5.6 k/uL (1.3-7.7); Neutrophils % (A) 73 %; Platelet Count 137 k/uL (150-450); RBC 3.11 m/uL (4.30-5.90); RDW 12.9 % (11.5-15.5); WBC 7.7 k/uL (3.8-10.6)
[2023-02-08] MEDS: FINASTERIDE 5 MG TAB PO SCH (07:43)
[2023-02-08] MEDS: HYDROcodone/APAP 7.5-325MG 1 EACH TAB PO PRN ×3 (07:43→20:01)
[2023-02-08] MEDS: ASPIRIN 81 MG PO SCH ×2 (07:44→19:57)
[2023-02-08] MEDS: ETODOLAC 400 MG TAB PO SCH ×2 (07:47→20:00)
[2023-02-08] MEDS ORDERED: LACTULOSE 20 GM/30 ML CUP PO ONE (07:54)
--- NOTE | 2023-02-08 08:27 | P.DS ---
Providers Date of admission: 02/05/23 17:42 Expected date of discharge: 02/08/23 Attending physician: Aristeo Pacheco Consults: 02/05/23 09:32 Consult Physician Routine Consulting Provider: Zhao Allen Consult Reason/Comments: medical management Do you want consulting provider notified?: Yes Primary care physician: Melchor Isaacs [facility] Hospital Course: This is a 77-year-old female who has been followed in our office by Dr. Pacheco for continued complaints of left hip pain due to left hip osteoarthritis. Treatment options were discussed, and patient elected to undergo a left direct anterior total hip arthroplasty. Patient was seen pre-operatively by Dr. Isaacs, and cardiology, and cleared for surgery. Patient underwent a left direct anterior total hip arthroplasty on 02/05/[address] Pacheco. The procedure was performed without complication or sequelae. The patient is doing fairly well postoperatively. Vital signs and labs are stable on postoperative day #3. Patient was examined bedside this morning with Dr. Pacheco. Patient states he is overall doing well and the pain in his left hip is well-controlled. Patient is comfortable being discharged today. Patient has no new complaints this morning. On examination, the patient is sitting up in bed in no apparent distress. He is alert and orientated 3. On inspection of the left hip, there is a clean, dry, intact surgical dressing in place. Motor and sensory function is intact of the left lower extremity. Femoral nerve function intact. The dorsalis pedis pulse is easily palpable, the left lower extremity is warm and well perfused with brisk capillary refill. Calf is soft and non-tender to palpation. Patient is discharged to subacute rehab today in good condition, pending medical clearance. Patient will follow-up with Dr. Pacheco in the office in 2 weeks at [facility]. Please see med rec for accurate list of discharge medication. Plan - Discharge Summary Discharge Rx Participant: No New Discharge Prescriptions: New Docusate [Colace] 100 mg PO BID #60 capsule Diclofenac Sodium [Voltaren] 75 mg PO BID 30 Days #60 tab Aspirin 81 mg PO BID 30 Days #60 tab HYDROcodone/APAP 7.5-325MG [[place] 7.5-325] 1 tab PO Q4-6H PRN 7 Days #32 tab PRN Reason: Pain Omeprazole 40 mg PO DAILY 30 Days #30 cap No Action Lisinopril-Hctz 20-12.5 mg [Zestoretic 20-12.5] 1 tab PO DAILY Levothyroxine Sodium [Synthroid] 50 mcg PO DAILY Finasteride [Proscar] 5 mg PO DAILY Albuterol Inhaler [Ventolin Hfa Inhaler] 1 - 2 puff INHALATION RT-Q6H PRN PRN Reason: Dyspnea Symbicort(Unk) 1 puff INHALATION DAILY diphenhydrAMINE HCL [Benadryl Allergy] 25 mg PO DAILY PRN PRN Reason: Congestion HYDROcodone/APAP 5-325MG [[place] 5-325] 1 tab PO Q4HR PRN PRN Reason: Congestion Discharge Medication List Albuterol Inhaler [Ventolin Hfa Inhaler] 1 - 2 puff INHALATION RT-Q6H PRN 11/29/17 [History] Finasteride [Proscar] 5 mg PO DAILY 11/29/17 [History] Levothyroxine Sodium [Synthroid] 50 mcg PO DAILY 11/29/17 [History] Lisinopril-Hctz 20-12.5 mg [Zestoretic 20-12.5] 1 tab PO DAILY 11/29/17 [History] HYDROcodone/APAP 5-325MG [[place] 5-325] 1 tab PO Q4HR PRN 02/03/23 [History] Symbicort(Unk) 1 puff INHALATION DAILY 02/03/23 [History] diphenhydrAMINE HCL [Benadryl Allergy] 25 mg PO DAILY PRN 02/03/23 [History] Aspirin 81 mg PO BID 30 Days #60 tab 02/08/23 [Rx] Diclofenac Sodium [Voltaren] 75 mg PO BID 30 Days #60 tab 02/08/23 [Rx] Docusate [Colace] 100 mg PO BID #60 capsule 02/08/23 [Rx] HYDROcodone/APAP 7.5-325MG [[place] 7.5-325] 1 tab PO Q4-6H PRN 7 Days #32 tab 02/08/23 [Rx] Omeprazole 40 mg PO DAILY 30 Days #30 cap 02/08/23 [Rx] Follow up Appointment(s)/Referral(s): Aristeo Pacheco MD [Medical Doctor] - 2 Weeks Activity/Diet/Wound Care/Special Instructions: Weight bear to tolerance on operative extremity with a walker. Keep operative dressing in place until follow-up in the office. Call the office if dressing becomes saturated or falls off. May shower over dressing. Take pain medications as needed. Take aspirin 81mg twice a day x 4 weeks for blood clot prevention. Follow-up at [facility] two weeks post-op. Call the office with any questions or concerns, Discharge Disposition: HOME WITH HOME HEALTH SERVICES
[2023-02-08] MEDS: SYMBICORT 80-4.5 MCG INHALER INHALATION SCH ×2 (09:02→20:43)
[2023-02-08] MEDS: SENNOSIDES-DOCUSATE SODIUM 1 EACH TAB PO SCH (19:57)
--- NOTE | 2023-02-09 03:49 | PN ---
PROGRESS NOTE DATE OF SERVICE: 02/08/2023 SUBJECTIVE: This is a 77-year-old gentleman, who was admitted with left hip surgery, is improving significantly. No chest pain. No palpitations. No fever. OBJECTIVE: VITAL SIGNS: Pulse 110, blood pressure 130/62, respirations 18. CHEST: Clear to auscultation. CARDIOVASCULAR: S1, S2. ABDOMEN: Soft. LEGS: Status post surgery. LABORATORY DATA: Reviewed. ASSESSMENT: 1. Status post left hip arthroplasty. 2. Chronic obstructive pulmonary disease. 3. Benign prostatic hypertrophy. 4. Hypothyroidism. 5. Multiple medical issues. RECOMMENDATIONS AND DISCUSSION: Recommend to continue current medications, continue symptomatic treatment. Resume home medications after discharge. Closely follow with primary physician. DVT prophylaxis per Orthopedic [facility]. Further recommendations to follow. See orders for further details. Follow with Dr. Melchor Isaacs. ERYN / CARLENE: [id number] /
[2023-02-09] MEDS: LEVOTHYROXINE 50 MCG TAB PO SCH (06:17)
[2023-02-09] MEDS: FERROUS SULFATE 325 MG TAB PO SCH (06:17)
[2023-02-09] MEDS: ETODOLAC 400 MG TAB PO SCH (07:33)
[2023-02-09] MEDS: FINASTERIDE 5 MG TAB PO SCH (07:34)
[2023-02-09] MEDS: ASPIRIN 81 MG PO SCH (07:34)
[2023-02-09] MEDS: HYDROcodone/APAP 7.5-325MG 1 EACH TAB PO PRN (07:34)
[2023-02-09] MEDS: SYMBICORT 80-4.5 MCG INHALER INHALATION SCH (07:55)
[2023-02-09 07:57] VITALS: BP 119/67; PULSE 94; RESP 18; TEMP 97.8
--- NOTE | 2023-02-09 11:32 | P.PN ---
Subjective Progress Note Date: 02/09/23 This patient is a 77- year old male who is status-post left direct anterior total hip arthroplasty on 02/05/23. Today is post-op day #4. Patient is examined bedside with Dr. Pacheco. Auth for rehab was denied, therefore patient is now planning to discharge home with home health care today. He is doing well with physical therapy. He has no new complaints. Objective - Vital Signs Vital signs: Vital Signs Temp 97.8 F 02/09/23 07:00 Pulse 94 02/09/23 07:00 Resp 18 02/09/23 07:00 BP 119/67 02/09/23 07:00 Pulse Ox 95 02/09/23 07:54 FiO2 21 02/09/23 07:54 Intake & Output 02/08/23 02/09/23 02/09/23 18:59 06:59 18:59 Output Total 50 Balance -50 Output: Urine 50 Other: # Voids 3 2 # Bowel Movements 1 - Exam On examination, patient is sitting up in the bedside chair in no apparent distress. He is alert and orientated x3. On inspection of the left hip, there is a surgical dressing in place with a small amount of dried serosanguineous drainage at the proximal dressing. Dressing is removed and reveals a well- approximated incision that is healing well. No active drainage. No surrounding erythema. Mild swelling of the thigh, thigh is soft and compressible. Motor and sensory function intact LLE. LLE warm and well perfused. Calf non-tender. - Labs CBC & Chem 7: 02/08/23 06:09 02/05/23 06:37 Assessment and Plan Assessment: Status-post left direct anterior total hip arthroplasty on 02/05/23. Post-op day #4. Plan: - Patient will discharge home with home physical therapy today. Dressing over the left hip was changed this morning. Patient should keep this dressing in place until follow-up in the office.
--- NOTE | 2023-02-09 13:18 | PN ---
PROGRESS NOTE DATE OF SERVICE: 02/09/2023 SUBJECTIVE: This 77-year-old gentleman admitted with left hip surgery, is planning to go home at this time, apparently rehab is not approved. No chest pain, no palpitations, no fever. OBJECTIVE: VITAL SIGNS: Pulse 64, blood pressure 119/67, respirations 18. CHEST: Clear to auscultation. CARDIOVASCULAR: S1, S2 normal. ABDOMEN: Soft. LEGS: Status post surgery. LABORATORY DATA: Noted. ASSESSMENT: 1. Status post left hip arthroplasty. 2. Chronic obstructive pulmonary disease. 3. Benign prostatic hypertrophy. 4. Hypothyroidism. 5. Multiple medical issues. RECOMMENDATIONS AND DISCUSSION: Recommended to continue current management, continue symptomatic treatment. Resume home medications. DVT prophylaxis per Orthopedic surgery. Closely follow with primary physician. Followup. MMJARADL / JADYNN: [id number] /
== END 2023-02-09 13:50 | disposition home health service (06) | DRG 470 ==
LOC: OR 05:34 → 4SSUR 09:22 → OR 17:40 → 4SSUR 17:42
PROVIDERS: ADMIT Orthopaedic Surgery; ATTEND Orthopaedic Surgery
PROC: 0SRB02Z Replacement of Left Hip Joint with Metal on Polyethylene Synthetic Substitute, Open Approach (ICD-10-PCS; principal; 2023-02-05 07:00)
DX: M16.12 Unilateral primary osteoarthritis, left hip (principal); D62 Acute posthemorrhagic anemia; J44.9 Chronic obstructive pulmonary disease, unspecified; I10 Essential (primary) hypertension; E03.9 Hypothyroidism, unspecified; H91.90 Unspecified hearing loss, unspecified ear; N32.0 Bladder-neck obstruction; N40.1 Benign prostatic hyperplasia with lower urinary tract symptoms; Z79.51 Long term (current) use of inhaled steroids; Z79.890 Hormone replacement therapy; Z79.899 Other long term (current) drug therapy; Z92.21 Personal history of antineoplastic chemotherapy; Z92.3 Personal history of irradiation; Z87.891 Personal history of nicotine dependence; Z96.641 Presence of right artificial hip joint; Z98.1 Arthrodesis status; Z88.1 Allergy status to other antibiotic agents; Z91.041 Radiographic dye allergy status; Z85.21 Personal history of malignant neoplasm of larynx
CPT/HCPCS: 64447; 73501; 84132; 85025; 86850; 86900; 86901; 94760

== ENCOUNTER 2023-03-05 21:08 | Emergency (ER) | payer MEDICARE ==
[2023-03-05 21:12] VITALS: RESP 18; TEMP 98.4
--- NOTE | 2023-03-05 21:56 | ED ---
Extremity Problem HPI - General Chief complaint: Extremity Problem,Nontraumatic Stated complaint: Left hip pain Time Seen by Provider: 03/05/23 21:27 Source: patient Mode of arrival: ambulatory Limitations: no limitations - History of Present Illness Initial comments: 77-year-old male presenting with concerns for possible infection surrounding surgical incision to the left hip. Patient had a left hip replacement about a month ago with Dr. Pacheco. He has had a home visiting nurse coming who is concerned that the wound and is starting to look a bit red and is having some discharge. Patient was started on doxycycline when he called the [facility] office, he was not able to get in to see anyone until Wednesday. He is having no increased pain. No fevers or chills. No nausea or vomiting. He is currently in physical therapy and able to do all of his exercises. - Related Data Home Medications Medication Instructions Recorded Confirmed Albuterol Inhaler [Ventolin Hfa 1 - 2 puff INHALATION RT-Q6H PRN 11/29/17 02/03/23 Inhaler] Finasteride [Proscar] 5 mg PO DAILY 11/29/17 02/03/23 Levothyroxine Sodium [Synthroid] 50 mcg PO DAILY 11/29/17 02/03/23 Lisinopril-Hctz 20-12.5 mg 1 tab PO DAILY 11/29/17 02/03/23 [Zestoretic 20-12.5] HYDROcodone/APAP 5-325MG [[place] 1 tab PO Q4HR PRN 02/03/23 02/03/23 5-325] Symbicort(Unk) 1 puff INHALATION DAILY 02/03/23 02/03/23 diphenhydrAMINE HCL [Benadryl 25 mg PO DAILY PRN 02/03/23 02/03/23 Allergy] Previous Rx's Medication Instructions Recorded Aspirin 81 mg PO BID 30 Days #60 tab 02/08/23 Diclofenac Sodium [Voltaren] 75 mg PO BID 30 Days #60 tab 02/08/23 Docusate [Colace] 100 mg PO BID #60 capsule 02/08/23 HYDROcodone/APAP 7.5-325MG [[place] 1 tab PO Q4-6H PRN 7 Days #32 tab 02/08/23 7.5-325] Omeprazole 40 mg PO DAILY 30 Days #30 cap 02/08/23 Allergies Allergy/AdvReac Type Severity Reaction Status Date / Time azithromycin Allergy Rash/Hives Verified 03/05/23 21:12 Iodinated Contrast Media Allergy Anaphylaxis Verified 03/05/23 21:12 Iodine and Iodide Containing Allergy Anaphylaxis Verified 03/05/23 21:12 Produc Review of Systems ROS Statement: Those systems with pertinent positive or pertinent negative responses have been documented in the HPI. ROS Other: All systems not noted in ROS Statement are negative. Past Medical History Past Medical History: Cancer, COPD, Hypertension, Prostate Disorder, Thyroid Disorder Additional Past Medical History / Comment(s): cancer epiglottis with chemo and radiation [id number] History of Any Multi-Drug Resistant Organisms: Acinetobacter (MDRO) Date of last positivie culture/infection: 02/05/23 MDRO Source:: nasal Past Surgical History: Back Surgery, Joint Replacement Additional Past Surgical History / Comment(s): rt hip replacement, epidural steroid injections, disc fusion L4-5 Past Anesthesia/Blood Transfusion Reactions: No Reported Reaction Additional Past Anesthesia/Blood Transfusion Reaction / Comment(s): no blood tx hx, headache after anesthesia Past Psychological History: No Psychological Hx Reported Smoking Status: Former smoker Past Alcohol Use History: Occasional Past Drug Use History: None Reported - Past Family History Mother Family Medical History: No Reported History Father Family Medical History: Cancer Additional Family Medical History / Comment(s): malignant tumor in bladder General Exam Limitations: no limitations General appearance: alert, in no apparent distress Head exam: Present: atraumatic, normocephalic, normal inspection Eye exam: Present: normal appearance Neck exam: Present: normal inspection, full ROM Respiratory exam: Present: normal lung sounds bilaterally. Absent: respiratory distress, wheezes, rales, rhonchi, stridor Cardiovascular Exam: Present: regular rate, normal rhythm, normal heart sounds. Absent: systolic murmur, diastolic murmur, rubs, gallop, clicks Extremities exam: Present: normal inspection, full ROM Neurological exam: Present: alert, oriented X3, CN II-XII intact Psychiatric exam: Present: normal affect, normal mood Skin exam: Present: warm, dry, intact, normal color. Absent: rash Course Vital Signs 03/05/23 03/05/23 21:09 22:48 Temperature 98.4 F Pulse Rate 111 H 102 H Respiratory 18 18 Rate Blood Pressure 160/75 158/82 O2 Sat by Pulse 97 98 Oximetry Medical Decision Making - Medical Decision Making Was pt. sent in by a medical professional or institution ([facility] Motta, [employer], urgent care, hospital, or [facility]...) When possible be specific @ -Sent in by home care nurse Did you speak to anyone other than the patient for history (EMS, parent, family, police, friend...)? What history was obtained from this source @ -No Did you review nursing and triage notes (agree or disagree)? Why? @ -I reviewed and agree with nursing and triage notes Were old charts reviewed (outside hosp., previous admission, EMS record, old EKG, old radiological studies, urgent care reports/EKG's, [facility] records)? Report findings @ -No old charts were reviewed Differential Diagnosis (chest pain, altered mental status, abdominal pain women, abdominal pain men, vaginal bleeding, weakness, fever, dyspnea, syncope, headache, dizziness, GI bleed, back pain, seizure, CVA, palpatations, mental health, musculoskeletal)? @ -Differential includes cellulitis, abscess, osteomyelitis, delayed healing, this is not an all inclusive list EKG interpreted by me (3pts min.). @ -As above X-rays interpreted by me (1pt min.). @ -X-ray shows no acute process CT interpreted by me (1pt min.). @ -None done U/S interpreted by me (1pt. min.). @ -None done What testing was considered but not performed or refused? (CT, X-rays, U/S, labs)? Why? @ -None What meds were considered but not given or refused? Why? @ -None Did you discuss the management of the patient with other professionals (professionals i.e. HERIBERTO Motta, [employer], lab, RT, psych nurse, social economist, divorce lawyer, teacher, fire control officer, egg caser)? Give summary @ -No Was smoking cessation discussed for >3mins.? @ -No Was critical care preformed (if so, how long)? @ -No Were there social determinants of health that impacted care today? How? (Homelessness, low income, unemployed, alcoholism, drug addiction, transportation, low edu. Level, literacy, decrease access to med. care, fci, rehab)? @ -No Was there de-escalation of care discussed even if they declined (Discuss DNR or withdrawal of care, Hospice)? DNR status @ -No What co-morbidities impacted this encounter? (DM, HTN, Smoking, COPD, CAD, Canc er, CVA, ARF, Chemo, Hep., AIDS, mental health diagnosis, sleep apnea, morbid obesity)? @ -None Was patient admitted / discharged? Hospital course, mention meds given and route, prescriptions, significant lab abnormalities, going to OR and other pertinent info. @ -77-year-old male sent in by his home care nurse for concerns of redness surrounding his hip arthroplasty incision. Procedure was approximately one month ago. No fevers or increasing pain. On physical examination incision appears to be healing well, there is some mild dehiscence. No purulent discharge, erythema, induration, or warmth. Wound culture is obtained. Lab work shows no leukocytosis. X-ray shows no acute process. Patient is educated on today's findings. He was previously prescribed doxycycline and by his surgeon after he called him with his concerns and has a follow-up appointment on Wednesday. He is instructed to continue his doxycycline and follow-up at his scheduled appointment. Follow-up with PCP. Report back to ER with any new or worsening symptoms. Discussed return parameters and answered all questions. Patient conveyed verbal understanding and agreed to the plan. I discussed this case in detail with my attending Dr. Herrera Undiagnosed new problem with uncertain prognosis? @ -No Drug Therapy requiring intensive monitoring for toxicity (Heparin, Nitro, Insulin, Cardizem)? @ -No Were any procedures done? @ -No Diagnosis/symptom? @ -Status post hip replacement Acute, or Chronic, or Acute on Chronic? @ -Acute Uncomplicated (without systemic symptoms) or Complicated (systemic symptoms)? @ -Uncomplicated Side effects of treatment? @ -No Exacerbation, Progression, or Severe Exacerbation? @ -No Poses a threat to life or bodily function? How? (Chest pain, [place], [place], pneumonia, PE, COPD, DKA, ARF, appy, cholecystitis, CVA, Diverticulitis, Homicidal, Suicidal, threat to staff... and all critical care pts) @ -No - Lab Data Result diagrams: 03/05/23 21:37 03/05/23 21:37 Lab Results 03/05/23 03/05/23 03/05/23 Range/Units 21:37 21:37 21:37 WBC 9.5 (3.8-10.6) k/uL RBC 3.88 L (4.30-5.90) m/uL Hgb 12.0 L (13.0-17.5) gm/dL Hct 37.1 L (39.0-53.0) % MCV 95.7 (80.0-100.0) fL MCH 31.0 (25.0-35.0) pg MCHC 32.4 (31.0-37.0) g/dL RDW 12.7 (11.5-15.5) % Plt Count 183 (150-450) k/uL MPV 7.8 Neutrophils % 70 % Lymphocytes % 16 % Monocytes % 8 % Eosinophils % 4 % Basophils % 1 % Neutrophils # 6.6 (1.3-7.7) k/uL Lymphocytes # 1.5 (1.0-4.8) k/uL Monocytes # 0.7 (0-1.0) k/uL Eosinophils # 0.4 (0-0.7) k/uL Basophils # 0.1 (0-0.2) k/uL Sodium 139 (137-145) mmol/L Potassium 4.6 (3.5-5.1) mmol/L Chloride 104 (98-107) mmol/L Carbon Dioxide 27 (22-30) mmol/L Anion Gap 8 mmol/L BUN 27 H (9-20) mg/dL Creatinine 1.28 H (0.66-1.25) mg/dL Est GFR (CKD-EPI)AfAm 63 (>60 ml/min/1.73 sqM) Est GFR (CKD-EPI)NonAf 54 (>60 ml/min/1.73 sqM) Glucose 109 H (74-99) mg/dL Plasma Lactic Acid Epi 1.6 (0.7-2.0) mmol/L Calcium 8.6 (8.4-10.2) mg/dL Total Bilirubin 0.3 (0.2-1.3) mg/dL AST 25 (17-59) U/L ALT 32 (4-49) U/L Alkaline Phosphatase 71 (38-126) U/L Total Protein 6.6 (6.3-8.2) g/dL Albumin 4.0 (3.5-5.0) g/dL Disposition Clinical Impression: Status post hip replacement Disposition: HOME SELF-CARE Condition: Good Instructions (If sedation given, give patient instructions): Precautions after Total Joint Replacement Surgery (ED) Additional Instructions: Follow-up with your orthopedist. Report back to ER with any new or worsening symptoms. Continue taking your doxycycline as prescribed. Is patient prescribed a controlled substance at d/c from ED?: No Referrals: Melchor Isaacs MD [Primary Care Provider] - 1-2 days Aristeo Pacheco MD [Medical Doctor] - 03/08/23 Time of Disposition: 22:43
--- NOTE | 2023-03-05 22:08 | XR ---
EXAMINATION TYPE: XR Hip Complete LT DATE OF EXAM: 03/05/2023 10:00 PM INDICATION: Patient age:Male; 77 years old; Reason for study: recent hip replacement, concerns for infection; COMPARISON: None. TECHNIQUE: The left hip was examined in the frontal and lateral projections and a AP pelvis. FINDINGS: No evidence for acute process, joint dislocation or significant soft tissue swelling. No ev idence for osseous erosion. IMPRESSION: No acute process. No radiographic evidence for infection.
[2023-03-05 22:09] LABS: Basophils # (A) 0.1 k/uL (0-0.2); Basophils % (A) 1 %; Eosinophils # (A) 0.4 k/uL (0-0.7); Eosinophils % (A) 4 %; HCT 37.1 % (39.0-53.0); Lymphocytes # (A) 1.5 k/uL (1.0-4.8); Lymphocytes % (A) 16 %; MCHC 32.4 g/dL (31.0-37.0); MCV 95.7 fL (80.0-100.0); Mean Platelet Volume 7.8; Monocytes # (A) 0.7 k/uL (0-1.0); Monocytes % (A) 8 %; Neutrophils # (A) 6.6 k/uL (1.3-7.7); Neutrophils % (A) 70 %; Platelet Count 183 k/uL (150-450); RBC 3.88 m/uL (4.30-5.90); RDW 12.7 % (11.5-15.5); WBC 9.5 k/uL (3.8-10.6)
[2023-03-05 22:20] LABS: Potassium 4.6 mmol/L (3.5-5.1)
[2023-03-05 22:21] LABS: ALT 32 U/L (4-49); AST 25 U/L (17-59); African American GFR (CKD) 63 (>60 ml/min/1.73 sqM); Alkaline Phosphatase 71 U/L (38-126); Anion Gap 8 mmol/L; Blood Urea Nitrogen 27 mg/dL (9-20); Calcium 8.6 mg/dL (8.4-10.2); Carbon Dioxide 27 mmol/L (22-30); Chloride 104 mmol/L (98-107); Glucose 109 mg/dL (74-99); Non-African American GFR(CKD) 54 (>60 ml/min/1.73 sqM); Sodium 139 mmol/L (137-145); Total Bilirubin 0.3 mg/dL (0.2-1.3); Total Protein 6.6 g/dL (6.3-8.2)
[2023-03-05 22:50] VITALS: BP 158/82; PULSE 102
== END 2023-03-05 22:51 | disposition home or self-care (01) ==
LOC: EC 21:08
DX: M25.552 Pain in left hip (principal); Z96.643 Presence of artificial hip joint, bilateral; I10 Essential (primary) hypertension; J44.9 Chronic obstructive pulmonary disease, unspecified; E07.9 Disorder of thyroid, unspecified; Z79.890 Hormone replacement therapy; Z79.51 Long term (current) use of inhaled steroids; Z79.899 Other long term (current) drug therapy; Z87.891 Personal history of nicotine dependence; Z88.5 Allergy status to narcotic agent; Z88.6 Allergy status to analgesic agent; Z88.8 Allergy status to other drugs, medicaments and biological substances
CPT/HCPCS: 36415; 73502; 80053; 83605; 85025; 87070; 87205; 99284

== ENCOUNTER → 2024-01-14 | Outpatient (CLI) | payer MEDICARE ==
[2024-01-14 15:16] LABS: INR 0.9 (<1.2); Partial Thromboplastin Time 22.5 sec (22.0-30.0); Prothrombin Time 10.3 sec (10.0-12.5)
--- NOTE | 2024-01-14 15:21 | XR ---
EXAMINATION TYPE: XR chest 2V DATE OF EXAM: 01/14/2024 2:30 PM CLINICAL INDICATION:Male, 78 years old with history of PRE SURG TESTING; [facility] COMPARISON: Chest radiographs from 08/25/2020. TECHNIQUE: XR chest 2V Frontal and lateral views of the chest. FINDINGS: Lungs/Pleura: There is flattening of the diaphragm with increased lucency of the lungs. No evidence o f pneumothorax, pleural effusion or focal consolidation. Pulmonary vascularity: Unremarkable. Heart/mediastinum: Cardiomediastinal silhouette is unremarkable. Musculoskeletal: Multiple level degenerative disc disease changes seen throughout the spine. IMPRESSION: 1. No acute cardiopulmonary disease process. 2. COPD changes.
[2024-01-14 18:16] LABS: Basophils # (A) 0.09 X 10*3/uL (0.00-0.10); Eosinophils # (A) 0.06 X 10*3/uL (0.04-0.35); Eosinophils % (A) 0.7 %; HCT 39.1 % (39.6-50.0); HGB 13.3 g/dL (13.0-17.0); Lymphocytes # (A) 1.18 X 10*3/uL (0.90-5.00); Lymphocytes % (A) 13.4 %; MCH 31.4 pg (27.0-32.0); MCV 92.4 FL (80.0-97.0); Mean Platelet Volume 10.4 FL (9.5-12.2); Monocytes # (A) 0.66 X 10*3/uL (0.20-1.00); Monocytes % (A) 7.5 %; NRBC Per 100 WBC 0 X 10*3/uL (0.00-0.01); Neutrophils # (A) 6.79 X 10*3/uL (1.80-7.70); Neutrophils % (A) 76.8 %; Platelet Count 199 X 10*3/uL (140-440); RBC 4.23 X 10*6/uL (4.40-5.60); RDW 12.8 % (11.5-14.5); WBC 8.83 X 10*3/uL (4.50-10.00)
[2024-01-14 19:21] LABS: BUN/Creat Ratio 18.64 Ratio (12.00-20.00); Blood Urea Nitrogen 20.5 mg/dL (9.0-27.0); Calcium 9.2 mg/dL (8.7-10.3); Carbon Dioxide 24.3 mmol/L (21.6-31.8); Chloride 106 mmol/L (96-109); Glucose 87 mg/dL (70-110); Potassium 4.2 mmol/L (3.5-5.5); Sodium 142 mmol/L (135-145)
[2024-01-14 20:04] LABS: Appearance,Urine Clear (Clear); Bilirubin,Urine Negative (Negative); Blood,Urine Negative (Negative); Color,Urine Yellow (Yellow); Ketones,Urine Negative (Negative); Nitrite,Urine Negative (Negative); Specific Gravity,Urine 1.015 (1.001-1.030); Urobilinogen,Urine 0.2 E.U./DL
== END | disposition home or self-care (01) ==
LOC: LABPAT 13:47
PROVIDERS: ATTEND Orthopaedic Surgery Orthopaedic Surgery of the Spine
DX: Z01.818 Encounter for other preprocedural examination (principal); M48.00 Spinal stenosis, site unspecified; J44.9 Chronic obstructive pulmonary disease, unspecified; Z22.322 Carrier or suspected carrier of Methicillin resistant Staphylococcus aureus
CPT/HCPCS: 36415; 71046; 80048; 81003; 85025; 85610; 85730

== ENCOUNTER → 2024-01-21 | Outpatient (CLI) | payer MEDICARE | END | disposition home or self-care (01) | LOC: LABPAT 14:37 | PROVIDERS: ATTEND Orthopaedic Surgery Orthopaedic Surgery of the Spine | DX: Z01.812 Encounter for preprocedural laboratory examination (principal); M48.00 Spinal stenosis, site unspecified; Z22.322 Carrier or suspected carrier of Methicillin resistant Staphylococcus aureus | CPT/HCPCS: 86850; 86870; 86880; 86900; 86901; 87070 ==

== ENCOUNTER 2024-01-26 10:38 | Inpatient (IN) | payer MEDICARE ==
[2024-01-24 13:29] VITALS: BMI 27.8
[~2024-01-26 10:38] MED LIST changes: -VANCOMYCIN 1,500 MG in SODIUM CHLORIDE 0.9% 500 ML 500 ML IVPB PRN; +fentaNYL (PF) 50 MCG/ML 2 ML AMP IV PRN
[2024-01-26] MEDS: ONDANSETRON 4 MG/2 ML VIAL IVP ONE (11:24)
[2024-01-26] MEDS: LACTATED RINGERS 1,000 ML IV SCH (11:24)
[2024-01-26] MEDS: VANCOMYCIN 1,500 MG in SODIUM CHLORIDE 0.9% 500 ML 500 ML IVPB PRN (11:25)
[2024-01-26] MEDS: IV FLUID CONTINUATION 1,000 ML IV ONE ×2 (11:28→11:31)
[2024-01-26] MEDS ORDERED: GLYCOPYRROLATE 0.2 MG/ML 2 ML VIAL ONE (11:41)
[2024-01-26] MEDS ORDERED: ROCURONIUM 10 MG/ML (5 ML VIAL) IV ONE (11:41)
[2024-01-26] MEDS ORDERED: DEXAMETHASONE SOD PHOSPHATE 10 MG/ML 1 ML VIAL ONE (11:41)
[2024-01-26] MEDS ORDERED: SUCCINYLCHOLINE CHLORIDE 200 MG/10 ML VIAL IV ONE (11:41)
[2024-01-26] MEDS ORDERED: fentaNYL (PF) 50 MCG/ML 2 ML AMP ONE (11:41)
[2024-01-26] MEDS ORDERED: ePHEDrine 50 MG/ML 1 ML VIAL ONE (11:41)
[2024-01-26] MEDS ORDERED: PHENYLEPHRINE 10 MG/ML VIAL ONE (11:41)
[2024-01-26] MEDS ORDERED: PROPOFOL 10 MG/ML 20 ML VIAL IV ONE (11:41)
[2024-01-26] MEDS ORDERED: LIDOCAINE 1% INJ 10MG/ML (20 ML MDV) ONE (11:41)
[2024-01-26] MEDS: LIDOCAINE 2%-EPI 1:100,000 20 ML VIAL SQ ONE ×2 (12:17)
[2024-01-26] MEDS: BUPIVACAINE (PF) 0.25% 30 ML VIAL SQ ONE ×2 (12:17)
[2024-01-26] MEDS: THROMBIN (BOVINE) 5,000 UNIT VIAL MISCELLANE ONE (12:25)
[2024-01-26] MEDS: ceFAZolin 1,000 MG in SODIUM CHLORIDE 0.9% IRRIGATIO 1,000 ML IRRIGATION PRN (12:26)
--- NOTE | 2024-01-26 13:51 | XR ---
EXAMINATION TYPE: XR cervical spine 1V DATE OF EXAM: 01/26/2024 COMPARISON: NONE HISTORY: 78-year-old male ACDF, needle placement TECHNIQUE: Crosstable lateral FINDINGS: Needle at the C3-C4 disc interspace from an anterior approach. The patient is intubated. De generative grade 1 anterolisthesis of C4 and C4-C5. Moderate spondylotic change mid to lower cervical spine. IMPRESSION: Needle at the C3-C4 disc interspace from an anterior approach.
[2024-01-26] MEDS: LACTATED RINGERS 1,000 ML IV ONE (14:00)
[2024-01-26] MEDS ORDERED: BENZOCAINE/MENTHOL LOZENG 1 EACH LOZENGE MUCOUS MEM PRN (14:12)
[2024-01-26] MEDS ORDERED: HYDROmorphone 0.5 MG/0.5 ML SYRINGE IVP PRN (14:12)
[2024-01-26] MEDS ORDERED: ONDANSETRON 4 MG/2 ML VIAL IVP PRN (14:13)
[2024-01-26] MEDS ORDERED: ACETAMINOPHEN TAB 325 MG TAB PO PRN (14:13)
[2024-01-26] MEDS ORDERED: ALBUTEROL NEBULIZED 2.5 MG/3 ML INHALATION PRN (14:14)
--- NOTE | 2024-01-26 14:25 | P.OP ---
Date of Procedure: 01/26/24 Preoperative Diagnosis: Severe cervical stenosis C3-4 C4-5 C5-6, cervical myelopathy, upper extremity weakness, upper extreme radiculopathy, history of throat cancer with history of neck radiation Postoperative Diagnosis: Same with findings of severe fibrosis through his anterior cervical soft tissue causing significant increase in difficulty with dissection and increased time of procedure and inability to expose C5-6 Anesthesia: GETA Pathology: none sent Condition: stable Disposition: PACU Description of Procedure: BRIEF OPERATIVE NOTE Preoperative Diagnosis:Severe cervical stenosis C3-4 C4-5 C5-6, cervical myelopathy, upper extremity weakness, upper extreme radiculopathy, history of throat cancer with history of neck radiation Postoperative Diagnosis:Severe cervical stenosis C3-4 C4-5 C5-6, cervical myelopathy, upper extremity weakness, upper extreme radiculopathy, history of throat cancer with history of neck radiation, Plus severe fibrosis at anterior cervical soft tissue leading to significant increased time of dissection and exposure as well as inability to access C5-6 level Procedure: Anterior cervical decompression with discectomy and fusion C3-4 C4-5 Placement of interbody graft C3-4 C4-5 Application of anterior cervical plate C3-4-5 Increased level of difficulty with dissection and exposure due to prior throat cancer with radiation and subsequent soft tissue fibrosis Surgeon: Dr. Sharp Numerical Control Lathe Operator: Jonh LOUIS who is present throughout the entire the case persistence during positioning, dissection, exposure, visualization, and all crucial elements of the case as well as closure. Anesthesia: General anesthesia Estimated blood loss: Approximate 100 cc Complications: Significant increased difficulty with dissection exposure due to anterior cervical fibrosis due to history of throat cancer and multiple radiation. This led to inaccessibility of the C5-6 level during the time of dissection Components implanted: K2M Dominique [place] anterior cervical plate system with screws and because interbody allograft bone graft and 1 cc of DBX bone putty Disposition: To recovery room in good stable condition. OPERATIVE INDICATIONS The patient has had long-standing issues in their neck and upper extremities. He has been having significant worsening in his neck and his upper extremities and difficulty with his motion in his upper extremities and strength. He has been noticing changes in his balance as well. His imaging showed severe cervical stenosis at C3-4 and C4-5 with moderate stenosis C5-6 and disc degeneration C5-6 C6-7. His symptoms correlated well with his neck and his imaging findings particularly the severe stenosis at C3-4 and C4-5 causing cervical myelopathy and multiple symptoms and the patient. The patient has been through conservative treatment. He is not having any benefit despite aggressive conservative care. He does have history of throat cancer and history of radiation causing significant stiffness and fibrosis at his anterior cervical soft tissues. I felt that he could be a candidate for anterior cervical decompression and fusion at C3-4 C4-5 and C5-6. The most severe levels were C3- 4 with C4-5. C5-6 was somewhat moderate but showed some left foraminal encroachment on imaging. I felt that we could include all 3 levels for surgical intervention and that is what we had planned for. We discussed various treatment options including surgery, and the patient wishes to proceed with surgery We discussed the risk, patient's alternatives and benefits of surgery including but not limited to, risk of bleeding risk of infection, risk of need for further surgery, risk of decreased, loss of motion, muscle function, malunion nonunion, hardware failure, nerve damage, paralysis, heart attack, and . OPERATIVE SUMMARY After discussing all the risks, patient alternatives and benefits at length, the patient elected to proceed with surgical intervention, signed informed consent, and presented for their procedure. The patient was seen and examined in the preoperative holding area and the surgical site was marked. The patient was given antibiotics and brought to the operating room. The patient was positioned on the operating room table in a supine position being careful to pad any bony prominences and pressure points. The patient was sedated and intubated by anesthesia in standard fashion. Once the airway and C- spine were stabilized the patient's arms were padded and tucked at her side, with her shoulders gently taped. The head was placed in a donut pad with the neck in good neutral alignment and position. We were careful to maintain the patient's cervical spine and good neutral alignment and position throughout. The patient was prepped and draped in a normal standard fashion. An appropriate timeout and keystone protocol performed. We were able to proceed with the surgery. The local wound area was infiltrated with local anesthetic. An incision was made transversely approximately 2-1/2 cm over the appropriate levels at approximately C4-5. Upon dissection it was grossly obvious that the tissue was significantly fibrosed. The normal surgical planes to develop were significantly scarred in due to his prior cancer and radiation. This led to great difficulty with dissection and exposure. The tissues were very stiff and fibrosed together and dissection took significant extra time and meticulous technique. I was able to get exposure at C3-4 and C4-5. I did not feel that I could get good exposure of C5-6 without potential increased damage or risk to the adjacent tissues. With the most severe levels being C3-4 and C4-5 I decided to forego the discectomy and decompression at C5-6 in order to protect the soft tissues given the severe fibrosis around the area. I was able to expose C3-4 and C4-5 adequately for anterior cervical discectomy and fusion approach. Dissection was taken down subcutaneously to the level of the platysma which was split in line with its fibers. Dissection was taken with a carotid approach, with the trachea and esophagus medial and the carotid sheath laterally. Again it was significantly difficult to dissect down given the fibrosis at the soft tissue neck. I was very careful to prevent any damage to the trachea esophagus or carotid sheath. We dissected down to the anterior surface of the vertebral bodies. Intraoperative x-ray was taken which showed a marker at the appropriate level at C3-4. With the appropriate level positively confirmed, we were able to proceed with discectomy at the appropriate levels at C3-4 and C4-5. The C3-4 and C4-5 operative levels were exposed appropriately, but I was not able to gain access to the C5-6 without putting more risk at the soft tissues of the area. I decided to forego the procedure at C5-6 but proceed with the cervical decompression with discectomy and fusion at C3-4 and C4-5.. The patient had all their twitches back, and there was no evidence of recurrent laryngeal issue. The wound was copiously irrigated and suctioned dry as had been done periodically throughout the case. At the appropriate level/levels, starting at C3-4 and then moving to C4-5 I established an annulotomy with an 11 blade scalpel. A discectomy was performed with a combination of pituitary rongeurs, curettes, a high-speed bur, and Kerrison rongeurs. The posterior longitudinal ligament was taken down as were any posterior osteophytes. This gave good central and bilateral foraminal decompression. There is no evidence of any dural tear or leak. The endplates were prepared with a high-speed bur. With the endplates in good parallel position, I was able to size for the appropriate size interbody graft. The wound was irrigated and suctioned dry the graft was prepared and malleted into position. It had good alignment and position with the anterior surface flush with the anterior surface of the vertebral bodies. This was done similarly the appropriate levels at C3-4 and C4-5. With the grafts intact, I was able to measure and contour and appropriate sized plate. The plate was positioned at the midline over the appropriate levels at C3-4 and 5. Screw holes were established with a hand drill and drill guide. Screws were placed in good alignment and position with excellent bony purchase. They were seated under the locking device. The construct was checked and found to be stable. Intraoperative x-ray was taken which showed good alignment and position of the implants at the appropriate levels. There was no evidence of any dural tear or leak. Good hemostasis was maintained. The wound was copiously irrigated and suctioned dry as had been done periodically throughout the case. The platysma was closed with absorbable suture. The subcutaneous tissue was closed. The subcuticular tissue was closed with absorbable suture. The wound was cleaned and dried and dressed appropriately. A soft cervical collar was placed appropriately. The patient was woken up by anesthesia, extubated, transferred back gently to their hospital bed and brought to the recovery room in good stable condition. The patient will be admitted to the hospital for appropriate postoperative care, medical management and monitoring. We will continue to follow them closely about the postoperative course.
[2024-01-26] MEDS: HYDROmorphone 0.5 MG/0.5 ML SYRINGE IVP PRN (14:35)
[2024-01-26] MEDS: HYDROcodone/APAP 5-325MG 1 EACH TAB PO PRN (16:29)
--- NOTE | 2024-01-26 17:33 | XR ---
EXAMINATION TYPE: XR cervical spine 1V DATE OF EXAM: 01/26/2024 COMPARISON: NONE HISTORY: 78-year-old male heart replacement cervical spine in the OR TECHNIQUE: Crosstable lateral intraoperative view FINDINGS: Interval placement of C3-C5 ACDF hardware. Patient remains intubated. IMPRESSION: Intraoperative view with placement of C3-C5 ACDF hardware.
[2024-01-26] MEDS: SODIUM CHLORIDE 0.9% 1,000 ML IV SCH (20:50)
[2024-01-26] MEDS: HYDROmorphone 1 MG/ML 1 ML SYRINGE IVP PRN (20:52)
[2024-01-26] MEDS: SYMBICORT 160-4.5 MCG INHALER INHALATION SCH (21:42)
[2024-01-27] MEDS: VANCOMYCIN 1,500 MG in SODIUM CHLORIDE 0.9% 500 ML 500 ML IVPB ONE (01:00)
[2024-01-27] MEDS: LEVOTHYROXINE 75 MCG TAB PO SCH (05:18)
[2024-01-27] MEDS: SENNOSIDES-DOCUSATE SODIUM 1 EACH TAB PO SCH (08:50)
[2024-01-27] MEDS: LISINOPRIL-HCTZ 20-12.5 MG 1 EACH TAB PO SCH (08:50)
[2024-01-27] MEDS: ASPIRIN 81 MG PO SCH (08:50)
[2024-01-27] MEDS: METOPROLOL SUCCINATE (ER) 25 MG TAB.ER.24H PO SCH (08:50)
[2024-01-27] MEDS: FINASTERIDE 5 MG TAB PO SCH (08:50)
--- NOTE | 2024-01-27 13:42 | P.PN ---
Progress Note - Text Progress Note Date: 01/27/24 Postoperative day #1 Patient is seen and examined today at bedside. The patient has some pain around the surgical site as expected. Pain is being controlled with medication. He has been able to eat and swallow his soft diet. He has been up in the room and trying to void. He is unable to void on his own. He had 25 cc with some blood- tinged urine. He said he had issues with voiding after his prior surgery on his lower extremity as well. Physical Exam Afebrile with stable vital signs Abdomen is soft nontender. Chest has good excursion deep and space expiration The incision site is clean dry and intact. No erythema there is no purulence. His neck is clear. His neck is essentially supple for him which is to say that he has chronic soft tissue changes from his prior radiation treatments at his neck. Extremities have not had neurologic change from prior to surgery. Calves and thighs were soft nontender without evidence of DVT. Assessment/Plan Postoperative day #1 status post anterior cervical decompression with discectomy and fusion C3-4 C4-5 for severe cervical stenosis with upper extremity radiculopathy and myelopathy Patient is progressing as expected from the surgery. We will continue to increase the patient's mobilization with therapy. His neck seems to be doing appropriately and if he is able to void then we could start to work on getting him home however he has been unable to void on his own. He is reports similar problems in the past. With his retention I think that he needs to have a Quiñonez replaced and wait overnight for some bladder rest. Hopefully he will be able to void on his own tomorrow and then be discharged. We will continue pain control with oral or IV medications. We'll continue to follow patient closely.
[2024-01-27] MEDS: TAMSULOSIN 0.4 MG CAP.ER.24H PO STA (14:19)
[2024-01-28] MEDS: CYCLOBENZAPRINE 10 MG TAB PO PRN (06:03)
[2024-01-28] MEDS ORDERED: BENZOCAINE/MENTHOL LOZENG 1 EACH LOZENGE MUCOUS MEM PRN (07:26)
--- NOTE | 2024-01-28 07:31 | P.PN ---
Progress Note - Text Progress Note Date: 01/28/24 Postoperative day #2 Patient is seen and examined today at bedside. The patient has some pain around the surgical site as expected. Pain is being controlled with medication. He is complaining of continued difficulty with his swallowing. He says he is not able to swallow pills and his throat is sore and he feels more hoarse. He is not having any trouble breathing. He had his Quiñonez discontinued this morning and has not yet tried to void Physical Exam Afebrile with stable vital signs Abdomen is soft nontender. Chest has good excursion deep and space expiration The incision site is clean dry and intact. No erythema there is no purulence. His throat has chronic soft tissue stiffness but there is no increase swelling. The dressing is clear. There is no new fullness to the area Extremities have not had neurologic change from prior to surgery. He has adequate motion of the bilateral upper extremities Calves and thighs were soft nontender without evidence of DVT. His Quiñonez has been discontinued and he is ambulating in his room Assessment/Plan Postoperative day #2 status post anterior cervical decompression with discectomy and fusion C4-5 C5-6 History of throat cancer status post radiation Chronic urinary retention with difficulty voiding postoperatively Patient is progressing slowly from the surgery. His chronic soft tissue issues around his neck with his prior radiation is causing some difficulty with his swallowing and voice postoperatively from his surgery. I will see if a dose of steroid can help alleviate some of the swelling and improve this. Will see how he does with his Quiñonez removed. Hopefully he will be able to void. He restarted on Flomax yesterday We will continue to increase the patient's mobilization with therapy. He lives alone and may need placement posthospitalization. Case management will see him for this We will continue pain control with oral or IV medications. We'll continue to follow patient closely.
[2024-01-28] MEDS: methylPREDNISolone SOD SUCCI 125 MG/2 ML VIAL IV STA (07:49)
[2024-01-28] MEDS: ACETAMINOPHEN IV (For NPO) 1,000 MG in EMPTY BAG 1 BAG IVPB STA (11:02)
[2024-01-28] MEDS: TAMSULOSIN 0.4 MG CAP.ER.24H PO SCH (14:03)
--- NOTE | 2024-01-28 16:00 | P.GSCN ---
History of Present Illness Consult date: 01/28/24 Reason for Consult: Urinary retention History of present illness: This is a 78-year-old male that underwent a cervical fusion on January 25. Urology is consulted for urinary retention. Patient required a Quiñonez catheter secondary to his retention. He does have history of previous episode of urinary retention approximately year ago following his hip replacement. Patient does have an underlying BPH, and on Proscar at baseline. He previously followed up with Dr. Edwards. At baseline he indicates he is able to void to completion's with the Proscar, denies any dysuria or gross hematuria or urinary incontinence. 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 OLGA 2022 Past Anesthesia/Blood Transfusion Reactions: No Reported Reaction Additional Past Anesthesia/Blood Transfusion Reaction / Comm: no blood tx hx, headache after anesthesia, pt. states it took 3 days to urinate on his own after Lt. OLGA in 2022 Past Psychological History: No Psychological Hx Reported Smoking Status: Former smoker Past Alcohol Use History: Occasional Additional Past Alcohol Use History / Comment(s): smoker for 50 years 1- 1 08/24 ppd stopped smoking Sep 2015. 2-3 drinks/week at most Past Drug Use History: None Reported - Past Family History Mother Family Medical History: No Reported History Father Family Medical History: Cancer Additional Family Medical History / Comment(s): malignant tumor in bladder Medications and Allergies Home Medications Medication Instructions Recorded Confirmed Type Albuterol Inhaler [Ventolin Hfa 1 - 2 puff INHALATION RT-Q6H PRN 11/29/17 01/26/24 History Inhaler] Finasteride [Proscar] 5 mg PO QAM 11/29/17 01/26/24 History Levothyroxine Sodium [Synthroid] 75 mcg PO QAM 11/29/17 01/26/24 History Lisinopril-Hctz 20-12.5 mg 1 tab PO QAM 11/29/17 01/26/24 History [Zestoretic 20-12.5] diphenhydrAMINE HCL [Benadryl 25 mg PO DAILY PRN 02/03/23 01/26/24 History Allergy] Aspirin 81 mg PO QAM 01/24/24 01/26/24 History Budesonide-Formot 160-4.5 Mcg 2 puff INHALATION BID 01/24/24 01/26/24 History [Symbicort 160-4.5 Mcg Inhaler] Metoprolol Succinate [Metoprolol 25 mg PO QAM 01/24/24 01/26/24 History Succinate ER] HYDROcodone/APAP 5-325MG [[place] 1 tab PO Q4HR PRN #42 tab 01/26/24 Rx 5-325] Allergies Allergy/AdvReac Type Severity Reaction Status Date / Time azithromycin Allergy Rash/Hives Verified 01/26/24 11:12 Iodinated Contrast Media Allergy Anaphylaxis Verified 01/26/24 11:12 Iodine and Iodide Containing Allergy Anaphylaxis Verified 01/26/24 11:12 Produc Surgical - Exam Vital Signs Temp Pulse Resp BP Pulse Ox 98.0 F 87 18 125/72 96 01/26/24 11:11 01/26/24 11:11 01/26/24 11:11 01/26/24 11:11 01/26/24 11:11 - General no distress, no pain - Eyes normal ocular movement, no pale - ENT normal nares, normal mucosa - Respiratory normal expansion, normal respiratory effort - Abdomen Abdomen: soft, non tender - Psychiatric oriented to time, oriented to person, oriented to place Assessment and Plan Assessment: This is a 78-year-old male with history of urinary retention following cervical fusion. Does have underlying BPH at baseline and is on Proscar. Does have previous history of urinary retention following hip replacement. Attention was normal secondary to his underlying BPH worsened by recent exposure to anesthetic in his recent surgery. -Will start Flomax, will discharge patient home on Flomax -Can follow-up as an outpatient for trial of void in 1 Week, patient can be discharged home with a Quiñonez catheter, discussed with the nursing staff to teach patient how to remove his catheter 4 hours prior to his follow-up
--- NOTE | 2024-01-29 06:14 | P.DS ---
Providers Date of admission: 01/26/24 10:38 Attending physician: Sydnee Sharp Consults: 01/28/24 08:20 Consult Physician Routine Consulting Provider: Zhao Allen Consult Reason/Comments: Medical mangement Do you want consulting provider notified?: Yes 01/28/24 11:10 Consult Physician Routine Consulting Provider: Edy Dewey Consult Reason/Comments: Urinary retention Do you want consulting provider notified?: Yes Primary care physician: Melchor Isaacs Hospital Course: The patient presented on the day of admission as per their operative note. He had severe stenosis at C3-4 C4-5 with moderate stenosis C5-6. He has been having neck and upper extremity symptoms and presented for his admission for his anterior cervical decompression with discectomy and fusion and underwent surgery with decompression and fusion C 4 5 and C3-4. He has significant history of throat cancer with multiple radiation and had a difficult exposure and has been having some swelling and difficulty with his neck postoperatively. He is making some progress with his swallowing and is able to tolerate applesauce and swallowing foods and has had some soft diet. He is mobilizing well in his room but is still having difficulty voiding and has not been able to void freely on his own. He has a Quiñonez intact now Physical Exam The incision site is clean dry and intact. There is no erythema no drainage. There is no purulence no evidence of infection. There is no significant swelling. There is some ecchymosis. There is no drainage. His neck is unchanged in terms of suppleness for him. He has fibrosis around his anterior cervical soft tissues. Abdomen soft and nontender. Chest has good excursion with deep inspiration and expiration. The patient has active and passive range of motion intact at the upper and lower extremities. There is no acute change in neurologic status. He is moving his arms adequately. He is ambulatory in his room. The Quiñonez catheter is intact. Hospital Course Postoperative day #3 status post anterior cervical decompression with discectomy and fusion C3-4 C4-5 for his severe cervical stenosis and upper extremity colopathy with weakness Urinary retention, acute on chronic due to BPH Soft tissue fibrosis secondary to history of lung cancer with multiple radiation treatments with dysphagia and hoarseness postoperatively the patient has been making slow progress postoperatively. They have completed the prophylactic antibiotics without any signs or symptoms of infection. The patient has been able to advance their diet to some degree and if he is tolerati ng diet adequately he may be able to be discharged home today. The pain was initially controlled with IV medications and is now controlled appropriately with oral medications. The patient has been able to increase their mobilization. The patient has had difficulties in the past with voiding postoperatively. He again is having this issue and has not been able to void on his own. We have started him on Flomax and initiated a Quiñonez catheter that he will wear and go home with. We will keep him on prophylactic antibiotics. Urology has seen him and they will follow him up in 1 week for recheck evaluation and likely removal of the catheter and continued follow-up. Patient understands this and is agreeable for The patient has progressed appropriately. I think they are in stable condition for discharge today if he is able to swallow adequately and tolerate his diet. They will be sent home with appropriate prescriptions. I answered their questions to the best of my ability in a language that they can understand and they are agreeable with the plan. They will follow up as directed with our service as well as primary care and with urology. Patient Condition at Discharge: Fair Plan - Discharge Summary Discharge Rx Participant: Yes New Discharge Prescriptions: New HYDROcodone/APAP 5-325MG [[place] 5-325] 1 tab PO Q4HR PRN #42 tab PRN Reason: Pain Tamsulosin [Flomax] 0.4 mg PO DAILY #30 cap Cephalexin [Keflex] 500 mg PO Q6HR 1 Days #4 cap predniSONE 30 mg PO DAILY #18 tab No Action Lisinopril-Hctz 20-12.5 mg [Zestoretic 20-12.5] 1 tab PO QAM Levothyroxine Sodium [Synthroid] 75 mcg PO QAM Finasteride [Proscar] 5 mg PO QAM Albuterol Inhaler [Ventolin Hfa Inhaler] 1 - 2 puff INHALATION RT-Q6H PRN PRN Reason: Dyspnea diphenhydrAMINE HCL [Benadryl Allergy] 25 mg PO DAILY PRN PRN Reason: Congestion Metoprolol Succinate [Metoprolol Succinate ER] 25 mg PO QAM Budesonide-Formot 160-4.5 Mcg [Symbicort 160-4.5 Mcg Inhaler] 2 puff INHALATION BID Aspirin 81 mg PO QAM Discharge Medication List Albuterol Inhaler [Ventolin Hfa Inhaler] 1 - 2 puff INHALATION RT-Q6H PRN 11/29/17 [History] Finasteride [Proscar] 5 mg PO QAM 11/29/17 [History] Levothyroxine Sodium [Synthroid] 75 mcg PO QAM 11/29/17 [History] Lisinopril-Hctz 20-12.5 mg [Zestoretic 20-12.5] 1 tab PO QAM 11/29/17 [History] diphenhydrAMINE HCL [Benadryl Allergy] 25 mg PO DAILY PRN 02/03/23 [History] Aspirin 81 mg PO QAM 01/24/24 [History] Budesonide-Formot 160-4.5 Mcg [Symbicort 160-4.5 Mcg Inhaler] 2 puff INHALATION BID 01/24/24 [History] Metoprolol Succinate [Metoprolol Succinate ER] 25 mg PO QAM 01/24/24 [History] HYDROcodone/APAP 5-325MG [[place] 5-325] 1 tab PO Q4HR PRN #42 tab 01/26/24 [Rx] Tamsulosin [Flomax] 0.4 mg PO DAILY #30 cap 01/28/24 [Rx] Cephalexin [Keflex] 500 mg PO Q6HR 1 Days #4 cap 01/29/24 [Rx] predniSONE 30 mg PO DAILY #18 tab 01/29/24 [Rx] Follow up Appointment(s)/Referral(s): Sydnee Sharp DO [Doctor of Osteopathic Medicine] - 02/08/24 1:30 pm [facility] [NON-STAFF] - As Needed Edy Dewey MD [STAFF PHYSICIAN] - 1 Week Activity/Diet/Wound Care/Special Instructions: Keep site clean. May shower with waterproof Tegaderm intact. Do not soak in a tub. On Wednesday, January 30, patient May remove dressing and then may shower with area uncovered. Leave glue intact and allow it to fray off on its own. May ambulate as tolerated. Avoid heavy or rigorous activity. No repetitive bending twisting or lifting. No overhead work. Keep Quiñonez catheter intact until follow-up with urology. Discharge Disposition: HOME WITH HOME HEALTH SERVICES
[2024-01-29] MEDS: methylPREDNISolone SOD SUCCI 125 MG/2 ML VIAL IV ONE (06:25)
[2024-01-29] MEDS ORDERED: TAMSULOSIN 0.4 MG CAP.ER.24H PO SCH (09:00)
[2024-01-29] MEDS: diphenhydrAMINE 25 MG CAP PO PRN (13:16)
--- NOTE | 2024-01-29 19:39 | P.CONS ---
History of Present Illness - Reason for Consult Consult date: 01/29/24 Medical management Requesting physician: Sydnee Sharp - Chief Complaint Cervical spine surgery - History of Present Illness This is a 78-year-old patient, follows with Dr. Melchor Isaacs. Chronic stable medical conditions include COPD, hypertension, hypothyroid, osteoarthritis ex- smoker. Patient underwent on January 25 cervical spine surgery. In the area of C3 C4/C5 C6 causing cervical myelopathy, upper extremity weakness radiculopathy. Patient is able to tolerate soft food. Slight discomfort in swallowing. Denies any weakness in the arms and legs. Able to get to the bathroom. Has a Quiñonez catheter. 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 Lives alone. Smoked for 50 years back and a half a day stopped in 2015. Physical examination: VITAL SIGNS: Maria Dolores is a 77-year-old patient, follows with Dr. Isaacs. Chronic stable medical conditions include COPD, hypertension, hypothyroid, ostomy arthritis. Ex-smoker. Patient is undergoing left total hip arthroplasty by Dr. Pacheco. Postprocedure pain control. No nausea vomiting. Some cough. Breathing is stable. No chest pain. Patient's son at the bedside. 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 Lives alone. Smoked for 50 years back and a half a day stopped in 2015. Physical examination: VITAL SIGNS: 98.5, 108, 18, 132/75, 90% room air L GENERAL: BMI 27.1, reclining in bed EYES: Pupils equal. Conjunctiva normal. HEENT: External appearance of nose and ears normal, oral cavity grossly normal. Incision over the surgical site NECK: JVD not raised; masses not palpable. HEART: First and second heart sounds are normal; no edema. LUNGS: Respiratory rate normal; clear to auscultation. ABDOMEN: Soft, nontender, liver spleen not palpable, no masses palpable. PSYCH: Alert and oriented x3; mood and affect normal. MUSCULOSKELETAL:No Clubbing/cyanosis;muscles-grossly intact. OA. Dressing over incision with a left hip NEUROLOGICAL: Cranial nerves grossly intact; no facial asymmetry, power and sensation grossly intact. LYMPHATICS: No lymph nodes palpable in the axilla and neck INVESTIGATIONS, reviewed in the clinical context: January 14, 2024: White count 8.8 hemoglobin 13.3 platelets 199 sodium 142 potassium 4.2 creatinine 1.1 Assessment and plan: -Cervical spine surgery in the area of C3-C4, C4-C5, C5-C6 causing cervical myelopathy, upper extremity weakness upper extremity radiculopathy. Pain control -Acute dysphagia from a per surgery. Patient is able to tolerate a soft diet. -Epiglottis cancer with chemoradiation in . -BPH Proscar -Hypothyroid Synthroid 75 g Essential hypertension Toprol-XL 25. Zestoretic -COPD in a ex-smoker Symbicort, albuterol when necessary -Primary osteoarthritis Tylenol when necessary -Full code -Care was discussed with the patient. Questions answered Thank you Dr. Sharp Past Medical History Past Medical History: Cancer, COPD, Hypertension, Prostate Disorder, Thyroid Disorder Additional Past Medical History / Comment(s): cancer epiglottis with chemo and radiation [id number], hypothyroidism History of Any Multi-Drug Resistant Organisms: Acinetobacter (MDRO) Year Discovered:: 02/05/23 MDRO Source:: nasal Past Surgical History: Back Surgery, Joint Replacement Additional Past Surgical History / Comment(s): rt hip replacement, colonoscopies, epidural steroid injections, disc fusion L4-5, Lt. OLGA 2022 Past Anesthesia/Blood Transfusion Reactions: No Reported Reaction Additional Past Anesthesia/Blood Transfusion Reaction / Comm: no blood tx hx, headache after anesthesia, pt. states it took 3 days to urinate on his own after Lt. OLGA in 2022 Past Psychological History: No Psychological Hx Reported Smoking Status: Former smoker Past Alcohol Use History: Occasional Additional Past Alcohol Use History / Comment(s): smoker for 50 years 1- 1 1/2 ppd stopped smoking Sep 2015. 2-3 drinks/week at most Past Drug Use History: None Reported - Past Family History Mother Family Medical History: No Reported History Father Family Medical History: Cancer Additional Family Medical History / Comment(s): malignant tumor in bladder Medications and Allergies Home Medications Medication Instructions Recorded Confirmed Type Albuterol Inhaler [Ventolin Hfa 1 - 2 puff INHALATION RT-Q6H PRN 11/29/17 01/26/24 History Inhaler] Finasteride [Proscar] 5 mg PO QAM 11/29/17 01/26/24 History Levothyroxine Sodium [Synthroid] 75 mcg PO QAM 11/29/17 01/26/24 History Lisinopril-Hctz 20-12.5 mg 1 tab PO QAM 11/29/17 01/26/24 History [Zestoretic 20-12.5] diphenhydrAMINE HCL [Benadryl 25 mg PO DAILY PRN 02/03/23 01/26/24 History Allergy] Aspirin 81 mg PO QAM 01/24/24 01/26/24 History Budesonide-Formot 160-4.5 Mcg 2 puff INHALATION BID 01/24/24 01/26/24 History [Symbicort 160-4.5 Mcg Inhaler] Metoprolol Succinate [Metoprolol 25 mg PO QAM 01/24/24 01/26/24 History Succinate ER] HYDROcodone/APAP 5-325MG [[place] 1 tab PO Q4HR PRN #42 tab 01/26/24 Rx 5-325] Tamsulosin [Flomax] 0.4 mg PO DAILY #30 cap 01/28/24 Rx Cephalexin [Keflex] 500 mg PO Q6HR 1 Days #4 cap 01/29/24 Rx Cephalexin [Keflex] 500 mg PO Q6HR 1 Days #4 cap 01/29/24 Rx Famotidine [Pepcid] 20 mg PO DAILY #12 tablet 01/29/24 Rx Famotidine [Pepcid] 20 mg PO DAILY #12 tablet 01/29/24 Rx HYDROcodone/APAP 5-325MG [[place] 1 - 2 tab PO Q4HR PRN #42 tab 01/29/24 Rx 5-325] Tamsulosin [Flomax] 0.4 mg PO DAILY #30 cap 01/29/24 Rx predniSONE 10 mg PO DIRECTED #18 tab 01/29/24 Rx predniSONE 30 mg PO DAILY #18 tab 01/29/24 Rx Allergies Allergy/AdvReac Type Severity Reaction Status Date / Time azithromycin Allergy Rash/Hives Verified 01/26/24 11:12 Iodinated Contrast Media Allergy Anaphylaxis Verified 01/26/24 11:12 Iodine and Iodide Containing Allergy Anaphylaxis Verified 01/26/24 11:12 Produc Physical Exam Vitals: Vital Signs Temp Pulse Pulse Resp BP Pulse Ox 01/29/24 07:56 98.5 F 108 H 18 132/75 90 L 01/29/24 01:05 97.4 F L 82 18 118/68 97 01/28/24 13:44 97.8 F 89 17 145/86 94 L Intake and Output 01/28/24 01/29/24 01/29/24 22:59 06:59 14:59 Output Total 8397 383 8830 Balance -3497 -205 -1100 Output: Urine 8425 263 2250 Uretheral (Quiñonez) 1100 Other: Voiding Method Indwelling Catheter
[2024-01-30 14:09] VITALS: BP 105/58; PULSE 105; RESP 18; TEMP 98.4
--- NOTE | 2024-01-30 21:40 | P.PN ---
Progress Note - Text Progress Note Date: 01/30/24 - Chief Complaint Cervical spine surgery - History of Present Illness This is a 78-year-old patient, follows with Dr. Melchor Isaacs. Chronic stable medical conditions include COPD, hypertension, hypothyroid, osteoarthritis ex- smoker. Patient underwent on January 25 cervical spine surgery. In the area of C3 C4/C5 C6 causing cervical myelopathy, upper extremity weakness radiculopathy. Patient is able to tolerate soft food. Slight discomfort in swallowing. Denies any weakness in the arms and legs. Able to get to the bathroom. Has a Quiñonez catheter. January 29: Feeling better. Pain is better. Oral intake fair. Seen by urology. Patient be discharged on Flomax. Patient have outpatient trial of void in about a week. Discussed with patient. 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 Lives alone. Smoked for 50 years back and a half a day stopped in 2015. Physical examination: VITAL SIGNS: 98.4, 105, 18, 105 x 58, 95% room air GENERAL: Up in a chair, comfortable EYES: Pupils equal. Conjunctiva normal. HEENT: External appearance of nose and ears normal, oral cavity grossly normal. Incision over the surgical site NECK: JVD not raised; masses not palpable. HEART: First and second heart sounds are normal; no edema. LUNGS: Respiratory rate normal; clear to auscultation. ABDOMEN: Soft, nontender, liver spleen not palpable, no masses palpable. PSYCH: Alert and oriented x3; mood and affect normal. MUSCULOSKELETAL:No Clubbing/cyanosis;muscles-grossly intact. OA. Dressing over incision with a left hip NEUROLOGICAL: [place] in both the arms INVESTIGATIONS, reviewed in the clinical context: January 14, 2024: White count 8.8 hemoglobin 13.3 platelets 199 sodium 142 potassium 4.2 creatinine 1.1 Assessment and plan: -Cervical spine surgery in the area of C3-C4, C4-C5, C5-C6 causing cervical myelopathy, upper extremity weakness upper extremity radiculopathy. Pain control -Acute dysphagia from a per surgery. Patient is able to tolerate a soft diet.: Improving -Epiglottis cancer with chemoradiation in . -BPH, causing acute urinary retention Proscar Discharged with Quiñonez. For DC trial of Quiñonez in 1 week. Follow-up with urology -Hypothyroid Synthroid 75 g Essential hypertension Toprol-XL 25. Zestoretic -COPD in a ex-smoker Symbicort, albuterol when necessary -Primary osteoarthritis Tylenol when necessary -Full code Cussed with patient. Follow-up with PCP upon discharge. Thank you Dr. Sharp Past Medical History Past Medical History: Cancer, COPD, Hypertension, Prostate Disorder, Thyroid Disorder Additional Past Medical History / Comment(s): cancer epiglottis with chemo and radiation [id number], hypothyroidism History of Any Multi-Drug Resistant Organisms: Acinetobacter (MDRO) Year Discovered:: 02/05/23 MDRO Source:: nasal Past Surgical History: Back Surgery, Joint Replacement Additional Past Surgical History / Comment(s): rt hip replacement, colonoscopies, epidural steroid injections, disc fusion L4-5, Lt. OLGA 2022 Past Anesthesia/Blood Transfusion Reactions: No Reported Reaction Additional Past Anesthesia/Blood Transfusion Reaction / Comm: no blood tx hx, headache after anesthesia, pt. states it took 3 days to urinate on his own after Lt. LOGA in 2022 Past Psychological History: No Psychological Hx Reported Smoking Status: Former smoker Past Alcohol Use History: Occasional Additional Past Alcohol Use History / Comment(s): smoker for 50 years 1- 08/24 ppd stopped smoking Sep 2015. 2-3 drinks/week at most Past Drug Use History: None Reported
== END 2024-01-30 14:34 | disposition home health service (06) | DRG 472 ==
LOC: 2ORMAIN 10:38 → EDSTATUS 12:20 → 4SSUR 14:26
PROVIDERS: ADMIT Orthopaedic Surgery Orthopaedic Surgery of the Spine; ATTEND Orthopaedic Surgery Orthopaedic Surgery of the Spine
PROC: 0RB30ZZ Excision of Cervical Vertebral Disc, Open Approach (ICD-10-PCS; 2024-01-26)
PROC: 0RG20A0 Fusion of 2 or more Cervical Vertebral Joints with Interbody Fusion Device, Anterior Approach, Anterior Column, Open Approach (ICD-10-PCS; principal; 2024-01-26 12:20)
DX: M48.02 Spinal stenosis, cervical region (principal); G99.2 Myelopathy in diseases classified elsewhere; N40.1 Benign prostatic hyperplasia with lower urinary tract symptoms; E03.9 Hypothyroidism, unspecified; I10 Essential (primary) hypertension; J44.9 Chronic obstructive pulmonary disease, unspecified; M19.91 Primary osteoarthritis, unspecified site; M54.10 Radiculopathy, site unspecified; R13.10 Dysphagia, unspecified; R33.8 Other retention of urine; Z96.641 Presence of right artificial hip joint; Z79.51 Long term (current) use of inhaled steroids; Z79.82 Long term (current) use of aspirin; Z79.890 Hormone replacement therapy; Z79.899 Other long term (current) drug therapy; Z85.118 Personal history of other malignant neoplasm of bronchus and lung; Z85.819 Personal history of malignant neoplasm of unspecified site of lip, oral cavity, and pharynx; Z87.891 Personal history of nicotine dependence; Z92.21 Personal history of antineoplastic chemotherapy; Z92.3 Personal history of irradiation
CPT/HCPCS: 72020; 94640; 94760

== ENCOUNTER 2024-02-06 09:39 | Inpatient (IN) | payer MEDICARE ==
--- NOTE | 2024-02-06 10:27 | ED ---
General Adult HPI - General Chief complaint: Shortness of Breath Stated complaint: SOB Time Seen by Provider: 02/06/24 09:50 Source: patient, RN notes reviewed, old records reviewed Mode of arrival: wheelchair Limitations: no limitations - History of Present Illness Initial comments: This is a 78-year-old male who presents to the emergency department 2 weeks out from having neck surgery. Patient states he did an anterior approach. Patient states he was discharged about a week ago. Patient states last night he started having difficulty breathing and he has more difficulty breathing currently. Patient denies any feeling of his throat is closing or that the air is being restricted in his throat. Patient states he feels like he is not getting enough air into his lungs. Patient denies chest pain or palpitations. Patient denies any fever or chills. Patient states he is coughing more and coughing up some sputum. Patient denies abdominal pain patient has nausea vomiting diarrhea. Patient denies any leg swelling or calf tenderness. - Related Data Home Medications Medication Instructions Recorded Confirmed Albuterol Inhaler [Ventolin Hfa 1 - 2 puff INHALATION RT-Q6H PRN 11/29/17 02/06/24 Inhaler] Finasteride [Proscar] 5 mg PO DAILY 11/29/17 02/06/24 Lisinopril-Hctz 20-12.5 mg 1 tab PO DAILY 11/29/17 02/06/24 [Zestoretic 20-12.5] diphenhydrAMINE HCL [Benadryl] 25 mg PO DAILY PRN 02/03/23 02/06/24 Aspirin 81 mg PO DAILY 01/24/24 02/06/24 Budesonide-Formot 160-4.5 Mcg 2 puff INHALATION RT-BID 01/24/24 02/06/24 [Symbicort 160-4.5 Mcg Inhaler] Metoprolol Succinate [Metoprolol 25 mg PO DAILY 01/24/24 02/06/24 Succinate ER] Levothyroxine Sodium [Synthroid] 75 mcg PO DAILY 02/06/24 02/06/24 Previous Rx's Medication Instructions Recorded Famotidine [Pepcid] 20 mg PO DAILY #12 tablet 01/29/24 Tamsulosin [Flomax] 0.4 mg PO DAILY #30 cap 01/29/24 Allergies Allergy/AdvReac Type Severity Reaction Status Date / Time azithromycin Allergy Rash/Hives Verified 02/06/24 14:25 Iodinated Contrast Media Allergy Anaphylaxis Verified 02/06/24 14:25 Iodine and Iodide Containing Allergy Anaphylaxis Verified 02/06/24 14:25 Produc Review of Systems ROS Statement: Those systems with pertinent positive or pertinent negative responses have been documented in the HPI. ROS Other: All systems not noted in ROS Statement are negative. 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 OLGA 2022 Past Anesthesia/Blood Transfusion Reactions: No Reported Reaction Additional Past Anesthesia/Blood Transfusion Reaction / Comment(s): no blood tx hx, headache after anesthesia, pt. states it took 3 days to urinate on his own after Lt. OLGA in 2022 Past Psychological History: No Psychological Hx Reported Smoking Status: Former smoker Past Alcohol Use History: Occasional Past Drug Use History: None Reported - Past Family History Mother Family Medical History: No Reported History Father Family Medical History: Cancer Additional Family Medical History / Comment(s): malignant tumor in bladder General Exam - General Exam Comments Initial Comments: GENERAL: Patient is well-developed and well-nourished. Patient is nontoxic and well- hydrated and is in mild distress. ENT: Neck is soft and supple. No significant lymphadenopathy is noted. Oropharynx is clear. Moist mucous membranes. Neck has full range of motion without eliciting any pain. EYES: The sclera were anicteric and conjunctiva were pink and moist. Extraocular movements were intact and pupils were equal round and reactive to light. Eyelids were unremarkable. PULMONARY: Unlabored respirations. Good breath sounds bilaterally. No audible rales rhonchi or wheezing was noted. CARDIOVASCULAR: There is a regular rate and rhythm without any murmurs gallops or rubs. ABDOMEN: Soft and nontender with normal bowel sounds. SKIN: Skin is clear with no lesions or rashes and otherwise unremarkable. NEUROLOGIC: Patient is alert and oriented x3. Cranial nerves II through XII are grossly intact. Motor and sensory are also intact. Normal speech, volume and content. Symmetrical smile. MUSCULOSKELETAL: Normal extremities with adequate strength and full range of motion. LYMPHATICS: No significant lymphadenopathy is noted PSYCHIATRIC: Normal psychiatric evaluation. Limitations: no limitations Course Vital Signs 02/06/24 02/06/24 02/06/24 09:48 10:07 10:50 Temperature 98.2 F Pulse Rate 119 H 114 H 112 H Respiratory 24 20 Rate Blood Pressure 126/75 O2 Sat by Pulse 94 L Oximetry 02/06/24 02/06/24 02/06/24 11:00 11:30 12:00 Temperature Pulse Rate 112 H 112 H 110 H Respiratory 20 18 Rate Blood Pressure 114/72 94/66 115/70 O2 Sat by Pulse 99 94 L 96 Oximetry 02/06/24 02/06/24 14:00 15:00 Temperature Pulse Rate 101 H 111 H Respiratory 19 20 Rate Blood Pressure 117/71 125/63 O2 Sat by Pulse 97 96 Oximetry Medical Decision Making - Medical Decision Making EKG is interpreted by myself but EKG shows a sinus tachycardia with an occasional PAC at a rate of 118 bpm CA interval 147 QRS 94 QT interval 304 QTc is 374. Patient's EKG shows no ST segment ovation or depression. Was pt. sent in by a medical professional or institution (HERIBERTO Motta, [employer], urgent care, hospital, or long term...) When possible be specific @ -No Did you speak to anyone other than the patient for history (EMS, parent, family, police, friend...)? What history was obtained from this source @ -No Did you review nursing and triage notes (agree or disagree)? Why? @ -I reviewed and agree with nursing and triage notes Were old charts reviewed (outside hosp., previous admission, EMS record, old EKG, old radiological studies, urgent care reports/EKG's, long term records)? Report findings @ -No old charts were reviewed Differential Diagnosis (chest pain, altered mental status, abdominal pain women, abdominal pain men, vaginal bleeding, weakness, fever, dyspnea, syncope, headache, dizziness, GI bleed, back pain, seizure, CVA, palpatations, mental health, musculoskeletal)? @ -Differential Dyspnea: Coronary syndrome, arrhythmia, tamponade, asthma, COPD, pulmonary embolism, pneumonia, pneumothorax, pulmonary effusion, anaphylaxis, diabetic ketoacidosis, flailed chest, pulmonary contusion, diaphragmatic rupture, anemia, neuromuscular, this is not meant to be an all-inclusive list. EKG interpreted by me (3pts min.). @ -As above X-rays interpreted by me (1pt min.). @ -Chest x-ray shows no acute abnormality. CT interpreted by me (1pt min.). @ -CT of the chest shows no acute abnormality. CTA of the soft tissues of the neck showed an area around the bifurcation of the carotid on the right that had some fullness but was obscured by artifact U/S interpreted by me (1pt. min.). @ -None done What testing was considered but not performed or refused? (CT, X-rays, U/S, labs)? Why? @ -None What meds were considered but not given or refused? Why? @ -None Did you discuss the management of the patient with other professionals (rubén rivera i.e. , PA, MA[employer], lab, RT, psych nurse, forensic social worker, seismograph helper, teacher, navigation officer, piano case and bench assembler)? Give summary @ -I spoke with Dr. Thakkar and he agreed admit the patient. Was smoking cessation discussed for >3mins.? @ -No Was critical care preformed (if so, how long)? @ -No Were there social determinants of health that impacted care today? How? (Homelessness, low income, unemployed, alcoholism, drug addiction, transportation, low edu. Level, literacy, decrease access to med. care, halfway, rehab)? @ -No Was there de-escalation of care discussed even if they declined (Discuss DNR or withdrawal of care, Hospice)? DNR status @ -No What co-morbidities impacted this encounter? (DM, HTN, Smoking, COPD, CAD, Cancer, CVA, ARF, Chemo, Hep., AIDS, mental health diagnosis, sleep apnea, morbi d obesity)? @ -None Was patient admitted / discharged? Hospital course, mention meds given and route , prescriptions, significant lab abnormalities, going to OR and other pertinent info. @ -Patient's CT of the chest showed no obvious acute abnormality. CT of the neck did show an area of swelling or mass around the bifurcation of the carotid Undiagnosed new problem with uncertain prognosis? @ -No Drug Therapy requiring intensive monitoring for toxicity (Heparin, Nitro, Insulin, Cardizem)? @ -No Were any procedures done? @ -No Diagnosis/symptom? @ -Postsurgical changes neck Acute, or Chronic, or Acute on Chronic? @ -Acute Uncomplicated (without systemic symptoms) or Complicated (systemic symptoms)? @ -Complicated Side effects of treatment? @ -No Exacerbation, Progression, or Severe Exacerbation? @ -No Poses a threat to life or bodily function? How? (Chest pain, [place], [place], pneumonia, PE, COPD, DKA, ARF, appy, cholecystitis, CVA, Diverticulitis, Homicidal, Suicidal, threat to staff... and all critical care pts) @ -No Diagnosis/symptom? @ -Dyspnea Acute, or Chronic, or Acute on Chronic? @ -Acute Uncomplicated (without systemic symptoms) or Complicated (systemic symptoms)? @ -Complicated Side effects of treatment? @ -None Exacerbation, Progression, or Severe Exacerbation] @ -No Poses a threat to life or bodily function? @ -No Diagnosis/symptom? @ -Leukocytosis Acute, or Chronic, or Acute on Chronic? @ -Acute Uncomplicated (without systemic symptoms) or Complicated (systemic symptoms)? @ -Complicated Side effects of treatment? @ -None Exacerbation, Progression, or Severe Exacerbation] @ -No Poses a threat to life or bodily function? @ -No - Lab Data Result diagrams: 02/06/24 10:28 02/06/24 10:28 Lab Results 02/06/24 02/06/24 02/06/24 Range/Units 10:28 10:28 10:28 WBC 26.1 H (3.8-10.6) k/uL RBC 4.61 (4.30-5.90) m/uL Hgb 14.4 (13.0-17.5) gm/dL Hct 44.2 (39.0-53.0) % MCV 95.7 (80.0-100.0) fL MCH 31.1 (25.0-35.0) pg MCHC 32.5 (31.0-37.0) g/dL RDW 12.5 (11.5-15.5) % Plt Count 272 (150-450) k/uL MPV 7.3 Neutrophils % 92 % Lymphocytes % 3 % Monocytes % 4 % Eosinophils % 1 % Basophils % 0 % Neutrophils # 23.9 H (1.3-7.7) k/uL Lymphocytes # 0.7 L (1.0-4.8) k/uL Monocytes # 1.1 H (0-1.0) k/uL Eosinophils # 0.3 (0-0.7) k/uL Basophils # 0.0 (0-0.2) k/uL PT 10.6 (10.0-12.5) sec INR 1.0 (<1.2) APTT 21.0 L (22.0-30.0) sec D-Dimer 1.55 H (<0.60) mg/L FEU Sodium 139 (137-145) mmol/L Potassium 3.9 (3.5-5.1) mmol/L Chloride 102 (98-107) mmol/L Carbon Dioxide 31 H (22-30) mmol/L Anion Gap 6 mmol/L BUN 26 H (9-20) mg/dL Creatinine 1.00 (0.66-1.25) mg/dL Est GFR (CKD-EPI)AfAm 84 (>60 ml/min/1.73 sqM) Est GFR (CKD-EPI)NonAf 72 (>60 ml/min/1.73 sqM) Glucose 104 H (74-99) mg/dL Plasma Lactic Acid Epi (0.7-2.0) mmol/L Calcium 9.3 (8.4-10.2) mg/dL Magnesium 1.5 L (1.6-2.3) mg/dL Total Bilirubin 0.9 (0.2-1.3) mg/dL AST 27 (17-59) U/L ALT 47 (4-49) U/L Alkaline Phosphatase 68 (38-126) U/L Troponin I (0.000-0.034) ng/mL Total Protein 6.6 (6.3-8.2) g/dL Albumin 3.9 (3.5-5.0) g/dL 02/06/24 02/06/24 Range/Units 10:28 10:28 WBC (3.8-10.6) k/uL RBC (4.30-5.90) m/uL Hgb (13.0-17.5) gm/dL Hct (39.0-53.0) % MCV (80.0-100.0) fL MCH (25.0-35.0) pg MCHC (31.0-37.0) g/dL RDW (11.5-15.5) % Plt Count (150-450) k/uL MPV Neutrophils % % Lymphocytes % % Monocytes % % Eosinophils % % Basophils % % Neutrophils # (1.3-7.7) k/uL Lymphocytes # (1.0-4.8) k/uL Monocytes # (0-1.0) k/uL Eosinophils # (0-0.7) k/uL Basophils # (0-0.2) k/uL PT (10.0-12.5) sec INR (<1.2) APTT (22.0-30.0) sec D-Dimer (<0.60) mg/L FEU Sodium (137-145) mmol/L Potassium (3.5-5.1) mmol/L Chloride (98-107) mmol/L Carbon Dioxide (22-30) mmol/L Anion Gap mmol/L BUN (9-20) mg/dL Creatinine (0.66-1.25) mg/dL Est GFR (CKD-EPI)AfAm (>60 ml/min/1.73 sqM) Est GFR (CKD-EPI)NonAf (>60 ml/min/1.73 sqM) Glucose (74-99) mg/dL Plasma Lactic Acid Epi 1.4 (0.7-2.0) mmol/L Calcium (8.4-10.2) mg/dL Magnesium (1.6-2.3) mg/dL Total Bilirubin (0.2-1.3) mg/dL AST (17-59) U/L ALT (4-49) U/L Alkaline Phosphatase (38-126) U/L Troponin I <0.012 (0.000-0.034) ng/mL Total Protein (6.3-8.2) g/dL Albumin (3.5-5.0) g/dL Disposition Clinical Impression: Leukocytosis, Complication, postoperative, Dyspnea, Carotid artery narrowing Disposition: ADMITTED IP TO THIS [facility] Referrals: Melchor Isaacs MD [Primary Care Provider] - 1-2 days Time of Disposition: 15:24
[2024-02-06 10:37] LABS: Basophils % (A) 0 %; Eosinophils # (A) 0.3 k/uL (0-0.7); Eosinophils % (A) 1 %; HCT 44.2 % (39.0-53.0); HGB 14.4 gm/dL (13.0-17.5); Lymphocytes # (A) 0.7 k/uL (1.0-4.8); Lymphocytes % (A) 3 %; MCH 31.1 pg (25.0-35.0); MCHC 32.5 g/dL (31.0-37.0); MCV 95.7 fL (80.0-100.0); Mean Platelet Volume 7.3; Monocytes # (A) 1.1 k/uL (0-1.0); Monocytes % (A) 4 %; Neutrophils # (A) 23.9 k/uL (1.3-7.7); Neutrophils % (A) 92 %; Platelet Count 272 k/uL (150-450); RBC 4.61 m/uL (4.30-5.90); RDW 12.5 % (11.5-15.5); WBC 26.1 k/uL (3.8-10.6)
[2024-02-06 10:47] LABS: ALT 47 U/L (4-49); AST 27 U/L (17-59); African American GFR (CKD) 84 (>60 ml/min/1.73 sqM); Albumin 3.9 g/dL (3.5-5.0); Alkaline Phosphatase 68 U/L (38-126); Anion Gap 6 mmol/L; Blood Urea Nitrogen 26 mg/dL (9-20); Calcium 9.3 mg/dL (8.4-10.2); Carbon Dioxide 31 mmol/L (22-30); Chloride 102 mmol/L (98-107); Glucose 104 mg/dL (74-99); Magnesium 1.5 mg/dL (1.6-2.3); Non-African American GFR(CKD) 72 (>60 ml/min/1.73 sqM); Potassium 3.9 mmol/L (3.5-5.1); Sodium 139 mmol/L (137-145); Total Bilirubin 0.9 mg/dL (0.2-1.3); Total Protein 6.6 g/dL (6.3-8.2)
[2024-02-06] MEDS: IPRATROPIUM 0.5 MG/2.5 ML NEBU INHALATION STA (10:49)
[2024-02-06] MEDS: ALBUTEROL NEBULIZED 2.5 MG/3 ML INHALATION STA (10:50)
[2024-02-06 11:05] LABS: Prothrombin Time 10.6 sec (10.0-12.5)
--- NOTE | 2024-02-06 11:23 | XR ---
EXAMINATION TYPE: XR chest 2V DATE OF EXAM: 02/06/2024 11:07 AM CLINICAL INDICATION:Male, 78 years old with history of difficulty breathing; COMPARISON: Chest radiographs from 01/14/2024 TECHNIQUE: XR chest 2V Frontal and lateral views of the chest. FINDINGS: Lungs/Pleura: Prominent interstitial lung markings are seen scattered throughout the lungs with ilene ening of the diaphragm and increased lucency of the lung apices. No evidence of focal consolidation, pneumothorax or pleural effusion. Pulmonary vascularity: Unremarkable. Heart/mediastinum: Cardiomediastinal silhouette is unremarkable. Musculoskeletal: No acute osseous pathology. IMPRESSION: 1. No acute cardiopulmonary disease process. 2. COPD changes.
[2024-02-06] MEDS: methylPREDNISolone SOD SUCCI 125 MG/2 ML VIAL IV STA (12:12)
[2024-02-06] MEDS: FAMOTIDINE 20 MG/2 ML VIAL IV STA (12:18)
[2024-02-06] MEDS: diphenhydrAMINE 50 MG/ML 1 ML VIAL IVP STA (12:18)
--- NOTE | 2024-02-06 13:07 | CT ---
EXAMINATION TYPE: CT chest angio for PE, CT soft tissue neck w con CT DLP: 745.1 (accession [id number]), 74.1 (accession [id number]) mGycm, Automated exposure control for d ose reduction was used. DATE OF EXAM: 02/06/2024 12:43 PM COMPARISON: Chest radiograph from same day. CT neck 06/28/2015. CLINICAL INDICATION:Male, 78 years old with history of Elevated D-dimer, difficulty breathing; Diffic ulty swallowing ,Elevated D-dimer, difficulty breathing TECHNIQUE/CONTRAST: CTA scan of the thorax is performed with IV Contrast, patient injected with 100ml mL of Isovue 370, M IP images are created and reviewed these are created on a separate workstation.. Axial imaging of the neck with sagittal coronal reformats with IV contrast. FINDINGS: Pulmonary Artery: There is no evidence for a filling defect within the pulmonary vasculature to sugge st acute pulmonary embolism. The pulmonary artery is of normal size. Lungs/Pleura: Centrilobular and paraseptal emphysema changes in the lung apices. Apical scarring bila terally. No evidence of focal consolidation, pleural effusion or pneumothorax. Airway: Large airways are patent. Heart: Heart is within normal limits for size. Vasculature: No evidence of aortic aneurysm. Mediastinum: No gross evidence of adenopathy. Musculoskeletal: Moderate degenerative disc disease changes are present throughout the thoracolumbar spine. Soft Tissues/lymph nodes: Unremarkable. neck: Prior epiglottic mass no longer visualized. There is postsurgical changes along the right neck with few surgical clips present. The right internal carotid artery is is new soft tissue around the r ight carotid bifurcation. Nearly completely occluded series 501 image 49. Streak artifact from dentit ion limits evaluation. Intracranial vessels visualized appear patent. Bilaterally aphakia. Paranasal sinuses are grossly unremarkable. Upper Abdomen: Bilateral adrenal nodules measuring up to 31 mm on the left and 24 mm on the right. IMPRESSION: Chest: 1. No evidence of pulmonary embolism. 2. Moderate centrilobular and paraseptal emphysema. 3. Indeterminate bilateral adrenal nodules. Neck: 1. Soft tissue around the right carotid bifurcation with near occlusion of the internal carotid amrik ry. Evaluation limited due to streak artifact from patient's dental work. Correlate with recent surgi juan carlos intervention. There is some fat stranding changes in the right neck. Further workup recommended. 2. No discrete enlarged lymph nodes identified. 3. Epiglottic mass no longer visualized possibly surgically absent.
[2024-02-06] MEDS: PIPERACILLIN-TAZOBACTAM 3.375 GM in SODIUM CHLORIDE 0.9% 100 ML IVPB STA (15:15)
[2024-02-06] MEDS: SODIUM CHLORIDE 0.9% 1,000 ML IV ONE (15:50)
[2024-02-06] MEDS ORDERED: Magnesium Replacement Protocol 1 EACH MISC MISCELLANE PRN (19:20)
[2024-02-06] MEDS ORDERED: ALBUTEROL HFA INHALER INHALATION PRN (19:21)
[2024-02-06] MEDS ORDERED: PANTOPRAZOLE 40 MG/10 ML VIAL IVP SCH (19:45)
[2024-02-06] MEDS: MAGNESIUM SULFATE-D5W PMX 1 GM in DEXTROSE/WATER 1 100ML.BAG IVPB SCH (20:20)
[2024-02-06] MEDS: PANTOPRAZOLE 40 MG/10 ML VIAL IVP SCH (20:21)
[2024-02-06] MEDS: SYMBICORT 160-4.5 MCG INHALER INHALATION SCH (21:59)
[2024-02-06] MEDS: PIPERACILLIN-TAZOBACTAM 3.375 GM in SODIUM CHLORIDE 0.9% 100 ML IVPB SCH (23:42)
[2024-02-07 01:10] LABS: Appearance,Urine Cloudy (Clear); Bilirubin,Urine Negative (Negative); Blood,Urine Large (Negative); Color,Urine Yellow; Glucose,Urine (UA) Negative (Negative); Ketones,Urine Negative (Negative); Leukocyte Esterase,Urine Large (Negative); Nitrite,Urine Negative (Negative); Protein,Urine 1+ (Negative); RBC,Urine >182 /hpf (0-5); Squamous Epithelial Cell,Urine 3 /hpf (0-4); Urobilinogen,Urine <2.0 mg/dL (<2.0); WBC,Urine 116 /hpf (0-5)
[2024-02-07 01:18] LABS: Specific Gravity,Urine 1.048 (1.001-1.035)
[2024-02-07 03:36] LABS: Amorphous Sediment,Urine Rare /hpf; Appearance,Urine Clear (Clear); Bacteria,Urine Rare /hpf; Bilirubin,Urine Negative (Negative); Blood,Urine Large (Negative); Budding Yeast,Urine Rare /hpf; Color,Urine Light Yellow; Glucose,Urine (UA) Negative (Negative); Hyaline Casts,Urine 1 /lpf (0-2); Ketones,Urine Negative (Negative); Leukocyte Esterase,Urine Negative (Negative); Mucus,Urine Rare /hpf; Nitrite,Urine Negative (Negative); Protein,Urine Trace (Negative); RBC,Urine >182 /hpf (0-5); Urobilinogen,Urine <2.0 mg/dL (<2.0); WBC,Urine 4 /hpf (0-5)
[2024-02-07] MEDS: ACETAMINOPHEN IV (For NPO) 1,000 MG in EMPTY BAG 1 BAG IVPB ONE (03:45)
[2024-02-07 03:50] LABS: Specific Gravity,Urine 1.049 (1.001-1.035)
[2024-02-07] MEDS ORDERED: ALBUTEROL NEBULIZED 2.5 MG/3 ML INHALATION PRN (09:57)
[2024-02-07] MEDS: FAMOTIDINE 20 MG TAB PO SCH (10:33)
[2024-02-07] MEDS: FINASTERIDE 5 MG TAB PO SCH (10:33)
[2024-02-07] MEDS: TAMSULOSIN 0.4 MG CAP.ER.24H PO SCH ×2 (10:33→20:07)
[2024-02-07] MEDS: methylPREDNISolone SOD SUCCI 125 MG/2 ML VIAL IV SCH (10:34)
--- NOTE | 2024-02-07 13:12 | P.CNOR ---
History of Present Illness - [facility] Consult date: 02/07/24 Requesting physician: Francis Rios Consult reason: other (Status post C3-4 and C4-5 anterior cervical decompression and fusion) History of present illness: Patient is a very pleasant 78-year-old male who is seen examined the bedside for follow-up evaluation of his cervical spine. He is status post C3-4 and C4-5 anterior cervical decompression and fusion performed on 01/26/2024. Postoperatively he has had difficulty with swallowing and breathing. He does continue have some firmness at the right anterior lateral cervical spine. He does have a history of previous radiation at his neck. He states he was having difficulty with some phlegm and swallowing of food. With some difficulty with bleeding who presents emergency department for further evaluation. He does feel he has had some improvement since his admission. He feels he has had improvement of his upper extremity radiculopathy and weakness symptoms postoperatively. He is known to have chronic difficulty with his left shoulder. He has very limited range of motion of his left shoulder. He is not currently complain of any significant pain in his cervical spine or upper extremities. He is currently NPO in anticipation for swallow study test to be performed today. He was given 1 dose of Solu-Medrol in the emergency department. He has been started on Solu-Medrol 60 mg IV every 12 hours. He was also experiencing urinary retention and was discharged with a catheter. He states he has since got a urinary tract infection. He was scheduled for follow-up evaluation in outpatient setting with Dr. Dewey today but was unable to keep that appointment due to his admission to the hospital. He would like to be evaluated by urology during his admission. He has a history of BPH. He was started on Flomax. He is admitted to medicine. Consultation has been placed with infectious disease for leukocytosis. Blood cultures have been ordered. 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 OLGA 2022, anterior cervical decompression and fusion (02/13) Past Anesthesia/Blood Transfusion Reactions: No Reported Reaction Additional Past Anesthesia/Blood Transfusion Reaction / Comm: no blood tx hx, headache after anesthesia, pt. states it took 3 days to urinate on his own after Lt. OLGA in 2022 Past Psychological History: No Psychological Hx Reported Smoking Status: Former smoker Past Alcohol Use History: Occasional Additional Past Alcohol Use History / Comment(s): smoker for 50 years 1- 1 /2 ppd stopped smoking Sep 2015. 2-3 drinks/week at most Past Drug Use History: None Reported - Past Family History Mother Family Medical History: No Reported History Father Family Medical History: Cancer Additional Family Medical History / Comment(s): malignant tumor in bladder Medications and Allergies Home Medications Medication Instructions Recorded Confirmed Type Albuterol Inhaler [Ventolin Hfa 1 - 2 puff INHALATION RT-Q6H PRN 11/29/17 02/06/24 History Inhaler] Finasteride [Proscar] 5 mg PO DAILY 11/29/17 02/06/24 History Lisinopril-Hctz 20-12.5 mg 1 tab PO DAILY 11/29/17 02/06/24 History [Zestoretic 20-12.5] diphenhydrAMINE HCL [Benadryl] 25 mg PO DAILY PRN 02/03/23 02/06/24 History Aspirin 81 mg PO DAILY 01/24/24 02/06/24 History Budesonide-Formot 160-4.5 Mcg 2 puff INHALATION RT-BID 01/24/24 02/06/24 History [Symbicort 160-4.5 Mcg Inhaler] Metoprolol Succinate [Metoprolol 25 mg PO DAILY 01/24/24 02/06/24 History Succinate ER] Famotidine [Pepcid] 20 mg PO DAILY #12 tablet 01/29/24 02/06/24 Rx Tamsulosin [Flomax] 0.4 mg PO DAILY #30 cap 01/29/24 02/06/24 Rx Levothyroxine Sodium [Synthroid] 75 mcg PO DAILY 02/06/24 02/06/24 History Allergies Allergy/AdvReac Type Severity Reaction Status Date / Time azithromycin Allergy Rash/Hives Verified 02/06/24 14:25 Iodinated Contrast Media Allergy Anaphylaxis Verified 02/06/24 14:25 Iodine and Iodide Containing Allergy Anaphylaxis Verified 02/06/24 14:25 Produc Physical Examination Physical exam: Patient is awake, alert, and oriented 3 Vital signs stable Adequate chest excursion with deep inspiration and expiration Abdomen soft nontender Examination of the cervical spine reveals skin is intact with no abrasions, lacerations, or bruises; no erythema, purulence or signs of infection Generalized swelling with some firmness with palpation over the anterior lateral cervical spine No significant pain with palpation over the anterior cervical spine Adequate range of motion of the cervical spine with adequate flexion, extension, and bilateral rotation Contact Officer strength, thumb strength, interosseous strength, biceps strength, triceps strength, and right shoulder strength positive sustained bilaterally Difficulty with any active range of motion of his left shoulder, which he states is chronic Results Pertinent Studies: Soft tissue next CT taken on 02/06/2024: Evidence of hardware at C3-4 and C4-5 appears to be in good alignment and good position; no obvious malalignment of hardware; No evidence of pulmonary embolism; moderate centrilobular and paraseptal emphysema - Labs Labs: Abnormal Lab Results - Last 24 Hours (Table) 02/06/24 02/06/24 02/06/24 Range/Units 10:28 10:28 23:30 APTT 21.0 L (22.0-30.0) sec D-Dimer 1.55 H (<0.60) mg/L FEU Carbon Dioxide 31 H (22-30) mmol/L BUN 26 H (9-20) mg/dL Glucose 104 H (74-99) mg/dL Magnesium 1.5 L (1.6-2.3) mg/dL Ur Specific [place] 1.048 H (1.001-1.035) Urine Protein 1+ H (Negative) Urine Blood Large H (Negative) Ur Leukocyte Esterase Large H (Negative) Urine RBC >182 H (0-5) /hpf Urine WBC 116 H (0-5) /hpf Urine WBC Clumps (None) /hpf Amorphous Sediment (None) /hpf Urine Bacteria (None) /hpf Urine Mucus (None) /hpf Urine Yeast (Budding) (None) /hpf 02/07/24 Range/Units 02:40 APTT (22.0-30.0) sec D-Dimer (<0.60) mg/L FEU Carbon Dioxide (22-30) mmol/L BUN (9-20) mg/dL Glucose (74-99) mg/dL Magnesium (1.6-2.3) mg/dL Ur Specific [place] 1.049 H (1.001-1.035) Urine Protein Trace H (Negative) Urine Blood Large H (Negative) Ur Leukocyte Esterase (Negative) Urine RBC >182 H (0-5) /hpf Urine WBC (0-5) /hpf Urine WBC Clumps Rare H (None) /hpf Amorphous Sediment Rare H (None) /hpf Urine Bacteria Rare H (None) /hpf Urine Mucus Rare H (None) /hpf Urine Yeast (Budding) Rare H (None) /hpf H & H 02/06/24 Range/Units 10:28 Hgb 14.4 (13.0-17.5) gm/dL Hct 44.2 (39.0-53.0) % Coagulation 02/06/24 Range/Units 10:28 INR 1.0 (<1.2) Result Diagrams: 02/06/24 10:28 02/06/24 10:28 Assessment and Plan Assessment: Assessment: Status post C3-4 and C4-5 anterior cervical decompression and fusion performed on 01/26/2024 Cervical spinal stenosis Cervical myelopathy Upper extremity weakness Upper extremity radiculopathy History of throat cancer with history of neck radiation Postoperative difficulty with swallowing and breathing Postoperative urinary retention Urinary tract infection COPD Hypertension Prostate disorder Thyroid disorder BPH (1) S/P cervical spinal fusion Current Visit: Yes Status: Acute Code(s): Z98.1 - ARTHRODESIS STATUS SNOMED Code(s): 1663791797935 (2) Upper extremity weakness Current Visit: Yes Status: Acute Code(s): R29.898 - OTH SYMPTOMS AND SIGNS INVOLVING THE MUSCULOSKELETAL SYSTEM SNOMED Code(s): 437335846 (3) Radiculopathy affecting upper extremity Current Visit: Yes Status: Acute Code(s): M54.10 - RADICULOPATHY, SITE UNSPE CIFIED SNOMED Code(s): 75334351 (4) Cervical stenosis of spinal canal Current Visit: Yes Status: Acute Code(s): M48.02 - SPINAL STENOSIS, CERVICAL REGION SNOMED Code(s): 83843818 (5) Myelopathy Current Visit: Yes Status: Acute Code(s): G95.9 - DISEASE OF SPINAL CORD, UNSPECIFIED SNOMED Code(s): 79513547 (6) History of throat cancer Current Visit: Yes Status: Acute Code(s): Z85.819 - PRSNL HX OF MALIG NEOPLM OF UNSP SITE LIP,ORAL CAV,& PHARYNX SNOMED Code(s): 346290833 (7) Hx of radiation therapy Current Visit: Yes Status: Acute Code(s): Z92.3 - PERSONAL HISTORY OF IRRADIATION SNOMED Code(s): 912578862 (8) Difficulty swallowing Current Visit: Yes Status: Acute Code(s): R13.10 - DYSPHAGIA, UNSPECIFIED SNOMED Code(s): 36970073 (9) Difficulty breathing Current Visit: Yes Status: Acute Code(s): R06.89 - OTHER ABNORMALITIES OF BREATHING SNOMED Code(s): 917220260 (10) HTN (hypertension) Current Visit: Yes Status: Acute Code(s): I10 - ESSENTIAL (PRIMARY) HYPERTENSION SNOMED Code(s): 93983309 (11) Prostate disorder Current Visit: Yes Status: Acute Code(s): N42.9 - DISORDER OF PROSTATE, UNSPECIFIED SNOMED Code(s): 14679578 (12) BPH (benign prostatic hyperplasia) Current Visit: Yes Status: Acute Code(s): N40.0 - BENIGN PROSTATIC HYPERPLASIA WITHOUT LOWER URINRY TRACT SYMP SNOMED Code(s): 421881891 (13) Urinary retention Current Visit: Yes Status: Acute Code(s): R33.9 - RETENTION OF URINE, UNSPECIFIED SNOMED Code(s): 285139795 (14) UTI (urinary tract infection) Current Visit: Yes Status: Acute Code(s): N39.0 - URINARY TRACT INFECTION, SITE NOT SPECIFIED SNOMED Code(s): 40853899 (15) Thyroid disorder Current Visit: Yes Status: Acute Code(s): E07.9 - DISORDER OF THYROID, UNSPECIFIED SNOMED Code(s): 35104558 (16) COPD (chronic obstructive pulmonary disease) Current Visit: No Status: Acute Code(s): J44.9 - CHRONIC OBSTRUCTIVE PULMONARY DISEASE, UNSPECIFIED SNOMED Code(s): 12327512 Plan: Plan: 1. Patient is status post C3-4 and C4-5 anterior cervical decompression and fusion performed on 01/26/2024. He has a history of throat cancer with radiation at his neck. Postoperatively he has had some difficulty with swallowing and breathing. He has had some improvement since his admission to the hospital. Currently, the hardware remains intact at his anterior cervical spine. He feels he has had some improvement of his upper extremity radiculopathy symptoms postoperatively. He does have ongoing weakness. He is not experiencing any significant pain. Currently, from orthopedic spine standpoint, we are not planning for further acute surgical intervention. He does have some generalized swelling around his surgical site with some generalized firmness to palpation. There is no erythema, no bruising, no obvious sign of infection. There is no drainage from his anterior cervical surgical site. Currently, we recommend continue with conservative treatment options postoperatively and continue with postoperative care. He has been started on Solu-Medrol 60 mg IV every 12 hours. If the patient improves he is cleared by other medical providers, he would be cleared for discharge from orthopedic spine standpoint. Patient may follow-up with Jonh Perez PA-C or Dr. Luis Sharp at [facility] in 2-3 weeks following discharge or as previously scheduled. 2. Currently he is scheduled for swallow study. He is currently NPO for his swallow study. 3. Patient is known to have BPH. A Quiñonez catheter was placed at his previous discharge. He is currently being treated for urinary tract infection. He was scheduled to follow-up with urology in the outpatient setting today. We will currently plan to consult with Dr. Dewey for further evaluation and treatment during his admission is that his home he was scheduled to see in the outpatient setting today. 4. Patient will continue be seen and examined by medicine. Time with Patient: Greater than 30 (Including obtaining history, physical examination, reviewing of imaging, and dictation.)
--- NOTE | 2024-02-07 13:14 | P.HPIM ---
History of Present Illness H&P Date: 02/07/24 History of present illness; patient is a 78-year-old gentleman past medical history significant for COPD, hypertension, hypothyroidism, osteoarthritis who underwent cervical spine surgery for severe cervical stenosis C3-4 C4-5 C5-6 on January 25 who presented to the ER because of complaint of shortness of breath. Patient stated that he was discharged 1 week back after getting the surgery. Patient said he was all right till last night when he suddenly woke up complaining of shortness of breath. Shortness of breath was present on rest, there was no complaint of any chest pain. Denied any orthopnea or PND patient did feel as if his throat was closing. Patient felt tired. There was no complaint of fever or chills. Patient was complaining of cough. Patient also hard time swallowing. Because of the symptoms, patient came to the ER Initial lab work done in the ER showed WBC 26.1, hemoglobin 14.4, platelet count 272, D-dimer 1.55, sodium 139, potassium 3.9, BUN 26, creatinine 1, glucose 104, magnesium 1.5 troponin 0.012 UA done showed urine nitrite negative, urine leukocyte esterase negative, urine WBC 4 EKG done in the ER showed heart rate of 118 , no ST segment elevation or depression seen, no T-wave inversions seen. Chest x-ray done in the ER showed no acute cardiopulmonary process CT chest done showed no evidence of PE, moderate centrilobular and paraseptal emphysema. 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 There is some fat stranding changes in the right neck Patient admitted to internal medicine service REVIEW OF SYSTEMS: CONSTITUTIONAL: No fever, no malaise, no fatigue. HEENT: No recent visual problems or hearing problems. Denied any sore throat. CARDIOVASCULAR: As mentioned above PULMONARY: As mentioned above GASTROINTESTINAL: No diarrhea, no nausea, no vomiting, no abdominal pain. NEUROLOGICAL: No headaches, no weakness, no numbness. HEMATOLOGICAL: Denies any bleeding or petechiae. GENITOURINARY: Denies any burning micturition, frequency, or urgency. MUSCULOSKELETAL/RHEUMATOLOGICAL: Denies any joint pain, swelling, or any muscle pain. ENDOCRINE: Denies any polyuria or polydipsia. The rest of the 14-point review of systems is negative. PHYSICAL EXAMINATION: GENERAL: The patient is alert and oriented x3, not in any acute distress. Well developed, well nourished. HEENT: Pupils are round and equally reacting to light. EOMI. No scleral icterus. No conjunctival pallor. Normocephalic, atraumatic. No pharyngeal erythema. No thyromegaly. CARDIOVASCULAR: S1 and S2 present. No murmurs, rubs, or gallops. PULMONARY: Chest is clear to auscultation, no wheezing or crackles. ABDOMEN: Soft, nontender, nondistended, normoactive bowel sounds. No palpable organomegaly. MUSCULOSKELETAL: No joint swelling or deformity. EXTREMITIES: No cyanosis, clubbing, or pedal edema. NEUROLOGICAL: Gross neurological examination did not reveal any focal deficits. SKIN: No rashes. Assessment and plan Dyspnea Dysphagia Severe cervical stenosis C3-4 C4-5 C5-6 s/p cervical spine surgery on 01/25 Postoperative infection ? Hypertension Hypothyroidism BPH Monitor vital signs Monitor CBC Monitor CMP Continue telemetry monitoring Ordered blood cultures Ordered Pro-Harlan Ordered CRP Ordered ESR Start IV Zosyn prophylactically Continue IV fluids consult ID Consult orthopedic spine Resume home meds Hold off on resuming Zestoretic at this time Labs and medication were reviewed.. Continue same treatment. Continue with symptomatic treatment. Resume home medication. Monitor labs and vitals. DVT and GI prophylaxis. Further recommendations as per clinical course of the patient Dictation was produced using bepretty dictation software. please excuse any gramm atical, word or spelling errors. Past Medical History Past Medical History: Cancer, COPD, Hypertension, Prostate Disorder, Thyroid Disorder Additional Past Medical History / Comment(s): cancer epiglottis with chemo and radiation [id number], hypothyroidism History of Any Multi-Drug Resistant Organisms: Acinetobacter (MDRO) Date of last positivie culture/infection: 02/05/23 MDRO Source:: nasal Past Surgical History: Back Surgery, Joint Replacement Additional Past Surgical History / Comment(s): rt hip replacement, colonoscopies, epidural steroid injections, disc fusion L4-5, Lt. OLGA 2022, anterior cervical decompression and fusion (02/13) Past Anesthesia/Blood Transfusion Reactions: No Reported Reaction Additional Past Anesthesia/Blood Transfusion Reaction / Comment(s): no blood tx hx, headache after anesthesia, pt. states it took 3 days to urinate on his own after Lt. OLGA in 2022 Past Psychological History: No Psychological Hx Reported Smoking Status: Former smoker Past Alcohol Use History: Occasional Additional Past Alcohol Use History / Comment(s): smoker for 50 years 1- 1 2 ppd stopped smoking Sep 2015. 2-3 drinks/week at most Past Drug Use History: None Reported - Past Family History Mother Family Medical History: No Reported History Father Family Medical History: Cancer Additional Family Medical History / Comment(s): malignant tumor in bladder Medications and Allergies Home Medications Medication Instructions Recorded Confirmed Type Albuterol Inhaler [Ventolin Hfa 1 - 2 puff INHALATION RT-Q6H PRN 11/29/17 02/06/24 History Inhaler] Finasteride [Proscar] 5 mg PO DAILY 11/29/17 02/06/24 History Lisinopril-Hctz 20-12.5 mg 1 tab PO DAILY 11/29/17 02/06/24 History [Zestoretic 20-12.5] diphenhydrAMINE HCL [Benadryl] 25 mg PO DAILY PRN 02/03/23 02/06/24 History Aspirin 81 mg PO DAILY 01/24/24 02/06/24 History Budesonide-Formot 160-4.5 Mcg 2 puff INHALATION RT-BID 01/24/24 02/06/24 History [Symbicort 160-4.5 Mcg Inhaler] Metoprolol Succinate [Metoprolol 25 mg PO DAILY 01/24/24 02/06/24 History Succinate ER] Famotidine [Pepcid] 20 mg PO DAILY #12 tablet 01/29/24 02/06/24 Rx Tamsulosin [Flomax] 0.4 mg PO DAILY #30 cap 01/29/24 02/06/24 Rx Levothyroxine Sodium [Synthroid] 75 mcg PO DAILY 02/06/24 02/06/24 History Allergies Allergy/AdvReac Type Severity Reaction Status Date / Time azithromycin Allergy Rash/Hives Verified 02/06/24 14:25 Iodinated Contrast Media Allergy Anaphylaxis Verified 02/06/24 14:25 Iodine and Iodide Containing Allergy Anaphylaxis Verified 02/06/24 14:25 Produc Physical Exam Vitals: Vital Signs Temp Pulse Pulse Pulse Resp BP BP 02/07/24 07:19 97.7 F 82 17 131/71 02/07/24 01:29 97.7 F 88 16 114/60 02/06/24 20:30 98.5 F 86 18 118/71 02/06/24 17:00 111 H 19 126/70 02/06/24 15:00 111 H 20 125/63 02/06/24 14:00 101 H 19 117/71 02/06/24 12:00 110 H 18 115/70 02/06/24 11:30 112 H 94/66 02/06/24 11:00 112 H 20 114/72 02/06/24 10:50 112 H 20 02/06/24 10:07 114 H 02/06/24 09:48 98.2 F 119 H 24 126/75 Pulse Ox 02/07/24 07:19 97 02/07/24 01:29 97 02/06/24 20:30 96 02/06/24 17:00 94 L 02/06/24 15:00 96 02/06/24 14:00 97 02/06/24 12:00 96 02/06/24 11:30 94 L 02/06/24 11:00 99 02/06/24 10:50 02/06/24 10:07 02/06/24 09:48 94 L Intake and Output 02/06/24 02/07/24 02/07/24 22:59 06:59 14:59 Output Total 160 300 Balance -160 -300 Output: Urine 300 Uretheral (Quiñonez) 300 Post Void Residual 160 Other: Voiding Method Indwelling Catheter Weight 92.079 kg Results CBC & Chem 7: 02/06/24 10:28 02/06/24 10:28 Labs: Abnormal Lab Results - Last 24 Hours (Table) 02/06/24 02/06/24 02/06/24 Range/Units 10:28 10:28 10:28 WBC 26.1 H (3.8-10.6) k/uL Neutrophils # 23.9 H (1.3-7.7) k/uL Lymphocytes # 0.7 L (1.0-4.8) k/uL Monocytes # 1.1 H (0-1.0) k/uL APTT 21.0 L (22.0-30.0) sec D-Dimer 1.55 H (<0.60) mg/L FEU Carbon Dioxide 31 H (22-30) mmol/L BUN 26 H (9-20) mg/dL Glucose 104 H (74-99) mg/dL Magnesium 1.5 L (1.6-2.3) mg/dL Ur Specific [place] (1.001-1.035) Urine Protein (Negative) Urine Blood (Negative) Ur Leukocyte Esterase (Negative) Urine RBC (0-5) /hpf Urine WBC (0-5) /hpf Urine WBC Clumps (None) /hpf Amorphous Sediment (None) /hpf Urine Bacteria (None) /hpf Urine Mucus (None) /hpf Urine Yeast (Budding) (None) /hpf 02/06/24 02/07/24 Range/Units 23:30 02:40 WBC (3.8-10.6) k/uL Neutrophils # (1.3-7.7) k/uL Lymphocytes # (1.0-4.8) k/uL Monocytes # (0-1.0) k/uL APTT (22.0-30.0) sec D-Dimer (<0.60) mg/L FEU Carbon Dioxide (22-30) mmol/L BUN (9-20) mg/dL Glucose (74-99) mg/dL Magnesium (1.6-2.3) mg/dL Ur Specific [place] 1.048 H 1.049 H (1.001-1.035) Urine Protein 1+ H Trace H (Negative) Urine Blood Large H Large H (Negative) Ur Leukocyte Esterase Large H (Negative) Urine RBC >182 H >182 H (0-5) /hpf Urine WBC 116 H (0-5) /hpf Urine WBC Clumps Rare H (None) /hpf Amorphous Sediment Rare H (None) /hpf Urine Bacteria Rare H (None) /hpf Urine Mucus Rare H (None) /hpf Urine Yeast (Budding) Rare H (None) /hpf Thrombosis Risk Factor Assmnt - Choose All That Apply Any of the Below Risk Factors Present?: No Other Risk Factors: No Other congenital or acquired thrombophilia - If yes, enter type in comment: No Thrombosis Risk Factor Assessment Level: Very Low Risk
--- NOTE | 2024-02-07 14:14 | FL ---
EXAMINATION TYPE: FL barium swallow w video DATE OF EXAM: 02/07/2024 COMPARISON: NONE HISTORY: Difficulty swallowing TECHNIQUE: Fluoroscopy. FINDINGS: Fluoroscopic guidance was provided for the procedure performed in conjunction with the formerly named [facility] pathology department. Please see complete report forthcoming from the Speech Pathology departmen t. Various consistencies from thin liquid to solids were administered. Fluoroscopy time 3 minutes 5 seconds. Number of images: 0. DAP: 336.61 Small amount of aspirate was evident within liquids. There appear to be some aspiration with nectar t hick liquids. Penetration was evident Thick liquids. The patient did have some silent aspiration. Pooling was evident within the vallecula. There is hesitancy of bolus formation. There was normal propulsion of the bolus. IMPRESSION: 1. Tiny amount of aspiration evident with thin liquids and nectar thick liquids. 2. Pooling within the vallecula. 3. Delayed transit from the hypopharynx and of the proximal esophagus
--- NOTE | 2024-02-07 15:22 | P.CNPUL ---
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 He was discharged home on 01/30/2024. He presented here to the emergency room yesterday with increasing shortness of breath and difficulty swallowing. Chest x-ray revealed no acute pulmonary process. Evidence of COPD. CT angiogram ruled out pulmonary embolism. There is moderate centrilobular and paraseptal emphysema. Indeterminate bilateral adrenal nodules. 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 No discrete enlarged lymph nodes identified. Epiglottic mass no longer visualized. There is postsurgical changes along the right neck with few surgical clips present. White count 26.1. Hemoglobin 14.4. Platelets 272. Sodium 139. Potassium 3.9. Bicarb 31. BUN 26. Creatinine 1.0. Glucose 104. Troponin negative x 1. Procalcitonin 0.09. Urinalysis with large blood. Large leukocyte esterase and high WBCs. The patient did have urinary retention following his previous surgery and had a chronic Quiñonez in place which was changed out yesterday. He is currently on Unasyn. Initiated on Symbicort, albuterol, Solu-Medrol. Barium swallow revealed a tiny amount of aspiration evident with thin liquids and nectar thick liquids. Pooling within the vallecula. Delayed transit from the hypopharynx and of the proximal esophagus. He is seen in consultation on the regular medical floor. He is currently afebrile. Hemodynamically stable. Maintaining O2 saturations in the upper 90s on room air. Review of Systems REVIEW OF SYSTEMS: CONSTITUTIONAL: Denies any recent significant weight loss or weight gain. EYES: Denies change in vision. EARS, NOSE, MOUTH, THROAT: Positive for difficulty in swallowing. CARDIOVASCULAR: Denies chest pain, palpitations or syncopal episodes. RESPIRATORY: Positive for shortness of breath, no cough, congestion or hemoptysis. GASTROINTESTINAL: Denies change in appetite, denies abdominal pain GENITOURINARY: Denies hematuria, denies infections. MUSKULOSKELETAL: Denies pain, denies swelling. INTEGUMENTARY: Denies rash, denies eczema. NEUROLOGICAL: Denies recent memory loss, no recent seizure activity. PSYCHIATRIC: Denies anxiety, denies depression. HEMATOLOGIC/LYMPHATIC: Denies anemia, denies enlarged lymph nodes. Past Medical History Past Medical History: Cancer, COPD, Hypertension, Prostate Disorder, Thyroid Disorder Additional Past Medical History / Comment(s): cancer epiglottis with chemo and radiation [id number], hypothyroidism History of Any Multi-Drug Resistant Organisms: Acinetobacter (MDRO) Date of last positivie culture/infection: 02/05/23 MDRO Source:: nasal Past Surgical History: Back Surgery, Joint Replacement Additional Past Surgical History / Comment(s): rt hip replacement, colonoscopies, epidural steroid injections, disc fusion L4-5, Lt. OLGA 2022, anterior cervical decompression and fusion (02/13) Past Anesthesia/Blood Transfusion Reactions: No Reported Reaction Additional Past Anesthesia/Blood Transfusion Reaction / Comment(s): no blood tx hx, headache after anesthesia, pt. states it took 3 days to urinate on his own after Lt. OLGA in 2022 Past Psychological History: No Psychological Hx Reported Smoking Status: Former smoker Past Alcohol Use History: Occasional Additional Past Alcohol Use History / Comment(s): smoker for 50 years 1- 1 /2 ppd stopped smoking Sep 2015. 2-3 drinks/week at most Past Drug Use History: None Reported - Past Family History Mother Family Medical History: No Reported History Father Family Medical History: Cancer Additional Family Medical History / Comment(s): malignant tumor in bladder Medications and Allergies Home Medications Medication Instructions Recorded Confirmed Type Albuterol Inhaler [Ventolin Hfa 1 - 2 puff INHALATION RT-Q6H PRN 11/29/17 02/06/24 History Inhaler] Finasteride [Proscar] 5 mg PO DAILY 11/29/17 02/06/24 History Lisinopril-Hctz 20-12.5 mg 1 tab PO DAILY 11/29/17 02/06/24 History [Zestoretic 20-12.5] diphenhydrAMINE HCL [Benadryl] 25 mg PO DAILY PRN 02/03/23 02/06/24 History Aspirin 81 mg PO DAILY 01/24/24 02/06/24 History Budesonide-Formot 160-4.5 Mcg 2 puff INHALATION RT-BID 01/24/24 02/06/24 History [Symbicort 160-4.5 Mcg Inhaler] Metoprolol Succinate [Metoprolol 25 mg PO DAILY 01/24/24 02/06/24 History Succinate ER] Famotidine [Pepcid] 20 mg PO DAILY #12 tablet 01/29/24 02/06/24 Rx Tamsulosin [Flomax] 0.4 mg PO DAILY #30 cap 01/29/24 02/06/24 Rx Levothyroxine Sodium [Synthroid] 75 mcg PO DAILY 02/06/24 02/06/24 History Allergies Allergy/AdvReac Type Severity Reaction Status Date / Time azithromycin Allergy Rash/Hives Verified 02/06/24 14:25 Iodinated Contrast Media Allergy Anaphylaxis Verified 02/06/24 14:25 Iodine and Iodide Containing Allergy Anaphylaxis Verified 02/06/24 14:25 Produc Physical Exam Vitals: Vital Signs Temp Pulse Pulse Pulse Resp BP BP 02/07/24 07:19 97.7 F 82 17 131/71 02/07/24 01:29 97.7 F 88 16 114/60 02/06/24 20:30 98.5 F 86 18 118/71 02/06/24 17:00 111 H 19 126/70 Pulse Ox 02/07/24 07:19 97 02/07/24 01:29 97 02/06/24 20:30 96 02/06/24 17:00 94 L Intake and Output 02/07/24 02/07/24 02/07/24 06:59 14:59 22:59 Output Total 300 Balance -300 Output: Urine 300 Uretheral (Quiñonez) 300 Other: Voiding Method Indwelling Catheter Weight 92.079 kg GENERAL EXAM: Alert, pleasant 78-year-old male patient, on room air, comfortable in no apparent distress. HEAD: Normocephalic. EYES: Normal reaction of pupils, equal size. NOSE: Clear with pink turbinates. THROAT: Surgical site clean dry and well-approximated. No erythema or exudates. NECK: No masses, no JVD. CHEST: No chest wall deformity. LUNGS: Equal air entry with few scattered rhonchi. CVS: S1 and S2 normal with no audible murmur, regular rhythm. ABDOMEN: No hepatosplenomegaly, normal bowel sounds, no guarding or rigidity. SPINE: No scoliosis or deformity SKIN: No rashes CENTRAL NERVOUS SYSTEM: No focal deficits, tone is normal in all 4 extremities. EXTREMITIES: There is no peripheral edema. No clubbing, no cyanosis. Peripheral pulses are intact. Results - Laboratory Findings CBC and BMP: 02/06/24 10:28 02/06/24 10:28 PT/INR, D-dimer PT 10.6 sec (10.0-12.5) 02/06/24 10:28 INR 1.0 (<1.2) 02/06/24 10:28 D-Dimer 1.55 mg/L FEU (<0.60) H 02/06/24 10:28 Abnormal lab findings: Abnormal Labs 02/06/24 02/06/24 02/06/24 10:28 10:28 10:28 WBC 26.1 H Neutrophils # 23.9 H Lymphocytes # 0.7 L Monocytes # 1.1 H APTT 21.0 L D-Dimer 1.55 H Carbon Dioxide 31 H BUN 26 H Glucose 104 H Magnesium 1.5 L C-Reactive Protein Ur Specific [place] Urine Protein Urine Blood Ur Leukocyte Esterase Urine RBC Urine WBC Urine WBC Clumps Amorphous Sediment Urine Bacteria Urine Mucus Urine Yeast (Budding) 02/06/24 02/07/24 02/07/24 23:30 02:40 04:30 WBC Neutrophils # Lymphocytes # Monocytes # APTT D-Dimer Carbon Dioxide BUN Glucose Magnesium C-Reactive Protein 4.7 H Ur Specific [place] 1.048 H 1.049 H Urine Protein 1+ H Trace H Urine Blood Large H Large H Ur Leukocyte Esterase Large H Urine RBC >182 H >182 H Urine WBC 116 H Urine WBC Clumps Rare H Amorphous Sediment Rare H Urine Bacteria Rare H Urine Mucus Rare H Urine Yeast (Budding) Rare H - Diagnostic Findings Chest x-ray: image reviewed CT scan - chest: image reviewed Assessment and Plan Assessment: Dysphagia secondary to recent cervical neck surgery. Modified barium swallow revealed evidence of aspiration. The patient is recommended n.p.o. status for now and speech therapy is following Recent surgery on January 26, 2024 with an anterior cervical decompression with discectomy and fusion of C3-4, C4-5 with increased level of difficulty with dissection exposure due to prior epiglottic cancer with radiation and subsequent soft tissue fibrosis. He was discharged home on 01/30/2024 History of cancer of the epiglottis status post surgical resection, chemoradiation in 2014 Urinary retention requiring chronic indwelling Quiñonez catheter, urine culture pending Chronic obstructive pulmonary disease, stable Former smoker Hypertension Hypothyroidism BPH Plan: The patient was seen and evaluated Chest x-ray, CT angiogram, CT scan of the neck, labs and medications reviewed Modified barium swallow was ordered and reviewed Currently recommending n.p.o. status Continued on bronchodilators and steroids Procalcitonin negative x 2 Currently on Unasyn per ID services We will continue to follow and make further recommendations based on his clinical status I have personally seen and examined the patient, performed the documentation and the assessment and plan as written. Number of minutes spent on the visit: 20.
--- NOTE | 2024-02-07 16:06 | P.GSCN ---
History of Present Illness Consult date: 02/07/24 Reason for Consult: Urinary retention History of present illness: This is a 78-year-old male with history of BPH. Underwent cervical fusion and developed urinary retention postoperatively on January 25, he was discharged home with a Quiñonez catheter with plan to follow-up as an outpatient with urology. He is a well-known patient of Dr. Edwards and does have an underlying BPH and is on Proscar at baseline. He he presented back to the hospital with shortness of breath, on admission his catheter was removed he was only able to void small volumes subsequently a Quiñonez catheter was reinserted. Prior to discharge on his last admission he was started on Flomax in addition to the Proscar. He currently does have a Quiñonez catheter in place draining clear yellow urine. Review of Systems - Constitutional Denies fever, Denies weight loss - EENT Ears, nose, mouth and throat: Denies dysphagia - Cardiovascular Reports shortness of breath, Denies chest pain - Respiratory Denies cough, Denies 7 - Gastrointestinal Denies abdominal pain, Denies nausea, Denies vomiting Past Medical History Past Medical History: Cancer, COPD, Hypertension, Prostate Disorder, Thyroid Disorder Additional Past Medical History / Comment(s): cancer epiglottis with chemo and radiation [id number], hypothyroidism History of Any Multi-Drug Resistant Organisms: Acinetobacter (MDRO) Year Discovered:: 02/05/23 MDRO Source:: nasal Past Surgical History: Back Surgery, Joint Replacement Additional Past Surgical History / Comment(s): rt hip replacement, colonoscopies, epidural steroid injections, disc fusion L4-5, Lt. [facility]GA 2022, anterior cervical decompression and fusion (02/13) Past Anesthesia/Blood Transfusion Reactions: No Reported Reaction Additional Past Anesthesia/Blood Transfusion Reaction / Comm: no blood tx hx, headache after anesthesia, pt. states it took 3 days to urinate on his own after Lt. OLGA in 2022 Past Psychological History: No Psychological Hx Reported Smoking Status: Former smoker Past Alcohol Use History: Occasional Additional Past Alcohol Use History / Comment(s): smoker for 50 years 1- 08/24 ppd stopped smoking Sep 2015. 2-3 drinks/week at most Past Drug Use History: None Reported - Past Family History Mother Family Medical History: No Reported History Father Family Medical History: Cancer Additional Family Medical History / Comment(s): malignant tumor in bladder Medications and Allergies Home Medications Medication Instructions Recorded Confirmed Type Albuterol Inhaler [Ventolin Hfa 1 - 2 puff INHALATION RT-Q6H PRN 11/29/17 02/06/24 History Inhaler] Finasteride [Proscar] 5 mg PO DAILY 11/29/17 02/06/24 History Lisinopril-Hctz 20-12.5 mg 1 tab PO DAILY 11/29/17 02/06/24 History [Zestoretic 20-12.5] diphenhydrAMINE HCL [Benadryl] 25 mg PO DAILY PRN 02/03/23 02/06/24 History Aspirin 81 mg PO DAILY 01/24/24 02/06/24 History Budesonide-Formot 160-4.5 Mcg 2 puff INHALATION RT-BID 01/24/24 02/06/24 History [Symbicort 160-4.5 Mcg Inhaler] Metoprolol Succinate [Metoprolol 25 mg PO DAILY 01/24/24 02/06/24 History Succinate ER] Famotidine [Pepcid] 20 mg PO DAILY #12 tablet 01/29/24 02/06/24 Rx Tamsulosin [Flomax] 0.4 mg PO DAILY #30 cap 01/29/24 02/06/24 Rx Levothyroxine Sodium [Synthroid] 75 mcg PO DAILY 02/06/24 02/06/24 History Allergies Allergy/AdvReac Type Severity Reaction Status Date / Time azithromycin Allergy Rash/Hives Verified 02/06/24 14:25 Iodinated Contrast Media Allergy Anaphylaxis Verified 02/06/24 14:25 Iodine and Iodide Containing Allergy Anaphylaxis Verified 02/06/24 14:25 Produc Surgical - Exam Vital Signs Temp Pulse Resp BP Pulse Ox 98.2 F 119 H 24 126/75 94 L 02/06/24 09:48 02/06/24 09:48 02/06/24 09:48 02/06/24 09:48 02/06/24 09:48 - General no distress, no pain - Eyes normal ocular movement, no pale - ENT normal nares, normal mucosa - Respiratory normal expansion, normal respiratory effort - Abdomen Abdomen: soft, non tender, no distended - Psychiatric oriented to time, oriented to person, oriented to place Results - Labs 02/06/24 10:28 02/06/24 10:28 Abnormal Lab Results - Last 24 Hours (Table) 02/06/24 02/07/24 02/07/24 Range/Units 23:30 02:40 04:30 C-Reactive Protein 4.7 H (<1.0) mg/dL Ur Specific [place] 1.048 H 1.049 H (1.001-1.035) Urine Protein 1+ H Trace H (Negative) Urine Blood Large H Large H (Negative) Ur Leukocyte Esterase Large H (Negative) Urine RBC >182 H >182 H (0-5) /hpf Urine WBC 116 H (0-5) /hpf Urine WBC Clumps Rare H (None) /hpf Amorphous Sediment Rare H (None) /hpf Urine Bacteria Rare H (None) /hpf Urine Mucus Rare H (None) /hpf Urine Yeast (Budding) Rare H (None) /hpf Assessment and Plan Assessment: 78-year-old male with history of BPH, developed urinary retention post cervical fusion 01/25. Is on Proscar at baseline, was started on Flomax on his last admission. Catheter was removed yesterday he was unable to void small amounts following that -Increase Flomax to twice daily -Repeat trial of void on day of discharge
[2024-02-07] MEDS: AMPICILLIN-SULBACTAM 3 GM in SODIUM CHLORIDE 0.9% 100 ML IVPB SCH (18:10)
[2024-02-07] MEDS ORDERED: ACETAMINOPHEN SUPPOSITORY 650 MG SUPP RECTAL PRN (18:26)
[2024-02-07] MEDS: ACETAMINOPHEN IV (For NPO) 1,000 MG in EMPTY BAG 1 BAG IVPB STA (20:21)
--- NOTE | 2024-02-08 07:21 | P.CONS ---
History of Present Illness - Reason for Consult Consult date: 02/07/24 - History of Present Illness Patient is a 78-year-old male with a past medical history significant for hypertension COPD hypothyroidism did have a previous history of cancer of the epiglottis status post chemoradiation and hypothyroidism patient recently did have C3-4 and C4-5 anterior cervical decompression and fusion performed on 01/26/2024 patient mention postprocedure he did have some difficulty with swallow ing which he was attributing to possibly swelling from the surgery however subsequently noticed to having increasing shortness of breath for the patient was brought into the hospital. Denies any fever or any chills denies any cough or sputum production no nausea no vomiting no abdominal pain vomiting diarrhea patient denies having any pain to the anterior neck incision which is currently healed with no swelling redness or any drainage with the symptoms the patient has been evaluated on presentation to the hospital the patient was afebrile and no fever have recorded subsequently patient was not tachycardic or hypotensive patient did have a white count of 26.1 creatinine 1.0 liver enzymes are normal urine has been mildly positive patient did have a chest x-ray no acute cardiopulmonary disease process did have a CT angiogram of the chest that was negative for PE emphysema indeterminate bilateral adrenal nodules patient also have a soft tissue neck CT did shows soft tissue around the right carotid bifurcation with 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 some fat stranding changes in the right neck did not mention any abscess patient was started on Zosyn infectious disease was consulted for further management of antibiotic therapy Past Medical History Past Medical History: Cancer, COPD, Hypertension, Prostate Disorder, Thyroid Disorder Additional Past Medical History / Comment(s): cancer epiglottis with chemo and radiation [id number], hypothyroidism History of Any Multi-Drug Resistant Organisms: Acinetobacter (MDRO) Year Discovered:: 02/05/23 MDRO Source:: nasal Past Surgical History: Back Surgery, Joint Replacement Additional Past Surgical History / Comment(s): rt hip replacement, colonoscopies, epidural steroid injections, disc fusion L4-5, Lt. [facility]GA 2022, anterior cervical decompression and fusion (02/13) Past Anesthesia/Blood Transfusion Reactions: No Reported Reaction Additional Past Anesthesia/Blood Transfusion Reaction / Comm: no blood tx hx, headache after anesthesia, pt. states it took 3 days to urinate on his own after Lt. OLGA in 2022 Past Psychological History: No Psychological Hx Reported Smoking Status: Former smoker Past Alcohol Use History: Occasional Additional Past Alcohol Use History / Comment(s): smoker for 50 years 1- 1 /2 ppd stopped smoking Sep 2015. 2-3 drinks/week at most Past Drug Use History: None Reported - Past Family History Mother Family Medical History: No Reported History Father Family Medical History: Cancer Additional Family Medical History / Comment(s): malignant tumor in bladder Medications and Allergies Home Medications Medication Instructions Recorded Confirmed Type Albuterol Inhaler [Ventolin Hfa 1 - 2 puff INHALATION RT-Q6H PRN 11/29/17 02/06/24 History Inhaler] Finasteride [Proscar] 5 mg PO DAILY 11/29/17 02/06/24 History Lisinopril-Hctz 20-12.5 mg 1 tab PO DAILY 11/29/17 02/06/24 History [Zestoretic 20-12.5] diphenhydrAMINE HCL [Benadryl] 25 mg PO DAILY PRN 02/03/23 02/06/24 History Aspirin 81 mg PO DAILY 01/24/24 02/06/24 History Budesonide-Formot 160-4.5 Mcg 2 puff INHALATION RT-BID 01/24/24 02/06/24 History [Symbicort 160-4.5 Mcg Inhaler] Metoprolol Succinate [Metoprolol 25 mg PO DAILY 01/24/24 02/06/24 History Succinate ER] Famotidine [Pepcid] 20 mg PO DAILY #12 tablet 01/29/24 02/06/24 Rx Tamsulosin [Flomax] 0.4 mg PO DAILY #30 cap 01/29/24 02/06/24 Rx Levothyroxine Sodium [Synthroid] 75 mcg PO DAILY 02/06/24 02/06/24 History Allergies Allergy/AdvReac Type Severity Reaction Status Date / Time azithromycin Allergy Rash/Hives Verified 02/06/24 14:25 Iodinated Contrast Media Allergy Anaphylaxis Verified 02/06/24 14:25 Iodine and Iodide Containing Allergy Anaphylaxis Verified 02/06/24 14:25 Produc Physical Exam Vitals: Vital Signs Temp Pulse Pulse Pulse Resp BP BP 02/07/24 07:19 97.7 F 82 17 131/71 02/07/24 01:29 97.7 F 88 16 114/60 02/06/24 20:30 98.5 F 86 18 118/71 02/06/24 17:00 111 H 19 126/70 02/06/24 15:00 111 H 20 125/63 02/06/24 14:00 101 H 19 117/71 02/06/24 12:00 110 H 18 115/70 02/06/24 11:30 112 H 94/66 Pulse Ox 02/07/24 07:19 97 02/07/24 01:29 97 02/06/24 20:30 96 02/06/24 17:00 94 L 02/06/24 15:00 96 02/06/24 14:00 97 02/06/24 12:00 96 02/06/24 11:30 94 L Intake and Output 02/06/24 02/07/24 02/07/24 22:59 06:59 14:59 Output Total 160 300 Balance -160 -300 Output: Urine 300 Uretheral (Quiñonez) 300 Post Void Residual 160 Other: Voiding Method Indwelling Catheter Weight 92.079 kg Results CBC & Chem 7: 02/06/24 10:28 02/06/24 10:28 Labs: Abnormal Lab Results - Last 24 Hours (Table) 02/06/24 02/07/24 Range/Units 23:30 02:40 Ur Specific [place] 1.048 H 1.049 H (1.001-1.035) Urine Protein 1+ H Trace H (Negative) Urine Blood Large H Large H (Negative) Ur Leukocyte Esterase Large H (Negative) Urine RBC >182 H >182 H (0-5) /hpf Urine WBC 116 H (0-5) /hpf Urine WBC Clumps Rare H (None) /hpf Amorphous Sediment Rare H (None) /hpf Urine Bacteria Rare H (None) /hpf Urine Mucus Rare H (None) /hpf Urine Yeast (Budding) Rare H (None) /hpf Assessment and Plan Plan: 1patient with leukocytosis in this patient who recently did have C3-4 and C4-5 anterior cervical decompression and fusion on 01/26/2024 presented to hospital with difficulty in breathing CT angiogram of the chest was negative for PE or pneumonia CT of the neck did show some fat stranding did not mention any abscess patient did have healing of his anterior cervical incision with no cellulitis patient has been on steroids in the outpatient setting could be related to that versus inflammation is seen on the CT of the neck 2-discontinue Zosyn 3-start the patient on Unasyn 3 g every 6 hours 4-check inflammatory markers Discussed with Ortho on floor We will follow on clinical condition and cultures to further adjust medication if needed Thank you for this consultation we will follow the patient along with you Dictation was produced using [employer] dictation software. please excuse any grammatical, word or spelling errors. Time with Patient: Greater than 30
[2024-02-08 08:27] LABS: Basophils # (A) 0.02 X 10*3/uL (0.00-0.10); Basophils % (A) 0.1 %; Eosinophils # (A) 0 X 10*3/uL (0.04-0.35); Eosinophils % (A) 0 %; HCT 40.5 % (39.6-50.0); HGB 13.5 g/dL (13.0-17.0); Lymphocytes % (A) 5.3 %; MCH 31.6 pg (27.0-32.0); MCHC 33.3 g/dL (32.0-37.0); MCV 94.8 FL (80.0-97.0); Mean Platelet Volume 10.5 FL (9.5-12.2); Monocytes # (A) 0.14 X 10*3/uL (0.20-1.00); Monocytes % (A) 0.9 %; NRBC Per 100 WBC 0 X 10*3/uL (0.00-0.01); Neutrophils # (A) 14.07 X 10*3/uL (1.80-7.70); Platelet Count 271 X 10*3/uL (140-440); RBC 4.27 X 10*6/uL (4.40-5.60); RDW 12.5 % (11.5-14.5); WBC 15.13 X 10*3/uL (4.50-10.00)
[2024-02-08 08:39] LABS: ALT 33 U/L (10-49); AST 17 U/L (14-35); Albumin 3.6 g/dL (3.8-4.9); Albumin/Globulin Ratio 1.64 Ratio (1.60-3.17); Alkaline Phosphatase 56 U/L (41-126); Blood Urea Nitrogen 24.9 mg/dL (9.0-27.0); Calcium 8.6 mg/dL (8.7-10.3); Carbon Dioxide 25.6 mmol/L (21.6-31.8); Chloride 104 mmol/L (96-109); Globulin 2.2 g/dL (1.6-3.3); Glucose 118 mg/dL (70-110); Potassium 4.3 mmol/L (3.5-5.5); Sodium 141 mmol/L (135-145); Total Bilirubin 0.4 mg/dL (0.3-1.2); Total Protein 5.8 g/dL (6.2-8.2)
--- NOTE | 2024-02-08 08:44 | P.PN ---
Progress Note - Text Progress Note Date: 02/08/24 Orthopedic spine: History of present illness: Patient is a very pleasant 78-year-old male who is seen examined the bedside for follow-up evaluation of his cervical spine. He is status post C3-4 and C4-5 anterior cervical decompression and fusion perf ormed on 01/26/2024. Postoperatively he has had difficulty with swallowing and breathing. He does continue have some firmness at the right anterior lateral cervical spine. He does have a history of previous radiation at his neck. He states he was having difficulty with some phlegm and swallowing of food. With some difficulty with bleeding who presents emergency department for further evaluation. He does feel he has had some improvement since his admission. Overall, he has not had significant change as compared to yesterday. He is currently sitting upright at the bedside. He does not complain of any significant pain. He feels he has had improvement of his upper extremity radiculopathy and weakness symptoms postoperatively. He is known to have chronic difficulty with his left shoulder. He has very limited range of motion of his left shoulder. He is not currently complain of any significant pain in his cervical spine or upper extremities. Barium swallow was performed yesterday which showed tiny aspiration with delayed transit from the hypopharynx and the proximal esophagus. He is currently on modified diet. He was given 1 dose of Solu-Medrol in the emergency department. He has been started on Solu-Medrol 60 mg IV every 12 hours. He is being seen by multiple medical providers including medicine, pulmonology, and infectious disease. He continues on antibiotics per infectious disease. He was seen by urology yesterday. He was also experiencing urinary retention and was discharged with a catheter. He states he has since got a urinary tract infection. He has a history of BPH. He was started on Flomax. He was seen and examined by Dr. Dewey yesterday. Quiñonez catheter was discontinued. Patient was unable to void independently. His Flomax has been increased. They will try for voiding trial again on the day of discharge. He is admitted to medicine. Physical exam: Patient is awake, alert, and oriented 3 Vital signs stable Adequate chest excursion with deep inspiration and expiration Abdomen soft nontender Examination of the cervical spine reveals skin is intact with no abrasions, lacerations, or bruises; no erythema, purulence or signs of infection Generalized swelling with some firmness with palpation over the anterior lateral cervical spine No significant pain with palpation over the anterior cervical spine Adequate range of motion of the cervical spine with adequate flexion, extension, and bilateral rotation [employer] strength, thumb strength, interosseous strength, biceps strength, triceps strength, and right shoulder strength positive sustained bilaterally Difficulty with any active range of motion of his left shoulder, which he states is chronic Pertinent Studies: Soft tissue next CT taken on 02/06/2024: Evidence of hardware at C3-4 and C4-5 appears to be in good alignment and good position; no obvious malalignment of hardware; No evidence of pulmonary embolism; moderate centrilobular and paraseptal emphysema Assessment: Status post C3-4 and C4-5 anterior cervical decompression and fusion performed on 01/26/2024 Cervical spinal stenosis Cervical myelopathy Upper extremity weakness Upper extremity radiculopathy History of throat cancer with history of neck radiation Postoperative difficulty with swallowing and breathing Postoperative urinary retention Urinary tract infection COPD Small amount of aspiration Hypertension Prostate disorder Thyroid disorder BPH Plan: We will continue with our plan as set forth yesterday. 1. Patient is status post C3-4 and C4-5 anterior cervical decompression and fusion performed on 01/26/2024. He has a history of throat cancer with radiation at his neck. Postoperatively he has had some difficulty with swallowing and breathing. Some of his difficulty with his swallowing and breathing could be postoperatively from his anterior cervical decompression and fusion but also patient has a significant medical history which includes throat cancer with radiation. Patient also has COPD. He has had some improvement since his admission to the hospital. Currently, the hardware remains intact at his anterior cervical spine. He feels he has had some improvement of his upper extremity radiculopathy symptoms postoperatively. He does have ongoing weakness. He is not experiencing any significant pain. Currently, from orthopedic spine standpoint, we are not planning for further acute surgical intervention. He does have some generalized swelling around his surgical site with some generalized firmness to palpation. There is no erythema, no bruising, no obvious sign of infection. There is no drainage from his anterior cervical surgical site. Currently, we recommend continue with conservative treatment options postoperatively and continue with postoperative care. He has been started on Solu-Medrol 60 mg IV every 12 hours. If the patient improves he is cleared by other medical providers, he would be cleared for discharge from orthopedic spine standpoint. Patient may follow-up with Jonh B. Kiba PA-C or Dr. Luis Sharp at [facility] in 2-3 weeks following discharge or as previously scheduled. 2. He will continue with dietary recommendations per medicine following barium swallow study. 3. Patient is known to have BPH. A Quiñonez catheter was placed at his previous discharge. He is currently being treated for urinary tract infection. He failed a voiding trial yesterday after discontinuation of the catheter. Catheter has been replaced. His Flomax has been increased. He will continue to follow with Dr. Dewey for further evaluation and treatment. They are planning for another voiding trial on the day of discharge. 4. Patient will continue be seen and examined by medicine, infectious disease, and pulmonology.
[2024-02-08] MEDS: METOPROLOL SUCCINATE (ER) 25 MG TAB.ER.24H PO SCH (09:36)
--- NOTE | 2024-02-08 13:41 | P.PN ---
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 He was discharged home on 01/30/2024. He presented here to the emergency room yesterday with increasing shortness of breath and difficulty swallowing. Chest x-ray revealed no acute pulmonary process. Evidence of COPD. CT angiogram ruled out pulmonary embolism. There is moderate centrilobular and paraseptal emphysema. Indeterminate bilateral adrenal nodules. 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 No discrete enlarged lymph nodes identified. Epiglottic mass no longer visualized. There is postsurgical changes along the right neck with few surgical clips present. White count 26.1. Hemoglobin 14.4. Platelets 272. Sodium 139. Potassium 3.9. Bicarb 31. BUN 26. Creatinine 1.0. Glucose 104. Troponin negative x 1. Procalcitonin 0.09. Urinalysis with large blood. Large leukocyte esterase and high WBCs. The patient did have urinary retention following his previous surgery and had a chronic Quiñonez in place which was changed out yesterday. He is currently on Unasyn. Initiated on Symbicort, albuterol, Solu-Medrol. Barium swallow revealed a tiny amount of aspiration evident with thin liquids and nectar thick liquids. Pooling within the vallecula. Delayed transit from the hypopharynx and of the proximal esophagus. He is seen in consultation on the regular medical floor. He is currently afebrile. Hemodynamically stable. Maintaining O2 saturations in the upper 90s on room air. The patient is seen today February 08, 2024 in follow-up on the regular medical floor. He is currently sitting up at the bedside. Awake and alert in no acute distress. He denies any worsening shortness of breath, cough or congestion. He is maintaining good O2 saturations in the upper 90s on room air. He has been afebrile. Hemodynamically stable. Blood cultures revealed no growth. Urine culture revealed no growth. White count 15.1. Hemoglobin 13.5. Platelets 271. Sodium 141. Potassium 4.3. Bicarb 26. BUN 25. Creatinine 1.0. Glucose 118. Procalcitonin 0.04. He remains on Unasyn per ID service. Continued on Symbicort. Remains on IV steroids per orthopedics. He remains n.p.o. for his dysphagia. Objective - Vital Signs Vital signs: Vital Signs Temp 98.0 F 02/08/24 07:47 Pulse 93 02/08/24 07:47 Resp 18 02/08/24 07:47 BP 176/49 02/08/24 07:47 Pulse Ox 95 02/08/24 08:49 FiO2 Intake & Output 02/07/24 02/08/24 02/08/24 18:59 06:59 18:59 Output Total 800 250 Balance -800 -250 Output: Urine 800 250 Other: Voiding Method Indwelling Catheter Indwelling Catheter Indwelling Catheter - Exam GENERAL EXAM: Alert, pleasant 78-year-old male patient, on room air, comfortable in no apparent distress. HEAD: Normocephalic. EYES: Normal reaction of pupils, equal size. NOSE: Clear with pink turbinates. THROAT: No erythema or exudates. NECK: No masses, no JVD. CHEST: No chest wall deformity. LUNGS: Equal air entry with few scattered rhonchi. CVS: S1 and S2 normal with no audible murmur, regular rhythm. ABDOMEN: No hepatosplenomegaly, normal bowel sounds, no guarding or rigidity. SPINE: No scoliosis or deformity SKIN: No rashes CENTRAL NERVOUS SYSTEM: No focal deficits, tone is normal in all 4 extremities. EXTREMITIES: There is no peripheral edema. No clubbing, no cyanosis. Peripheral pulses are intact. - Labs CBC & Chem 7: 02/08/24 04:35 02/08/24 04:35 Labs: Abnormal Lab Results - Last 24 Hours (Table) 02/08/24 02/08/24 02/08/24 Range/Units 04:35 04:35 04:35 WBC 15.13 H (4.50-10.00) X 10*3/uL RBC 4.27 L (4.40-5.60) X 10*6/uL Immature Gran # 0.10 H (0.00-0.04) X 10*3/uL Neutrophils # 14.07 H (1.80-7.70) X 10*3/uL Lymphocytes # 0.80 L (0.90-5.00) X 10*3/uL Monocytes # 0.14 L (0.20-1.00) X 10*3/uL Eosinophils # 0 L (0.04-0.35) X 10*3/uL BUN/Creatinine Ratio 24.90 H (12.00-20.00) Ratio Glucose 118 H (70-110) mg/dL Calcium 8.6 L (8.7-10.3) mg/dL C-Reactive Protein 2.20 H (0.00-0.80) mg/dL Total Protein 5.8 L (6.2-8.2) g/dL Albumin 3.6 L (3.8-4.9) g/dL Microbiology - Last 24 Hours (Table) 02/06/24 23:30 Urine Culture - Final Urine,Voided 02/06/24 15:30 Blood Culture - Preliminary Blood 02/06/24 15:35 Blood Culture - Preliminary Blood Assessment and Plan Assessment: Dysphagia secondary to recent cervical neck surgery. Modified barium swallow revealed evidence of aspiration. The patient is recommended n.p.o. status for now and speech therapy is following Recent surgery on January 26, 2024 with an anterior cervical decompression with discectomy and fusion of C3-4, C4-5 with increased level of difficulty with dissection exposure due to prior epiglottic cancer with radiation and subsequent soft tissue fibrosis. 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 status Continued on bronchodilators and steroids Procalcitonin negative x 3 Currently on Unasyn per ID services We will continue to follow I have personally seen and examined the patient, performed the documentation and the assessment and plan as written. Number of minutes spent on the visit: 10.
--- NOTE | 2024-02-08 14:44 | P.PN ---
Subjective Progress Note Date: 02/08/24 patient is a 78-year-old gentleman past medical history significant for COPD, hypertension, hypothyroidism, osteoarthritis who underwent cervical spine surgery for severe cervical stenosis C3-4 C4-5 C5-6 on January 25 who presented to the ER because of complaint of shortness of breath. Patient stated that he was discharged 1 week back after getting the surgery. Patient said he was all right till last night when he suddenly woke up complaining of shortness of breath. Shortness of breath was present on rest, there was no complaint of any chest pain. Denied any orthopnea or PND patient did feel as if his throat was closing. Patient felt tired. There was no complaint of fever or chills. Patient was complaining of cough. Patient also hard time swallowing. Because of the symptoms, patient came to the ER Initial lab work done in the ER showed WBC 26.1, hemoglobin 14.4, platelet count 272, D-dimer 1.55, sodium 139, potassium 3.9, BUN 26, creatinine 1, glucose 104, magnesium 1.5 troponin 0.012 UA done showed urine nitrite negative, urine leukocyte esterase negative, urine WBC 4 EKG done in the ER showed heart rate of 118 , no ST segment elevation or depression seen, no T-wave inversions seen. Chest x-ray done in the ER showed no acute cardiopulmonary process CT chest done showed no evidence of PE, moderate centrilobular and paraseptal emphysema. 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 There is some fat stranding changes in the right neck Patient admitted to internal medicine service 02/07. Patient seen and examined. Blood work done this morning showed WBC 15.13, hemoglobin 13.5 sodium 141, potassium 4.3, BUN 24.9, creatinine 1, glucose 118 CRP 2.2. Orthopedic evaluated the patient, doubt there is any infection at the surgical site. Still having dysphagia, will consult GI for evaluation REVIEW OF SYSTEMS: CONSTITUTIONAL: No fever, no malaise,. CARDIOVASCULAR: No chest pain, no palpitations, no syncope. PULMONARY: No shortness of breath, no cough, GASTROINTESTINAL: No diarrhea, no nausea, no vomiting, no abdominal pain. NEUROLOGICAL: No headaches, no weakness, PHYSICAL EXAMINATION: GENERAL: The patient is alert and oriented x3, not in any acute distress. Well developed, well nourished. HEENT: Pupils are round and equally reacting to light. EOMI. No scleral icterus. No conjunctival pallor. Normocephalic, atraumatic. No pharyngeal erythema. No thyromegaly. CARDIOVASCULAR: S1 and S2 present. No murmurs, rubs, or gallops. PULMONARY: Chest is clear to auscultation, no wheezing or crackles. ABDOMEN: Soft, nontender, nondistended, normoactive bowel sounds. No palpable organomegaly. MUSCULOSKELETAL: No joint swelling or deformity. EXTREMITIES: No cyanosis, clubbing, or pedal edema. NEUROLOGICAL: Gross neurological examination did not reveal any focal deficits. SKIN: No rashes. Assessment and plan Dyspnea Dysphagia Urine retention Severe cervical stenosis C3-4 C4-5 C5-6 s/p cervical spine surgery on 01/25 Postoperative infection ? Hypertension Hypothyroidism BPH Monitor vital signs Monitor CBC Monitor CMP Continue telemetry monitoring Follow-up on blood cultures Speech consulted for swallow evaluation Continue IV Unasyn ID following Urology consulted for urinary retention, recommended keeping patient on Flomax, dose increased to twice daily Orthopedics following, recommend IV steroids GI consulted for dysphagia Labs and medication were reviewed.. Continue same treatment. Continue with symptomatic treatment. Resume home medication. Monitor labs and vitals. DVT and GI prophylaxis. Further recommendations as per clinical course of the patient Dictation was produced using [employer] dictation software. please excuse any grammatical, word or spelling errors. Objective - Vital Signs Vital signs: Vital Signs Temp 98.0 F 02/08/24 07:47 Pulse 93 02/08/24 07:47 Resp 18 02/08/24 07:47 BP 176/49 02/08/24 07:47 Pulse Ox 95 02/08/24 08:49 FiO2 Intake & Output 02/07/24 02/08/24 02/08/24 18:59 06:59 18:59 Output Total 800 250 Balance -800 -250 Output: Urine 800 250 Other: Voiding Method Indwelling Catheter Indwelling Catheter Indwelling Catheter - Labs CBC & Chem 7: 02/08/24 04:35 02/08/24 04:35 Labs: Abnormal Lab Results - Last 24 Hours (Table) 02/07/24 02/08/24 02/08/24 Range/Units 04:30 04:35 04:35 WBC 15.13 H (4.50-10.00) X 10*3/uL RBC 4.27 L (4.40-5.60) X 10*6/uL Immature Gran # 0.10 H (0.00-0.04) X 10*3/uL Neutrophils # 14.07 H (1.80-7.70) X 10*3/uL Lymphocytes # 0.80 L (0.90-5.00) X 10*3/uL Monocytes # 0.14 L (0.20-1.00) X 10*3/uL Eosinophils # 0 L (0.04-0.35) X 10*3/uL BUN/Creatinine Ratio 24.90 H (12.00-20.00) Ratio Glucose 118 H (70-110) mg/dL Calcium 8.6 L (8.7-10.3) mg/dL C-Reactive Protein 4.7 H (<1.0) mg/dL Total Protein 5.8 L (6.2-8.2) g/dL Albumin 3.6 L (3.8-4.9) g/dL 02/08/24 Range/Units 04:35 WBC (4.50-10.00) X 10*3/uL RBC (4.40-5.60) X 10*6/uL Immature Gran # (0.00-0.04) X 10*3/uL Neutrophils # (1.80-7.70) X 10*3/uL Lymphocytes # (0.90-5.00) X 10*3/uL Monocytes # (0.20-1.00) X 10*3/uL Eosinophils # (0.04-0.35) X 10*3/uL BUN/Creatinine Ratio (12.00-20.00) Ratio Glucose (70-110) mg/dL Calcium (8.7-10.3) mg/dL C-Reactive Protein 2.20 H (<1.0) mg/dL Total Protein (6.2-8.2) g/dL Albumin (3.8-4.9) g/dL Microbiology - Last 24 Hours (Table) 02/06/24 15:30 Blood Culture - Preliminary Blood 02/06/24 15:35 Blood Culture - Preliminary Blood
--- NOTE | 2024-02-08 15:24 | P.CONS ---
History of Present Illness - Reason for Consult Consult date: 02/08/24 Dysphagia Requesting physician: Vj Mendoza - Chief Complaint Shortness of breath, difficulty breathing - History of Present Illness This is a pleasant 78-year-old male who presented to the emergency department with complaints of difficulty breathing, with swelling in his throat and feeling that he is not getting enough air and. He was also having complaints of difficulty with swallowing of solids. Patient recently underwent C3-C4 and C4- C5 anterior cervical decompression and fusion about a week and a half ago. He states prior to that he really did not have difficulties swallowing sometimes if it was a big piece of meat or bread but other than that I did not feel that he had difficulty. 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 He had a soft tissue CT of the neck with reported soft tissue swelling on the right side of the neck. He was seen and evaluated by orthopedic surgeon. They had started him on Solu-Medrol 60 mg twice daily. He has also undergone swallow evaluation with MBS with reported findings of tiny amount of aspiration evident with thin liquids and nectar thick liquids, pooling within the vallecula, delayed transit from the high both [place] and of the proximal esophagus. Gastroenterology was consulted for dysphagia. Patient states that he is able to this drink water and eat consistency of applesauce without any difficulty. He denies any pain with swallowing but states that it feels as though it gets stuck. Prior to his surgery he was able to swallow had some difficulty with big bites of meat or bread sticking which he attributes to his radiation. Review of Systems REVIEW OF SYSTEMS: CARDIOPULMONARY: No chest pain or shortness of breath. Difficulty with breathing. Gastrointestinal: No abdominal pain. Difficulty swallowing solids. No nausea or vomiting. No hematemesis, coffee-ground emesis. No rectal bleeding, or melena. GENITOURINARY: No dysuria or hematuria. MUSCULOSKELETAL: Reports normal range of motion. SKIN: No rashes. No jaundice. ENDOCRINE: No chills, fevers. No excessive weight gain or loss. No polydipsia or polyuria. PSYCHIATRIC: Unremarkable. NEUROLOGY: No change in mental status. Denies dizziness, headache. ENT: Vision unremarkable. CONSTITUTIONAL: No recent weight loss. No fever, chills, night sweats. 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 OLGA 2022, anterior cervical decompression and fusion (02/13) Past Anesthesia/Blood Transfusion Reactions: No Reported Reaction Additional Past Anesthesia/Blood Transfusion Reaction / Comm: no blood tx hx, headache after anesthesia, pt. states it took 3 days to urinate on his own after Lt. OLGA in 2022 Past Psychological History: No Psychological Hx Reported Smoking Status: Former smoker Past Alcohol Use History: Occasional Additional Past Alcohol Use History / Comment(s): smoker for 50 years 1- 1 08/24 ppd stopped smoking Sep 2015. 2-3 drinks/week at most Past Drug Use History: None Reported - Past Family History Mother Family Medical History: No Reported History Father Family Medical History: Cancer Additional Family Medical History / Comment(s): malignant tumor in bladder Medications and Allergies Home Medications Medication Instructions Recorded Confirmed Type Albuterol Inhaler [Ventolin Hfa 1 - 2 puff INHALATION RT-Q6H PRN 11/29/17 02/06/24 History Inhaler] Finasteride [Proscar] 5 mg PO DAILY 11/29/17 02/06/24 History Lisinopril-Hctz 20-12.5 mg 1 tab PO DAILY 11/29/17 02/06/24 History [Zestoretic 20-12.5] diphenhydrAMINE HCL [Benadryl] 25 mg PO DAILY PRN 02/03/23 02/06/24 History Aspirin 81 mg PO DAILY 01/24/24 02/06/24 History Budesonide-Formot 160-4.5 Mcg 2 puff INHALATION RT-BID 01/24/24 02/06/24 History [Symbicort 160-4.5 Mcg Inhaler] Metoprolol Succinate [Metoprolol 25 mg PO DAILY 01/24/24 02/06/24 History Succinate ER] Famotidine [Pepcid] 20 mg PO DAILY #12 tablet 01/29/24 02/06/24 Rx Tamsulosin [Flomax] 0.4 mg PO DAILY #30 cap 01/29/24 02/06/24 Rx Levothyroxine Sodium [Synthroid] 75 mcg PO DAILY 02/06/24 02/06/24 History Allergies Allergy/AdvReac Type Severity Reaction Status Date / Time azithromycin Allergy Rash/Hives Verified 02/06/24 14:25 Iodinated Contrast Media Allergy Anaphylaxis Verified 02/06/24 14:25 Iodine and Iodide Containing Allergy Anaphylaxis Verified 02/06/24 14:25 Produc Physical Exam Vitals: Vital Signs Temp Pulse Resp BP Pulse Ox 02/08/24 08:49 95 02/08/24 07:47 98.0 F 93 18 176/49 98 02/08/24 01:50 97.7 F 89 15 120/68 97 02/07/24 19:44 98.5 F 103 H 18 119/73 95 02/07/24 15:16 98.1 F 101 H 18 129/72 94 L Intake and Output 02/07/24 02/08/24 02/08/24 22:59 06:59 14:59 Output Total 800 250 Balance -800 -250 Output: Urine 800 250 Other: Voiding Method Indwelling Catheter Indwelling Catheter General appearance: The patient is alert, oriented, appears in no acute distress. HET: Head is normocephalic and atraumatic. Conjunctiva pink. Sclera anicteric. Neck: Supple. Right side of neck with incision and some surrounding swelling. Trachea midline. Heart: Regular. Lungs: Equal expansion, normal respiratory effort. Abdomen: Soft, nontender, nondistended. Skin: No rashes. No jaundice. Extremities: Normal skin color and turgor. No pedal edema. Neurological: No focal deficits. Alert and oriented x3. Results CBC & Chem 7: 02/08/24 04:35 02/08/24 04:35 Labs: Abnormal Lab Results - Last 24 Hours (Table) 02/08/24 02/08/24 02/08/24 Range/Units 04:35 04:35 04:35 WBC 15.13 H (4.50-10.00) X 10*3/uL RBC 4.27 L (4.40-5.60) X 10*6/uL Immature Gran # 0.10 H (0.00-0.04) X 10*3/uL Neutrophils # 14.07 H (1.80-7.70) X 10*3/uL Lymphocytes # 0.80 L (0.90-5.00) X 10*3/uL Monocytes # 0.14 L (0.20-1.00) X 10*3/uL Eosinophils # 0 L (0.04-0.35) X 10*3/uL BUN/Creatinine Ratio 24.90 H (12.00-20.00) Ratio Glucose 118 H (70-110) mg/dL Calcium 8.6 L (8.7-10.3) mg/dL C-Reactive Protein 2.20 H (0.00-0.80) mg/dL Total Protein 5.8 L (6.2-8.2) g/dL Albumin 3.6 L (3.8-4.9) g/dL Microbiology - Last 24 Hours (Table) 02/06/24 23:30 Urine Culture - Final Urine,Voided 02/06/24 15:30 Blood Culture - Preliminary Blood 02/06/24 15:35 Blood Culture - Preliminary Blood Comments: MBS with reported findings of tiny amount of aspiration evident with thin liquids and nectar thick liquids, pooling within the vallecula, delayed transit from the high both [place] and of the proximal esophagus. 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 Evaluation limited due to streak artifact from patient's dental work. Correlate with recent surgical intervention. There is some fat stranding changes in the right neck. Further workup recommended. No discrete enlarged lymph nodes identified. Epiglottic mass no longer visualized possibly surgically absent. Assessment and Plan (1) Dysphagia Narrative/Plan: 78-year-old male who underwent C3-C4, C4-C5 anterior cervical decompression and fusion presented to the emergency department with complaints of difficulty breathing and swallowing. His orthopedic surgeon was consulted he was started on high-dose IV steroids yesterday. Also has a history of previous epiglottis cancer s/p chemo and radiation in 2015. States that he has been having difficulty with swallowing anything more than applesauce consistency. Prior to his neck surgery denied any difficulty swallowing only at times with meat and sometimes bread. He was evaluated by speech therapy and underwent modified barium swallow with a tiny amount of aspiration evident with thin liquids and nectar thick liquids. At this time we will see if swallowing improves with IV steroids on board to bring down inflammation from recent surgery. Speech therapy currently following and we will follow along. Current Visit: Yes Status: Acute Code(s): R13.10 - DYSPHAGIA, UNSPECIFIED SNOMED Code(s): 03357458 (2) History of throat cancer Current Visit: Yes Status: Acute Code(s): Z85.819 - PRSNL HX OF MALIG NEOPLM OF UNSP SITE LIP,ORAL CAV,& PHARYNX SNOMED Code(s): 276374876 (3) Hx of radiation therapy Current Visit: Yes Status: Acute Code(s): Z92.3 - PERSONAL HISTORY OF IRRADIATION SNOMED Code(s): 469925042 (4) S/P cervical spinal fusion Current Visit: Yes Status: Acute Code(s): Z98.1 - ARTHRODESIS STATUS SN OMED Code(s): 8386925410843 Plan: 1. Continue symptomatic and supportive care 2. Symptomatic and supportive care diet per recommendations from speech therapy 3. Continue steroids as ordered by orthopedics 4. Protonix 40 mg for GI prophylaxis 5. No plans at this time for endoscopic evaluation, will follow along Thank you for this consultation, we will continue to follow. Dr. Cali Orlando I agree with the dictator's note, documented as a scribe by Arabella Olivarez.
[2024-02-08] MEDS: hydrALAZINE HCL 20 MG/ML 1 ML VIAL IVP STA (22:10)
[2024-02-09] MEDS: ACETAMINOPHEN IV (For NPO) 1,000 MG in EMPTY BAG 1 BAG IVPB PRN (01:39)
--- NOTE | 2024-02-09 08:46 | P.PN ---
Progress Note - Text Progress Note Date: 02/09/24 Orthopedic spine: History of present illness: Patient is a very pleasant 78-year-old male who is seen examined the bedside for follow-up evaluation of his cervical spine. He is status post C3-4 and C4-5 anterior cervical decompression and fusion perf ormed on 01/26/2024. Postoperatively he has had difficulty with swallowing and breathing. He does continue have some firmness at the right anterior lateral cervical spine. He does have a history of previous radiation at his neck. He states he was having difficulty with some phlegm and swallowing of food. With some difficulty with bleeding who presents emergency department for further evaluation. He does feel he has had some improvement since his admission. He feels he has improved as compared to yesterday. He has less swelling at his anterior cervical spine. He feels he is coughing less. He does not complain of any significant pain. He feels he has had improvement of his upper extremity radiculopathy and weakness symptoms postoperatively. He is known to have chronic difficulty with his left shoulder. He has very limited range of motion of his left shoulder. He is not currently complain of any significant pain in his cervical spine or upper extremities. Barium swallow was performed on Wednesday which showed tiny aspiration with delayed transit from the hypopharynx and the proximal esophagus. He is currently on modified diet. Scheduled for repeat barium swallow study today. He has been seen by Dr. Orlando and gastroenterology. They are currently planning for scope tomorrow. He was given 1 dose of Solu-Medrol in the emergency department. He has been started on Solu-Medrol 60 mg IV every 12 hours. He is being seen by multiple medical providers including medicine, pulmonology, and infectious disease. He continues on antibiotics per infectious disease. He was seen by urology Wednesday. He was also experiencing urinary retention and was discharged with a catheter. He states he has since got a urinary tract infection. He has a history of BPH. He was started on Flomax. He was seen and examined by Dr. Dewey yesterday. Quiñonez catheter was discontinued. Patient was unable to void independently. His Flomax has been increased. They will try for voiding trial again on the day of discharge. He is admitted to medicine. Physical exam: Patient is awake, alert, and oriented 3 Vital signs stable Adequate chest excursion with deep inspiration and expiration Abdomen soft nontender Examination of the cervical spine reveals skin is intact with no abrasions, lacerations, or bruises; no erythema, purulence or signs of infection Less generalized swelling with less firmness with palpation over the anterior lateral cervical spine No significant pain with palpation over the anterior cervical spine Adequate range of motion of the cervical spine with adequate flexion, extension, and bilateral rotation Long Lines Operator strength, thumb strength, interosseous strength, biceps strength, triceps strength, and right shoulder strength positive sustained bilaterally Difficulty with any active range of motion of his left shoulder, which he states is chronic Pertinent Studies: Soft tissue next CT taken on 02/06/2024: Evidence of hardware at C3-4 and C4-5 appears to be in good alignment and good position; no obvious malalignment of hardware; No evidence of pulmonary embolism; moderate centrilobular and paraseptal emphysema Assessment: Status post C3-4 and C4-5 anterior cervical decompression and fusion performed on 01/26/2024 Cervical spinal stenosis Cervical myelopathy Upper extremity weakness Upper extremity radiculopathy History of throat cancer with history of neck radiation Postoperative difficulty with swallowing and breathing Postoperative urinary retention Urinary tract infection COPD Small amount of aspiration Hypertension Prostate disorder Thyroid disorder BPH Plan: We will continue with our plan as set forth previously. 1. Patient is status post C3-4 and C4-5 anterior cervical decompression and fusion performed on 01/26/2024. He has a history of throat cancer with radiation at his neck. Postoperatively he has had some difficulty with swallowing and breathing. Some of his difficulty with his swallowing and breathing could be postoperatively from his anterior cervical decompression and fusion but also patient has a significant medical history which includes throat cancer with radiation. Patient also has COPD. He has had some improvement since his admission to the hospital. Currently, the hardware remains intact at his anterior cervical spine. He feels he has had some improvement of his upper extremity radiculopathy symptoms postoperatively. He does have ongoing weakness. He is not experiencing any significant pain. Currently, from orthopedic spine standpoint, we are not planning for further acute surgical intervention. He does have some generalized swelling around his surgical site with some generalized firmness to palpation. There is no erythema, no bruising, no obvious sign of infection. There is no drainage from his anterior cervical surgical site. Currently, we recommend continue with conservative treatment o ptions postoperatively and continue with postoperative care. He has been started on Solu-Medrol 60 mg IV every 12 hours. We will plan to prescribe a prednisone taper at the time of discharge. This is put in his chart. From an orthopedic spine standpoint, patient is cleared for discharge and will follow-up in the outpatient setting. Patient may follow-up with Jonh Perez PA-C or Dr. Luis Sharp at [facility] in 2-3 weeks following discharge or as previously scheduled. He should continue avoid overhead activities. No heavy lifting. Avoid excessive cervical flexion, extension, and rotation. No lifting greater than 10 pounds. He may use a soft cervical collar for comfort and support as needed. 2. He will continue with dietary recommendations per medicine following barium swallow study. He is scheduled for repeat barium swallow study today and scope tomorrow. 3. Patient is known to have BPH. A Quiñonez catheter was placed at his previous discharge. He is currently being treated for urinary tract infection. He failed a voiding trial yesterday after discontinuation of the catheter. Catheter has been replaced. His Flomax has been increased. He will continue to follow with Dr. Dewey for further evaluation and treatment. They are planning for another voiding trial on the day of discharge. 4. Patient will continue be seen and examined by medicine, infectious disease, and pulmonology.
--- NOTE | 2024-02-09 12:09 | P.PN ---
Subjective Progress Note Date: 02/09/24 This is a pleasant 78-year-old male patient with a known history of cancer of the epiglottis with previous chemo and radiation in 2015 through 2016, hypothyroidism, hypertension, chronic obstructive pulmonary disease, former smoker. 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 He was discharged home on 01/30/2024. He presented here to the emergency room yesterday with increasing shortness of breath and difficulty swallowing. Chest x-ray revealed no acute pulmonary process. Evidence of COPD. CT angiogram ruled out pulmonary embolism. There is moderate centrilobular and paraseptal emphysema. Indeterminate bilateral adrenal nodules. 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 No discrete enlarged lymph nodes identified. Epiglottic mass no longer visualized. There is postsurgical changes along the right neck with few surgical clips present. White count 26.1. Hemoglobin 14.4. Platelets 272. Sodium 139. Potassium 3.9. Bicarb 31. BUN 26. Creatinine 1.0. Glucose 104. Troponin negative x 1. Procalcitonin 0.09. Urinalysis with large blood. Large leukocyte esterase and high WBCs. The patient did have urinary retention following his previous surgery and had a chronic Quiñonez in place which was changed out yesterday. He is currently on Unasyn. Initiated on Symbicort, albuterol, Solu-Medrol. Barium swallow revealed a tiny amount of aspiration evident with thin liquids and nectar thick liquids. Pooling within the vallecula. Delayed transit from the hypopharynx and of the proximal esophagus. He is seen in consultation on the regular medical floor. He is currently afebrile. Hemodynamically stable. Maintaining O2 saturations in the upper 90s on room air. The patient is seen today February 08, 2024 in follow-up on the regular medical floor. He is currently sitting up at the bedside. Awake and alert in no acute distress. He denies any worsening shortness of breath, cough or congestion. He is maintaining good O2 saturations in the upper 90s on room air. He has been afebrile. Hemodynamically stable. Blood cultures revealed no growth. Urine culture revealed no growth. White count 15.1. Hemoglobin 13.5. Platelets 271. Sodium 141. Potassium 4.3. Bicarb 26. BUN 25. Creatinine 1.0. Glucose 118. Procalcitonin 0.04. He remains on Unasyn per ID service. Continued on Symbicort. Remains on IV steroids per orthopedics. He remains n.p.o. for his dysphagia. The patient is seen today February 09, 2024 in follow-up on the regular medical floor. He is awake and alert in no acute distress. Maintaining good O2 saturations in the 90s on room air. He remains nothing by mouth for his dysphagia. He remains on Solu-Medrol per orthopedics. He is continued on Unasyn. Remains on Symbicort and albuterol. No new labs today. Objective - Vital Signs Vital signs: Vital Signs Temp 98.2 F 02/09/24 07:07 Pulse 90 02/09/24 07:07 Resp 18 02/09/24 07:07 BP 123/64 02/09/24 07:07 Pulse Ox 96 02/09/24 07:07 FiO2 Intake & Output 02/08/24 02/09/24 02/09/24 18:59 06:59 18:59 Output Total 610 Balance -610 Output: Urine 610 Other: Voiding Method Indwelling Catheter Indwelling Catheter # Voids 1 - Exam GENERAL EXAM: Alert, 78-year-old male patient, on room air, in no apparent distress. HEAD: Normocephalic. EYES: Normal reaction of pupils, equal size. NOSE: Clear with pink turbinates. THROAT: No erythema or exudates. NECK: No masses, no JVD. CHEST: No chest wall deformity. LUNGS: Equal air entry with few scattered rhonchi. CVS: S1 and S2 normal with no audible murmur, regular rhythm. ABDOMEN: No hepatosplenomegaly, normal bowel sounds, no guarding or rigidity. SPINE: No scoliosis or deformity SKIN: No rashes CENTRAL NERVOUS SYSTEM: No focal deficits, tone is normal in all 4 extremities. EXTREMITIES: There is no peripheral edema. No clubbing, no cyanosis. Peripheral pulses are intact. - Labs CBC & Chem 7: 02/08/24 04:35 02/08/24 04:35 Labs: Microbiology - Last 24 Hours (Table) 02/06/24 15:30 Blood Culture - Preliminary Blood 02/06/24 15:35 Blood Culture - Preliminary Blood 02/06/24 23:30 Urine Culture - Final Urine,Voided Assessment and Plan Assessment: Dysphagia secondary to recent cervical neck surgery. Modified barium swallow revealed evidence of aspiration. The patient is recommended n.p.o. status for now and speech therapy is following Recent surgery on January 26, 2024 with an anterior cervical decompression with discectomy and fusion of C3-4, C4-5 with increased level of difficulty with dissection exposure due to prior epiglottic cancer with radiation and subsequent soft tissue fibrosis. He was discharged home on 01/30/2024 History of cancer of the epiglottis status post surgical resection, chemor adiation in 2014 Urinary retention requiring chronic indwelling Quiñonez catheter, urine culture revealed no growth Chronic obstructive pulmonary disease, stable Former smoker Hypertension Hypothyroidism BPH Plan: The patient was seen and evaluated Medications reviewed Speech therapy recommending n.p.o. status GI services are following Continued on bronchodilators and steroids I have personally seen and examStable and on room airined the patient, performed the documentation and the assessment and plan as written. Number of minutes spent on the visit: 10.
--- NOTE | 2024-02-09 12:35 | P.PN ---
Subjective Progress Note Date: 02/09/24 Principal diagnosis: Dysphagia This is a pleasant 78-year-old male who presented to the emergency department with complaints of difficulty breathing, with swelling in his throat and feeling that he is not getting enough air and. He was also having complaints of difficulty with swallowing of solids. Patient recently underwent C3-C4 and C4- C5 anterior cervical decompression and fusion about a week and a half ago. He states prior to that he really did not have difficulties swallowing sometimes if it was a big piece of meat or bread but other than that I did not feel that he had difficulty. 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 He had a soft tissue CT of the neck with reported soft tissue swelling on the right side of the neck. He was seen and evaluated by orthopedic surgeon. They had started him on Solu-Medrol 60 mg twice daily. He has also undergone swallow evaluation with MBS with reported findings of tiny amount of aspiration evident with thin liquids and nectar thick liquids, pooling within the vallecula, delayed transit from the high both [place] and of the proximal esophagus. Gastroenterology was consulted for dysphagia. Patient states that he is able to this drink water and eat consistency of applesauce without any difficulty. He denies any pain with swallowing but states that it feels as though it gets stuck. Prior to his surgery he was able to swallow had some difficulty with big bites of meat or bread sticking which he attributes to his radiation. 02/09/2024 Patient seen and examined today as a follow-up. States he was drinking a little bit of water. Not spitting as much. Spit bucket next to him was from yesterday he states. Denies any nausea or vomiting. He remains on IV Solu-Medrol 60 mg daily. Spoke with speech therapist and patient still not doing well with pharyngeal phase. She is recommending evaluation with upper endoscopy. Objective - Vital Signs Vital signs: Vital Signs Temp 98.2 F 02/09/24 07:07 Pulse 90 02/09/24 07:07 Resp 18 02/09/24 07:07 BP 123/64 02/09/24 07:07 Pulse Ox 96 02/09/24 07:07 FiO2 Intake & Output 02/08/24 02/09/24 02/09/24 18:59 06:59 18:59 Output Total 610 Balance -610 Output: Urine 610 Other: Voiding Method Indwelling Catheter Indwelling Catheter # Voids 1 - Exam General appearance: The patient is alert, oriented, appears in no acute distress. HET: Head is normocephalic and atraumatic. Conjunctiva pink. Sclera anicteric. Neck: Supple without lymphadenopathy. Swelling right side of neck, surgical incision. Abdomen: Soft, nontender, nondistended with bowel sounds. No guarding or rigidity. Extremities: Normal skin color and turgor. No pedal edema Skin: No rashes, no jaundice Neurological: No focal deficits. Alert and oriented. - Labs CBC & Chem 7: 02/08/24 04:35 02/08/24 04:35 Labs: Abnormal Lab Results - Last 24 Hours (Table) 02/08/24 02/08/24 02/08/24 Range/Units 04:35 04:35 04:35 WBC 15.13 H (4.50-10.00) X 10*3/uL RBC 4.27 L (4.40-5.60) X 10*6/uL Immature Gran # 0.10 H (0.00-0.04) X 10*3/uL Neutrophils # 14.07 H (1.80-7.70) X 10*3/uL Lymphocytes # 0.80 L (0.90-5.00) X 10*3/uL Monocytes # 0.14 L (0.20-1.00) X 10*3/uL Eosinophils # 0 L (0.04-0.35) X 10*3/uL BUN/Creatinine Ratio 24.90 H (12.00-20.00) Ratio Glucose 118 H (70-110) mg/dL Calcium 8.6 L (8.7-10.3) mg/dL C-Reactive Protein 2.20 H (0.00-0.80) mg/dL Total Protein 5.8 L (6.2-8.2) g/dL Albumin 3.6 L (3.8-4.9) g/dL Microbiology - Last 24 Hours (Table) 02/06/24 15:30 Blood Culture - Preliminary Blood 02/06/24 15:35 Blood Culture - Preliminary Blood 02/06/24 23:30 Urine Culture - Final Urine,Voided Assessment and Plan (1) Dysphagia Narrative/Plan: 78-year-old male who underwent C3-C4, C4-C5 anterior cervical decompression and fusion presented to the emergency department with complaints of difficulty breathing and swallowing. His orthopedic surgeon was consulted he was started on high-dose IV steroids yesterday. Also has a history of previous epiglottis cancer s/p chemo and radiation in 2015. States that he has been having difficulty with swallowing anything more than applesauce consistency. Prior to his neck surgery denied any difficulty swallowing only at times with meat and sometimes bread. He was evaluated by speech therapy and underwent modified barium swallow with a tiny amount of aspiration evident with thin liquids and nectar thick liquids. At this time we will see if swallowing improves with IV steroids on board to bring down inflammation from recent surgery. Speech therapy currently following and we will follow along. Patient still having difficulty with pharyngeal phase of swallowing. Speech therapy recommending direct visualization with upper endoscopy. Will plan moving forward with upper endoscopy however will hold off on PEG tube placement at this time and allow for steroids to improve inflammation. Current Visit: Yes Status: Acute Code(s): R13.10 - DYSPHAGIA, UNSPECIFIED SNOMED Code(s): 17170546 (2) History of throat cancer Current Visit: Yes Status: Acute Code(s): Z85.819 - PRSNL HX OF MALIG NEOPLM OF UNSP SITE LIP,ORAL CAV,& PHARYNX SNOMED Code(s): 863181151 (3) Hx of radiation therapy Current Visit: Yes Status: Acute Code(s): Z92.3 - PERSONAL HISTORY OF IRRADIATION SNOMED Code(s): 427764849 (4) S/P cervical spinal fusion Current Visit: Yes Status: Acute Code(s): Z98.1 - ARTHRODESIS STATUS SNOMED Code(s): 2273838626793 Plan: 1. Continue symptomatic and supportive care 2. Continue with recommendations and diet per speech therapy 3. Continue steroids as ordered by orthopedics 4. Protonix 40 mg for GI prophylaxis 5. N.p.o. after midnight 6. Will plan for upper endoscopy tomorrow with possible esophageal dilation if needed Thank you for this consultation, we will continue to follow. Dr. Cali Orlando I agree with the dictator's note, documented as a scribe by Arabella Olivarez.
--- NOTE | 2024-02-09 13:01 | P.PN ---
Subjective Progress Note Date: 02/09/24 patient is a 78-year-old gentleman past medical history significant for COPD, hypertension, hypothyroidism, osteoarthritis who underwent cervical spine surgery for severe cervical stenosis C3-4 C4-5 C5-6 on January 25 who presented to the ER because of complaint of shortness of breath. Patient stated that he was discharged 1 week back after getting the surgery. Patient said he was all right till last night when he suddenly woke up complaining of shortness of breath. Shortness of breath was present on rest, there was no complaint of any chest pain. Denied any orthopnea or PND patient did feel as if his throat was closing. Patient felt tired. There was no complaint of fever or chills. Patient was complaining of cough. Patient also hard time swallowing. Because of the symptoms, patient came to the ER Initial lab work done in the ER showed WBC 26.1, hemoglobin 14.4, platelet count 272, D-dimer 1.55, sodium 139, potassium 3.9, BUN 26, creatinine 1, glucose 104, magnesium 1.5 troponin 0.012 UA done showed urine nitrite negative, urine leukocyte esterase negative, urine WBC 4 EKG done in the ER showed heart rate of 118 , no ST segment elevation or depression seen, no T-wave inversions seen. Chest x-ray done in the ER showed no acute cardiopulmonary process CT chest done showed no evidence of PE, moderate centrilobular and paraseptal emphysema. 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 There is some fat stranding changes in the right neck Patient admitted to internal medicine service 02/07. Patient seen and examined. Blood work done this morning showed WBC 15.13, hemoglobin 13.5 sodium 141, potassium 4.3, BUN 24.9, creatinine 1, glucose 118 CRP 2.2. Orthopedic evaluated the patient, doubt there is any infection at the surgical site. Still having dysphagia, will consult GI for evaluation 02/08. Patient seen and examined. No acute issues overnight. Still having dysphagia, GI planning EGD REVIEW OF SYSTEMS: CONSTITUTIONAL: No fever, no malaise,. CARDIOVASCULAR: No chest pain, no palpitations, no syncope. PULMONARY: No shortness of breath, no cough, GASTROINTESTINAL: No diarrhea, no nausea, no vomiting, no abdominal pain. NEUROLOGICAL: No headaches, no weakness, PHYSICAL EXAMINATION: GENERAL: The patient is alert and oriented x3, not in any acute distress. Well developed, well nourished. HEENT: Pupils are round and equally reacting to light. EOMI. No scleral icterus. No conjunctival pallor. Normocephalic, atraumatic. No pharyngeal erythema. No thyromegaly. CARDIOVASCULAR: S1 and S2 present. No murmurs, rubs, or gallops. PULMONARY: Chest is clear to auscultation, no wheezing or crackles. ABDOMEN: Soft, nontender, nondistended, normoactive bowel sounds. No palpable organomegaly. MUSCULOSKELETAL: No joint swelling or deformity. EXTREMITIES: No cyanosis, clubbing, or pedal edema. NEUROLOGICAL: Gross neurological examination did not reveal any focal deficits. SKIN: No rashes. Assessment and plan Dyspnea Dysphagia Urine retention Severe cervical stenosis C3-4 C4-5 C5-6 s/p cervical spine surgery on 01/25 Postoperative infection ? Hypertension Hypothyroidism BPH Monitor vital signs Monitor CBC Monitor CMP Continue telemetry monitoring Follow-up on blood cultures Speech consulted for swallow evaluation Continue IV Unasyn ID following Urology consulted for urinary retention, recommended keeping patient on Flomax, dose increased to twice daily Orthopedics following, recommend IV steroids GI consulted for dysphagia, planning EGD for tomorrow Labs and medication were reviewed.. Continue same treatment. Continue with symptomatic treatment. Resume home medication. Monitor labs and vitals. DVT and GI prophylaxis. Further recommendations as per clinical course of the patient Dictation was produced using [employer] dictation software. please excuse any grammatical, word or spelling errors. Objective - Vital Signs Vital signs: Vital Signs Temp 98.2 F 02/09/24 07:07 Pulse 90 02/09/24 07:07 Resp 18 02/09/24 07:07 BP 123/64 02/09/24 07:07 Pulse Ox 96 02/09/24 07:07 FiO2 Intake & Output 02/08/24 02/09/24 02/09/24 18:59 06:59 18:59 Output Total 610 Balance -610 Output: Urine 610 Other: Voiding Method Indwelling Catheter Indwelling Catheter # Voids 1 - Labs CBC & Chem 7: 02/08/24 04:35 02/08/24 04:35 Labs: Microbiology - Last 24 Hours (Table) 06/16/24 15:30 Blood Culture - Preliminary Blood 02/06/24 15:35 Blood Culture - Preliminary Blood 02/06/24 23:30 Urine Culture - Final Urine,Voided
--- NOTE | 2024-02-10 07:33 | P.PN ---
Progress Note - Text Progress Note Date: 02/10/24 Postoperative day #14 Patient is seen and examined today at bedside. He is still coughing up some clear phlegm. He is still having great difficulty with any swallowing. He is n.p.o. right now for a EGD later today. He has been ambulatory around the room. He has a Quiñonez catheter intact. Physical Exam Afebrile with stable vital signs Abdomen is soft nontender. Chest has good excursion deep and space expiration The incision site is clean dry and intact. No erythema there is no purulence. His neck has significant fibrosis chronically from his prior radiation. The incision site does not have any evidence of any infection. Extremities have not had neurologic change from prior to surgery. He is able to use his arms adequately. He is ambulatory in the room. His Quiñonez is intact. Calves and thighs were soft nontender without evidence of DVT. 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 However the patient has significant fibrosis at his anterior neck and he is having difficulties around the site with his swallowing. The surgical exposure and dissection was extremely difficult with the amount of fibrosis and stiffness at the soft tissues. He seems to be having significant troubles with his soft tissues and with swelling around the area. He is getting appropriate workup with GI. He is not passing his swallow study and is planned to have EGD today for evaluation and possible dilation. There has been some discussion of the possibility of utilizing a PEG tube. The patient would like to hold off on this is possible. I think it would be okay for the patient to continue his steroid medication to try to help limit the swelling to see if he is able to do further oral intake. I discussed this with him and with GI service and they agree. The patient still has his Quiñonez catheter intact. Urology is following. He has history of BPH and they have increased the Flomax. He is very curious about this and is considering possibility of further intervention as per urology. I do not know if that will be during this hospitalization or down the line. We will continue to increase the patient's mobilization with therapy. We will continue pain control with oral or IV medications. We'll continue to follow patient closely.
[2024-02-10 10:52] LABS: Basophils # (A) 0.02 X 10*3/uL (0.00-0.10); Basophils % (A) 0.2 %; Eosinophils # (A) 0 X 10*3/uL (0.04-0.35); Eosinophils % (A) 0 %; HCT 36.4 % (39.6-50.0); Lymphocytes # (A) 0.98 X 10*3/uL (0.90-5.00); Lymphocytes % (A) 7.8 %; MCH 31.5 pg (27.0-32.0); MCV 95.5 FL (80.0-97.0); Mean Platelet Volume 10.5 FL (9.5-12.2); Monocytes # (A) 0.55 X 10*3/uL (0.20-1.00); Monocytes % (A) 4.4 %; NRBC Per 100 WBC 0 X 10*3/uL (0.00-0.01); Neutrophils # (A) 10.93 X 10*3/uL (1.80-7.70); Neutrophils % (A) 87.1 %; Platelet Count 243 X 10*3/uL (140-440); RBC 3.81 X 10*6/uL (4.40-5.60); RDW 12.7 % (11.5-14.5); WBC 12.54 X 10*3/uL (4.50-10.00)
[2024-02-10 11:04] LABS: ALT 86 U/L (10-49); AST 47 U/L (14-35); Albumin 3.3 g/dL (3.8-4.9); Albumin/Globulin Ratio 1.83 Ratio (1.60-3.17); Alkaline Phosphatase 47 U/L (41-126); Blood Urea Nitrogen 33.9 mg/dL (9.0-27.0); Calcium 8.2 mg/dL (8.7-10.3); Carbon Dioxide 22.4 mmol/L (21.6-31.8); Chloride 109 mmol/L (96-109); Globulin 1.8 g/dL (1.6-3.3); Glucose 97 mg/dL (70-110); Potassium 4.2 mmol/L (3.5-5.5); Sodium 144 mmol/L (135-145); Total Bilirubin 0.5 mg/dL (0.3-1.2); Total Protein 5.1 g/dL (6.2-8.2)
--- NOTE | 2024-02-10 13:23 | P.PN ---
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 He was discharged home on 01/30/2024. He presented here to the emergency room yesterday with increasing shortness of breath and difficulty swallowing. Chest x-ray revealed no acute pulmonary process. Evidence of COPD. CT angiogram ruled out pulmonary embolism. There is moderate centrilobular and paraseptal emphysema. Indeterminate bilateral adrenal nodules. 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 No discrete enlarged lymph nodes identified. Epiglottic mass no longer visualized. There is postsurgical changes along the right neck with few surgical clips present. White count 26.1. Hemoglobin 14.4. Platelets 272. Sodium 139. Potassium 3.9. Bicarb 31. BUN 26. Creatinine 1.0. Glucose 104. Troponin negative x 1. Procalcitonin 0.09. Urinalysis with large blood. Large leukocyte esterase and high WBCs. The patient did have urinary retention following his previous surgery and had a chronic Quiñonez in place which was changed out yesterday. He is currently on Unasyn. Initiated on Symbicort, albuterol, Solu-Medrol. Barium swallow revealed a tiny amount of aspiration evident with thin liquids and nectar thick liquids. Pooling within the vallecula. Delayed transit from the hypopharynx and of the proximal esophagus. He is seen in consultation on the regular medical floor. He is currently afebrile. Hemodynamically stable. Maintaining O2 saturations in the upper 90s on room air. The patient is seen today February 08, 2024 in follow-up on the regular medical floor. He is currently sitting up at the bedside. Awake and alert in no acute distress. He denies any worsening shortness of breath, cough or congestion. He is maintaining good O2 saturations in the upper 90s on room air. He has been afebrile. Hemodynamically stable. Blood cultures revealed no growth. Urine culture revealed no growth. White count 15.1. Hemoglobin 13.5. Platelets 271. Sodium 141. Potassium 4.3. Bicarb 26. BUN 25. Creatinine 1.0. Glucose 118. Procalcitonin 0.04. He remains on Unasyn per ID service. Continued on Symbicort. Remains on IV steroids per orthopedics. He remains n.p.o. for his dysphagia. The patient is seen today February 09, 2024 in follow-up on the regular medical floor. He is awake and alert in no acute distress. Maintaining good O2 saturations in the 90s on room air. He remains nothing by mouth for his dysphagia. He remains on Solu-Medrol per orthopedics. He is continued on Unasyn. Remains on Symbicort and albuterol. No new labs today. The patient is seen today February 10, 2024 in follow-up on the regular medical floor. He is currently resting in bed. Awake and alert in no acute distress. He is awaiting a EGD today. He remains n.p.o. due to his dysphagia and aspiration. He remains on Unasyn. Continued on bronchodilators and steroids. Blood cultures revealed no growth. Urine culture revealed no growth. White count 12.5. Hemoglobin 12.0. Platelets 243. Sodium 144. Potassium 4.2. Bicarb 22. BUN 34. Creatinine 1.0. AST 47. ALT 86. Objective - Vital Signs Vital signs: Vital Signs Temp 97.8 F 02/10/24 07:11 Pulse 85 02/10/24 07:11 Resp 18 02/10/24 07:11 BP 142/64 02/10/24 07:11 Pulse Ox 96 02/10/24 07:11 FiO2 Intake & Output 02/09/24 02/10/24 02/10/24 18:59 06:59 18:59 Output Total 675 Balance -675 Output: Urine 675 Other: Voiding Method Indwelling Catheter Indwelling Catheter # Voids 1 - Exam GENERAL EXAM: Alert, 78-year-old male patient, resting comfortably in bed, on room air, in no apparent distress. HEAD: Normocephalic. EYES: Normal reaction of pupils, equal size. NOSE: Clear with pink turbinates. THROAT: No erythema or exudates. NECK: No masses, no JVD. CHEST: No chest wall deformity. LUNGS: Equal air entry with few scattered rhonchi. CVS: S1 and S2 normal with no audible murmur, regular rhythm. ABDOMEN: No hepatosplenomegaly, normal bowel sounds, no guarding or rigidity. SPINE: No scoliosis or deformity SKIN: No rashes CENTRAL NERVOUS SYSTEM: No focal deficits, tone is normal in all 4 extremities. EXTREMITIES: There is no peripheral edema. No clubbing, no cyanosis. Peripheral pulses are intact. - Labs CBC & Chem 7: 02/10/24 06:50 02/10/24 06:50 Labs: Abnormal Lab Results - Last 24 Hours (Table) 02/10/24 02/10/24 Range/Units 06:50 06:50 WBC 12.54 H (4.50-10.00) X 10*3/uL RBC 3.81 L (4.40-5.60) X 10*6/uL Hgb 12.0 L (13.0-17.0) g/dL Hct 36.4 L (39.6-50.0) % Immature Gran # 0.06 H (0.00-0.04) X 10*3/uL Neutrophils # 10.93 H (1.80-7.70) X 10*3/uL Eosinophils # 0 L (0.04-0.35) X 10*3/uL Anion Gap 12.60 H (4.00-12.00) mmol/L BUN 33.9 H (9.0-27.0) mg/dL BUN/Creatinine Ratio 33.90 H (12.00-20.00) Ratio Calcium 8.2 L (8.7-10.3) mg/dL AST 47 H (14-35) U/L ALT 86 H (10-49) U/L Total Protein 5.1 L (6.2-8.2) g/dL Albumin 3.3 L (3.8-4.9) g/dL Microbiology - Last 24 Hours (Table) 02/06/24 15:30 Blood Culture - Preliminary Blood 02/06/24 15:35 Blood Culture - Preliminary Blood Assessment and Plan Assessment: Dysphagia secondary to recent cervical neck surgery. Modified barium swallow revealed evidence of aspiration. The patient is recommended n.p.o. status for now and speech therapy is following. EGD planned for today Recent surgery on January 26, 2024 with an anterior cervical decompression with discectomy and fusion of C3-4, C4-5 with increased level of difficulty with dissection exposure due to prior epiglottic cancer with radiation and subsequent soft tissue fibrosis. 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 status Plan is for EGD today with GI service Continued on bronchodilators and steroids Plan will be for subacute rehab at [facility] at discharge I have personally seen and examStable and on room airined the patient, performed the documentation and the assessment and plan as written. Number of minutes spent on the visit: 10.
[2024-02-10] MEDS: LACTATED RINGERS 1,000 ML IV ONE (13:33)
[2024-02-10] MEDS ORDERED: PROPOFOL 10 MG/ML 20 ML VIAL IV ONE (13:49)
[2024-02-10] MEDS ORDERED: LIDOCAINE 1% INJ 10MG/ML (20 ML MDV) ONE (13:49)
--- NOTE | 2024-02-10 13:58 | P.PCN ---
Date of Procedure: 02/10/24 Procedure(s) Performed: BRIEF HISTORY: Patient is a 78-year-old, pleasant, white male discomfort upper endoscopy as a part evaluation of dysphagia for the last 1 week duration. Patient underwent neck surgery with an anterior approach about a week ago and since then he is not able to swallow any further. He did a modified barium swallow that showed evidence of aspiration. Has prior history of epiglottic cancer in 2016 for which he underwent radiation and chemotherapy in remission. Because of the persistent symptoms of dysphagia is called for an upper endoscopy to evaluate for. PROCEDURE PERFORMED: Esophagogastroduodenoscopy with biopsy. PREOPERATIVE DIAGNOSIS: Severe dysphagia to solids and liquids for the last 1 week duration. IV sedation per anesthesia. PROCEDURE: After informed consent was obtained, the patient was brought into the endoscopy unit. IV sedation was administered by Anesthesia under continuous monitoring. Initially the Olympus GIF-140 video endoscope was inserted into the mouth. Esophagus intubated without any difficulty. It was gradually advanced into the stomach and duodenum and carefully examined. The bulb and the second part of the duodenum appeared normal. The scope at this time was withdrawn to the stomach, adequately insufflated with air, and upon careful examination, mucosa of the antrum, body, diffuse gastritis and biopsies were done from this area. Mucosa of the cardia and the fundus appeared normal. The scope was then withdrawn into the esophagus. The GE junction was located at 39 cm from the incisors. The esophagus appeared normal. There were no erosions or ulcerations seen. The proximal cervical esophagus was carefully examined and there was a mild extrinsic compression noted but no evidence of esophageal stricture. And the patient tolerated the procedure well. IMPRESSION: 1. Severe antral gastritis. 2. Mild extrinsic compression noted in the proximal cervical esophagus possibly from osteophytes or recent surgery but no evidence of esophageal narrowing/stricture. RECOMMENDATIONS: The findings of this examination were discussed with the patient.. Continue with IV steroids. Start on a soft diet and see how he tolerates
--- NOTE | 2024-02-10 16:32 | P.PN ---
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 On today's evaluation that is 02/08/2024, Patient is afebrile patient is currently on room air and denies having any shortness of breath, the patient denies any chest pain or cough, the patient denies any nausea vomiting did not have any abdominal pain and no diarrhea still complaining of difficulty swallowing. Patient white count is down to 15.13, creatinine 1.0 Objective - Vital Signs Vital signs: Vital Signs Temp 98.0 F 02/08/24 07:47 Pulse 93 02/08/24 07:47 Resp 18 02/08/24 07:47 BP 176/49 02/08/24 07:47 Pulse Ox 95 02/08/24 08:49 FiO2 Intake & Output 02/07/24 02/08/24 02/08/24 18:59 06:59 18:59 Output Total 800 250 Balance -800 -250 Output: Urine 800 250 Other: Voiding Method Indwelling Catheter Indwelling Catheter Indwelling Catheter - Exam GENERAL DESCRIPTION: An elderly male lying in bed in no distress HEENT: Anterior cervical incision remains to be healed with no redness RESPIRATORY SYSTEM: Unlabored breathing , decreased breath sounds at bases HEART: S1 S2 regular rate and rhythm , ABDOMEN: Soft , no tenderness EXTREMITIES: No edema feet - Labs CBC & Chem 7: 02/10/24 06:50 02/10/24 06:50 Labs: Abnormal Lab Results - Last 24 Hours (Table) 02/08/24 02/08/24 02/08/24 Range/Units 04:35 04:35 04:35 WBC 15.13 H (4.50-10.00) X 10*3/uL RBC 4.27 L (4.40-5.60) X 10*6/uL Immature Gran # 0.10 H (0.00-0.04) X 10*3/uL Neutrophils # 14.07 H (1.80-7.70) X 10*3/uL Lymphocytes # 0.80 L (0.90-5.00) X 10*3/uL Monocytes # 0.14 L (0.20-1.00) X 10*3/uL Eosinophils # 0 L (0.04-0.35) X 10*3/uL BUN/Creatinine Ratio 24.90 H (12.00-20.00) Ratio Glucose 118 H (70-110) mg/dL Calcium 8.6 L (8.7-10.3) mg/dL C-Reactive Protein 2.20 H (0.00-0.80) mg/dL Total Protein 5.8 L (6.2-8.2) g/dL Albumin 3.6 L (3.8-4.9) g/dL Microbiology - Last 24 Hours (Table) 02/06/24 23:30 Urine Culture - Final Urine,Voided 02/06/24 15:30 Blood Culture - Preliminary Blood 02/06/24 15:35 Blood Culture - Preliminary Blood Assessment and Plan (1) Leukocytosis Current Visit: Yes Status: Acute Code(s): D72.829 - ELEVATED WHITE BLOOD CELL COUNT, UNSPECIFIED SNOMED Code(s): 673423972 Plan: 1patient with leukocytosis in this patient who recently did have C3-4 and C4-5 anterior cervical decompression and fusion on 01/26/2024 presented to hospital with difficulty in breathing CT angiogram of the chest was negative for PE or pneumonia CT of the neck did show some fat stranding did not mention any abscess patient did have healing of his anterior cervical incision with no cellulitis patient has been on steroids in the outpatient setting could be related to that versus inflammation is seen on the CT of the neck 2-patient white count is trending down we will continue with the Unasyn 3 g every 6 hours Dictation was produced using [employer] dictation software. please excuse any grammatical, word or spelling errors. Time with Patient: Less than 30
--- NOTE | 2024-02-10 16:33 | P.PN ---
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 On today's evaluation that is 02/09/2024, patient has been afebrile, patient is breathing comfortably and is currently on room air, patient denies having any significant cough no chest pain shortness of breath, patient denies nausea vomiting or diarrhea and no abdominal pain, still complaining of difficulty swallowing, but no vomiting. No new lab has been repeated today culture currently pending Objective - Vital Signs Vital signs: Vital Signs Temp 97.7 F 02/09/24 14:00 Pulse 81 02/09/24 14:00 Resp 18 02/09/24 14:00 BP 125/78 02/09/24 14:00 Pulse Ox 94 L 02/09/24 14:00 FiO2 Intake & Output 02/08/24 02/09/24 02/09/24 18:59 06:59 18:59 Output Total 610 Balance -610 Output: Urine 610 Other: Voiding Method Indwelling Catheter Indwelling Catheter Indwelling Catheter # Voids 1 - Exam GENERAL DESCRIPTION: An elderly male lying in bed in no distress HEENT: Anterior cervical incision remains to be healed with no redness RESPIRATORY SYSTEM: Unlabored breathing , decreased breath sounds at bases HEART: S1 S2 regular rate and rhythm , ABDOMEN: Soft , no tenderness EXTREMITIES: No edema feet - Labs CBC & Chem 7: 02/10/24 06:50 02/10/24 06:50 Labs: Microbiology - Last 24 Hours (Table) 02/06/24 15:30 Blood Culture - Preliminary Blood 02/06/24 15:35 Blood Culture - Preliminary Blood Assessment and Plan (1) Leukocytosis Current Visit: Yes Status: Acute Code(s): D72.829 - ELEVATED WHITE BLOOD CELL COUNT, UNSPECIFIED SNOMED Code(s): 172611758 Plan: 1patient with leukocytosis in this patient who recently did have C3-4 and C4-5 anterior cervical decompression and fusion on 01/26/2024 presented to hospital with difficulty in breathing CT angiogram of the chest was negative for PE or pneumonia CT of the neck did show some fat stranding did not mention any abscess patient did have healing of his anterior cervical incision with no cellulitis patient has been on steroids in the outpatient setting could be related to that versus inflammation is seen on the CT of the neck 2-patient white count is trending down as of yesterday no CBC was done today culture currently pending continue with Unasyn with persistent symptom of difficulty swallowing GI has been consulted planning for EGD tomorrow Dictation was produced using [employer] dictation software. please excuse any grammatical, word or spelling errors. Time with Patient: Less than 30
--- NOTE | 2024-02-10 16:34 | P.PN ---
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 Patient is status post EGD completed on 02/10/2024 with evidence of severe antral gastritis mild Extrinsic compression noted in the proximal cervical esophagus. On today's evaluation that is 02/10/2024, Patient is afebrile this morning and denies any chills, patient mention breathing comfortably and is currently on room air, patient denies any chest pain occasional cough patient denies any abdominal pain no diarrhea no nausea no vomiting however still complaining of difficulty with swallowing. Patient white count is down to 12.54, creatinine 1.0 Objective - Vital Signs Vital signs: Vital Signs Temp 97.8 F 02/10/24 07:11 Pulse 84 02/10/24 14:20 Resp 17 02/10/24 14:20 BP 148/79 02/10/24 14:20 Pulse Ox 98 02/10/24 14:20 FiO2 Intake & Output 02/09/24 02/10/24 02/10/24 18:59 06:59 18:59 Intake Total 200 Output Total 675 Balance -675 200 Intake: IV 200 Output: Urine 675 Other: Voiding Method Indwelling Catheter Indwelling Catheter # Voids 1 - Exam GENERAL DESCRIPTION: An elderly male lying in bed in no distress HEENT: Anterior cervical incision remains to be healed with no redness RESPIRATORY SYSTEM: Unlabored breathing , decreased breath sounds at bases HEART: S1 S2 regular rate and rhythm , ABDOMEN: Soft , no tenderness EXTREMITIES: No edema feet - Labs CBC & Chem 7: 02/10/24 06:50 02/10/24 06:50 Labs: Abnormal Lab Results - Last 24 Hours (Table) 02/10/24 02/10/24 Range/Units 06:50 06:50 WBC 12.54 H (4.50-10.00) X 10*3/uL RBC 3.81 L (4.40-5.60) X 10*6/uL Hgb 12.0 L (13.0-17.0) g/dL Hct 36.4 L (39.6-50.0) % Immature Gran # 0.06 H (0.00-0.04) X 10*3/uL Neutrophils # 10.93 H (1.80-7.70) X 10*3/uL Eosinophils # 0 L (0.04-0.35) X 10*3/uL Anion Gap 12.60 H (4.00-12.00) mmol/L BUN 33.9 H (9.0-27.0) mg/dL BUN/Creatinine Ratio 33.90 H (12.00-20.00) Ratio Calcium 8.2 L (8.7-10.3) mg/dL AST 47 H (14-35) U/L ALT 86 H (10-49) U/L Total Protein 5.1 L (6.2-8.2) g/dL Albumin 3.3 L (3.8-4.9) g/dL Microbiology - Last 24 Hours (Table) 02/06/24 15:30 Blood Culture - Preliminary Blood 02/06/24 15:35 Blood Culture - Preliminary Blood Assessment and Plan (1) Leukocytosis Current Visit: Yes Status: Acute Code(s): D72.829 - ELEVATED WHITE BLOOD CELL COUNT, UNSPECIFIED SNOMED Code(s): 025494194 Plan: 1patient with leukocytosis in this patient who recently did have C3-4 and C4-5 anterior cervical decompression and fusion on 01/26/2024 presented to hospital with difficulty in breathing CT angiogram of the chest was negative for PE or pneumonia CT of the neck did show some fat stranding did not mention any abscess patient did have healing of his anterior cervical incision with no cellulitis patient has been on steroids in the outpatient setting could be related to that versus inflammation is seen on the CT of the neck 2-patient did have EGD with concern for possible extrinsic compression will be addressed further by GI and orthopedics patient culture remains to be negative white count is trending down continue Unasyn Dictation was produced using [employer] dictation software. please excuse any grammatical, word or spelling errors. Time with Patient: Less than 30
--- NOTE | 2024-02-10 17:46 | P.PN ---
Progress Note - Text Progress Note Date: 02/10/24 patient is a 78-year-old gentleman past medical history significant for COPD, hypertension, hypothyroidism, osteoarthritis who underwent cervical spine surgery for severe cervical stenosis C3-4 C4-5 C5-6 on January 25 who presented to the ER because of complaint of shortness of breath. Patient stated that he was discharged 1 week back after getting the surgery. Patient said he was all right till last night when he suddenly woke up complaining of shortness of breath. Shortness of breath was present on rest, there was no complaint of any chest pain. Denied any orthopnea or PND patient did feel as if his throat was closing. Patient felt tired. There was no complaint of fever or chills. P atient was complaining of cough. Patient also hard time swallowing. Because of the symptoms, patient came to the ER Initial lab work done in the ER showed WBC 26.1, hemoglobin 14.4, platelet count 272, D-dimer 1.55, sodium 139, potassium 3.9, BUN 26, creatinine 1, glucose 104, magnesium 1.5 troponin 0.012 UA done showed urine nitrite negative, urine leukocyte esterase negative, urine WBC 4 EKG done in the ER showed heart rate of 118 , no ST segment elevation or depression seen, no T-wave inversions seen. Chest x-ray done in the ER showed no acute cardiopulmonary process CT chest done showed no evidence of PE, moderate centrilobular and paraseptal emphysema. 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 There is some fat stranding changes in the right neck Patient admitted to internal medicine service 02/07. Patient seen and examined. Blood work done this morning showed WBC 15.13, hemoglobin 13.5 sodium 141, potassium 4.3, BUN 24.9, creatinine 1, glucose 118 CRP 2.2. Orthopedic evaluated the patient, doubt there is any infection at the surgical site. Still having dysphagia, will consult GI for evaluation 02/08. Patient seen and examined. No acute issues overnight. Still having dysphagia, GI planning EGD : Saw the patient this morning. Later this afternoon underwent EGD by Dr. Cali Orlando. Found to have severe antral gastritis. Some mild extensive compression noted in the proximal cervical esophagus. Patient to be started on a soft diet. Active Medications Acetaminophen (Acetaminophen Suppository 650 Mg Supp) 650 mg RECTAL Q4HR PRN PRN Reason: Fever and/ or Pain Albuterol Sulfate (Albuterol Nebulized 2.5 Mg/3 Ml) 2.5 mg INHALATION RT-Q6H P RN PRN Reason: Dyspnea Budesonide/Formoterol Fumarate (Symbicort 160-4.5 Mcg Inhaler) 2 puff INHALATION RT-BID [facility] Last Admin: 02/10/24 09:28 Dose: Not Given Finasteride (Finasteride 5 Mg Tab) 5 mg PO DAILY [facility] Last Admin: 02/10/24 14:24 Dose: 5 mg Ampicillin Sodium/Sulbactam (Sodium 3 gm/ Sodium Chloride) 100 mls @ 200 mls/hr IVPB Q6HR [facility]; Protocol Last Admin: 02/10/24 17:23 Dose: 200 mls/hr Acetaminophen 1,000 mg/ IV (Solution) 100 mls @ 400 mls/hr IVPB Q6H PRN PRN Reason: Pain Last Admin: 02/09/24 17:18 Dose: 400 mls/hr Methylprednisolone Sodium Succinate (Methylprednisolone Sod Succi 125 Mg/2 Ml Vial) 60 mg IV Q12HR [facility] Last Admin: 02/10/24 09:09 Dose: 60 mg Metoprolol Succinate (Metoprolol Succinate (Er) 25 Mg Tab.Er.24h) 25 mg PO DAILY [facility] Last Admin: 02/10/24 14:24 Dose: 25 mg Miscellaneous Information (Magnesium Replacement Protocol 1 Each Misc) 1 each MISCELLANE DAILY PRN; Protocol PRN Reason: Per Protocol Pantoprazole Sodium (Pantoprazole 40 Mg/10 Ml Vial) 40 mg IVP BID [facility] Last Admin: 02/10/24 09:10 Dose: 40 mg Tamsulosin HCl (Tamsulosin 0.4 Mg Cap.Er.24h) 0.4 mg PO BID [facility] Last Admin: 02/10/24 14:24 Dose: 0.4 mg On examination: VITAL SIGNS: [97.8, 84, 17, 148 x 79, 98% room air] GENERAL APPEARANCE: Sitting at the edge of the bed, comfortable HEENT: Normal external appearance of nose and ear. Oral cavity normal EYES: Pupils equal. Conjunctiva normal. NECK: JVD not raised. Mass not palpable. RESPIRATORY: Respiratory effort normal. Lungs clear to auscultation. CARDIOVASCULAR: First and second sounds normal. No edema. ABDOMEN: Soft. Liver and spleen not palpable. No tenderness. No mass palpable. PSYCHIATRY: Alert and oriented x3. Mood and affect normal. INVESTIGATIONS, reviewed in the clinical context: EGD [February 09]: Severe antral gastritis. Mild extensive compression noted in the proximal cervical esophagus. 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 Emphysema. Barium swallow with video: Tiny amount of aspiration. Pooling within the vallecula. Delayed transit from the hypopharynx and the proximal esophagus. Assessment and plan: -Dysphagia with some choking and food getting stuck. Barium swallow did show some pooling within the vallecula and delayed transit from the hypopharynx and the proximal esophagus.-Likely from radiation EGD showing severe antral gastritis Protonix 40 mg twice daily. Add Tums -Cervical spine surgery in the area of C3-C4, C4-C5, C5-C6 causing cervical myelopathy, upper extremity weakness upper extremity radiculopathy.January 26, [address] Sharp Pain control Per Dr. Sharp On IV steroids -Epiglottis cancer with chemoradiation in . -BPH, with bladder outflow obstruction, and Quiñonez catheter Failed trial of DC Quiñonez on this admission. Being followed by Dr. Dewey-urology Flomax increased to twice daily. Proscar -Hypothyroid Synthroid 75 g Essential hypertension Toprol-XL 25. Zestoretic -COPD in a ex-smoker Symbicort, albuterol when necessary -Primary osteoarthritis Tylenol when necessary -Full code Tums added. Continue PPI.
[2024-02-10] MEDS: CALCIUM CARBONATE 500 MG CHEWABLE PO SCH (17:47)
[2024-02-11] MEDS: PANTOPRAZOLE 40 MG TABLET PO SCH (06:24)
--- NOTE | 2024-02-11 09:56 | US ---
EXAMINATION TYPE: US carotid duplex BILAT DATE OF EXAM: 02/11/2024 COMPARISON: CT CLINICAL INDICATION: Male, 78 years old with history of Stenosis and soft tissue neck CT; Abnormal CT TECHNIQUE: Carotid duplex ultrasound examination. Indirect Doppler criteria was utilized. FINDINGS: EXAM MEASUREMENTS: RIGHT: Peak Systolic Velocity (PSV) cm/sec ----- Right CCA: 77.3 ----- Right ICA: Possibly occluded ----- Right ECA: 220 ICA/CCA ratio: -- RIGHT: End Diastole cm/sec ----- Right CCA: 11.7 ----- Right ICA: Possibly occluded ----- Right ECA: 12.6 LEFT: Peak Systolic Velocity (PSV) cm/sec ----- Left CCA: 119 ----- Left ICA: 156 ----- Left ECA: 410 ICA/CCA ratio: 1.3 LEFT: End Diastole cm/sec ----- Left CCA: 33.5 ----- Left ICA: 29.0 ----- Left ECA: 74.6 VERTEBRALS (direction of flow): Right Vertebral: Unable to visualize Left Vertebral: Antegrade Rhythm: Arrhythmia BARREL RAISER NOTES: Possible right ICA occlusion, Significant stenosis left ECA, left ICA slightly e levated velocities IMPRESSION: 1. Unable to obtain velocities of the right carotid bifurcation possibly due to occlusion. Consider CT Angio neck. 2. 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 Criteria for Assigning % of Stenosis / Diameter reduction (Estimation based on the indirect measurements of the internal carotid artery velocities (ICA PSV). 1. Normal (no stenosis)=ICA PSV < 125 cm/s: ratio < 2.0: ICA EDV<40 cm/s. 2. Less than 50% stenosis=ICA PSV < 125 cm/s: ratio < 2.0: ICA EDV<40 cm/s. 3. 50 to 69% stenosis=ICA PSV of 125 to 230 cm/s: ration 2.0 ? 4.0: ICA EDV 40-100 cm/s. 4. Greater than 70% stenosis to near occlusion= ICA PSV > 230 cm/s: ratio > 4.0: ICA EDV > 100 cm/s. 5. Near occlusion= ICA PSV velocities may be low or undetectable: variable ratio and ICA EDV. 6. Total occlusion=unable to detect flow.
--- NOTE | 2024-02-11 10:05 | P.PN ---
Subjective Progress Note Date: 02/11/24 Principal diagnosis: Dysphagia This is a pleasant 78-year-old male who presented to the emergency department with complaints of difficulty breathing, with swelling in his throat and feeling that he is not getting enough air and. He was also having complaints of difficulty with swallowing of solids. Patient recently underwent C3-C4 and C4- C5 anterior cervical decompression and fusion about a week and a half ago. He states prior to that he really did not have difficulties swallowing sometimes if it was a big piece of meat or bread but other than that I did not feel that he had difficulty. 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 He had a soft tissue CT of the neck with reported soft tissue swelling on the right side of the neck. He was seen and evaluated by orthopedic surgeon. They had started him on Solu-Medrol 60 mg twice daily. He has also undergone swallow evaluation with MBS with reported findings of tiny amount of aspiration evident with thin liquids and nectar thick liquids, pooling within the vallecula, delayed transit from the high both [place] and of the proximal esophagus. Gastroenterology was consulted for dysphagia. Patient states that he is able to this drink water and eat consistency of applesauce without any difficulty. He denies any pain with swallowing but states that it feels as though it gets stuck. Prior to his surgery he was able to swallow had some difficulty with big bites of meat or bread sticking which he attributes to his radiation. 02/09/2024 Patient seen and examined today as a follow-up. States he was drinking a little bit of water. Not spitting as much. Spit bucket next to him was from yesterday he states. Denies any nausea or vomiting. He remains on IV Solu-Medrol 60 mg daily. Spoke with speech therapist and patient still not doing well with pharyngeal phase. She is recommending evaluation with upper endoscopy. 02/11/2024 Patient is seen and examined today sitting up at the side of his bed eating pured breakfast. States he is doing well with swallowing especially if he actually puts his chin down. Yesterday he underwent upper endoscopy with reporting's of severe antral gastritis and mild extrinsic compression noted in the proximal cervical esophagus possibly from osteophytes or recent surgery but no evidence of esophageal narrowing stricture. He denies any abdominal pain, no pain with swallowing and no shortness of breath at this time. Objective - Vital Signs Vital signs: Vital Signs Temp 97.7 F 02/11/24 06:48 Pulse 71 02/11/24 06:48 Resp 16 02/11/24 06:48 BP 160/73 02/11/24 06:48 Pulse Ox 94 L 02/11/24 00:41 FiO2 Intake & Output 02/10/24 02/11/24 02/11/24 18:59 06:59 18:59 Intake Total 200 Output Total 750 425 Balance -550 -425 Intake: IV 200 Output: Urine 750 425 Uretheral (Quiñonez) 425 Other: Voiding Method Indwelling Catheter - Exam General appearance: The patient is alert, oriented, appears in no acute distress. HET: Head is normocephalic and atraumatic. Conjunctiva pink. Sclera anicteric. Neck: Supple without lymphadenopathy. Swelling right side of neck, surgical incision. Abdomen: Soft, nontender, nondistended with bowel sounds. No guarding or rigidity. Extremities: Normal skin color and turgor. No pedal edema Skin: No rashes, no jaundice Neurological: No focal deficits. Alert and oriented. - Labs CBC & Chem 7: 02/10/24 06:50 02/10/24 06:50 Labs: Abnormal Lab Results - Last 24 Hours (Table) 02/10/24 02/10/24 Range/Units 06:50 06:50 WBC 12.54 H (4.50-10.00) X 10*3/uL RBC 3.81 L (4.40-5.60) X 10*6/uL Hgb 12.0 L (13.0-17.0) g/dL Hct 36.4 L (39.6-50.0) % Immature Gran # 0.06 H (0.00-0.04) X 10*3/uL Neutrophils # 10.93 H (1.80-7.70) X 10*3/uL Eosinophils # 0 L (0.04-0.35) X 10*3/uL Anion Gap 12.60 H (4.00-12.00) mmol/L BUN 33.9 H (9.0-27.0) mg/dL BUN/Creatinine Ratio 33.90 H (12.00-20.00) Ratio Calcium 8.2 L (8.7-10.3) mg/dL AST 47 H (14-35) U/L ALT 86 H (10-49) U/L Total Protein 5.1 L (6.2-8.2) g/dL Albumin 3.3 L (3.8-4.9) g/dL Assessment and Plan (1) Dysphagia Narrative/Plan: 78-year-old male who underwent C3-C4, C4-C5 anterior cervical decompression and fusion presented to the emergency department with complaints of difficulty breathing and swallowing. His orthopedic surgeon was consulted he was started on high-dose IV steroids yesterday. Also has a history of previous epiglottis cancer s/p chemo and radiation in 2015. States that he has been having difficulty with swallowing anything more than applesauce consistency. Prior to his neck surgery denied any difficulty swallowing only at times with meat and sometimes bread. He was evaluated by speech therapy and underwent modified barium swallow with a tiny amount of aspiration evident with thin liquids and nectar thick liquids. At this time we will see if swallowing improves with IV steroids on board to bring down inflammation from recent surgery. Speech therapy currently following and we will follow along. Patient still having difficulty with pharyngeal phase of swallowing. Speech therapy recommending direct visualization with upper endoscopy. Patient is status post upper endoscopy with no esophageal stricture. Tolerating pured diet. Continue with speech therapy evaluation and advance diet as tolerated. Continue IV steroids per recommendations from orthopedics. Current Visit: Yes Status: Acute Code(s): R13.10 - DYSPHAGIA, UNSPECIFIED SNOMED Code(s): 12849894 (2) History of throat cancer Current Visit: Yes Status: Acute Code(s): Z85.819 - PRSNL HX OF MALIG NEOPLM OF UNSP SITE LIP,ORAL CAV,& PHARYNX SNOMED Code(s): 674836840 (3) Hx of radiation therapy Current Visit: Yes Status: Acute Code(s): Z92.3 - PERSONAL HISTORY OF IRRADIATION SNOMED Code(s): 231044069 (4) S/P cervical spinal fusion Current Visit: Yes Status: Acute Code(s): Z98.1 - ARTHRODESIS STATUS SNOMED Code(s): 3696706173775 Plan: 1. Continue symptomatic and supportive care 2. Recommend pured diet 3. Continue steroids as ordered by orthopedics 4. Protonix 40 mg for GI prophylaxis 5. Patient is status post upper endoscopy 6. Continue with recommendations from speech therapy Thank you for this consultation, patient is cleared from gastroenterology for discharge. We will sign off at this time. Dr. Cali Orlando I agree with the dictator's note, documented as a scribe by Arabella Olivarez.
--- NOTE | 2024-02-11 10:17 | P.GSCN ---
History of Present Illness Consult date: 02/11/24 Reason for Consult: Soft tissue compression internal carotid artery on CT neck Requesting physician: Zhao Allen History of present illness: This is a pleasant 78-year-old male who presented to the emergency department with complaints of difficulty breathing, with swelling in his throat and feeling that he is not getting enough air and. He was also having complaints of difficulty with swallowing of solids. Patient recently underwent C3-C4 and C4- C5 anterior cervical decompression and fusion about a week and a half ago. He states prior to that he really did not have difficulties swallowing sometimes if it was a big piece of meat or bread but other than that I did not feel that he had difficulty. 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 He had a soft tissue CT of the neck with reported soft tissue swelling around right carotid bifurcation near occlusion of internal carotid artery. Evaluation limited due to streak artifact from patient's dental work. Correlate with recent surgical interventio. He was seen and evaluated by orthopedic surgeon. They had started him on Solu-Medrol 60 mg twice daily. Vascular surgery was consulted for findings on soft tissue CT of neck. Denies any known history of carotid artery disease. States he believes he has had carotid duplex many years back. He denies any neuro deficits. Has difficulty swallowing however that is likely secondary to history of radiation therapy and recent cervical surgery. Underwent upper endoscopy yesterday no findings of esophageal stricture. Review of Systems A 14 point review systems was completed all pertinent positives and negatives as stated in the HPI. Past Medical History Past Medical History: Cancer, COPD, Hypertension, Prostate Disorder, Thyroid Disorder Additional Past Medical History / Comment(s): cancer epiglottis with chemo and radiation [id number], hypothyroidism History of Any Multi-Drug Resistant Organisms: Acinetobacter (MDRO) Year Discovered:: 02/05/23 MDRO Source:: nasal Past Surgical History: Back Surgery, Joint Replacement Additional Past Surgical History / Comment(s): rt hip replacement, colonoscopies, epidural steroid injections, disc fusion L4-5, Lt. OLGA 2022, anterior cervical decompression and fusion (02/13) Past Anesthesia/Blood Transfusion Reactions: No Reported Reaction Additional Past Anesthesia/Blood Transfusion Reaction / Comm: no blood tx hx, headache after anesthesia, pt. states it took 3 days to urinate on his own after Lt. OLAG in 2022 Past Psychological History: No Psychological Hx Reported Smoking Status: Former smoker Past Alcohol Use History: Occasional Additional Past Alcohol Use History / Comment(s): smoker for 50 years 1- 1 /2 ppd stopped smoking Sep 2015. 2-3 drinks/week at most Past Drug Use History: None Reported - Past Family History Mother Family Medical History: No Reported History Father Family Medical History: Cancer Additional Family Medical History / Comment(s): malignant tumor in bladder Medications and Allergies Home Medications Medication Instructions Recorded Confirmed Type Albuterol Inhaler [Ventolin Hfa 1 - 2 puff INHALATION RT-Q6H PRN 11/29/17 02/06/24 History Inhaler] Finasteride [Proscar] 5 mg PO DAILY 11/29/17 02/06/24 History Lisinopril-Hctz 20-12.5 mg 1 tab PO DAILY 11/29/17 02/06/24 History [Zestoretic 20-12.5] diphenhydrAMINE HCL [Benadryl] 25 mg PO DAILY PRN 02/03/23 02/06/24 History Aspirin 81 mg PO DAILY 01/24/24 02/06/24 History Budesonide-Formot 160-4.5 Mcg 2 puff INHALATION RT-BID 01/24/24 02/06/24 History [Symbicort 160-4.5 Mcg Inhaler] Metoprolol Succinate [Metoprolol 25 mg PO DAILY 01/24/24 02/06/24 History Succinate ER] Famotidine [Pepcid] 20 mg PO DAILY #12 tablet 01/29/24 02/06/24 Rx Tamsulosin [Flomax] 0.4 mg PO DAILY #30 cap 01/29/24 02/06/24 Rx Levothyroxine Sodium [Synthroid] 75 mcg PO DAILY 02/06/24 02/06/24 History predniSONE See Taper PO DIRECTED #24 tab 02/09/24 Rx Allergies Allergy/AdvReac Type Severity Reaction Status Date / Time azithromycin Allergy Rash/Hives Verified 02/06/24 14:25 Iodinated Contrast Media Allergy Anaphylaxis Verified 02/06/24 14:25 Iodine and Iodide Containing Allergy Anaphylaxis Verified 02/06/24 14:25 Produc Surgical - Exam Vital Signs Temp Pulse Resp BP Pulse Ox 98.2 F 119 H 24 126/75 94 L 02/06/24 09:48 02/06/24 09:48 02/06/24 09:48 02/06/24 09:48 02/06/24 09:48 General appearance: The patient is alert, oriented, appears in no acute distress. HET: Head is normocephalic and atraumatic. Pupils are equal and reactive. Neck: Supple. No audible bruit. Right side of neck with incision and swelling. Heart: Regular. Lungs: Equal expansion, normal respiratory effort. Abdomen: Soft, nontender, nondistended. Extremities: Normal skin color and turgor. Palpable radial pulses. Neurological: No focal deficits. Strength and sensation are grossly intact. Results - Labs 02/10/24 06:50 02/10/24 06:50 Abnormal Lab Results - Last 24 Hours (Table) 02/10/24 02/10/24 Range/Units 06:50 06:50 WBC 12.54 H (4.50-10.00) X 10*3/uL RBC 3.81 L (4.40-5.60) X 10*6/uL Hgb 12.0 L (13.0-17.0) g/dL Hct 36.4 L (39.6-50.0) % Immature Gran # 0.06 H (0.00-0.04) X 10*3/uL Neutrophils # 10.93 H (1.80-7.70) X 10*3/uL Eosinophils # 0 L (0.04-0.35) X 10*3/uL Anion Gap 12.60 H (4.00-12.00) mmol/L BUN 33.9 H (9.0-27.0) mg/dL BUN/Creatinine Ratio 33.90 H (12.00-20.00) Ratio Calcium 8.2 L (8.7-10.3) mg/dL AST 47 H (14-35) U/L ALT 86 H (10-49) U/L Total Protein 5.1 L (6.2-8.2) g/dL Albumin 3.3 L (3.8-4.9) g/dL Diabetes panel 02/10/24 Range/Units 06:50 Sodium 144 (135-145) mmol/L Potassium 4.2 (3.5-5.5) mmol/L Chloride 109 (96-109) mmol/L Carbon Dioxide 22.4 (21.6-31.8) mmol/L BUN 33.9 H (9.0-27.0) mg/dL Creatinine 1.0 (0.6-1.5) mg/dL Glucose 97 (70-110) mg/dL Calcium 8.2 L (8.7-10.3) mg/dL AST 47 H (14-35) U/L ALT 86 H (10-49) U/L Alkaline Phosphatase 47 (41-126) U/L Total Protein 5.1 L (6.2-8.2) g/dL Albumin 3.3 L (3.8-4.9) g/dL Calcium panel 02/10/24 Range/Units 06:50 Calcium 8.2 L (8.7-10.3) mg/dL Albumin 3.3 L (3.8-4.9) g/dL Pituitary panel 02/10/24 Range/Units 06:50 Sodium 144 (135-145) mmol/L Potassium 4.2 (3.5-5.5) mmol/L Chloride 109 (96-109) mmol/L Carbon Dioxide 22.4 (21.6-31.8) mmol/L BUN 33.9 H (9.0-27.0) mg/dL Creatinine 1.0 (0.6-1.5) mg/dL Glucose 97 (70-110) mg/dL Calcium 8.2 L (8.7-10.3) mg/dL Adrenal panel 02/10/24 Range/Units 06:50 Sodium 144 (135-145) mmol/L Potassium 4.2 (3.5-5.5) mmol/L Chloride 109 (96-109) mmol/L Carbon Dioxide 22.4 (21.6-31.8) mmol/L BUN 33.9 H (9.0-27.0) mg/dL Creatinine 1.0 (0.6-1.5) mg/dL Glucose 97 (70-110) mg/dL Calcium 8.2 L (8.7-10.3) mg/dL Total Bilirubin 0.5 (0.3-1.2) mg/dL AST 47 H (14-35) U/L ALT 86 H (10-49) U/L Alkaline Phosphatase 47 (41-126) U/L Total Protein 5.1 L (6.2-8.2) g/dL Albumin 3.3 L (3.8-4.9) g/dL - Imaging Comments: Carotid duplex reports right ICA possibly occluded unable to obtain velocities of the right carotid bifurcation possibly due to occlusion. Consider CT angio neck. 50 to 69% stenosis of the left carotid bifurcation. Assessment and Plan Assessment: 1. Right ICA occlusion per carotid duplex 2. 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 Recent anterior cervical decompression and fusion 01/26/2024 4. Dysphagia 5. History of throat cancer status post chemotherapy and radiation therapy 6. COPD 7. Hypertension Plan: 1. Carotid duplex ordered 2. Further recommendations forthcoming per vascular surgeon 3. Rest of medical management per primary medical team Thank you for this consultation. The impression and plan of care has been dictated as directed. I performed a history and examination of this patient, discussed the same with the dictator. I agree with the dictator's note ,documented as a scribe. Any additional findings or plans will be noted.
--- NOTE | 2024-02-11 12:26 | P.PN ---
Subjective Progress Note Date: 02/11/24 This is a pleasant 78-year-old male patient with a known history of cancer of the epiglottis with previous chemo and radiation in 2015 through 2016, hypothyroidism, hypertension, chronic obstructive pulmonary disease, former smoker. 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 He was discharged home on 01/30/2024. He presented here to the emergency room yesterday with increasing shortness of breath and difficulty swallowing. Chest x-ray revealed no acute pulmonary process. Evidence of COPD. CT angiogram ruled out pulmonary embolism. There is moderate centrilobular and paraseptal emphysema. Indeterminate bilateral adrenal nodules. 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 No discrete enlarged lymph nodes identified. Epiglottic mass no longer visualized. There is postsurgical changes along the right neck with few surgical clips present. White count 26.1. Hemoglobin 14.4. Platelets 272. Sodium 139. Potassium 3.9. Bicarb 31. BUN 26. Creatinine 1.0. Glucose 104. Troponin negative x 1. Procalcitonin 0.09. Urinalysis with large blood. Large leukocyte esterase and high WBCs. The patient did have urinary retention following his previous surgery and had a chronic Quiñonez in place which was changed out yesterday. He is currently on Unasyn. Initiated on Symbicort, albuterol, Solu-Medrol. Barium swallow revealed a tiny amount of aspiration evident with thin liquids and nectar thick liquids. Pooling within the vallecula. Delayed transit from the hypopharynx and of the proximal esophagus. He is seen in consultation on the regular medical floor. He is currently afebrile. Hemodynamically stable. Maintaining O2 saturations in the upper 90s on room air. The patient is seen today February 08, 2024 in follow-up on the regular medical floor. He is currently sitting up at the bedside. Awake and alert in no acute distress. He denies any worsening shortness of breath, cough or congestion. He is maintaining good O2 saturations in the upper 90s on room air. He has been afebrile. Hemodynamically stable. Blood cultures revealed no growth. Urine culture revealed no growth. White count 15.1. Hemoglobin 13.5. Platelets 271. Sodium 141. Potassium 4.3. Bicarb 26. BUN 25. Creatinine 1.0. Glucose 118. Procalcitonin 0.04. He remains on Unasyn per ID service. Continued on Symbicort. Remains on IV steroids per orthopedics. He remains n.p.o. for his dysphagia. The patient is seen today February 09, 2024 in follow-up on the regular medical floor. He is awake and alert in no acute distress. Maintaining good O2 saturations in the 90s on room air. He remains nothing by mouth for his dysphagia. He remains on Solu-Medrol per orthopedics. He is continued on Unasyn. Remains on Symbicort and albuterol. No new labs today. The patient is seen today February 10, 2024 in follow-up on the regular medical floor. He is currently resting in bed. Awake and alert in no acute distress. He is awaiting a EGD today. He remains n.p.o. due to his dysphagia and aspiration. He remains on Unasyn. Continued on bronchodilators and steroids. Blood cultures revealed no growth. Urine culture revealed no growth. White count 12.5. Hemoglobin 12.0. Platelets 243. Sodium 144. Potassium 4.2. Bicarb 22. BUN 34. Creatinine 1.0. AST 47. ALT 86. The patient is seen today February 11, 2024 in follow-up on the regular medical floor. He is sitting up at the bedside. Awake and alert in no acute distress. Maintaining good O2 saturations in the 90s on room air. He did undergo EGD yesterday that revealed severe antral gastritis. Mild extrinsic compression noted in the proximal cervical esophagus possibly from osteophytes or recent chris katy but no evidence of esophageal narrowing or strictures. He has been initiated on a pured diet. Rotted Dopplers revealed 50 to 69% stenosis of the left carotid bifurcation. Unable to obtain velocities of the right carotid bifurcation possibly due to occlusion. No plans for surgical intervention per vascular surgery. Blood and urine cultures revealed no growth. No new labs today. Objective - Vital Signs Vital signs: Vital Signs Temp 97.7 F 02/11/24 06:48 Pulse 71 02/11/24 06:48 Resp 16 06/21/24 06:48 BP 160/73 02/11/24 06:48 Pulse Ox 94 L 02/11/24 08:55 FiO2 21 02/11/24 08:55 Intake & Output 02/10/24 02/11/24 02/11/24 18:59 06:59 18:59 Intake Total 200 Output Total 750 425 400 Balance -550 -425 -400 Intake: IV 200 Output: Urine 750 425 400 Uretheral (Quiñonez) 425 Other: Voiding Method Indwelling Catheter # Bowel Movements 1 - Exam GENERAL EXAM: Alert, pleasant 78-year-old male patient, sitting up at the bedside, on room air, in no apparent distress. HEAD: Normocephalic. EYES: Normal reaction of pupils, equal size. NOSE: Clear with pink turbinates. THROAT: No erythema or exudates. NECK: No masses, no JVD. CHEST: No chest wall deformity. LUNGS: Equal air entry with few scattered rhonchi. CVS: S1 and S2 normal with no audible murmur, regular rhythm. ABDOMEN: No hepatosplenomegaly, normal bowel sounds, no guarding or rigidity. SPINE: No scoliosis or deformity SKIN: No rashes CENTRAL NERVOUS SYSTEM: No focal deficits, tone is normal in all 4 extremities. EXTREMITIES: There is no peripheral edema. No clubbing, no cyanosis. Peripheral pulses are intact. - Labs CBC & Chem 7: 02/10/24 06:50 02/10/24 06:50 Assessment and Plan Assessment: Dysphagia secondary to recent cervical neck surgery. Treated with steroids. EGD revealed severe antral gastritis. There is mild extrinsic compression noted in the proximal cervical esophagus possibly from osteophytes or recent surgery but no evidence of esophageal narrowing/stricture. The patient has been advanced to a pured diet. Recent surgery on January 26, 2024 with an anterior cervical decompression with discectomy and fusion of C3-4, C4-5 with increased level of difficulty with dissection exposure due to prior epiglottic cancer with radiation and subsequent soft tissue fibrosis. He was discharged home on 01/30/2024 Occluded right carotid artery. No plans for vascular intervention. 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 I have personally seen and examined the patient, performed the documentation and the assessment and plan as written. Number of minutes spent on the visit: 10.
[2024-02-11] MEDS: PSYLLIUM HUSK 100% 6 GM PACKET PO SCH (13:13)
[2024-02-11 14:24] VITALS: BMI 27.5
--- NOTE | 2024-02-11 16:44 | P.PN ---
Progress Note - Text Progress Note Date: 02/11/24 patient is a 78-year-old gentleman past medical history significant for COPD, hypertension, hypothyroidism, osteoarthritis who underwent cervical spine surgery for severe cervical stenosis C3-4 C4-5 C5-6 on January 25 who presented to the ER because of complaint of shortness of breath. Patient stated that he was discharged 1 week back after getting the surgery. Patient said he was all right till last night when he suddenly woke up complaining of shortness of breath. Shortness of breath was present on rest, there was no complaint of any chest pain. Denied any orthopnea or PND patient did feel as if his throat was closing. Patient felt tired. There was no complaint of fever or chills. P atient was complaining of cough. Patient also hard time swallowing. Because of the symptoms, patient came to the ER Initial lab work done in the ER showed WBC 26.1, hemoglobin 14.4, platelet count 272, D-dimer 1.55, sodium 139, potassium 3.9, BUN 26, creatinine 1, glucose 104, magnesium 1.5 troponin 0.012 UA done showed urine nitrite negative, urine leukocyte esterase negative, urine WBC 4 EKG done in the ER showed heart rate of 118 , no ST segment elevation or depression seen, no T-wave inversions seen. Chest x-ray done in the ER showed no acute cardiopulmonary process CT chest done showed no evidence of PE, moderate centrilobular and paraseptal emphysema. 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 There is some fat stranding changes in the right neck Patient admitted to internal medicine service 02/07. Patient seen and examined. Blood work done this morning showed WBC 15.13, hemoglobin 13.5 sodium 141, potassium 4.3, BUN 24.9, creatinine 1, glucose 118 CRP 2.2. Orthopedic evaluated the patient, doubt there is any infection at the surgical site. Still having dysphagia, will consult GI for evaluation 02/08. Patient seen and examined. No acute issues overnight. Still having dysphagia, GI planning EGD : Saw the patient this morning. Later this afternoon underwent EGD by Dr. Cali Orlando. Found to have severe antral gastritis. Some mild extensive compression noted in the proximal cervical esophagus. Patient to be started on a soft diet. February 10: Patient is advanced to a ground diet. Then seen by speech therapist. Not tolerated. Patient is put back on pured diet. Having some diarrhea. Metamucil being added. Discussed with Dr. Sharp from orthopedics. Patient be discharged on steroid taper. Patient not keen to get discharged today because of diet and diarrhea.. Looking into rehab. Discussed with social services coordinator Semaj. Discussed with patient. Total time spent today about 50 minutes with over 30 minutes of discussion. Changed over to oral prednisone. Active Medications Acetaminophen (Acetaminophen Suppository 650 Mg Supp) 650 mg RECTAL Q4HR PRN PRN Reason: Fever and/ or Pain Albuterol Sulfate (Albuterol Nebulized 2.5 Mg/3 Ml) 2.5 mg INHALATION RT-Q6H PRN PRN Reason: Dyspnea Budesonide/Formoterol Fumarate (Symbicort 160-4.5 Mcg Inhaler) 2 puff INHALATION RT-BID [facility] Last Admin: 02/11/24 08:53 Dose: 2 puff Calcium Carbonate/Glycine (Calcium Carbonate 500 Mg Chewable) 500 mg PO AC-TID [facility] Last Admin: 02/11/24 13:13 Dose: 500 mg Finasteride (Finasteride 5 Mg Tab) 5 mg PO DAILY [facility] Last Admin: 02/11/24 09:09 Dose: 5 mg Ampicillin Sodium/Sulbactam (Sodium 3 gm/ Sodium Chloride) 100 mls @ 200 mls/hr IVPB Q6HR SHERRI; Protocol Last Admin: 02/11/24 12:07 Dose: 200 mls/hr Acetaminophen 1,000 mg/ IV (Solution) 100 mls @ 400 mls/hr IVPB Q6H PRN PRN Reason: Pain Last Admin: 02/09/24 17:18 Dose: 400 mls/hr Metoprolol Succinate (Metoprolol Succinate (Er) 25 Mg Tab.Er.24h) 25 mg PO DAILY [facility] Last Admin: 02/11/24 09:09 Dose: 25 mg Miscellaneous Information (Magnesium Replacement Protocol 1 Each Misc) 1 each MISCELLANE DAILY PRN; Protocol PRN Reason: Per Protocol Pantoprazole Sodium (Pantoprazole 40 Mg Tablet) 40 mg PO AC-BID [facility] Last Admin: 02/11/24 06:24 Dose: 40 mg Prednisone (Prednisone 20 Mg Tab) 60 mg PO DAILY [facility] Psyllium Hydrophilic Mucilloid (Psyllium Husk 100% 6 Gm Packet) 6 gm PO BID [facility] Last Admin: 02/11/24 13:13 Dose: 6 gm Tamsulosin HCl (Tamsulosin 0.4 Mg Cap.Er.24h) 0.4 mg PO BID [facility] Last Admin: 02/11/24 09:08 Dose: 0.4 mg On examination: VITAL SIGNS: 98, 86, 17, 1 one 6 x 69, 98% room air GENERAL APPEARANCE: Comfortable comfortable HEENT: Normal external appearance of nose and ear. Oral cavity normal EYES: Pupils equal. Conjunctiva normal. NECK: JVD not raised. Mass not palpable. RESPIRATORY: Respiratory effort normal. Lungs clear to auscultation. CARDIOVASCULAR: First and second sounds normal. No edema. ABDOMEN: Soft. Liver and spleen not palpable. No tenderness. No mass palpable. PSYCHIATRY: Alert and oriented x3. Mood and affect normal. INVESTIGATIONS, reviewed in the clinical context: EGD [February 09]: Severe antral gastritis. Mild extensive compression noted in the proximal cervical esophagus. 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 Emphysema. Barium swallow with video: Tiny amount of aspiration. Pooling within the vallecula. Delayed transit from the hypopharynx and the proximal esophagus. 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 Add Tums Will follow-up with speech therapy outpatient -Acute diarrhea Rule out C. difficile -Cervical spine surgery in the area of C3-C4, C4-C5, C5-C6 causing cervical myelopathy, upper extremity weakness upper extremity radiculopathy.January 26, [address] Sharp Pain control Per Dr. 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 Being followed by Dr. Dewey-urology Flomax increased to twice daily. Proscar -Hypothyroid Synthroid 75 g Essential hypertension Toprol-XL 25. Zestoretic -COPD in a ex-smoker Symbicort, albuterol when necessary -Primary osteoarthritis Tylenol when necessary -Full code Add Metamucil. Rule out C. difficile. Patient not keen to get discharged today. Will evaluate further. Spoke with speech therapy. Spoke with Dr. Sharp. Discussed with patient.
[2024-02-11] MEDS: predniSONE 20 MG TAB PO SCH (17:00)
--- NOTE | 2024-02-11 17:17 | CDI ---
Documentation Clarification Form Date: 02/11/2024 04:56:42 PM From: Lucy Colunga RN, CCDS Phone: [phone] Admit Date: 02/06/2024 03:46:00 PM Patient Name: Eric Wall Visit Number: [id number] Discharge Date: ATTENTION: The Clinical Documentation Specialists (CDI) and [facility] Coding Staff appreciate your assistance in clarifying documentation. Please respond to the clarification below the line at the bottom and electronically sign. The CDI & [facility] Coding staff will review the response and follow-up if needed. Please note: Queries are made part of the Legal Health Record. If you have any questions, please contact the author of this message via ITS. Dr. Vj Mendoza UTI is documented in the Orthopedic progress notes starting on 02/07/25 and patient has a chronic Quiñonez catheter. Additional clarification regarding the etiology of the UTI is requested. History/Risk Factors: BPH, Urinary retention, Cancer, COPD, Hypertension, Thyroid Disorder Clinical Indicators: 78-year-old male with history of BPH. Underwent cervical fusion and developed urinary retention postoperatively on January 25, he was discharged home with a Quiñonez catheter. 02/05 Urinalysis: Large Blood, Ur Leukocyte Esterase Large, Urine WBC 116 02/05 Urine culture: No growth (02/07) Lab results: WBC 26.1, Neutrophils 23.9, BUN 26, Treatment: Proscar 5 MG PO Daily Flomax 0.4 MG PO BID Unasyn 3 GM IVPB Q6 HRS Please clarify the etiology of the UTI, if known: [ ] Quiñonez catheter [ ] UTI not related to catheter [ x ] UTI ruled out [ ] Other condition, please specify [ ] Unable to determine (Template Last Revised: October 2020) MTDD
--- NOTE | 2024-02-12 10:21 | P.PN ---
Subjective Progress Note Date: 02/12/24 This is a 78-year-old male who is status post anterior cervical decompression with discectomy and fusion C3-4 C4-5 for cervical stenosis with disc herniation on 01/26/2024. Patient is seen and evaluated at bedside today. Patient states that he is doing better on pures and he denies any new complaints today. Objective - Vital Signs Vital signs: Vital Signs Temp 97.5 F L 02/12/24 08:00 Pulse 77 02/12/24 08:00 Resp 14 02/12/24 08:00 BP 127/63 02/12/24 08:00 Pulse Ox 97 02/12/24 08:00 FiO2 21 02/11/24 08:55 Intake & Output 02/11/24 02/12/24 02/12/24 18:59 06:59 18:59 Output Total 950 Balance -950 Weight 92.079 kg Output: Urine 950 Other: Voiding Method Indwelling Catheter Indwelling Catheter # Voids 1 # Bowel Movements 1 - Exam On exam patient is alert and oriented x 3. Patient is resting comfortably in bed in no acute distress. Anterior incision is clean, dry and intact. - Labs CBC & Chem 7: 02/10/24 06:50 02/10/24 06:50 Labs: Microbiology - Last 24 Hours (Table) 02/06/24 15:30 Blood Culture - Final Blood 02/06/24 15:35 Blood Culture - Final Blood Assessment and Plan Assessment: Status post anterior cervical decompression with discectomy and fusion C3-4 C4-5 for cervical stenosis with disc herniation on 01/26/2024 Plan: 1. Continue routine postoperative care and pain control. 2. Appreciate input from internal medicine. 3. Patient is planning on discharge to [facility] early next week.
--- NOTE | 2024-02-12 11:52 | P.PN ---
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 He was discharged home on 01/30/2024. He presented here to the emergency room yesterday with increasing shortness of breath and difficulty swallowing. Chest x-ray revealed no acute pulmonary process. Evidence of COPD. CT angiogram ruled out pulmonary embolism. There is moderate centrilobular and paraseptal emphysema. Indeterminate bilateral adrenal nodules. 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 No discrete enlarged lymph nodes identified. Epiglottic mass no longer visualized. There is postsurgical changes along the right neck with few surgical clips present. White count 26.1. Hemoglobin 14.4. Platelets 272. Sodium 139. Potassium 3.9. Bicarb 31. BUN 26. Creatinine 1.0. Glucose 104. Troponin negative x 1. Procalcitonin 0.09. Urinalysis with large blood. Large leukocyte esterase and high WBCs. The patient did have urinary retention following his previous surgery and had a chronic Quiñonez in place which was changed out yesterday. He is currently on Unasyn. Initiated on Symbicort, albuterol, Solu-Medrol. Barium swallow revealed a tiny amount of aspiration evident with thin liquids and nectar thick liquids. Pooling within the vallecula. Delayed transit from the hypopharynx and of the proximal esophagus. He is seen in consultation on the regular medical floor. He is currently afebrile. Hemodynamically stable. Maintaining O2 saturations in the upper 90s on room air. The patient is seen today February 08, 2024 in follow-up on the regular medical floor. He is currently sitting up at the bedside. Awake and alert in no acute distress. He denies any worsening shortness of breath, cough or congestion. He is maintaining good O2 saturations in the upper 90s on room air. He has been afebrile. Hemodynamically stable. Blood cultures revealed no growth. Urine culture revealed no growth. White count 15.1. Hemoglobin 13.5. Platelets 271. Sodium 141. Potassium 4.3. Bicarb 26. BUN 25. Creatinine 1.0. Glucose 118. Procalcitonin 0.04. He remains on Unasyn per ID service. Continued on Symbicort. Remains on IV steroids per orthopedics. He remains n.p.o. for his dysphagia. The patient is seen today February 09, 2024 in follow-up on the regular medical floor. He is awake and alert in no acute distress. Maintaining good O2 saturations in the 90s on room air. He remains nothing by mouth for his dysphagia. He remains on Solu-Medrol per orthopedics. He is continued on Unasyn. Remains on Symbicort and albuterol. No new labs today. The patient is seen today February 10, 2024 in follow-up on the regular medical floor. He is currently resting in bed. Awake and alert in no acute distress. He is awaiting a EGD today. He remains n.p.o. due to his dysphagia and aspiration. He remains on Unasyn. Continued on bronchodilators and steroids. Blood cultures revealed no growth. Urine culture revealed no growth. White count 12.5. Hemoglobin 12.0. Platelets 243. Sodium 144. Potassium 4.2. Bicarb 22. BUN 34. Creatinine 1.0. AST 47. ALT 86. The patient is seen today February 11, 2024 in follow-up on the regular medical floor. He is sitting up at the bedside. Awake and alert in no acute distress. Maintaining good O2 saturations in the 90s on room air. He did undergo EGD yesterday that revealed severe antral gastritis. Mild extrinsic compression noted in the proximal cervical esophagus possibly from osteophytes or recent chris katy but no evidence of esophageal narrowing or strictures. He has been initiated on a pured diet. Rotted Dopplers revealed 50 to 69% stenosis of the left carotid bifurcation. Unable to obtain velocities of the right carotid bifurcation possibly due to occlusion. No plans for surgical intervention per vascular surgery. Blood and urine cultures revealed no growth. No new labs today. The patient is seen today February 12, 2024 in follow-up on the regular medical floor. He is awake and alert in no acute distress. Sitting up at the bedside. He denies any worsening shortness of breath, cough or congestion. He is maintaining good O2 saturations in the 90s on room air. He is tolerating a p ured diet. Blood cultures revealed no growth. Urine culture revealed no growth. He remains on Unasyn. Continued on Symbicort, albuterol. Initiated on prednisone taper per orthopedics. Objective - Vital Signs Vital signs: Vital Signs Temp 97.5 F L 02/12/24 08:00 Pulse 77 02/12/24 08:00 Resp 14 02/12/24 08:00 BP 127/63 02/12/24 08:00 Pulse Ox 97 02/12/24 08:00 FiO2 21 02/11/24 08:55 Intake & Output 02/11/24 02/12/24 02/12/24 18:59 06:59 18:59 Intake Total 120 Output Total 950 Balance -950 120 Weight 92.079 kg Intake: Oral 120 Output: Urine 950 Other: Voiding Method Indwelling Catheter Indwelling Catheter # Voids 1 # Bowel Movements 1 - Exam GENERAL EXAM: Alert, pleasant 78-year-old male patient, on room air, in no apparent distress. HEAD: Normocephalic. EYES: Normal reaction of pupils, equal size. NOSE: Clear with pink turbinates. THROAT: No erythema or exudates. NECK: No masses, no JVD. CHEST: No chest wall deformity. LUNGS: Equal air entry with few scattered rhonchi. CVS: S1 and S2 normal with no audible murmur, regular rhythm. ABDOMEN: No hepatosplenomegaly, normal bowel sounds, no guarding or rigidity. SPINE: No scoliosis or deformity SKIN: No rashes CENTRAL NERVOUS SYSTEM: No focal deficits, tone is normal in all 4 extremities. EXTREMITIES: There is no peripheral edema. No clubbing, no cyanosis. Peripheral pulses are intact. - Labs CBC & Chem 7: 02/10/24 06:50 02/10/24 06:50 Labs: Microbiology - Last 24 Hours (Table) 02/06/24 15:30 Blood Culture - Final Blood 02/06/24 15:35 Blood Culture - Final Blood Assessment and Plan Assessment: Dysphagia secondary to recent cervical neck surgery. Treated with steroids. EGD revealed severe antral gastritis. There is mild extrinsic compression noted in the proximal cervical esophagus possibly from osteophytes or recent surgery but no evidence of esophageal narrowing/stricture. Tolerating a pured diet. Recent surgery on January 26, 2024 with an anterior cervical decompression with discectomy and fusion of C3-4, C4-5 with increased level of difficulty with dissection exposure due to prior epiglottic cancer with radiation and subsequent soft tissue fibrosis. He was discharged home on 01/30/2024 Occluded right carotid artery. No plans for vascular intervention. 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 Number of minutes spent on the visit: 10.
[2024-02-12] MEDS: LISINOPRIL-HCTZ 20-12.5 MG 1 EACH TAB PO SCH (12:38)
[2024-02-12] MEDS: LEVOTHYROXINE 75 MCG TAB PO SCH (12:38)
--- NOTE | 2024-02-12 14:54 | P.PN ---
Subjective Progress Note Date: 02/12/24 Principal diagnosis: Reason for follow-up is leukocytosis question of infection Patient is a 78-year-old male with a past medical history significant for hypertension COPD hypothyroidism did have a previous history of cancer of the epiglottis status post chemoradiation and hypothyroidism patient recently did have C3-4 and C4-5 anterior cervical decompression and fusion performed on 01/26/2024, patient presented to hospital with difficulty breathing and swallowing patient did have elevated white count CT of the neck shows fat stranding but no evidence of any abscess. Patient is status post EGD completed on 02/10/2024 with evidence of severe antral gastritis mild Extrinsic compression noted in the proximal cervical esophagus. On today's evaluation that is 02/12/2024,the patient remains to be afebrile, patient is on room air not requiring supplemental oxygen and denies any shortness of breath no chest pain or cough.Patient denies having any nausea or vomiting, no abdominal pain and no diarrhea has been reported, mention swallowing slightly improved and tolerating the food that has been given to him No lab draw today blood and urine culture has been negative Objective - Vital Signs Vital signs: Vital Signs Temp 98.2 F 02/12/24 14:00 Pulse 82 02/12/24 14:00 Resp 16 02/12/24 14:00 BP 144/78 02/12/24 14:00 Pulse Ox 95 02/12/24 14:00 FiO2 21 02/11/24 08:55 Intake & Output 02/11/24 02/12/24 02/12/24 18:59 06:59 18:59 Intake Total 360 Output Total 950 Balance -950 360 Weight 92.079 kg Intake: Oral 360 Output: Urine 950 Other: Voiding Method Indwelling Catheter Indwelling Catheter Indwelling Catheter # Voids 1 # Bowel Movements 1 - Exam GENERAL DESCRIPTION: An elderly male lying in bed in no distress HEENT: Anterior cervical incision remains to be healed with no redness RESPIRATORY SYSTEM: Unlabored breathing , decreased breath sounds at bases HEART: S1 S2 regular rate and rhythm , ABDOMEN: Soft , no tenderness EXTREMITIES: No edema feet - Labs CBC & Chem 7: 02/10/24 06:50 02/10/24 06:50 Labs: Microbiology - Last 24 Hours (Table) 02/06/24 15:30 Blood Culture - Final Blood 02/06/24 15:35 Blood Culture - Final Blood Assessment and Plan (1) Leukocytosis Current Visit: Yes Status: Acute Code(s): D72.829 - ELEVATED WHITE BLOOD CELL COUNT, UNSPECIFIED SNOMED Code(s): 571918273 Plan: 1patient with leukocytosis in this patient who recently did have C3-4 and C4-5 anterior cervical decompression and fusion on 01/26/2024 presented to hospital with difficulty in breathing CT angiogram of the chest was negative for PE or pneumonia CT of the neck did show some fat stranding did not mention any abscess patient did have healing of his anterior cervical incision with no cellulitis patient has been on steroids in the outpatient setting could be related to that versus inflammation is seen on the CT of the neck 2-patient did have EGD with concern for possible extrinsic compression being addressed further by GI and orthopedics 3- patient white count trending however no CBC was done today, culture remains to be negative patient to continue Unasyn, we will repeat a CRP and a CBC with a.m. lab Dictation was produced using [employer] dictation software. please excuse any grammatical, word or spelling errors. Time with Patient: Less than 30
--- NOTE | 2024-02-12 14:54 | P.PN ---
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 Patient is status post EGD completed on 02/10/2024 with evidence of severe antral gastritis mild Extrinsic compression noted in the proximal cervical esophagus. On today's evaluation that is 02/11/2024,the patient denies any fever or any chills, patient is breathing comfortably on room air, the patient denies chest pain shortness of breath and no significant cough, patient denies abdominal pain still complaining of some Difficulty swallowing however no nausea vomiting or diarrhea. No CBC was done today white count was 12.5 as of yesterday Objective - Vital Signs Vital signs: Vital Signs Temp 98.0 F 02/11/24 13:56 Pulse 86 02/11/24 14:47 Resp 17 02/11/24 14:47 BP 116/69 02/11/24 13:56 Pulse Ox 98 02/11/24 13:56 FiO2 21 02/11/24 08:55 Intake & Output 02/10/24 02/11/24 02/11/24 18:59 06:59 18:59 Intake Total 200 Output Total 750 425 600 Balance -550 -425 -600 Weight 92.079 kg Intake: IV 200 Output: Urine 750 425 600 Uretheral (Quiñonez) 425 Other: Voiding Method Indwelling Catheter Indwelling Catheter # Bowel Movements 1 - Exam GENERAL DESCRIPTION: An elderly male lying in bed in no distress HEENT: Anterior cervical incision remains to be healed with no redness RESPIRATORY SYSTEM: Unlabored breathing , decreased breath sounds at bases HEART: S1 S2 regular rate and rhythm , ABDOMEN: Soft , no tenderness EXTREMITIES: No edema feet - Labs CBC & Chem 7: 02/10/24 06:50 02/10/24 06:50 Assessment and Plan (1) Leukocytosis Current Visit: Yes Status: Acute Code(s): D72.829 - ELEVATED WHITE BLOOD CELL COUNT, UNSPECIFIED SNOMED Code(s): 952180105 Plan: 1patient with leukocytosis in this patient who recently did have C3-4 and C4-5 anterior cervical decompression and fusion on 01/26/2024 presented to hospital with difficulty in breathing CT angiogram of the chest was negative for PE or pneumonia CT of the neck did show some fat stranding did not mention any abscess patient did have healing of his anterior cervical incision with no cellulitis patient has been on steroids in the outpatient setting could be related to that versus inflammation is seen on the CT of the neck 2-patient did have EGD with concern for possible extrinsic compression being addressed further by GI and orthopedics 3- patient white count trending down as of yesterday, culture remains to be negative patient to continue Unasyn Dictation was produced using [employer] dictation software. please excuse any g rammatical, word or spelling errors. Time with Patient: Less than 30
--- NOTE | 2024-02-12 15:18 | P.PN ---
Progress Note - Text Progress Note Date: 02/12/24 patient is a 78-year-old gentleman past medical history significant for COPD, hypertension, hypothyroidism, osteoarthritis who underwent cervical spine surgery for severe cervical stenosis C3-4 C4-5 C5-6 on January 25 who presented to the ER because of complaint of shortness of breath. Patient stated that he was discharged 1 week back after getting the surgery. Patient said he was all right till last night when he suddenly woke up complaining of shortness of breath. Shortness of breath was present on rest, there was no complaint of any chest pain. Denied any orthopnea or PND patient did feel as if his throat was closing. Patient felt tired. There was no complaint of fever or chills. P atient was complaining of cough. Patient also hard time swallowing. Because of the symptoms, patient came to the ER Initial lab work done in the ER showed WBC 26.1, hemoglobin 14.4, platelet count 272, D-dimer 1.55, sodium 139, potassium 3.9, BUN 26, creatinine 1, glucose 104, magnesium 1.5 troponin 0.012 UA done showed urine nitrite negative, urine leukocyte esterase negative, urine WBC 4 EKG done in the ER showed heart rate of 118 , no ST segment elevation or depression seen, no T-wave inversions seen. Chest x-ray done in the ER showed no acute cardiopulmonary process CT chest done showed no evidence of PE, moderate centrilobular and paraseptal emphysema. 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 There is some fat stranding changes in the right neck Patient admitted to internal medicine service 02/07. Patient seen and examined. Blood work done this morning showed WBC 15.13, hemoglobin 13.5 sodium 141, potassium 4.3, BUN 24.9, creatinine 1, glucose 118 CRP 2.2. Orthopedic evaluated the patient, doubt there is any infection at the surgical site. Still having dysphagia, will consult GI for evaluation 02/08. Patient seen and examined. No acute issues overnight. Still having dysphagia, GI planning EGD : Saw the patient this morning. Later this afternoon underwent EGD by Dr. Cali Orlando. Found to have severe antral gastritis. Some mild extensive compression noted in the proximal cervical esophagus. Patient to be started on a soft diet. February 10: Patient is advanced to a ground diet. Then seen by speech therapist. Not tolerated. Patient is put back on pured diet. Having some diarrhea. Metamucil being added. Discussed with Dr. Sharp from orthopedics. Patient be discharged on steroid taper. Patient not keen to get discharged today because of diet and diarrhea.. Looking into rehab. Discussed with bilingual social worker Semaj. Discussed with patient. Total time spent today about 50 minutes with over 30 minutes of discussion. Changed over to oral prednisone. February 11: Reclining in bed. Ready to go for rehab.-On Wednesday. Pending authorization. Remains on pured diet. Discussed. Diarrhea resolved. Active Medications Acetaminophen (Acetaminophen Suppository 650 Mg Supp) 650 mg RECTAL Q4HR PRN PRN Reason: Fever and/ or Pain Albuterol Sulfate (Albuterol Nebulized 2.5 Mg/3 Ml) 2.5 mg INHALATION RT-Q6H PRN PRN Reason: Dyspnea Budesonide/Formoterol Fumarate (Symbicort 160-4.5 Mcg Inhaler) 2 puff INHALATION RT-BID SHERRI Last Admin: 02/12/24 08:23 Dose: 2 puff Calcium Carbonate/Glycine (Calcium Carbonate 500 Mg Chewable) 500 mg PO AC-TID SHERRI Last Admin: 02/12/24 12:38 Dose: 500 mg Finasteride (Finasteride 5 Mg Tab) 5 mg PO DAILY SHERRI Last Admin: 02/12/24 09:02 Dose: 5 mg Lisinopril/HCTZ (Lisinopril-Hctz 20-12.5 Mg 1 Each Tab) 1 each PO DAILY SHERRI Last Admin: 02/12/24 12:38 Dose: 1 each Ampicillin Sodium/Sulbactam (Sodium 3 gm/ Sodium Chloride) 100 mls @ 200 mls/hr IVPB Q6HR SHERRI; Protocol Last Admin: 02/12/24 12:39 Dose: 200 mls/hr Acetaminophen 1,000 mg/ IV (Solution) 100 mls @ 400 mls/hr IVPB Q6H PRN PRN Reason: Pain Last Admin: 02/09/24 17:18 Dose: 400 mls/hr Levothyroxine Sodium (Levothyroxine 75 Mcg Tab) 75 mcg PO DAILY@0630 SHERRI Last Admin: 02/12/24 12:38 Dose: 75 mcg Metoprolol Succinate (Metoprolol Succinate (Er) 25 Mg Tab.Er.24h) 25 mg PO DAILY [facility] Last Admin: 02/12/24 09:02 Dose: 25 mg Miscellaneous Information (Magnesium Replacement Protocol 1 [facility]) 1 each MISCELLANE DAILY PRN; Protocol PRN Reason: Per Protocol Pantoprazole Sodium (Pantoprazole 40 Mg Tablet) 40 mg PO AC-BID [facility] Last Admin: 02/12/24 05:39 Dose: 40 mg Prednisone (Prednisone 20 Mg Tab) 60 mg PO DAILY [facility] Last Admin: 02/12/24 09:02 Dose: 60 mg Psyllium Hydrophilic Mucilloid (Psyllium Husk 100% 6 Gm Packet) 6 gm PO BID [facility] Last Admin: 02/12/24 09:02 Dose: 6 gm Tamsulosin HCl (Tamsulosin 0.4 Mg Cap.Er.24h) 0.4 mg PO BID [facility] Last Admin: 02/12/24 09:02 Dose: 0.4 mg On examination: VITAL SIGNS: 98.2, 82, 16, 144/78, 95% room air GENERAL APPEARANCE: In bed comfortable HEENT: Normal external appearance of nose and ear. Oral cavity normal EYES: Pupils equal. Conjunctiva normal. NECK: JVD not raised. Mass not palpable. RESPIRATORY: Respiratory effort normal. Lungs clear to auscultation. CARDIOVASCULAR: First and second sounds normal. No edema. ABDOMEN: Soft. Liver and spleen not palpable. No tenderness. No mass palpable. PSYCHIATRY: Alert and oriented x3. Mood and affect normal. INVESTIGATIONS, reviewed in the clinical context: EGD [February 09]: Severe antral gastritis. Mild extensive compression noted in the proximal cervical esophagus. 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 Emphysema. Barium swallow with video: Tiny amount of aspiration. Pooling within the vallecula. Delayed transit from the hypopharynx and the proximal esophagus. 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 Tums Will follow-up with speech therapy outpatient -Acute diarrhea: Resolved -Cervical spine surgery in the area of C3-C4, C4-C5, C5-C6 causing cervical myelopathy, upper extremity weakness upper extremity radiculopathy.January 26, [address] Sharp Pain control Per Dr. 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 Being followed by Dr. Dewey-urology Flomax increased to twice daily. Proscar -Hypothyroid Synthroid 75 g Essential hypertension Toprol-XL 25. Zestoretic -COPD in a ex-smoker Symbicort, albuterol when necessary -Primary osteoarthritis Tylenol when necessary -Full code Cut back prednisone to 50 mg. Patient ready for rehab. Pending authorization.
[2024-02-13 09:16] LABS: Basophils # (A) 0.03 X 10*3/uL (0.00-0.10); Basophils % (A) 0.2 %; Eosinophils # (A) 0.01 X 10*3/uL (0.04-0.35); Eosinophils % (A) 0.1 %; HCT 37.4 % (39.6-50.0); HGB 12.4 g/dL (13.0-17.0); Lymphocytes # (A) 1.41 X 10*3/uL (0.90-5.00); Lymphocytes % (A) 8.3 %; MCH 31.7 pg (27.0-32.0); MCHC 33.2 g/dL (32.0-37.0); MCV 95.7 FL (80.0-97.0); Mean Platelet Volume 10.5 FL (9.5-12.2); Monocytes # (A) 1.07 X 10*3/uL (0.20-1.00); Monocytes % (A) 6.3 %; NRBC Per 100 WBC 0 X 10*3/uL (0.00-0.01); Neutrophils # (A) 14.24 X 10*3/uL (1.80-7.70); Neutrophils % (A) 84.3 %; Platelet Count 211 X 10*3/uL (140-440); RBC 3.91 X 10*6/uL (4.40-5.60); RDW 12.7 % (11.5-14.5); WBC 16.89 X 10*3/uL (4.50-10.00)
[2024-02-13 09:25] LABS: C Reactive Protein <0.30 mg/dL (0.00-0.80)
--- NOTE | 2024-02-13 09:53 | P.PN ---
Subjective Progress Note Date: 02/13/24 This is a 78-year-old male who is status post anterior cervical decompression with discectomy and fusion C3-4 C4-5 for cervical stenosis with disc herniation on 01/26/2024. Patient is seen and evaluated at bedside today. Patient states that he continues to do well and he denies any new complaints today. Patient states that they might take his Quiñonez catheter out today to see if he is able to void. Objective - Vital Signs Vital signs: Vital Signs Temp 97.6 F 02/13/24 07:36 Pulse 71 02/13/24 07:36 Resp 17 02/13/24 07:36 BP 134/74 02/13/24 07:36 Pulse Ox 95 02/13/24 07:36 FiO2 21 02/11/24 08:55 Intake & Output 02/12/24 02/13/24 02/13/24 18:59 06:59 18:59 Intake Total 480 Output Total 700 600 Balance -220 -600 Intake: Oral 480 Output: Urine 700 600 Other: Voiding Method Indwelling Catheter Indwelling Catheter - Exam On exam patient is alert and oriented x 3. Patient is resting comfortably in bed in no acute distress. Anterior incision is clean, dry and intact. - Labs CBC & Chem 7: 02/13/24 04:07 02/10/24 06:50 Labs: Abnormal Lab Results - Last 24 Hours (Table) 02/13/24 Range/Units 04:07 WBC 16.89 H (4.50-10.00) X 10*3/uL RBC 3.91 L (4.40-5.60) X 10*6/uL Hgb 12.4 L (13.0-17.0) g/dL Hct 37.4 L (39.6-50.0) % Immature Gran # 0.13 H (0.00-0.04) X 10*3/uL Neutrophils # 14.24 H (1.80-7.70) X 10*3/uL Monocytes # 1.07 H (0.20-1.00) X 10*3/uL Eosinophils # 0.01 L (0.04-0.35) X 10*3/uL Assessment and Plan Assessment: Status post anterior cervical decompression with discectomy and fusion C3-4 C4-5 for cervical stenosis with disc herniation on 01/26/2024 Plan: 1. Continue routine postoperative care and pain control. 2. Appreciate input from internal medicine. 3. Patient is planning on discharge to [facility]CF early next week.
[2024-02-13 10:01] LABS: ALT 71 U/L (10-49); AST 22 U/L (14-35); Albumin 3.3 g/dL (3.8-4.9); Albumin/Globulin Ratio 1.94 Ratio (1.60-3.17); Alkaline Phosphatase 45 U/L (41-126); BUN/Creat Ratio 28.67 Ratio (12.00-20.00); Blood Urea Nitrogen 25.8 mg/dL (9.0-27.0); Calcium 8.7 mg/dL (8.7-10.3); Carbon Dioxide 29.1 mmol/L (21.6-31.8); Chloride 104 mmol/L (96-109); Globulin 1.7 g/dL (1.6-3.3); Glucose 108 mg/dL (70-110); Potassium 3.9 mmol/L (3.5-5.5); Sodium 140 mmol/L (135-145); Total Bilirubin 0.3 mg/dL (0.3-1.2)
[2024-02-13] MEDS: predniSONE 50 MG TAB PO SCH (10:17)
--- NOTE | 2024-02-13 11:44 | P.PN ---
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 He was discharged home on 01/30/2024. He presented here to the emergency room yesterday with increasing shortness of breath and difficulty swallowing. Chest x-ray revealed no acute pulmonary process. Evidence of COPD. CT angiogram ruled out pulmonary embolism. There is moderate centrilobular and paraseptal emphysema. Indeterminate bilateral adrenal nodules. 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 No discrete enlarged lymph nodes identified. Epiglottic mass no longer visualized. There is postsurgical changes along the right neck with few surgical clips present. White count 26.1. Hemoglobin 14.4. Platelets 272. Sodium 139. Potassium 3.9. Bicarb 31. BUN 26. Creatinine 1.0. Glucose 104. Troponin negative x 1. Procalcitonin 0.09. Urinalysis with large blood. Large leukocyte esterase and high WBCs. The patient did have urinary retention following his previous surgery and had a chronic Quiñonez in place which was changed out yesterday. He is currently on Unasyn. Initiated on Symbicort, albuterol, Solu-Medrol. Barium swallow revealed a tiny amount of aspiration evident with thin liquids and nectar thick liquids. Pooling within the vallecula. Delayed transit from the hypopharynx and of the proximal esophagus. He is seen in consultation on the regular medical floor. He is currently afebrile. Hemodynamically stable. Maintaining O2 saturations in the upper 90s on room air. The patient is seen today February 08, 2024 in follow-up on the regular medical floor. He is currently sitting up at the bedside. Awake and alert in no acute distress. He denies any worsening shortness of breath, cough or congestion. He is maintaining good O2 saturations in the upper 90s on room air. He has been afebrile. Hemodynamically stable. Blood cultures revealed no growth. Urine culture revealed no growth. White count 15.1. Hemoglobin 13.5. Platelets 271. Sodium 141. Potassium 4.3. Bicarb 26. BUN 25. Creatinine 1.0. Glucose 118. Procalcitonin 0.04. He remains on Unasyn per ID service. Continued on Symbicort. Remains on IV steroids per orthopedics. He remains n.p.o. for his dysphagia. The patient is seen today February 09, 2024 in follow-up on the regular medical floor. He is awake and alert in no acute distress. Maintaining good O2 saturations in the 90s on room air. He remains nothing by mouth for his dysphagia. He remains on Solu-Medrol per orthopedics. He is continued on Unasyn. Remains on Symbicort and albuterol. No new labs today. The patient is seen today February 10, 2024 in follow-up on the regular medical floor. He is currently resting in bed. Awake and alert in no acute distress. He is awaiting a EGD today. He remains n.p.o. due to his dysphagia and aspiration. He remains on Unasyn. Continued on bronchodilators and steroids. Blood cultures revealed no growth. Urine culture revealed no growth. White count 12.5. Hemoglobin 12.0. Platelets 243. Sodium 144. Potassium 4.2. Bicarb 22. BUN 34. Creatinine 1.0. AST 47. ALT 86. The patient is seen today February 11, 2024 in follow-up on the regular medical floor. He is sitting up at the bedside. Awake and alert in no acute distress. Maintaining good O2 saturations in the 90s on room air. He did undergo EGD yesterday that revealed severe antral gastritis. Mild extrinsic compression noted in the proximal cervical esophagus possibly from osteophytes or recent chris katy but no evidence of esophageal narrowing or strictures. He has been initiated on a pured diet. Rotted Dopplers revealed 50 to 69% stenosis of the left carotid bifurcation. Unable to obtain velocities of the right carotid bifurcation possibly due to occlusion. No plans for surgical intervention per vascular surgery. Blood and urine cultures revealed no growth. No new labs today. The patient is seen today February 12, 2024 in follow-up on the regular medical floor. He is awake and alert in no acute distress. Sitting up at the bedside. He denies any worsening shortness of breath, cough or congestion. He is maintaining good O2 saturations in the 90s on room air. He is tolerating a p ured diet. Blood cultures revealed no growth. Urine culture revealed no growth. He remains on Unasyn. Continued on Symbicort, albuterol. Initiated on prednisone taper per orthopedics. The patient is seen today February 13, 2024 in follow-up on the regular medical floor. He is sitting up at the bedside. Awake and alert in no acute distress. Continues to maintain good O2 saturations in the 90s on room air. He is tolerating a pured diet. No difficulty swallowing today. Blood cultures revea led no growth. Urine culture revealed no growth. White count 16.8. Hemoglobin 12.4. Platelets 211. Sodium 140. Potassium 3.9. Bicarb 29. BUN 26. Creatinine 0.9. Glucose 108. On Unasyn. Continued on bronchodilators. Continued on a prednisone taper. Objective - Vital Signs Vital signs: Vital Signs Temp 97.6 F 02/13/24 07:36 Pulse 71 02/13/24 07:36 Resp 17 02/13/24 07:36 BP 134/74 02/13/24 07:36 Pulse Ox 95 02/13/24 07:36 FiO2 21 02/11/24 08:55 Intake & Output 02/12/24 02/13/24 02/13/24 18:59 06:59 18:59 Intake Total 480 Output Total 700 600 Balance -220 -600 Intake: Oral 480 Output: Urine 700 600 Other: Voiding Method Indwelling Catheter Indwelling Catheter Indwelling Catheter - Exam GENERAL EXAM: Alert, 78-year-old male patient, sitting up at the bedside, on room air, in no apparent distress. HEAD: Normocephalic. EYES: Normal reaction of pupils, equal size. NOSE: Clear with pink turbinates. THROAT: No erythema or exudates. NECK: No masses, no JVD. CHEST: No chest wall deformity. LUNGS: Equal air entry with few scattered rhonchi. CVS: S1 and S2 normal with no audible murmur, regular rhythm. ABDOMEN: No hepatosplenomegaly, normal bowel sounds, no guarding or rigidity. SPINE: No scoliosis or deformity SKIN: No rashes CENTRAL NERVOUS SYSTEM: No focal deficits, tone is normal in all 4 extremities. EXTREMITIES: There is no peripheral edema. No clubbing, no cyanosis. Peripheral pulses are intact. - Labs CBC & Chem 7: 02/13/24 04:07 02/13/24 04:07 Labs: Abnormal Lab Results - Last 24 Hours (Table) 02/13/24 02/13/24 Range/Units 04:07 04:07 WBC 16.89 H (4.50-10.00) X 10*3/uL RBC 3.91 L (4.40-5.60) X 10*6/uL Hgb 12.4 L (13.0-17.0) g/dL Hct 37.4 L (39.6-50.0) % Immature Gran # 0.13 H (0.00-0.04) X 10*3/uL Neutrophils # 14.24 H (1.80-7.70) X 10*3/uL Monocytes # 1.07 H (0.20-1.00) X 10*3/uL Eosinophils # 0.01 L (0.04-0.35) X 10*3/uL BUN/Creatinine Ratio 28.67 H (12.00-20.00) Ratio ALT 71 H (10-49) U/L Total Protein 5.0 L (6.2-8.2) g/dL Albumin 3.3 L (3.8-4.9) g/dL Assessment and Plan Assessment: Dysphagia secondary to recent cervical neck surgery. Treated with steroids. EGD revealed severe antral gastritis. There is mild extrinsic compression noted in the proximal cervical esophagus possibly from osteophytes or recent surgery but no evidence of esophageal narrowing/stricture. Tolerating a pured diet. Recent surgery on January 26, 2024 with an anterior cervical decompression with di scectomy and fusion of C3-4, C4-5 with increased level of difficulty with dissection exposure due to prior epiglottic cancer with radiation and subsequent soft tissue fibrosis. He was discharged home on 01/30/2024 Occluded right carotid artery. No plans for vascular intervention. 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 Number of minutes spent on the visit: 10.
--- NOTE | 2024-02-13 18:14 | P.PN ---
Progress Note - Text Progress Note Date: 02/13/24 patient is a 78-year-old gentleman past medical history significant for COPD, hypertension, hypothyroidism, osteoarthritis who underwent cervical spine surgery for severe cervical stenosis C3-4 C4-5 C5-6 on January 25 who presented to the ER because of complaint of shortness of breath. Patient stated that he was discharged 1 week back after getting the surgery. Patient said he was all right till last night when he suddenly woke up complaining of shortness of breath. Shortness of breath was present on rest, there was no complaint of any chest pain. Denied any orthopnea or PND patient did feel as if his throat was closing. Patient felt tired. There was no complaint of fever or chills. P atient was complaining of cough. Patient also hard time swallowing. Because of the symptoms, patient came to the ER Initial lab work done in the ER showed WBC 26.1, hemoglobin 14.4, platelet count 272, D-dimer 1.55, sodium 139, potassium 3.9, BUN 26, creatinine 1, glucose 104, magnesium 1.5 troponin 0.012 UA done showed urine nitrite negative, urine leukocyte esterase negative, urine WBC 4 EKG done in the ER showed heart rate of 118 , no ST segment elevation or depression seen, no T-wave inversions seen. Chest x-ray done in the ER showed no acute cardiopulmonary process CT chest done showed no evidence of PE, moderate centrilobular and paraseptal emphysema. 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 There is some fat stranding changes in the right neck Patient admitted to internal medicine service 02/07. Patient seen and examined. Blood work done this morning showed WBC 15.13, hemoglobin 13.5 sodium 141, potassium 4.3, BUN 24.9, creatinine 1, glucose 118 CRP 2.2. Orthopedic evaluated the patient, doubt there is any infection at the surgical site. Still having dysphagia, will consult GI for evaluation 02/08. Patient seen and examined. No acute issues overnight. Still having dysphagia, GI planning EGD : Saw the patient this morning. Later this afternoon underwent EGD by Dr. Cali Orlando. Found to have severe antral gastritis. Some mild extensive compression noted in the proximal cervical esophagus. Patient to be started on a soft diet. February 10: Patient is advanced to a ground diet. Then seen by speech therapist. Not tolerated. Patient is put back on pured diet. Having some diarrhea. Metamucil being added. Discussed with Dr. Sharp from orthopedics. Patient be discharged on steroid taper. Patient not keen to get discharged today because of diet and diarrhea.. Looking into rehab. Discussed with mental health social worker Semaj. Discussed with patient. Total time spent today about 50 minutes with over 30 minutes of discussion. Changed over to oral prednisone. February 11: Reclining in bed. Ready to go for rehab.-On Wednesday. Pending authorization. Remains on pured diet. Discussed. Diarrhea resolved. February 12: Tolerating pured diet. No diarrhea. Cut back on Metamucil. Leukocytosis from steroids. Cut back prednisone to 40 mg. Trial of JOHNSON Quiñonez at 6 AM Active Medications Acetaminophen (Acetaminophen Suppository 650 Mg Supp) 650 mg RECTAL Q4HR PRN PRN Reason: Fever and/ or Pain Albuterol Sulfate (Albuterol Nebulized 2.5 Mg/3 Ml) 2.5 mg INHALATION RT-Q6H PRN PRN Reason: Dyspnea Budesonide/Formoterol Fumarate (Symbicort 160-4.5 Mcg Inhaler) 2 puff INHALATION RT-BID SHERRI Last Admin: 02/13/24 08:54 Dose: 2 puff Calcium Carbonate/Glycine (Calcium Carbonate 500 Mg Chewable) 500 mg PO AC-TID SHERRI Last Admin: 02/13/24 17:00 Dose: 500 mg Finasteride (Finasteride 5 Mg Tab) 5 mg PO DAILY SHERRI Last Admin: 02/13/24 10:17 Dose: 5 mg Lisinopril/HCTZ (Lisinopril-Hctz 20-12.5 Mg 1 Each Tab) 1 each PO DAILY SHERRI Last Admin: 02/13/24 10:17 Dose: 1 each Ampicillin Sodium/Sulbactam (Sodium 3 gm/ Sodium Chloride) 100 mls @ 200 mls/hr IVPB Q6HR SHERRI; Protocol Last Admin: 02/13/24 17:00 Dose: 200 mls/hr Acetaminophen 1,000 mg/ IV (Solution) 100 mls @ 400 mls/hr IVPB Q6H PRN PRN Reason: Pain Last Admin: 02/09/24 17:18 Dose: 400 mls/hr Levothyroxine Sodium (Levothyroxine 75 Mcg Tab) 75 mcg PO DAILY@0630 [facility] Last Admin: 02/13/24 05:38 Dose: 75 mcg Metoprolol Succinate (Metoprolol Succinate (Er) 25 Mg Tab.Er.24h) 25 mg PO DAILY [facility] Last Admin: 02/13/24 10:17 Dose: 25 mg Miscellaneous Information (Magnesium Replacement Protocol 1 Each Misc) 1 each MISCELLANE DAILY PRN; Protocol PRN Reason: Per Protocol Pantoprazole Sodium (Pantoprazole 40 Mg Tablet) 40 mg PO AC-BID [facility] Last Admin: 02/13/24 17:00 Dose: 40 mg Prednisone (Prednisone 20 Mg Tab) 40 mg PO DAILY [facility] Psyllium Hydrophilic Mucilloid (Psyllium Husk 100% 6 Gm Packet) 6 gm PO DAILY [facility] Tamsulosin HCl (Tamsulosin 0.4 Mg Cap.Er.24h) 0.4 mg PO BID [facility] Last Admin: 02/13/24 10:17 Dose: 0.4 mg On examination: VITAL SIGNS:98.2, 83, 16, 104/61, 96% room air GENERAL APPEARANCE: I sitting on edge of the bed, comfortable HEENT: Normal external appearance of nose and ear. Oral cavity normal EYES: Pupils equal. Conjunctiva normal. NECK: JVD not raised. Mass not palpable. RESPIRATORY: Respiratory effort normal. Lungs clear to auscultation. CARDIOVASCULAR: First and second sounds normal. No edema. ABDOMEN: Soft. Liver and spleen not palpable. No tenderness. No mass palpable. Quiñonez catheter PSYCHIATRY: Alert and oriented x3. Mood and affect normal. INVESTIGATIONS, reviewed in the clinical context: February 12: White count 16.8 hemoglobin 12.4 potassium 3.9 creatinine 0.9 EGD [February 09]: Severe antral gastritis. Mild extensive compression noted in the proximal cervical esophagus. 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 Emphysema. Barium swallow with video: Tiny amount of aspiration. Pooling within the vallecula. Delayed transit from the hypopharynx and the proximal esophagus. 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 Tums Will follow-up with speech therapy outpatient -Acute diarrhea: Resolved -Cervical spine surgery in the area of C3-C4, C4-C5, C5-C6 causing cervical myelopathy, upper extremity weakness upper extremity radiculopathy.January 26, [address] Sharp Pain control Per Dr. 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 Being followed by Dr. Dewey-urology Flomax increased to twice daily. Proscar DC Quiñonez trial 6 AM tomorrow -Hypothyroid Synthroid 75 g Essential hypertension Toprol-XL 25. Zestoretic -COPD in a ex-smoker Symbicort, albuterol when necessary -Primary osteoarthritis Tylenol when necessary -Full code Cut back prednisone to 40 mg. DC Quiñonez trial 6 AM, nurse informed
--- NOTE | 2024-02-14 08:31 | P.PN ---
Progress Note - Text Progress Note Date: 02/14/24 Orthopedic spine: History of present illness: Patient is a very pleasant 78-year-old male who is seen in his room follow-up evaluation of his cervical spine. Patient is currently using the restroom. He is status post C3-4 and C4-5 anterior cervical decompression and fusion performed on 01/26/2024. Postoperatively he has had difficulty with swallowing and breathing. He does continue have some firmness at the right anterior lateral cervical spine. He does have a history of previous radiation at his neck. He states he was having difficulty with some phlegm and swallowing of food. With some difficulty with breathing and presented to the emergency department for further evaluation. He continues to feel he has had some improvement since his admission. His pain is controlled at his anterior cervical spine. He has less swelling at his anterior cervical spine. He feels he is coughing less. He does not complain of any significant pain. He feels he has had improvement of his upper extremity radiculopathy and weakness symptoms postoperatively. He is known to have chronic difficulty with his left shoulder. He has very limited range of motion of his left shoulder. He is not currently complain of any significant pain in his cervical spine or upper extremities. He has undergone further swallow study. He has been able to maintain a pured diet. Currently, patient is planning for discharge to a rehabilitation facility today pending clearance by multiple other medical providers. He was seen by urology last Wednesday. He was also experiencing urinary retention and was discharged with a catheter. He states he has since got a urinary tract infection. He has a history of BPH. He was started on Flomax. He was seen and examined by Dr. Dewey previously. Quiñonez catheter was discontinued. Patient was unable to void independently. Quiñonez catheter had been reinserted. His Flomax was increased. The Quiñonez catheter was discharged this morning. They are trying for a voiding trial prior to discharge today. This will be managed by urology. He is admitted to medicine. Pertinent Studies: Soft tissue next CT taken on 02/06/2024: Evidence of hardware at C3-4 and C4-5 appears to be in good alignment and good position; no obvious malalignment of hardware; No evidence of pulmonary embolism; moderate centrilobular and paraseptal emphysema Assessment: Status post C3-4 and C4-5 anterior cervical decompression and fusion performed on 01/26/2024 Cervical spinal stenosis Cervical myelopathy Upper extremity weakness Upper extremity radiculopathy History of throat cancer with history of neck radiation Postoperative difficulty with swallowing and breathing Postoperative urinary retention Urinary tract infection COPD Small amount of aspiration Hypertension Prostate disorder Thyroid disorder BPH Plan: We will continue with our plan as set forth previously. 1. Patient is status post C3-4 and C4-5 anterior cervical decompression and fusion performed on 01/26/2024. He has a history of throat cancer with radiation at his neck. Postoperatively he has had some difficulty with swallowing and breathing. Some of his difficulty with his swallowing and breathing could be postoperatively from his anterior cervical decompression and fusion but also patient has a significant medical history which includes throat cancer with radiation. Patient also has COPD. He has had some improvement since his admission to the hospital. Currently, the hardware remains intact at his anterior cervical spine. He feels he has had some improvement of his upper extremity radiculopathy symptoms postoperatively. He does have ongoing weakness. He is not experiencing any significant pain. Currently, from orthopedic spine standpoint, we are not planning for further acute surgical intervention. He does have some generalized swelling around his surgical site with some generalized firmness to palpation. There is no erythema, no bruising, no obvious sign of infection. There is no drainage from his anterior cervical surgical site. Currently, we recommend continue with conservative treatment options postoperatively and continue with postoperative care. He has been prescribed a prednisone taper at the time of discharge. This is put in his chart. From an orthopedic spine standpoint, patient is cleared for discharge and will follow-up in the outpatient setting. Patient may follow-up with Jonh Perez PA-C or Dr. Luis Sharp at [facility] in 2-3 weeks following discharge or as previously scheduled. He should continue avoid overhead activities. No heavy lifting. Avoid excessive cervical flexion, extension, and rotation. No lifting greater than 10 pounds. He may use a soft cervical collar for comfort and support as needed. 2. He will continue with dietary recommendations per medicine and speech therapy. Currently on a pured diet. 3. Patient is known to have BPH. A Quiñonez catheter was placed at his previous discharge. He was being treated for a urinary tract infection. After previously failing a voiding trial, Quiñonez catheter was reinserted. His Flomax has been increased. He will continue to follow with Dr. Dewey for further evaluation and treatment. Quiñonez catheter was discharged this morning with plans for voiding trial prior to discharge to rehab today. This will be controlled by urology. 4. Patient will continue be seen and examined by medicine, infectious disease, and pulmonology.
[2024-02-14] MEDS: PSYLLIUM HUSK 100% 6 GM PACKET PO SCH (10:01)
[2024-02-14] MEDS: predniSONE 20 MG TAB PO SCH (10:01)
--- NOTE | 2024-02-14 13:48 | P.DS ---
Providers Date of admission: 02/06/24 15:46 Expected date of discharge: 02/14/24 Attending physician: Zhao Allen Consults: 02/06/24 15:46 Consult Physician Urgent Consulting Provider: Sydnee Sharp Consult Reason/Comments: Postoperative complication Do you want consulting provider notified?: Yes 02/07/24 09:47 Consult Physician Routine Consulting Provider: Laury Jhaveri Consult Reason/Comments: Leukocytosis Do you want consulting provider notified?: Yes 02/07/24 09:58 Consult Physician Routine Consulting Provider: Reji Kohler Consult Reason/Comments: Dyspnea, acute respiratory failure Do you want consulting provider notified?: Yes 02/07/24 10:54 Consult Physician Routine Consulting Provider: Edy Dewey Consult Reason/Comments: Post-op urinary retention; scheduled to see outpt today Do you want consulting provider notified?: Yes 02/08/24 12:39 Consult Physician Urgent Consulting Provider: Katherine Orlando Consult Reason/Comments: Dysphagia Do you want consulting provider notified?: Yes Primary care physician: Melchor Isaacs [place] Course: patient is a 78-year-old gentleman past medical history significant for COPD, hypertension, hypothyroidism, osteoarthritis who underwent cervical spine surgery for severe cervical stenosis C3-4 C4-5 C5-6 on January 25 who presented to the ER because of complaint of shortness of breath. Patient stated that he was discharged 1 week back after getting the surgery. Patient said he was all right till last night when he suddenly woke up complaining of shortness of breath. Shortness of breath was present on rest, there was no complaint of any chest pain. Denied any orthopnea or PND patient did feel as if his throat was closing. Patient felt tired. There was no complaint of fever or chills. Patient was complaining of cough. Patient also hard time swallowing. Because of the symptoms, patient came to the ER Initial lab work done in the ER showed WBC 26.1, hemoglobin 14.4, platelet count 272, D-dimer 1.55, sodium 139, potassium 3.9, BUN 26, creatinine 1, glucose 104, magnesium 1.5 troponin 0.012 UA done showed urine nitrite negative, urine leukocyte esterase negative, urine WBC 4 EKG done in the ER showed heart rate of 118 , no ST segment elevation or depression seen, no T-wave inversions seen. Chest x-ray done in the ER showed no acute cardiopulmonary process CT chest done showed no evidence of PE, moderate centrilobular and paraseptal emphysema. 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 There is some fat stranding changes in the right neck Patient admitted to internal medicine service 02/07. Patient seen and examined. Blood work done this morning showed WBC 15.13, hemoglobin 13.5 sodium 141, potassium 4.3, BUN 24.9, creatinine 1, glucose 118 CRP 2.2. Orthopedic evaluated the patient, doubt there is any infection at the surgical site. Still having dysphagia, will consult GI for fernando luation 02/08. Patient seen and examined. No acute issues overnight. Still having dysphagia, GI planning EGD : Saw the patient this morning. Later this afternoon underwent EGD by Dr. Cali Orlando. Found to have severe antral gastritis. Some mild extensive compression noted in the proximal cervical esophagus. Patient to be started on a soft diet. February 10: Patient is advanced to a ground diet. Then seen by speech therapist. Not tolerated. Patient is put back on pured diet. Having some diarrhea. Metamucil being added. Discussed with Dr. Sharp from orthopedics. Patient be discharged on steroid taper. Patient not keen to get discharged today because of diet and diarrhea.. Looking into rehab. Discussed with social services specialist Semaj. Discussed with patient. Total time spent today about 50 minutes with over 30 minutes of discussion. Changed over to oral prednisone. February 11: Reclining in bed. Ready to go for rehab.-On Wednesday. Pending authorization. Remains on pured diet. Discussed. Diarrhea resolved. February 12: Tolerating pured diet. No diarrhea. Cut back on Metamucil. Leukocytosis from steroids. Cut back prednisone to 40 mg. Trial of DC Quiñonez at 6 AM February 13: Quiñonez was discontinued this morning. He did make urine. Will have patient follow-up with urology outpatient. To follow with Dr. Sharp from orthopedic spine, Dr. Cali Orlando from GI, Dr. Quiñonez from vascular Discussion and discharge planning more than 35 minutes On examination: VITAL SIGNS: 97.4, 85, 19, 115/62, 92% room air GENERAL APPEARANCE: I sitting on edge of the bed, comfortable HEENT: Normal external appearance of nose and ear. Oral cavity normal EYES: Pupils equal. Conjunctiva normal. NECK: JVD not raised. Mass not palpable. RESPIRATORY: Respiratory effort normal. Lungs clear to auscultation. CARDIOVASCULAR: First and second sounds normal. No edema. ABDOMEN: Soft. Liver and spleen not palpable. No tenderness. No mass palpable. Quiñonez catheter PSYCHIATRY: Alert and oriented x3. Mood and affect normal. INVESTIGATIONS, reviewed in the clinical context: February 12: White count 16.8 hemoglobin 12.4 potassium 3.9 creatinine 0.9 EGD [February 09]: Severe antral gastritis. Mild extensive compression noted in the proximal cervical esophagus. 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 Emphysema. Barium swallow with video: Tiny amount of aspiration. Pooling within the vallecula. Delayed transit from the hypopharynx and the proximal esophagus. 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 Tums Will follow-up with speech therapy outpatient -Cervical spine surgery in the area of C3-C4, C4-C5, C5-C6 causing cervical myelopathy, upper extremity weakness upper extremity radiculopathy.January 26, [address] Sharp Pain control Per Dr. Sharp IV steroids changed over to oral prednisone. Discharged on prednisone taper. Follow-up with Dr. Sharp -Epiglottis cancer with chemoradiation in . -BPH, with bladder outflow obstruction, and Quiñonez catheter Failed trial of DC Quiñonez on this admission. Being followed by Dr. Dewey-urology Flomax increased to twice daily. Proscar DC Quiñonez trial 6 AM t today -Hypothyroid Synthroid 75 g Essential hypertension Toprol-XL 25. Zestoretic -COPD in a ex-smoker Symbicort, albuterol when necessary -Primary osteoarthritis Tylenol when necessary -Full code Disposition: [facility] facility Plan - Discharge Summary Discharge Rx Participant: No New Discharge Prescriptions: New predniSONE See Taper PO DIRECTED #24 tab Amoxicillin/Potassium Clav [Augmentin Es-600 Suspension] 600 mg PO Q12HR #100 ml Psyllium Husk 100% [Metamucil Packet] 6 gm PO DAILY packet Pantoprazole [Protonix] 40 mg PO AC-BID tab Calcium Carbonate [Tums] 500 mg PO AC-TID tab Continue Finasteride [Proscar] 5 mg PO DAILY Albuterol Inhaler [Ventolin Hfa Inhaler] 1 - 2 puff INHALATION RT-Q6H PRN PRN Reason: Dyspnea Metoprolol Succinate [Metoprolol Succinate ER] 25 mg PO DAILY Budesonide-Formot 160-4.5 Mcg [Symbicort 160-4.5 Mcg Inhaler] 2 puff INHALATION RT-BID Levothyroxine Sodium [Synthroid] 75 mcg PO DAILY Tamsulosin [Flomax] 0.4 mg PO DAILY #30 cap Changed Lisinopril-Hctz 20-12.5 mg [Zestoretic 20-12.5] 1 tab PO HS #0 Discontinued diphenhydrAMINE HCL [Benadryl] 25 mg PO DAILY PRN PRN Reason: Congestion Aspirin 81 mg PO DAILY Famotidine [Pepcid] 20 mg PO DAILY #12 tablet Discharge Medication List Albuterol Inhaler [Ventolin Hfa Inhaler] 1 - 2 puff INHALATION RT-Q6H PRN 11/29/17 [History] Finasteride [Proscar] 5 mg PO DAILY 11/29/17 [History] Budesonide-Formot 160-4.5 Mcg [Symbicort 160-4.5 Mcg Inhaler] 2 puff INHALATION RT-BID 01/24/24 [History] Metoprolol Succinate [Metoprolol Succinate ER] 25 mg PO DAILY 01/24/24 [History] Tamsulosin [Flomax] 0.4 mg PO DAILY #30 cap 01/29/24 [Rx] Levothyroxine Sodium [Synthroid] 75 mcg PO DAILY 02/06/24 [History] predniSONE See Taper PO DIRECTED #24 tab 02/09/24 [Rx] Amoxicillin/Potassium Clav [Augmentin Es-600 Suspension] 600 mg PO Q12HR #100 ml 02/14/24 [Rx] Calcium Carbonate [Tums] 500 mg PO AC-TID tab 02/14/24 [Rx] Lisinopril-Hctz 20-12.5 mg [Zestoretic 20-12.5] 1 tab PO HS #0 02/14/24 [Rx] Pantoprazole [Protonix] 40 mg PO AC-BID tab 02/14/24 [Rx] Psyllium Husk 100% [Metamucil Packet] 6 gm PO DAILY packet 02/14/24 [Rx] Follow up Appointment(s)/Referral(s): Sydnee Sharp DO [Doctor of Osteopathic Medicine] - 02/21/24 2:30 pm Edy Dewey MD [STAFF PHYSICIAN] - 1 Week (office will call with appointment time) Marina Quiñonez DO [STAFF PHYSICIAN] - 2 Weeks (office busy at time of discharge. Please call to schedule appointment ) Katherine Orlando MD [STAFF PHYSICIAN] - 3 Weeks (office not answering at time of discharge. Please call to schedule appointment ) Melchor Isaacs MD [Primary Care Provider] - 1-2 days ([facility] Please call to schedule appointment ) Activity/Diet/Wound Care/Special Instructions: 1. Patient may shower without Optifoam dressing intact. 2. Patient may wear soft cervical collar for comfort support as needed. 3. Patient should refrain from driving until at least after their first follow- up appointment in the office. 4. Patient should avoid excessive cervical flexion, extension, and side bending; avoid overhead lifting; no lifting greater than 10 pounds 5. Take medications as prescribed 6. Patient should avoid anti-inflammatory medications over the next 6 weeks postoperatively 7. Do not soak in tub dc abx per dr jhaveri Discharge Disposition: HOME SELF-CARE
--- NOTE | 2024-02-14 15:00 | P.PN ---
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 He was discharged home on 01/30/2024. He presented here to the emergency room yesterday with increasing shortness of breath and difficulty swallowing. Chest x-ray revealed no acute pulmonary process. Evidence of COPD. CT angiogram ruled out pulmonary embolism. There is moderate centrilobular and paraseptal emphysema. Indeterminate bilateral adrenal nodules. 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 No discrete enlarged lymph nodes identified. Epiglottic mass no longer visualized. There is postsurgical changes along the right neck with few surgical clips present. White count 26.1. Hemoglobin 14.4. Platelets 272. Sodium 139. Potassium 3.9. Bicarb 31. BUN 26. Creatinine 1.0. Glucose 104. Troponin negative x 1. Procalcitonin 0.09. Urinalysis with large blood. Large leukocyte esterase and high WBCs. The patient did have urinary retention following his previous surgery and had a chronic Quiñonez in place which was changed out yesterday. He is currently on Unasyn. Initiated on Symbicort, albuterol, Solu-Medrol. Barium swallow revealed a tiny amount of aspiration evident with thin liquids and nectar thick liquids. Pooling within the vallecula. Delayed transit from the hypopharynx and of the proximal esophagus. He is seen in consultation on the regular medical floor. He is currently afebrile. Hemodynamically stable. Maintaining O2 saturations in the upper 90s on room air. The patient is seen today February 08, 2024 in follow-up on the regular medical floor. He is currently sitting up at the bedside. Awake and alert in no acute distress. He denies any worsening shortness of breath, cough or congestion. He is maintaining good O2 saturations in the upper 90s on room air. He has been afebrile. Hemodynamically stable. Blood cultures revealed no growth. Urine culture revealed no growth. White count 15.1. Hemoglobin 13.5. Platelets 271. Sodium 141. Potassium 4.3. Bicarb 26. BUN 25. Creatinine 1.0. Glucose 118. Procalcitonin 0.04. He remains on Unasyn per ID service. Continued on Symbicort. Remains on IV steroids per orthopedics. He remains n.p.o. for his dysphagia. The patient is seen today February 09, 2024 in follow-up on the regular medical floor. He is awake and alert in no acute distress. Maintaining good O2 saturations in the 90s on room air. He remains nothing by mouth for his dysphagia. He remains on Solu-Medrol per orthopedics. He is continued on Unasyn. Remains on Symbicort and albuterol. No new labs today. The patient is seen today February 10, 2024 in follow-up on the regular medical floor. He is currently resting in bed. Awake and alert in no acute distress. He is awaiting a EGD today. He remains n.p.o. due to his dysphagia and aspiration. He remains on Unasyn. Continued on bronchodilators and steroids. Blood cultures revealed no growth. Urine culture revealed no growth. White count 12.5. Hemoglobin 12.0. Platelets 243. Sodium 144. Potassium 4.2. Bicarb 22. BUN 34. Creatinine 1.0. AST 47. ALT 86. The patient is seen today February 11, 2024 in follow-up on the regular medical floor. He is sitting up at the bedside. Awake and alert in no acute distress. Maintaining good O2 saturations in the 90s on room air. He did undergo EGD yesterday that revealed severe antral gastritis. Mild extrinsic compression noted in the proximal cervical esophagus possibly from osteophytes or recent chris katy but no evidence of esophageal narrowing or strictures. He has been initiated on a pured diet. Rotted Dopplers revealed 50 to 69% stenosis of the left carotid bifurcation. Unable to obtain velocities of the right carotid bifurcation possibly due to occlusion. No plans for surgical intervention per vascular surgery. Blood and urine cultures revealed no growth. No new labs today. The patient is seen today February 12, 2024 in follow-up on the regular medical floor. He is awake and alert in no acute distress. Sitting up at the bedside. He denies any worsening shortness of breath, cough or congestion. He is maintaining good O2 saturations in the 90s on room air. He is tolerating a p ured diet. Blood cultures revealed no growth. Urine culture revealed no growth. He remains on Unasyn. Continued on Symbicort, albuterol. Initiated on prednisone taper per orthopedics. The patient is seen today February 13, 2024 in follow-up on the regular medical floor. He is sitting up at the bedside. Awake and alert in no acute distress. Continues to maintain good O2 saturations in the 90s on room air. He is tolerating a pured diet. No difficulty swallowing today. Blood cultures revea led no growth. Urine culture revealed no growth. White count 16.8. Hemoglobin 12.4. Platelets 211. Sodium 140. Potassium 3.9. Bicarb 29. BUN 26. Creatinine 0.9. Glucose 108. On Unasyn. Continued on bronchodilators. Continued on a prednisone taper. The patient is seen today February 14, 2024 in follow-up on the regular medical floor. He is awake and alert in no acute distress. Resting comfortably in bed. Denies any worsening shortness of breath, cough or congestion. Denies any difficulty swallowing. Denies any recent aspiration. He is maintaining good O2 saturations in the 90s on room air. He is been afebrile. Hemodynamically stable. No new labs today. He remains on Symbicort and albuterol. Continued on Unasyn. Continued on a prednisone taper. Objective - Vital Signs Vital signs: Vital Signs Temp 97.4 F L 02/14/24 07:36 Pulse 85 02/14/24 07:36 Resp 19 02/14/24 07:36 BP 115/62 02/14/24 07:36 Pulse Ox 92 L 02/14/24 07:36 FiO2 21 02/11/24 08:55 Intake & Output 02/13/24 02/14/24 02/14/24 18:59 06:59 18:59 Output Total 1350 Balance -1350 Output: Urine 1350 Uretheral (Quiñonez) 350 Other: Voiding Method Indwelling Catheter Indwelling Catheter # Bowel Movements 1 1 1 - Exam GENERAL EXAM: Alert, pleasant 78-year-old male patient, resting in bed, on room air, in no apparent distress. HEAD: Normocephalic. EYES: Normal reaction of pupils, equal size. NOSE: Clear with pink turbinates. THROAT: No erythema or exudates. NECK: No masses, no JVD. CHEST: No chest wall deformity. LUNGS: Equal air entry with few scattered rhonchi. CVS: S1 and S2 normal with no audible murmur, regular rhythm. ABDOMEN: No hepatosplenomegaly, normal bowel sounds, no guarding or rigidity. SPINE: No scoliosis or deformity SKIN: No rashes CENTRAL NERVOUS SYSTEM: No focal deficits, tone is normal in all 4 extremities. EXTREMITIES: There is no peripheral edema. No clubbing, no cyanosis. Peripheral pulses are intact. - Labs CBC & Chem 7: 02/13/24 04:07 02/13/24 04:07 Assessment and Plan Assessment: Dysphagia secondary to recent cervical neck surgery. Treated with steroids. EGD revealed severe antral gastritis. There is mild extrinsic compression noted in the proximal cervical esophagus possibly from osteophytes or recent surgery but no evidence of esophageal narrowing/stricture. Tolerating a pured diet. Recent surgery on January 26, 2024 with an anterior cervical decompression with discectomy and fusion of C3-4, C4-5 with increased level of difficulty with dissection exposure due to prior epiglottic cancer with radiation and subsequent soft tissue fibrosis. He was discharged home on 01/30/2024 Occluded right carotid artery. No plans for vascular intervention. 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 Number of minutes spent on the visit: 10.
[2024-02-14 15:19] VITALS: BP 106/57; PULSE 86; RESP 18; TEMP 98.4
--- NOTE | 2024-02-14 17:51 | P.PN ---
Subjective Progress Note Date: 02/13/24 Principal diagnosis: Reason for follow-up is leukocytosis question of infection Patient is a 78-year-old male with a past medical history significant for hypertension COPD hypothyroidism did have a previous history of cancer of the epiglottis status post chemoradiation and hypothyroidism patient recently did have C3-4 and C4-5 anterior cervical decompression and fusion performed on 01/26/2024, patient presented to hospital with difficulty breathing and swallowing patient did have elevated white count CT of the neck shows fat stranding but no evidence of any abscess. Patient is status post EGD completed on 02/10/2024 with evidence of severe antral gastritis mild Extrinsic compression noted in the proximal cervical esophagus. On today's evaluation that is 02/13/2024, the patient continues to be afebrile, the patient is on room air and breathing comfortably, the Pt denies having any chest pain or cough, the patient denies having any abdominal pain no vomiting or any diarrhea, patient mention has been able to tolerate soft food that has been given with no choking episode. Patient did have white count of 16.8 and, creatinine 0.9 Objective - Vital Signs Vital signs: Vital Signs Temp 97.6 F 02/13/24 07:36 Pulse 71 02/13/24 07:36 Resp 17 02/13/24 07:36 BP 134/74 02/13/24 07:36 Pulse Ox 95 02/13/24 07:36 FiO2 21 02/11/24 08:55 Intake & Output 02/12/24 02/13/24 02/13/24 18:59 06:59 18:59 Intake Total 480 Output Total 700 600 Balance -220 -600 Intake: Oral 480 Output: Urine 700 600 Other: Voiding Method Indwelling Catheter Indwelling Catheter Indwelling Catheter - Exam GENERAL DESCRIPTION: An elderly male lying in bed in no distress HEENT: Anterior cervical incision remains to be healed with no redness RESPIRATORY SYSTEM: Unlabored breathing , decreased breath sounds at bases HEART: S1 S2 regular rate and rhythm , ABDOMEN: Soft , no tenderness EXTREMITIES: No edema feet - Labs CBC & Chem 7: 02/13/24 04:07 02/13/24 04:07 Labs: Abnormal Lab Results - Last 24 Hours (Table) 02/13/24 02/13/24 Range/Units 04:07 04:07 WBC 16.89 H (4.50-10.00) X 10*3/uL RBC 3.91 L (4.40-5.60) X 10*6/uL Hgb 12.4 L (13.0-17.0) g/dL Hct 37.4 L (39.6-50.0) % Immature Gran # 0.13 H (0.00-0.04) X 10*3/uL Neutrophils # 14.24 H (1.80-7.70) X 10*3/uL Monocytes # 1.07 H (0.20-1.00) X 10*3/uL Eosinophils # 0.01 L (0.04-0.35) X 10*3/uL BUN/Creatinine Ratio 28.67 H (12.00-20.00) Ratio ALT 71 H (10-49) U/L Total Protein 5.0 L (6.2-8.2) g/dL Albumin 3.3 L (3.8-4.9) g/dL Assessment and Plan (1) Leukocytosis Status: Acute Code(s): D72.829 - ELEVATED WHITE BLOOD CELL COUNT, UNSPECIFIED SNOMED Code(s): 740049549 Plan: 1patient with leukocytosis in this patient who recently did have C3-4 and C4-5 anterior cervical decompression and fusion on 01/26/2024 presented to hospital with difficulty in breathing CT angiogram of the chest was negative for PE or pneumonia CT of the neck did show some fat stranding did not mention any abscess patient did have healing of his anterior cervical incision with no cellulitis patient has been on steroids in the outpatient setting could be related to that versus inflammation is seen on the CT of the neck 2-patient did have EGD with concern for possible extrinsic compression being addressed further by GI and orthopedics 3- patient white count slightly up today could be related to the steroids as evidence of any worsening clinical condition with Unasyn and monitor clinical course closely Dictation was produced using [employer] dictation software. please excuse any grammatical, word or spelling errors. Time with Patient: Less than 30
--- NOTE | 2024-02-14 17:52 | P.PN ---
Subjective Progress Note Date: 02/14/24 Principal diagnosis: Reason for follow-up is leukocytosis question of infection Patient is a 78-year-old male with a past medical history significant for hypertension COPD hypothyroidism did have a previous history of cancer of the epiglottis status post chemoradiation and hypothyroidism patient recently did have C3-4 and C4-5 anterior cervical decompression and fusion performed on 01/26/2024, patient presented to hospital with difficulty breathing and swallowing patient did have elevated white count CT of the neck shows fat stranding but no evidence of any abscess. Patient is status post EGD completed on 02/10/2024 with evidence of severe antral gastritis mild Extrinsic compression noted in the proximal cervical esophagus. On today's evaluation that is 02/14/2024, Patient is afebrile patient is currently on room air and denies having any shortness of breath, the patient denies any chest pain or cough, the patient denies any nausea vomiting is tolerating his diet without any choking did not have any abdominal pain and no diarrhea, denies pain to the neck area. No new lab has been obtained today blood and urine culture has been negative Objective - Vital Signs Vital signs: Vital Signs Temp 97.4 F L 02/14/24 07:36 Pulse 85 02/14/24 07:36 Resp 19 02/14/24 07:36 BP 115/62 02/14/24 07:36 Pulse Ox 92 L 02/14/24 07:36 FiO2 21 02/11/24 08:55 Intake & Output 02/13/24 02/14/24 02/14/24 18:59 06:59 18:59 Output Total 1350 Balance -1350 Output: Urine 1350 Uretheral (Quiñonez) 350 Other: Voiding Method Indwelling Catheter Indwelling Catheter # Bowel Movements 1 1 1 - Exam GENERAL DESCRIPTION: An elderly male lying in bed in no distress HEENT: Anterior cervical incision remains to be healed with no redness RESPIRATORY SYSTEM: Unlabored breathing , decreased breath sounds at bases HEART: S1 S2 regular rate and rhythm , ABDOMEN: Soft , no tenderness EXTREMITIES: No edema feet - Labs CBC & Chem 7: 02/13/24 04:07 02/13/24 04:07 Assessment and Plan (1) Leukocytosis Status: Acute Code(s): D72.829 - ELEVATED WHITE BLOOD CELL COUNT, UNSPECIFIED SNOMED Code(s): 041422528 Plan: 1patient with leukocytosis in this patient who recently did have C3-4 and C4-5 anterior cervical decompression and fusion on 01/26/2024 presented to hospital with difficulty in breathing CT angiogram of the chest was negative for PE or pneumonia CT of the neck did show some fat stranding did not mention any abscess patient did have healing of his anterior cervical incision with no cellulitis patient has been on steroids in the outpatient setting could be related to that versus inflammation is seen on the CT of the neck 2-patient did have EGD with concern for possible extrinsic compression being addressed further by GI and orthopedics 3- patient white count slightly up yesterday no CBC has been done today clinical ly the patient is afebrile culture has been negative admitting team discharging the patient to the detention we will consider Augmentin suspension on discharge and close outpatient follow-up Dictation was produced using [employer] dictation software. please excuse any grammatical, word or spelling errors. Time with Patient: Less than 30
== END 2024-02-14 17:08 | disposition home or self-care (01) | DRG 392 ==
LOC: EC 09:39 → 4SSUR 15:46
PROVIDERS: ADMIT Hospitalist; ATTEND Hospitalist
PROC: 0DB78ZX Excision of Stomach, Pylorus, Via Natural or Artificial Opening Endoscopic, Diagnostic (ICD-10-PCS; principal; 2024-02-06)
DX: R13.13 Dysphagia, pharyngeal phase (principal); G99.2 Myelopathy in diseases classified elsewhere; M48.02 Spinal stenosis, cervical region; T38.0X5A Adverse effect of glucocorticoids and synthetic analogues, initial encounter; N40.1 Benign prostatic hyperplasia with lower urinary tract symptoms; R33.8 Other retention of urine; N32.0 Bladder-neck obstruction; K29.70 Gastritis, unspecified, without bleeding; M54.10 Radiculopathy, site unspecified; M19.91 Primary osteoarthritis, unspecified site; J43.8 Other emphysema; J43.2 Centrilobular emphysema; I65.23 Occlusion and stenosis of bilateral carotid arteries; I10 Essential (primary) hypertension; R06.00 Dyspnea, unspecified; E27.8 Other specified disorders of adrenal gland; K22.2 Esophageal obstruction; D72.829 Elevated white blood cell count, unspecified; R19.7 Diarrhea, unspecified; T17.908A Unspecified foreign body in respiratory tract, part unspecified causing other injury, initial encounter; E03.9 Hypothyroidism, unspecified; Z96.641 Presence of right artificial hip joint; Z98.1 Arthrodesis status; Z71.3 Dietary counseling and surveillance; Z87.891 Personal history of nicotine dependence; Z91.041 Radiographic dye allergy status; Z88.1 Allergy status to other antibiotic agents; Z92.3 Personal history of irradiation; Z92.21 Personal history of antineoplastic chemotherapy; Z85.21 Personal history of malignant neoplasm of larynx; Z85.01 Personal history of malignant neoplasm of esophagus; Z79.899 Other long term (current) drug therapy; Z79.890 Hormone replacement therapy; Z79.82 Long term (current) use of aspirin; Z79.51 Long term (current) use of inhaled steroids
CPT/HCPCS: 36415; 43239; 70491; 71046; 71275; 74230; 80053; 81001; 83605; 83735; 84145; 84484; 85025; 85379; 85610; 85652; 85730; 86140; 87040; 87086; 88305; 93005; 93880; 94640; 94760; 96361; 96365; 96375; 99285